=== PATIENT | male | born 1945 | race Caucasian/White ===

== ENCOUNTER 2017-05-05 14:26 | Observation (INO) | payer MEDICARE, OTHER ==
[2017-05-05] MEDS: NORMAL SALINE 1000 ML 1,000 ML IV PRN (15:36)
[2017-05-05 16:26] LABS: HEMATOCRIT 40.5 % (37.9-51.0); HEMOGLOBIN 13.5 g/dL (13.5-17.0); MEAN CORPUSCULAR HEMOGLOBIN 29.6 pg (27.0-33.4); MEAN CORPUSCULAR HGB CONC 33.4 g/dL (32.0-36.0); MEAN CORPUSCULAR VOLUME 89 fl (80-97); RED BLOOD COUNT 4.56 10^6/uL (4.35-5.55); RED CELL DISTRIBUTION WIDTH 14.5 % (11.5-14.0); WHITE BLOOD COUNT 7.7 10^3/uL (4.0-10.5)
[2017-05-05 16:41] LABS: ALANINE AMINOTRANSFERASE 37 U/L (21-72); ALBUMIN 4.1 g/dL (3.5-5.0); ALKALINE PHOSPHATASE 75 U/L (38-126); ANION GAP 11 (5-19); ASPARTATE AMINO TRANSFERASE 28 U/L (17-59); BILIRUBIN,DIRECT 0.4 mg/dL (0.0-0.4); BILIRUBIN,TOTAL 0.6 mg/dL (0.2-1.3); BLOOD UREA NITROGEN 39 mg/dL (7-20); CALCIUM 9.2 mg/dL (8.4-10.2); CARBON DIOXIDE 28 mmol/L (22-30); CHLORIDE 102 mmol/L (98-107); CREATINE KINASE 86 U/L (55-170); CREATININE RESULT 2.34 mg/dL (0.52-1.25); GLUCOSE 100 mg/dL (75-110); POTASSIUM 4.2 mmol/L (3.6-5.0); SODIUM 141.3 mmol/L (137-145); TOTAL PROTEIN 7.1 g/dL (6.3-8.2)
--- NOTE | 2017-05-05 16:46 | EKG REPORT ---
SEVERITY:- BORDERLINE ECG - INCOMPLETE ANALYSIS DUE TO MISSING DATA IN PRECORDIAL LEAD(S) SINUS TACHYCARDIA BORDERLINE INFERIOR Q WAVES : Confirmed by: Ariella Mcconnell MD 05-May-2017 16:45:06
[2017-05-05 16:50] LABS: CREATINE KINASE MB 1.07 ng/mL (<4.55)
[2017-05-05 16:54] LABS: TROPONIN I < 0.012 ng/mL
[2017-05-05 17:10] LABS: THYROID STIMULATING HORMONE 14.6 uIU/mL (0.47-4.68)
[2017-05-05] MEDS ORDERED: DEXTROSE 50%-WATER 25 GM/50 ML DISP.SYRIN IV PRN ×2 (17:54)
[2017-05-05] MEDS ORDERED: DEXTROSE 40% GEL 15 GM TUBE PO PRN ×2 (17:54)
[2017-05-05] MEDS ORDERED: INSULIN LISPRO 100 UNIT/ML 3 ML VIAL SUBCUT PRN (17:54)
[2017-05-05] MEDS ORDERED: GLUCAGON,HUMAN RECOMB 1 MG INJ IM PRN (17:54)
[2017-05-05] MEDS ORDERED: (PENDING PHARMACY ID) (Rizatriptan Benzoate [Maxalt] 10 MG) PO PRN (18:05)
[2017-05-05] MEDS ORDERED: ALPRAZOLAM 0.5 MG TABLET PO PRN (18:15)
[2017-05-05] MEDS ORDERED: ALBUTEROL SULFATE HFA (90 MCG/PUFF) 200 PUFF/8.5 GM MDI IH PRN (18:45)
--- NOTE | 2017-05-05 20:23 | RADIOLOGY REPORT (SQ) ---
EXAM DESCRIPTION: CHEST SINGLE VIEW COMPLETED DATE/TIME: 05/05/2017 6:55 pm REASON FOR STUDY: hypotension, shortness of breath COMPARISON: May 2016 EXAM PARAMETERS: NUMBER OF VIEWS: One view. TECHNIQUE: Single frontal radiographic view of the chest acquired. RADIATION DOSE: NA LIMITATIONS: None. FINDINGS: LUNGS AND PLEURA: No opacities, masses or pneumothorax. No pleural effusion. MEDIASTINUM AND HILAR STRUCTURES: No masses. Contour normal. HEART AND VASCULAR STRUCTURES: Cardiac silhouette remains enlarged and is unchanged in configuration. BONES: No acute findings. HARDWARE: None in the chest. OTHER: No other significant finding. IMPRESSION: No significant interval change. No acute changes. Cardiomegaly. Other findings as not ed above TECHNICAL DOCUMENTATION: JOB ID: [id number]
--- NOTE | 2017-05-05 21:22 | PDOC H&P ---
History of Present Illness Admission Date/PCP: 05/05/17 14:26 SILVANO JORDAN MD History of Present Illness: YA PETTIT is a 71 year old male,He came to the office today because of severe low blood pressure, patient recorded blood pressure of 65 systolic. In the office he was evaluated the blood pressure recorded was 90 systolic. He was admitted directly from the office into the hospital patient denies taking mistakenly to my medication for the control of the blood pressure, the blood work that was done showed serum creatinine of 2.34, the serum creatinine from about 10 days ago was 1.7, clearly patient sustained acute kidney injury probably ATN due to low blood pressure. Patient spouse indicated to me that yesterday he took Viagra before his blood pressure dropped to 60 systolic but she did not want me to tell the patient that she told me that he took Viagra.. Past Medical History Cardiac Medical History: Reports: Hyperlipidema, Hypertension Pulmonary Medical History: Reports: Asthma, Sleep Apnea Endocrine Medical History: Reports: Diabetes Mellitus Type 2, Hypothyroidism, Obesity GI Medical History: Reports: Gastroesophageal Reflux Disease Musculoskeltal Medical History: Reports: Arthritis Psychiatric Medical History: Reports: Depression Past Surgical History Past Surgical History: Reports: Appendectomy, Cardiac Catheterization, Orthopedic Surgery - bilat arm fx, bilat rotator cuff, Tonsillectomy Social History Smoking Status: Former Smoker Number of Years Smokin Last Time Smoked: 1979 Frequency of Alcohol Use: None Hx Recreational Drug Use: No Hx Prescription Drug Abuse: No Family History Family History: Reviewed & Not Pertinent Parental Family History Reviewed: Yes Children Family History Reviewed: Yes Sibling(s) Family History Reviewed.: Yes Medication/Allergy Home Medications: Albuterol Sulfate [Ventolin Hfa] 2 puff IH Q4HP PRN 05/05/17 Alprazolam [Xanax] 2 mg PO HSP PRN 05/05/17 Aspirin [Aspirin EC] 81 mg PO DAILY 05/05/17 Atorvastatin Calcium [Lipitor 40 mg Tablet] 40 mg PO QHS 05/05/17 Duloxetine HCl [Cymbalta] 60 mg PO DAILY 05/05/17 Duloxetine HCl [Cymbalta] 60 mg PO QPM 05/05/17 Ergocalciferol (Vitamin D2) [Vitamin D2] 50,000 unit PO WALLIS@1000 05/05/17 Glipizide [Glucotrol 10 mg Tablet] 10 mg PO DAILY 05/05/17 Glipizide [Glucotrol 10 mg Tablet] 10 mg PO QPM 05/05/17 Levothyroxine Sodium [Synthroid] 150 mcg PO QAM 05/05/17 Lorazepam 2 mg PO QHS 05/05/17 Metformin HCl [Glucophage 500 mg Tablet] 1,000 mg PO QPM 05/05/17 Metformin HCl [Glucophage 500 mg Tablet] 500 mg PO DAILY 05/05/17 Olmesartan Medoxomil [Benicar] 20 mg PO DAILY 05/05/17 Omeprazole 40 mg PO WSUPPER 05/05/17 Pioglitazone HCl [Actos 15 mg Tablet] 15 mg PO DAILY 05/05/17 Pramipexole Di-HCl [Pramipexole Dihydrochloride] 1.5 mg PO DAILY 05/05/17 Pramipexole Di-HCl [Pramipexole Dihydrochloride] 1.5 mg PO WSUPPER 05/05/17 Rizatriptan Benzoate [Maxalt] 10 mg PO DAILYP PRN 05/05/17 Tiotropium [place] [Spiriva] 1 cap IH DAILY 05/05/17 Allergies/Adverse Reactions: No Known Allergies Allergy (Verified 11/08/14 19:58) Review of Systems Constitutional: ABSENT: chills, fever(s), headache(s), weight gain, weight loss Eyes: ABSENT: visual disturbances Ears: ABSENT: hearing changes Cardiovascular: ABSENT: chest pain, dyspnea on exertion, edema, orthropnea, palpitations Respiratory: ABSENT: cough, hemoptysis Gastrointestinal: ABSENT: abdominal pain, constipation, diarrhea, hematemesis, hematochezia, nausea, vomiting Genitourinary: ABSENT: dysuria, hematuria Musculoskeletal: ABSENT: joint swelling Integumentary: ABSENT: rash, wounds Neurological: ABSENT: abnormal gait, abnormal speech, confusion, dizziness, focal weakness, syncope Psychiatric: ABSENT: anxiety, depression, homidical ideation, suicidal ideation Endocrine: ABSENT: cold intolerance, heat intolerance, menstrual abnormalities, polydipsia, polyuria Hematologic/Lymphatic: ABSENT: easy bleeding, easy bruising, lymphadenopathy Physical Exam Vital Signs: Temp Pulse Resp BP Pulse Ox 97.9 F 100 20 98/64 L 97 05/05/17 19:59 05/05/17 19:59 05/05/17 19:59 05/05/17 19:59 05/05/17 19:59 Intake & Output 05/04/17 05/05/17 05/06/17 06:59 06:59 06:59 Intake Total 1089 Balance 1089 Weight 149.8 kg General appearance: PRESENT: no acute distress, obese, well-developed, well- nourished Head exam: PRESENT: atraumatic, normocephalic Eye exam: PRESENT: conjunctiva pink, EOMI, PERRLA Ear exam: PRESENT: normal external ear exam Mouth exam: PRESENT: moist, tongue midline Neck exam: PRESENT: full ROM Respiratory exam: PRESENT: clear to auscultation milena Cardiovascular exam: PRESENT: +S1, +S2 Vascular exam: PRESENT: normal capillary refill GI/Abdominal exam: PRESENT: normal bowel sounds, soft Rectal exam: PRESENT: deferred Neurological exam: PRESENT: alert, awake, oriented to person, oriented to place , oriented to time, oriented to situation, CN II-XII grossly intact Psychiatric exam: PRESENT: appropriate affect, normal mood Skin exam: PRESENT: dry, intact, warm Results Laboratory Results: 05/05/17 16:10 05/05/17 16:10 05/05/17 05/05/17 05/05/17 16:10 16:10 16:10 WBC 7.7 RBC 4.56 Hgb 13.5 Hct 40.5 MCV 89 MCH 29.6 MCHC 33.4 RDW 14.5 H Plt Count 195 Sodium 141.3 Potassium 4.2 Chloride 102 Carbon Dioxide 28 Anion Gap 11 BUN 39 H Creatinine 2.34 H Est GFR ( Amer) 33 L Est GFR (Non-Af Amer) 27 L Glucose 100 Calcium 9.2 Total Bilirubin 0.6 AST 28 ALT 37 Alkaline Phosphatase 75 Total Protein 7.1 Albumin 4.1 TSH 14.60 H Free T4 1.07 05/05/17 05/05/17 16:10 16:10 Creatine Kinase 86 CK-MB (CK-2) 1.07 Troponin I < 0.012 NT-Pro-B Natriuret Pep 35 Impressions: Chest X-Ray 05/05/17 00:00 IMPRESSION: No significant interval change. No acute changes. Cardiomegaly. Other findings as noted above Assessment & Plan - Diagnosis (1) Hypotension Qualifiers: Hypotension type: hypotension due to drug Qualified Code(s): I95.2 - Hypotension due to drugs Is this a current diagnosis for this admission?: Yes Plan: The low blood pressure is most likely related to the medication, Viagra (2) Acute kidney injury Is this a current diagnosis for this admission?: Yes Plan: He sustained acute kidney injury due to ATN from low blood pressure (3) Acute tubular necrosis Is this a current diagnosis for this admission?: Yes (4) Morbid obesity due to excess calories Is this a current diagnosis for this admission?: Yes
[2017-05-05] MEDS ORDERED: LORAZEPAM 1 MG TABLET PO SCH (22:00)
[2017-05-05] MEDS ORDERED: ATORVASTATIN CALCIUM 40 MG TABLET PO SCH (22:00)
[2017-05-05] MEDS ORDERED: (PENDING PHARMACY ID) (Lorazepam [Lorazepam] 2 MG) PO SCH (22:00)
[2017-05-05 22:26] LABS: APPEARANCE,URINE SLIGHTLY-CLOUDY; BILIRUBIN,URINE NEGATIVE (NEGATIVE); GLUCOSE, URINE NEGATIVE (NEGATIVE); KETONES,URINE NEGATIVE (NEGATIVE); LEUKOCYTE ESTERASE,URINE NEGATIVE (NEGATIVE); NITRITE,URINE NEGATIVE (NEGATIVE); PROTEIN,URINE 30 mg/dL (NEGATIVE); URINE SPECIFIC GRAVITY 1.016
[2017-05-05 23:43] LABS: TROPONIN I < 0.012 ng/mL
[2017-05-06] MEDS: NORMAL SALINE 1000 ML 1,000 ML IV PRN ×2 (00:56→11:52)
--- NOTE | 2017-05-06 07:18 | RADIOLOGY REPORT (SQ) ---
EXAM DESCRIPTION: U/S RETROPERITON (RENAL/AORTA) COMPLETED DATE/TIME: 05/06/2017 7:05 am REASON FOR STUDY: acute kidney injury E66.09 OTHER OBESITY DUE TO EXCESS CALORIES I95.9 HYPOTENSI ON, UNSPECIFIED E03.9 HYPOTHYROIDISM, UNSPECIFIED COMPARISON: 12.27.15 TECHNIQUE: Dynamic and static grayscale images acquired of the kidneys and bladder and recorded on P ACS. Additional selected color Doppler and spectral images recorded. LIMITATIONS: As below. FINDINGS: RIGHT KIDNEY: Not visualized likely due to body habitus. LEFT KIDNEY: Normal size, 11.5 cm. Normal echogenicity. No solid or suspicious masses. No hydronephr osis. No calcifications. BLADDER: No masses. Patient voided prior to exam. Urinary jet flow not demonstrated. Urinary bladd er appears unremarkable. OTHER FINDINGS: No other significant finding. IMPRESSION: Right kidney is not visualized probably due to body habitus. Else, unremarkable renal s onogram. TECHNICAL DOCUMENTATION: JOB ID: [id number] [employer]- All Rights Reserved
[2017-05-06] MEDS ORDERED: LEVOTHYROXINE SODIUM 0.15 MG TABLET PO SCH (08:00)
[2017-05-06 08:17] LABS: CREATINE KINASE MB 1.28 ng/mL (<4.55)
[2017-05-06 08:24] LABS: TROPONIN I < 0.012 ng/mL
[2017-05-06 08:35] LABS: ALANINE AMINOTRANSFERASE 30 U/L (21-72); ALBUMIN 3.8 g/dL (3.5-5.0); ALKALINE PHOSPHATASE 76 U/L (38-126); ANION GAP 11 (5-19); ASPARTATE AMINO TRANSFERASE 26 U/L (17-59); BILIRUBIN,DIRECT 0.5 mg/dL (0.0-0.4); BILIRUBIN,TOTAL 0.6 mg/dL (0.2-1.3); BLOOD UREA NITROGEN 39 mg/dL (7-20); CALCIUM 8.6 mg/dL (8.4-10.2); CARBON DIOXIDE 28 mmol/L (22-30); CHLORIDE 103 mmol/L (98-107); CREATININE RESULT 2.03 mg/dL (0.52-1.25); GLUCOSE 94 mg/dL (75-110); SODIUM 141.8 mmol/L (137-145); TOTAL PROTEIN 6.4 g/dL (6.3-8.2)
[2017-05-06] MEDS ORDERED: METFORMIN HCL 500 MG TABLET PO SCH ×2 (10:00→18:00)
[2017-05-06] MEDS ORDERED: GLIPIZIDE 10 MG TABLET PO SCH ×2 (10:00→18:00)
[2017-05-06] MEDS ORDERED: PRAMIPEXOLE DI-HCL 0.5 MG TABLET PO SCH (10:00)
[2017-05-06] MEDS ORDERED: (PENDING PHARMACY ID) (Olmesartan Medoxomil [Benicar] 20 MG) PO SCH (10:00)
[2017-05-06] MEDS ORDERED: ASPIRIN 81 MG TABLET, ENT COATED PO SCH (10:00)
[2017-05-06] MEDS ORDERED: PIOGLITAZONE HCL 15 MG TABLET PO SCH (10:00)
[2017-05-06] MEDS ORDERED: TIOTROPIUM BROMIDE DPI 5 CAP/KIT (18 MCG/CAP) IH SCH (10:00)
[2017-05-06] MEDS ORDERED: LOSARTAN POTASSIUM 50 MG TABLET PO SCH (10:00)
[2017-05-06] MEDS ORDERED: (PENDING PHARMACY ID) (Pramipexole Di-Hcl [Pramipexole Dihydrochloride] 1.5 MG) PO SCH ×2 (10:00→17:00)
[2017-05-06] MEDS ORDERED: DULOXETINE HCL 30 MG CAPSULE.DR PO SCH ×2 (10:00→18:00)
[2017-05-06 16:06] LABS: ALANINE AMINOTRANSFERASE 33 U/L (21-72); ALKALINE PHOSPHATASE 77 U/L (38-126); ANION GAP 9 (5-19); ASPARTATE AMINO TRANSFERASE 28 U/L (17-59); BILIRUBIN,DIRECT 0.4 mg/dL (0.0-0.4); BILIRUBIN,TOTAL 0.7 mg/dL (0.2-1.3); BLOOD UREA NITROGEN 37 mg/dL (7-20); CALCIUM 8.8 mg/dL (8.4-10.2); CARBON DIOXIDE 31 mmol/L (22-30); CHLORIDE 102 mmol/L (98-107); CREATININE RESULT 1.78 mg/dL (0.52-1.25); GLUCOSE 91 mg/dL (75-110); POTASSIUM 4.7 mmol/L (3.6-5.0); SODIUM 142.3 mmol/L (137-145); TOTAL PROTEIN 6.7 g/dL (6.3-8.2)
--- NOTE | 2017-05-06 16:20 | PDOC DISCHARGE SUMMARY ---
General - Admit/Disc Date/PCP Admission Date/Primary Care Provider: 05/05/17 14:26 SILVANO JORDAN MD Discharge Date: 05/06/17 - Discharge Diagnosis (1) Hypotension Is this a current diagnosis for this admission?: Yes (2) Acute kidney injury Is this a current diagnosis for this admission?: Yes (3) Acute tubular necrosis Is this a current diagnosis for this admission?: Yes (4) Morbid obesity due to excess calories Is this a current diagnosis for this admission?: Yes - Additional Information Discharge Activity: Activity As Tolerated Home Medications: RX: Albuterol Sulfate [Ventolin Hfa] 2 puff IH Q4HP PRN 05/05/17 RX: Alprazolam [Xanax] 2 mg PO HSP PRN 05/05/17 RX: Aspirin [Aspirin EC] 81 mg PO DAILY 05/05/17 RX: Atorvastatin Calcium [Lipitor 40 mg Tablet] 40 mg PO QHS 05/05/17 RX: Duloxetine HCl [Cymbalta] 60 mg PO DAILY 05/05/17 RX: Duloxetine HCl [Cymbalta] 60 mg PO QPM 05/05/17 RX: Ergocalciferol (Vitamin D2) [Vitamin D2] 50,000 unit PO WALLIS@1000 05/05/17 RX: Glipizide [Glucotrol 10 mg Tablet] 10 mg PO DAILY 05/05/17 RX: Glipizide [Glucotrol 10 mg Tablet] 10 mg PO QPM 05/05/17 RX: Levothyroxine Sodium [Synthroid] 150 mcg PO QAM 05/05/17 RX: Lorazepam 2 mg PO QHS 05/05/17 RX: Metformin HCl [Glucophage 500 mg Tablet] 1,000 mg PO QPM 05/05/17 RX: Metformin HCl [Glucophage 500 mg Tablet] 500 mg PO DAILY 05/05/17 RX: Olmesartan Medoxomil [Benicar] 20 mg PO DAILY 05/05/17 RX: Omeprazole 40 mg PO WSUPPER 05/05/17 RX: Pioglitazone HCl [Actos 15 mg Tablet] 15 mg PO DAILY 05/05/17 RX: Pramipexole Di-HCl [Pramipexole Dihydrochloride] 1.5 mg PO DAILY 05/05/17 RX: Pramipexole Di-HCl [Pramipexole Dihydrochloride] 1.5 mg PO WSUPPER 05/05/17 RX: Rizatriptan Benzoate [Maxalt] 10 mg PO DAILYP PRN 05/05/17 RX: Tiotropium [place] [Spiriva] 1 cap IH DAILY 05/05/17 History of Present Illness History of Present Illness: YA PETTIT is a 71 year old male,He came to the office today because of severe low blood pressure, patient recorded blood pressure of 65 systolic. In the office he was evaluated the blood pressure recorded was 90 systolic. He was admitted directly from the office into the hospital patient denies taking mistakenly to my medication for the control of the blood pressure, the blood work that was done showed serum creatinine of 2.34, the serum creatinine from about 10 days ago was 1.7, clearly patient sustained acute kidney injury probably ATN due to low blood pressure. Patient spouse indicated to me that yesterday he took Viagra before his blood pressure dropped to 60 systolic but she did not want me to tell the patient that she told me that he took Viagra.. Hospital Course Hospital Course: Patient was admitted for the management of hypotension associated with acute kidney injury due to acute tubular necrosis. He was treated with IV fluid normal saline, the kidney function improve, it was nonoliguric, the last serum creatinine was 1.78 Physical Exam Vital Signs: Temp Pulse Resp BP Pulse Ox 98.2 F 89 22 H 108/66 97 05/06/17 11:47 05/06/17 11:47 05/06/17 11:47 05/06/17 11:47 05/06/17 11:47 Intake & Output 05/05/17 05/06/17 05/07/17 06:59 06:59 06:59 Intake Total 3299 Balance 3299 Weight 149.8 kg 149.8 kg General appearance: PRESENT: no acute distress, obese, well-developed, well- nourished Head exam: PRESENT: atraumatic, normocephalic Eye exam: PRESENT: conjunctiva pink, EOMI, PERRLA. ABSENT: scleral icterus Ear exam: PRESENT: normal external ear exam Mouth exam: PRESENT: moist, tongue midline Neck exam: PRESENT: full ROM Respiratory exam: PRESENT: clear to auscultation milena Cardiovascular exam: PRESENT: RRR, +S1, +S2 Pulses: PRESENT: normal dorsalis pedis pul, +2 pedal pulses bilateral Vascular exam: PRESENT: normal capillary refill GI/Abdominal exam: PRESENT: normal bowel sounds, soft Rectal exam: PRESENT: deferred Neurological exam: PRESENT: alert, awake, oriented to person, oriented to place , oriented to time, oriented to situation, CN II-XII grossly intact Psychiatric exam: PRESENT: appropriate affect, normal mood Skin exam: PRESENT: dry, intact, warm. ABSENT: cyanosis, rash Results Laboratory Results: 05/05/17 16:10 05/06/17 15:30 05/05/17 05/05/17 05/05/17 16:10 16:10 16:10 WBC 7.7 RBC 4.56 Hgb 13.5 Hct 40.5 MCV 89 MCH 29.6 MCHC 33.4 RDW 14.5 H Plt Count 195 Sodium 141.3 Potassium 4.2 Chloride 102 Carbon Dioxide 28 Anion Gap 11 BUN 39 H Creatinine 2.34 H Est GFR ( Amer) 33 L Est GFR (Non-Af Amer) 27 L Glucose 100 Calcium 9.2 Total Bilirubin 0.6 AST 28 ALT 37 Alkaline Phosphatase 75 Total Protein 7.1 Albumin 4.1 TSH 14.60 H Free T4 1.07 Urine Color Urine Appearance Urine pH Ur Specific [place] Urine Protein Urine Glucose (UA) Urine Ketones Urine Blood Urine Nitrite Ur Leukocyte Esterase Urine WBC (Auto) Urine RBC (Auto) 05/05/17 05/06/17 05/06/17 22:00 07:20 15:30 WBC RBC Hgb Hct MCV MCH MCHC RDW Plt Count Sodium 141.8 142.3 Potassium 4.0 4.7 Chloride 103 102 Carbon Dioxide 28 31 H Anion Gap 11 9 BUN 39 H 37 H Creatinine 2.03 H 1.78 H Est GFR ( Amer) 39 L 46 L Est GFR (Non-Af Amer) 32 L 38 L Glucose 94 91 Calcium 8.6 8.8 Total Bilirubin 0.6 0.7 AST 26 28 ALT 30 33 Alkaline Phosphatase 76 77 Total Protein 6.4 6.7 Albumin 3.8 4.0 TSH Free T4 Urine Color YELLOW Urine Appearance SLIGHTLY-CLOUDY Urine pH 5.0 Ur Specific [place] 1.016 Urine Protein 30 H Urine Glucose (UA) NEGATIVE Urine Ketones NEGATIVE Urine Blood NEGATIVE Urine Nitrite NEGATIVE Ur Leukocyte Esterase NEGATIVE Urine WBC (Auto) 2 Urine RBC (Auto) 1 05/05/17 05/05/17 05/05/17 16:10 16:10 23:00 Creatine Kinase 86 107 CK-MB (CK-2) 1.07 Troponin I < 0.012 NT-Pro-B Natriuret Pep 35 05/05/17 05/06/17 05/06/17 23:00 07:20 07:20 Creatine Kinase 119 CK-MB (CK-2) 1.20 1.28 Troponin I < 0.012 < 0.012 NT-Pro-B Natriuret Pep Impressions: Chest X-Ray 05/05/17 00:00 IMPRESSION: No significant interval change. No acute changes. Cardiomegaly. Other findings as noted above Renal Ultrasound 05/06/17 00:00 IMPRESSION: Right kidney is not visualized probably due to body habitus. Else , unremarkable renal sonogram.
[2017-05-06 16:54] VITALS: BP 119/91
[2017-05-06] MEDS ORDERED: LANSOPRAZOLE 30 MG TAB.RAP.DR PO SCH (17:00)
--- NOTE | 2017-05-06 19:24 | XCELERA REPORT ---
[address] [address] Transthoracic Echocardiogram Report Name: YA PETTIT Age: 71 yrs Gender: Male : 1945 Patient Status: Inpatient Patient Location: [address] [place] [address] Study Date: 05/06/2017 09:24 AM Height: 71 in Weight: 330 lb BSA: 2.6 m2 Procedure: A complete two-dimensional transthoracic echocardiogram was performed (2D, M-mode, spectral and color flow Doppler). The study was technically difficult with many images being suboptimal in quality. Reason For Study: UNEXPLAINED HYPOTENSION Ordering Physician: SILVANO JORDAN Performed By: Teagan Gomez Interpretation Summary The study was technically difficult with many images being suboptimal in quality. The left ventricular ejection fraction is preserved. Consider additional methods to assess LVEF such as MUGA scan, CTA heart, cardiac MRI, CACHORRO, etc. if clinically indicated. There is mild concentric left ventricular hypertrophy. The left ventricle is grossly normal size. Doppler measurements suggest pseudonormalized left ventricular relaxation, which is associated with grade II/IV or mild to moderate diastolic dysfunction Regional wall motion abnormalities cannot be excluded due to limited visualization. The right ventricle is moderately dilated. Right ventricular function cannot be assessed due to poor image quality. The left atrium is mildly dilated. The right atrium is mild to moderately dilated. There is a trace amount of mitral regurgitation There is no mitral valve stenosis. No aortic regurgitation is present. There is no aortic valve stenosis There is a trace or physiologic amount of tricuspid regurgitation Tricuspid regurgitation jet envelope not well defined to measure RV systolic pressure accurately. The aortic root is not well visualized. The inferior vena cava was not well visualized Small pericardial effusion. There are no echocardiographic or Doppler indications for cardiac tamponade MMode/2D Measurements & Calculations RVDd: 4.3 cm LVIDd: 4.5 cm FS: 28.3 % Ao root diam: 3.7 cm IVSd: 1.1 cm LVIDs: 3.2 cm EDV(Teich): 93.6 ml LVPWd: 1.2 cm ESV(Teich): 42.3 ml Ao root area: 10.7 cm2 EF(Teich): 54.9 % Doppler Measurements & Calculations MV E max eunice: MV dec slope: Ao V2 max: LV V1 max P.4 cm/sec 160.2 cm/sec 5.5 mmHg MV A max eunice: 376.3 cm/sec2 Ao max PG: LV V1 max: 98.4 cm/sec MV dec time: 10.3 mmHg 116.9 cm/sec MV E/A: 0.59 0.16 sec PA V2 max: TR max eunice: 100.0 cm/sec 237.0 cm/sec PA max PG: TR max P.5 mmHg 4.0 mmHg Left Ventricle The left ventricle is grossly normal size. There is mild concentric left ventricular hypertrophy. The left ventricular ejection fraction is preserved. Consider additional methods to assess LVEF such as MUGA scan, CTA heart, cardiac MRI, CACHORRO, etc. if clinically indicated. Doppler measurements suggest pseudonormalized left ventricular relaxation, which is associated with grade II/IV or mild to moderate diastolic dysfunction. Regional wall motion abnormalities cannot be excluded due to limited visualization. Right Ventricle The right ventricle is moderately dilated. Right ventricular function cannot be assessed due to poor image quality. Atria The right atrium is mild to moderately dilated. The left atrium is mildly dilated. Interarterial septum not well visualized and not well dopplered. Cannot comment on ASD/PFO presence. Mitral Valve The mitral valve is grossly normal. There is no mitral valve stenosis. There is a trace amount of mitral regurgitation. Aortic Valve The aortic valve is not well visualized secondary to technical limitations. There is no aortic valve stenosis. No aortic regurgitation is present. Tricuspid Valve The tricuspid valve is not well visualized secondary to technical limitations. There is no tricuspid stenosis. There is a trace or physiologic amount of tricuspid regurgitation. Tricuspid regurgitation jet envelope not well defined to measure RV systolic pressure accurately. Pulmonic Valve The pulmonic valve is not well visualized. Great Vessels The aortic root is not well visualized. The inferior vena cava was not well visualized. Effusions Small pericardial effusion. There are no echocardiographic or Doppler indications for cardiac tamponade. : SILVANO JORDAN > [place]
[2017-05-10] MEDS ORDERED: ERGOCALCIFEROL (VITAMIN D2) 50000 UNIT (1.25 MG) CAPSULE PO SCH (10:00)
== END 2017-05-06 17:36 | disposition home or self-care (01) ==
LOC: 3N 14:26
PROVIDERS: ADMIT Internal Medicine; ATTEND Internal Medicine
DX: I95.9 Hypotension, unspecified (principal); N17.0 Acute kidney failure with tubular necrosis; E66.01 Morbid (severe) obesity due to excess calories; Z68.42 Body mass index [BMI] 45.0-49.9, adult; E03.9 Hypothyroidism, unspecified; E11.9 Type 2 diabetes mellitus without complications; K21.9 Gastro-esophageal reflux disease without esophagitis; J45.909 Unspecified asthma, uncomplicated; E78.5 Hyperlipidemia, unspecified; I10 Essential (primary) hypertension; Z79.82 Long term (current) use of aspirin; Z79.899 Other long term (current) drug therapy; Z79.84 Long term (current) use of oral hypoglycemic drugs; Z90.49 Acquired absence of other specified parts of digestive tract; Z87.891 Personal history of nicotine dependence
CPT/HCPCS: 36415 ×2; 84439; 82553 ×2; 82962 ×2; 82550 ×2; 84443; 85027; 80076; 80048; 80053; 81001; 84484 ×2; 85379; 83880; 93306; 71010; 76770; 93005; 93010; G0378 ×2; G0379; A9270 ×8; J3490; J7030 ×2

== ENCOUNTER 2017-09-21 08:54 | Emergency (ER) | payer MEDICARE, OTHER ==
[2017-09-21 09:05] VITALS: BP 117/69
[2017-09-21] MEDS ORDERED: ONDANSETRON 4 MG TAB.RAPDIS PO ONE (09:43)
[2017-09-21] MEDS ORDERED: HYDROCODONE/ACETAMINOPHEN 5-325 MG TABLET PO ONE (09:43)
--- NOTE | 2017-09-21 10:00 | RADIOLOGY REPORT (SQ) ---
EXAM DESCRIPTION: CT FACIAL AREA WITHOUT COMPLETED DATE/TIME: 09/21/2017 9:38 am REASON FOR STUDY: fall COMPARISON: None. TECHNIQUE: Noncontrasted images through the facial bones and orbits windowed for bone and soft tissu e. Additional coronal and sagittal reconstructed images reviewed. All images stored on PACS. All CT scanners at this facility use dose modulation, iterative reconstruction, and/or weight based d osing when appropriate to reduce radiation dose to as low as reasonably achievable (ALARA). [facility]: Dose Right [facility]: CareDose [facility]: Dose Right [facility]: Teradose 4D [facility]: [employer] RADIATION DOSE: CT Rad equipment meets quality standard of care and radiation dose reduction techniq ues were employed. CTDIvol: 30.4 mGy. DLP: 644 mGy-cm. mGy. LIMITATIONS: None. FINDINGS: FACIAL BONES: Nondisplaced fractures of the nasal bone and nasal spine. ORBITS: Intact. No fracture. Symmetric intact globes and retroorbital soft tissues. PARANASAL SINUSES: Clear. No significant mucosal thickening, mass or fluid. No nasal polyps. Maxill breanna sinus outlets are patent. SOFT TISSUES: No mass or edema. INFERIOR BRAIN: Limited view. No acute findings. OTHER: No other significant finding. IMPRESSION: Nondisplaced fractures of the nasal bone and nasal spine. TECHNICAL DOCUMENTATION: JOB ID: [id number] Quality ID # [id number]: Final reports with documentation of one or more dose reduction techniques (e.g., Au tomated exposure control, adjustment of the mA and/or kV according to patient size, use of iterative reconstruction technique) 2010 [employer]- All Rights Reserved
--- NOTE | 2017-09-21 10:01 | RADIOLOGY REPORT (SQ) ---
EXAM DESCRIPTION: CT HEAD WITHOUT COMPLETED DATE/TIME: 09/21/2017 9:38 am REASON FOR STUDY: fall COMPARISON: None. TECHNIQUE: Axial images acquired through the brain without intravenous contrast. Images reviewed wi th bone, brain and subdural windows. Images stored on PACS. All CT scanners at this facility use dose modulation, iterative reconstruction, and/or weight based d osing when appropriate to reduce radiation dose to as low as reasonably achievable (ALARA). [facility]: Dose Right [facility]: CareDose [facility]: Dose Right [facility]: Teradose 4D [facility]: [employer] RADIATION DOSE: CT Rad equipment meets quality standard of care and radiation dose reduction techniq ues were employed. CTDIvol: 64.6 mGy. DLP: 1163 mGy-cm. mGy. LIMITATIONS: None. FINDINGS: VENTRICLES: Normal size and contour. CEREBRUM: No masses. No hemorrhage. No midline shift. No evidence for acute infarction. Normal gra y/white matter differentiation. No areas of low density in the white matter. CEREBELLUM: No masses. No hemorrhage. No alteration of density. No evidence for acute infarction. EXTRAAXIAL SPACES: No fluid collections. No masses. ORBITS AND GLOBE: No intra- or extraconal masses. Normal contour of globe without masses. CALVARIUM: No fracture. PARANASAL SINUSES: No fluid or mucosal thickening. SOFT TISSUES: No mass or hematoma. OTHER: No other significant finding. IMPRESSION: NORMAL BRAIN CT WITHOUT CONTRAST. EVIDENCE OF ACUTE STROKE: NO. COMMENT: Quality ID # [id number]: Final reports with documentation of one or more dose reduction techniques (e.g., Automated exposure control, adjustment of the mA and/or kV according to patient size, use of iterative reconstruction technique) TECHNICAL DOCUMENTATION: JOB ID: [id number] [employer]- All Rights Reserved
--- NOTE | 2017-09-21 10:02 | RADIOLOGY REPORT (SQ) ---
EXAM DESCRIPTION: CT CERVICAL SPINE WITHOUT COMPLETED DATE/TIME: 09/21/2017 9:38 am REASON FOR STUDY: fall COMPARISON: None. TECHNIQUE: Axial images acquired through the cervical spine without intravenous contrast. Images re viewed with lung, soft tissue and bone windows. Reconstructed coronal and sagittal MPR images review ed. Images stored on PACS. All CT scanners at this facility use dose modulation, iterative reconstruction, and/or weight based d osing when appropriate to reduce radiation dose to as low as reasonably achievable (ALARA). [facility]: Dose Right [facility]: CareDose [facility]: Dose Right [facility]: Teradose 4D [facility]: Smart [employer] RADIATION DOSE: CT Rad equipment meets quality standard of care and radiation dose reduction techniq ues were employed. CTDIvol: 28.1 mGy. DLP: 500 mGy-cm. mGy. LIMITATIONS: None. FINDINGS: ALIGNMENT: Anatomic. MINERALIZATION: Normal. VERTEBRAL BODIES: No fractures or dislocation. DISCS: Multilevel disc space narrowing with osteophytes. FACETS, LATERAL MASSES, POSTERIOR ELEMENTS: Facet arthropathy. No fractures. No dislocation. No ac robert findings. HARDWARE: None in the spine. VISUALIZED RIBS: No fractures. LUNG APICES AND SOFT TISSUES: No significant or acute findings. OTHER: No other significant finding. IMPRESSION: CHRONIC DEGENERATIVE CHANGES. NO ACUTE FINDINGS. TECHNICAL DOCUMENTATION: JOB ID: [id number] Quality ID # [id number]: Final reports with documentation of one or more dose reduction techniques (e.g., Au tomated exposure control, adjustment of the mA and/or kV according to patient size, use of iterative reconstruction technique) 2010 [employer]- All Rights Reserved
--- NOTE | 2017-09-21 10:04 | RADIOLOGY REPORT (SQ) ---
EXAM DESCRIPTION: WRIST RIGHT 3 VIEWS COMPLETED DATE/TIME: 09/21/2017 9:49 am REASON FOR STUDY: fall COMPARISON: None. NUMBER OF VIEWS: Three views. TECHNIQUE: AP, lateral, and oblique radiographic images acquired of the right wrist. LIMITATIONS: None. FINDINGS: MINERALIZATION: Normal. BONES: No acute fracture dislocation. Radial carpal degenerative changes. SOFT TISSUES: No soft tissue swelling. No foreign body. OTHER: No other significant finding. IMPRESSION: No acute fracture. TECHNICAL DOCUMENTATION: JOB ID: [id number] [employer]- All Rights Reserved
--- NOTE | 2017-09-21 10:12 | ER Document Report ---
ED General - General Chief Complaint: Fall Stated Complaint: FALL FACIAL INJURIES Time Seen by Provider: 09/21/17 08:59 Mode of Arrival: Medic Information source: Patient Notes: 71-year-old male presents after mechanical fall landing on his face and right wrist. Patient notes that he was stepping on a curb and missed and fell forward landing on his face. He is unsure of any LOC denies any neck pain back pain or chest pain. Patient initially refuses any pain medication TRAVEL OUTSIDE OF THE [place] IN LAST 30 DAYS: No - HPI Onset: Just prior to arrival Onset/Duration: Sudden Quality of pain: Achy Severity: Mild Pain Level: Denies Associated symptoms: Other Exacerbated by: Denies Relieved by: Denies Similar symptoms previously: No Recently seen / treated by doctor: No - Related Data Allergies/Adverse Reactions: No Known Allergies Allergy (Verified 09/21/17 09:08) Past Medical History - Social History Smoking Status: Unknown if Ever Smoked Cigarette use (# per day): No Chew tobacco use (# tins/day): No Smoking Education Provided: No Frequency of alcohol use: None Drug Abuse: None Family History: Reviewed & Not Pertinent Patient has suicidal ideation: No Patient has homicidal ideation: No - Past Medical History Cardiac Medical History: Reports: Hx Hypercholesterolemia, Hx Hypertension Denies: Hx Atrial Fibrillation, Hx Congestive Heart Failure, Hx Coronary Artery Disease, Hx Heart Attack, Hx Peripheral Vascular Disease, Hx Pulmonary Embolism, Hx Heart Murmur Pulmonary Medical History: Reports: Hx Asthma, Hx Sleep Apnea Denies: Hx Bronchitis, Hx COPD, Hx Pneumonia, Hx Respiratory Failure, Hx Tuberculosis Neurological Medical History: Denies: Hx Cerebrovascular Accident, Hx Seizures Endocrine Medical History: Reports: Hx Diabetes Mellitus Type 2, Hx Hypothyroidism Renal/ Medical History: Reports: Hx Benign Prostatic Hyperplasia. Denies: Hx End Stage Renal Disease, Hx Kidney Stones, Hx Peritoneal Dialysis Malignancy Medical History: Denies Hx Lung Cancer GI Medical History: Reports: Hx Gastroesophageal Reflux Disease. Denies: Hx Hepatitis, Hx Hiatal Hernia, Hx Ulcer Musculoskeltal Medical History: Reports Hx Arthritis, Denies Hx Fibromyalgia, Denies Hx Muscular Dystrophy Psychiatric Medical History: Reports: Hx Anxiety, Hx Depression Traumatic Medical History: Denies: Hx Fractures Infectious Medical History: Denies: Hx Hepatitis Past Surgical History: Reports: Hx Abdominal Surgery - exploratory stomach surgery, Hx Appendectomy, Hx Cardiac Catheterization, Hx Orthopedic Surgery - bilat arm fx, bilat rotator cuff, Hx Tonsillectomy. Denies: Hx Bowel Surgery, Hx Cholecystectomy, Hx Coronary Artery Bypass Graft, Hx Gastric Bypass Surgery, Hx Herniorrhaphy, Hx Open Heart Surgery - CHF,NO BLOCKAGE, Hx Pacemaker - Immunizations Immunizations up to date: Yes Hx Diphtheria, Pertussis, Tetanus Vaccination: No Hx Pneumococcal Vaccination: 08/06/12 Review of Systems - Review of Systems Notes: REVIEW OF SYSTEMS: CONSTITUTIONAL : Denies fever, chills, or sweats. Denies recent illness. EENT: admits to facial injury CARDIOVASCULAR: Denies chest pain. Denies palpitations or racing or irregular heart beat. Denies ankle edema. RESPIRATORY: Denies cough, cold, or chest congestion. Denies shortness of breath, difficulty breathing, or wheezing. GASTROINTESTINAL: Denies abdominal pain or distention. Denies nausea, vomiting , or diarrhea. Denies blood in vomitus, stools, or per rectum. Denies black, tarry stools. Denies constipation. GENITOURINARY: Denies difficulty urinating, painful urination, burning, frequency, blood in urine, or discharge. MUSCULOSKELETAL: admits to right wrist pain SKIN: Denies rash, lesions or sores. HEMATOLOGIC : Denies easy bruising or bleeding. LYMPHATIC: Denies swollen, enlarged glands. NEUROLOGICAL: Denies confusion or altered mental status. Denies passing out or loss of consciousness. Denies dizziness or lightheadedness. Denies headache. Denies weakness or paralysis or loss of use of either side. Denies problems with gait or speech. Denies sensory loss, numbness, or tingling. Denies seizures. PSYCHIATRIC: Denies anxiety or stress. Denies depression, suicidal ideation, or homicidal ideation. ALL OTHER SYSTEMS REVIEWED AND NEGATIVE. Dictation was performed using [employer] voice recognition software PHYSICAL EXAMINATION: GENERAL: Obese male well-nourished and in no acute distress. HEAD: facial trauma left eye orbital hematoma EYES: Pupils equal round and reactive to light, extraocular movements intact, sclera anicteric, conjunctiva are normal. ENT: nasal trauma noted NECK: Normal range of motion, supple without lymphadenopathy LUNGS: Breath sounds clear to auscultation bilaterally and equal. No wheezes rales or rhonchi. Patient on nasal cannula HEART: Regular rate and rhythm without murmurs ABDOMEN: Soft, nontender, nondistended abdomen. No guarding, no rebound. No masses appreciated. Musculoskeletal: mild wrist pain on the right NEUROLOGICAL: Cranial nerves grossly intact. Normal speech, normal gait. Normal sensory, motor exams PSYCH: Normal mood, normal affect. SKIN: Mild swelling of the right wrist superficial laceration measuring 6 mm of the thenar eminence on the right Physical Exam - Vital signs Vitals: Temp Pulse Resp BP Pulse Ox 98.5 F 110 H 17 117/69 96 09/21/17 09:03 09/21/17 09:03 09/21/17 09:03 09/21/17 09:03 09/21/17 09:03 Course - Re-evaluation Re-evalutation: 09/21/17 15:58 Patient swelling of the right wrist is consistent with his fall and attempting to grab himself, x-ray was negative patient was put in a cock-up splint nonetheless for comfort. Patient has no snuffbox tenderness, CT head face and neck was performed on the nasal fractures were noted, patient will be given ENT follow-up. Otherwise patient looks well is in no distress and will be given very strict return precautions After performing a Medical Screening Examination, I estimate there is LOW risk for INTRACRANIAL HEMORRHAGE, UNSTABLE SPINE FRACTURE, CENTRAL CORD SYNDROME, CAUDA EQUINA, THORACIC AORTIC DISSECTION, PNEUMOTHORAX, PERFORATED BOWEL, RUPTURED ABDOMINAL AORTIC ANEURYSM, ACUTE TENDON RUPTURE, COMPARTMENT SYNDROME, or OPEN FRACTURE, thus I consider the discharge disposition reasonable. Also, there is no evidence or peritonitis, sepsis, or toxicity. I have reevaluated this patient multiple times and no significant life threatening changes are noted. The patient and I have discussed the diagnosis and risks, and we agree with discharging home to follow-up with their primary doctor with the understanding that symptoms and presentations can change. We also discussed returning to the Emergency Department immediately if new or worsening symptoms occur. We have discussed the symptoms which are most concerning (e.g., bloody stool, fever, changing or worsening pain, vomiting) that necessitate immediate return. - Vital Signs Vital signs: Temp Pulse Resp BP Pulse Ox 98.5 F 110 H 17 117/69 96 09/21/17 09:03 09/21/17 09:03 09/21/17 09:03 09/21/17 09:03 09/21/17 09:03 - Diagnostic Test Radiology reviewed: Image reviewed, Reports reviewed Discharge - Discharge Clinical Impression: Facial injury Qualifiers: Encounter type: initial encounter Qualified Code(s): S09.93XA - Unspecified injury of face, initial encounter Nasal fracture Qualifiers: Encounter type: initial encounter Fracture type: closed Qualified Code(s): S02.2XXA - Fracture of nasal bones, initial encounter for closed fracture Wrist injury Qualifiers: Encounter type: initial encounter Laterality: right Qualified Code(s): S69.91XA - Unspecified injury of right wrist, hand and finger(s), initial encounter Condition: Stable Disposition: HOME, SELF-CARE Instructions: Fracture of the Nose ([facility]) Additional Instructions: Please contact the following office for an appointment tomorrow or returm immediately if there are any other concerns Replaced by [facility] Address: [address] [place] [id number] Prescriptions: Oxycodone HCl/Acetaminophen [Percocet 5-325 mg Tablet] 1 - 2 tab PO Q4H PRN #25 tablet PRN Reason: Referrals: SILVANO JORDAN MD [Primary Care Provider] - Follow up as needed
== END 2017-09-21 11:17 | disposition home or self-care (01) ==
LOC: ER 08:54
DX: S02.2XXA Fracture of nasal bones, initial encounter for closed fracture (principal); S69.91XA Unspecified injury of right wrist, hand and finger(s), initial encounter; S09.93XA Unspecified injury of face, initial encounter; W10.1XXA Fall (on)(from) sidewalk curb, initial encounter
CPT/HCPCS: 99284; 73110; 70450; 70486; 72125; A9270 ×2; S0119

== ENCOUNTER → 2017-10-01 | Outpatient (CLI) | payer MEDICARE, OTHER ==
--- NOTE | 2017-10-01 14:47 | RADIOLOGY REPORT (SQ) ---
EXAM DESCRIPTION: RIBS LEFT W/PA CHEST COMPLETED DATE/TIME: 10/01/2017 1:29 pm REASON FOR STUDY: CHEST PAIN, UNSPECIFIED R07.9 CHEST PAIN, UNSPECIFIED COMPARISON: Chest films 05/21/2016, 05/05/2017 TECHNIQUE: Frontal view of the chest and additional views of the left ribs acquired. NUMBER OF VIEWS: PA chest, left rib detail four views LIMITATIONS: Large patient FINDINGS: FRONTAL CXR: No acute infiltrates. No pleural effusion or pneumothorax. Stable mild card iomegaly. RIBS: Question acute fracture, nondisplaced nonangulated along the anterior left 7th rib. There are old healed anterior left 3rd 4th and 5th rib fractures. OTHER: No other significant finding. IMPRESSION: Question acute fracture, nonangulated nondisplaced anterior left 7th rib COMMENT: SITE OF TRAUMA/COMPLAINT MARKED/STAMP COMPLETED: YES. TECHNICAL DOCUMENTATION: JOB ID: [id number] 2011 [employer]- All Rights Reserved
== END ==
LOC: OD 12:36
PROVIDERS: ATTEND Internal Medicine
DX: R07.9 Chest pain, unspecified (principal)

== ENCOUNTER → 2017-12-16 | Outpatient (CLI) | payer MEDICARE, OTHER ==
--- NOTE | 2017-12-16 16:25 | RADIOLOGY REPORT (SQ) ---
EXAM DESCRIPTION: U/S RETROPERITON (RENAL/AORTA) COMPLETED DATE/TIME: 12/16/2017 4:14 pm REASON FOR STUDY: ACUTE KIDNEY FAILURE, CHRONIC KIDNEY DISEASE N17.9 ACUTE KIDNEY FAILURE, UNSPECIF IED COMPARISON: 05/06/2017 TECHNIQUE: Dynamic and static grayscale images acquired of the kidneys and bladder and recorded on P ACS. Additional selected color Doppler and spectral images recorded. LIMITATIONS: Body habitus. FINDINGS: RIGHT KIDNEY: Not visualized. LEFT KIDNEY: 11.5 cm. Poor visualization of the corticomedullary junction. No obvious hydronephros is. BLADDER: No masses. OTHER FINDINGS: No other significant finding. IMPRESSION: Technically limited study. No obvious hydronephrosis. TECHNICAL DOCUMENTATION: JOB ID: [id number] [employer]- All Rights Reserved Reading location - IP/workstation name: [email or web address]
== END ==
LOC: RAD 15:23
PROVIDERS: ATTEND Internal Medicine Nephrology
DX: N17.9 Acute kidney failure, unspecified (principal); N18.3 Chronic kidney disease, stage 3 (moderate)
CPT/HCPCS: 76770

== ENCOUNTER → 2017-12-22 | Outpatient (CLI) | payer MEDICARE, OTHER ==
[2017-12-22 10:51] LABS: ABSOLUTE EOSINOPHILS # (AUTO) 0.1 10^3/uL (0.0-0.6); ABSOLUTE LYMPHOCYTES (AUTO) 1.6 10^3/uL (0.5-4.7); ABSOLUTE MONOCYTES (AUTO) 0.6 10^3/uL (0.1-1.4); ABSOLUTE NEUT (AUTO) 3.3 10^3/uL (1.7-8.2); BASOPHILS % (AUTO) 0.6 % (0-2); EOSINOPHILS % (AUTO) 1.2 % (0-6); HEMATOCRIT 39.2 % (37.9-51.0); HEMOGLOBIN 12.8 g/dL (13.5-17.0); LYMPHOCYTES % (AUTO) 28.7 % (13-45); MEAN CORPUSCULAR HEMOGLOBIN 29.1 pg (27.0-33.4); MEAN CORPUSCULAR HGB CONC 32.6 g/dL (32.0-36.0); MEAN CORPUSCULAR VOLUME 89 fl (80-97); MONOCYTES % (AUTO) 11.3 % (3-13); PLATELET COUNT 193 10^3/uL (150-450); RED BLOOD COUNT 4.39 10^6/uL (4.35-5.55); SEGMENTED NEUTROPHILS % (AUTO) 58.2 % (42-78); TOTAL CELLS COUNTED % (AUTO) 100 %; WHITE BLOOD COUNT 5.6 10^3/uL (4.0-10.5)
[2017-12-22 11:00] LABS: APPEARANCE,URINE CLEAR; BILIRUBIN,URINE NEGATIVE (NEGATIVE); COLOR,URINE YELLOW; GLUCOSE, URINE NEGATIVE (NEGATIVE); KETONES,URINE NEGATIVE (NEGATIVE); LEUKOCYTE ESTERASE,URINE NEGATIVE (NEGATIVE); NITRITE,URINE NEGATIVE (NEGATIVE); PROTEIN,URINE NEGATIVE (NEGATIVE); URINE SPECIFIC GRAVITY 1.017; UROBILINOGEN,URINE NEGATIVE mg/dL (<2.0)
[2017-12-22 11:15] LABS: ALBUMIN 4.1 g/dL (3.5-5.0); ANION GAP 14 (5-19); BLOOD UREA NITROGEN 20 mg/dL (7-20); CALCIUM 9.8 mg/dL (8.4-10.2); CARBON DIOXIDE 32 mmol/L (22-30); CHLORIDE 105 mmol/L (98-107); GLUCOSE 91 mg/dL (75-110); PHOSPHORUS 3.6 mg/dL (2.5-4.5); POTASSIUM 4.8 mmol/L (3.6-5.0); SODIUM 151.4 mmol/L (137-145); URIC ACID 7.8 mg/dL (3.5-8.5)
[2017-12-23 12:38] LABS: CREATININE URINE 119.4 mg/dL (Not Estab.); MICROALBUMIN URINE 24.9 ug/mL (Not Estab.)
== END ==
LOC: OD 10:06
PROVIDERS: ATTEND Internal Medicine Nephrology
DX: E11.22 Type 2 diabetes mellitus with diabetic chronic kidney disease (principal); N18.3 Chronic kidney disease, stage 3 (moderate); D64.9 Anemia, unspecified; N17.9 Acute kidney failure, unspecified
CPT/HCPCS: 36415; 80048; 81001; 82040; 82043; 82306; 82570; 83970; 84100; 84550; 85025

== ENCOUNTER → 2018-04-06 | Outpatient (CLI) | payer MEDICARE, OTHER ==
[2018-04-06 12:22] LABS: ABSOLUTE LYMPHOCYTES (AUTO) 1.7 10^3/uL (0.5-4.7); ABSOLUTE MONOCYTES (AUTO) 0.6 10^3/uL (0.1-1.4); ABSOLUTE NEUT (AUTO) 3.7 10^3/uL (1.7-8.2); BASOPHILS % (AUTO) 0.4 % (0-2); EOSINOPHILS % (AUTO) 0.6 % (0-6); HEMATOCRIT 38.1 % (37.9-51.0); HEMOGLOBIN 12.6 g/dL (13.5-17.0); LYMPHOCYTES % (AUTO) 27.7 % (13-45); MEAN CORPUSCULAR HEMOGLOBIN 29.4 pg (27.0-33.4); MEAN CORPUSCULAR HGB CONC 33.1 g/dL (32.0-36.0); MEAN CORPUSCULAR VOLUME 89 fl (80-97); MONOCYTES % (AUTO) 9.4 % (3-13); PLATELET COUNT 188 10^3/uL (150-450); RED BLOOD COUNT 4.28 10^6/uL (4.35-5.55); RED CELL DISTRIBUTION WIDTH 14.6 % (11.5-14.0); SEGMENTED NEUTROPHILS % (AUTO) 61.9 % (42-78); TOTAL CELLS COUNTED % (AUTO) 100 %
[2018-04-06 12:48] LABS: ANION GAP 13 (5-19); BLOOD UREA NITROGEN 24 mg/dL (7-20); CALCIUM 9.5 mg/dL (8.4-10.2); CARBON DIOXIDE 29 mmol/L (22-30); CHLORIDE 102 mmol/L (98-107); GLUCOSE 97 mg/dL (75-110); IRON(TIBC) 77.9 ug/dL (49-181); POTASSIUM 4.4 mmol/L (3.6-5.0); SODIUM 144.3 mmol/L (137-145)
== END ==
LOC: OD 11:56
PROVIDERS: ATTEND Internal Medicine Nephrology
DX: N18.3 Chronic kidney disease, stage 3 (moderate) (principal); D63.1 Anemia in chronic kidney disease; N25.81 Secondary hyperparathyroidism of renal origin
CPT/HCPCS: 36415; 80048; 82728; 83540; 83550; 83970; 85025

== ENCOUNTER → 2018-07-05 | Outpatient (CLI) | payer MEDICARE, OTHER ==
[2018-07-05 17:42] LABS: ABSOLUTE LYMPHOCYTES (AUTO) 1.7 10^3/uL (0.5-4.7); ABSOLUTE MONOCYTES (AUTO) 0.6 10^3/uL (0.1-1.4); ABSOLUTE NEUT (AUTO) 3.9 10^3/uL (1.7-8.2); BASOPHILS % (AUTO) 0.6 % (0-2); EOSINOPHILS % (AUTO) 0.7 % (0-6); HEMATOCRIT 39.8 % (37.9-51.0); HEMOGLOBIN 13.2 g/dL (13.5-17.0); LYMPHOCYTES % (AUTO) 27.7 % (13-45); MEAN CORPUSCULAR HEMOGLOBIN 29.8 pg (27.0-33.4); MEAN CORPUSCULAR HGB CONC 33.3 g/dL (32.0-36.0); MEAN CORPUSCULAR VOLUME 90 fl (80-97); MONOCYTES % (AUTO) 9.7 % (3-13); PLATELET COUNT 200 10^3/uL (150-450); RED BLOOD COUNT 4.43 10^6/uL (4.35-5.55); RED CELL DISTRIBUTION WIDTH 14.3 % (11.5-14.0); SEGMENTED NEUTROPHILS % (AUTO) 61.3 % (42-78); TOTAL CELLS COUNTED % (AUTO) 100 %; WHITE BLOOD COUNT 6.3 10^3/uL (4.0-10.5)
[2018-07-05 18:09] LABS: ANION GAP 13 (5-19); BLOOD UREA NITROGEN 28 mg/dL (7-20); CALCIUM 9.6 mg/dL (8.4-10.2); CARBON DIOXIDE 32 mmol/L (22-30); CHLORIDE 100 mmol/L (98-107); GLUCOSE 118 mg/dL (75-110); POTASSIUM 4.5 mmol/L (3.6-5.0); SODIUM 145.4 mmol/L (137-145)
[2018-07-07 13:38] LABS: CREATININE URINE 156.8 mg/dL (Not Estab.)
== END ==
LOC: OD 15:51
PROVIDERS: ATTEND Internal Medicine Nephrology
DX: N18.3 Chronic kidney disease, stage 3 (moderate) (principal); N18.9 Chronic kidney disease, unspecified
CPT/HCPCS: 36415; 80048; 82043; 82570; 85025

== ENCOUNTER 2018-08-06 22:12 | Inpatient (IN) | payer MEDICARE, OTHER ==
[2018-08-06] MEDS ORDERED: DIAZEPAM INJ 10 MG/2 ML DISP.SYRIN IV ONE (23:09)
[2018-08-06] MEDS ORDERED: LIDOCAINE 2% INJ-PF (20 MG/ML) 10 ML AMPUL NEB ONE (23:09)
--- NOTE | 2018-08-06 23:12 | ER Document Report ---
ED General - General Chief Complaint: Breathing Difficulty Stated Complaint: SHORTNESS OF BREATH Time Seen by Provider: 08/06/18 22:40 Notes: Patient is a 72-year old male with a past medical history of asthma, pulmonary hypertension, morbid obesity, diabetes, presents with complaints of feeling of throat tightness and shortness of breath that started earlier today and has been progressively worsening since that time. Patient states that he believes he has acquired an upper respiratory infection that his has. States he went down for a nap and then woke up he felt like he was choking with a tickling or scratching sensation in his throat worsened by the obesity around his neck pressing on his throat. He states that he feels better now that he has come here to the emergency department. His does report that he had a panic attack at home and does have a history of severe anxiety. Patient has not seen his primary care physician regarding today's concerns. He denies fever, cough, orthopnea, unilateral leg swelling. No history of DVT or pulmonary embolus. No chest pain. Nothing seems to improve or worsen his symptoms. TRAVEL OUTSIDE OF THE [place] IN LAST 30 DAYS: No - Related Data Allergies/Adverse Reactions: No Known Allergies Allergy (Verified 09/21/17 09:08) Past Medical History - General Information source: Patient, Relative - Social History Smoking Status: Never Smoker Frequency of alcohol use: None Drug Abuse: None Lives with: Spouse/Significant other Family History: Reviewed & Not Pertinent - Past Medical History Cardiac Medical History: Reports: Hx Hypercholesterolemia, Hx Hypertension Denies: Hx Atrial Fibrillation, Hx Congestive Heart Failure, Hx Coronary Artery Disease, Hx Heart Attack, Hx Peripheral Vascular Disease, Hx Pulmonary Embolism, Hx Heart Murmur Pulmonary Medical History: Reports: Hx Asthma, Hx Sleep Apnea Denies: Hx Bronchitis, Hx COPD, Hx Pneumonia, Hx Respiratory Failure, Hx Tuberculosis Neurological Medical History: Denies: Hx Cerebrovascular Accident, Hx Seizures Endocrine Medical History: Reports: Hx Diabetes Mellitus Type 2, Hx Hypothyroidism Renal/ Medical History: Reports: Hx Benign Prostatic Hyperplasia. Denies: Hx End Stage Renal Disease, Hx Kidney Stones, Hx Peritoneal Dialysis Malignancy Medical History: Denies Hx Lung Cancer GI Medical History: Reports: Hx Gastroesophageal Reflux Disease. Denies: Hx Hepatitis, Hx Hiatal Hernia, Hx Ulcer Musculoskeletal Medical History: Reports Hx Arthritis, Denies Hx Fibromyalgia, Denies Hx Muscular Dystrophy Psychiatric Medical History: Reports: Hx Anxiety, Hx Depression Traumatic Medical History: Denies: Hx Fractures Infectious Medical History: Denies: Hx Hepatitis Past Surgical History: Reports: Hx Abdominal Surgery - exploratory stomach surgery, Hx Appendectomy, Hx Cardiac Catheterization, Hx Orthopedic Surgery - b ilat arm fx, bilat rotator cuff, Hx Tonsillectomy. Denies: Hx Bowel Surgery, Hx Cholecystectomy, Hx Coronary Artery Bypass Graft, Hx Gastric Bypass Surgery, Hx Herniorrhaphy, Hx Open Heart Surgery - CHF,NO BLOCKAGE, Hx Pacemaker - Immunizations Immunizations up to date: Yes Hx Diphtheria, Pertussis, Tetanus Vaccination: No Hx Pneumococcal Vaccination: 08/06/12 Review of Systems - Review of Systems Notes: Constitutional: Negative for fever. HENT: Positive for sore throat. Eyes: Negative for visual changes. Cardiovascular: Negative for chest pain. Respiratory: Positive for shortness of breath. Gastrointestinal: Negative for abdominal pain, vomiting or diarrhea. Genitourinary: Negative for dysuria. Musculoskeletal: Negative for back pain. Skin: Negative for rash. Neurological: Negative for headaches, weakness or numbness. 10 point ROS negative except as marked above and in HPI. Physical Exam - Vital signs Vitals: Temp Pulse Resp BP Pulse Ox 99.1 F 128 H 28 H 152/98 H 94 08/06/18 22:15 08/06/18 22:15 08/06/18 22:15 08/06/18 22:15 08/06/18 22:15 Interpretation: Hypertensive, Tachycardic, Tachypneic Notes: PHYSICAL EXAMINATION: GENERAL: Well-appearing, well-nourished and in no acute distress. HEAD: Atraumatic, normocephalic. EYES: Pupils equal round and reactive to light, extraocular movements intact, sclera anicteric, conjunctiva are normal. ENT: nares patent, oropharynx clear without exudates. Moderately dry mucous membranes. NECK: Normal range of motion, supple without lymphadenopathy, no cervical lymphadenopathy, no stridor. LUNGS: Breath sounds clear to auscultation bilaterally and equal. No wheezes rales or rhonchi. HEART: Regular tachycardia without murmurs ABDOMEN: Soft, nontender, normoactive bowel sounds. No guarding, no rebound. No masses appreciated. EXTREMITIES: Normal range of motion, no pitting or edema. No cyanosis. NEUROLOGICAL: No focal neurological deficits. Moves all extremities spontaneously and on command. PSYCH: Normal mood, normal affect. SKIN: Warm, Dry, normal turgor, no rashes or lesions noted. Course - Re-evaluation Re-evalutation: 08/06/18 23:10 Patient presents with a sensation of choking or a scratching in his throat that has been ongoing since mid day. The patient does present as being extremely anxious, uncontrolled with moving his bilateral lower extremities in a shaking fashion which does terminate upon request. The patient does not have any stridor, wheezing, or diminished air movement in a lung field or the upper airway on examination. He is talking at a brisk pace without any apparent difficulty phonating. Handling oral secretions without any difficulty. Initial vitals do show tachycardia but patient's oxygen saturation is within the acceptable limits on his home level of nasal cannula supplementation. The patient does admit to feeling more relaxed now that he is here at the emergency department although states that he does continue to feel like he might have some difficulty breathing. He does have symptoms suggestive of a viral upper respiratory infection which he states that he believes he is acquired from his within the past 24 hours and was apparently placed on azithromycin by his primary care physician today. Very low clinical suspicion for an obstructive upper airway process such as epiglottitis, bacterial tracheitis, posterior pharyngeal exam without any evidence of a peritonsillar abscess or Terrance angina on anterior examination. Will obtain soft tissue neck x-ray, chest x-ray, basic labs, provide a nebulized lidocaine inhaler, low-dose of diazepam and reassess. 08/07/18 02:13 Patient's heart rate has remained elevated into the 120s. Because of this I have proceeded with a CT of the neck as well as a CTA of the chest to exclude pulmonary embolus or any evidence of a soft tissue space infection. Will also give the patient a small amount of IV fluids, 500 cc. Labs otherwise broadly unremarkable. Patient overall states he feels much improved after receiving diazepam and nebulized lidocaine would like to go home. I have advised him that I would like to ensure that his heart rate normalizes prior to discharge and explained my concern for more concerning pathology given his ongoing t achycardia. Patient states understanding is in agreement with proceeding with CTs. 08/07/18 03:02 CT of the neck does show some nonspecific narrowing of the subglottic airway from a nonspecific etiology. There is no evidence of mass or abscess fluid collection. Given the patient's ongoing tachycardia, I have started him on dexamethasone, Unasyn and have discussed with Dr. Huggins who is covering for Dr. Jordan as I believe the patient to be monitored in the hospital. I do not believe he requires transfer for ENT evaluation at this point as he remains otherwise well in appearance without stridor, distress and remains saturations of 95% or greater on his normal 3 L of oxygen supplementation. - Vital Signs Vital signs: Temp Pulse Resp BP Pulse Ox 99.1 F 128 H 21 H 127/82 H 93 08/06/18 22:15 08/06/18 22:15 08/07/18 01:00 08/06/18 23:01 08/07/18 02:02 - Laboratory Result Diagrams: 08/07/18 00:25 08/07/18 01:04 Laboratory results interpreted by me: 08/07/18 08/07/18 00:25 01:04 Hgb 13.3 L RDW 14.7 H Lymphocytes % 9.4 L Sodium 145.6 H Chloride 108 H Carbon Dioxide 31 H BUN 22 H Creatinine 1.40 H Est GFR (Non-Af Amer) 50 L - Diagnostic Test Radiology reviewed: Reports reviewed Discharge - Discharge Clinical Impression: Tachycardia, Throat pain in adult, Inflammation of subglottic region Condition: Fair Disposition: ADMITTED OBSERVATION Admitting Provider: Joseluis Unit Admitted: IMCU Referrals: SILVANO JORDAN MD [Primary Care Provider] - Follow up as needed
--- NOTE | 2018-08-06 23:41 | RADIOLOGY REPORT (SQ) ---
EXAM DESCRIPTION: XR NECK SOFT TISSUE COMPLETED DATE/TME: 08/06/2018 23:08 CLINICAL HISTORY: 72 years, Male, neck pain, choking sensation COMPARISON: None. NUMBER OF VIEWS: 2 TECHNIQUE: 2 view neck using soft tissue technique LIMITATIONS: None. FINDINGS: The epiglottis and aryepiglottic folds are normal. The airway is widely patent. Cartilaginous calcifications are noted. Prevertebral soft tissues are normal. Negative for radiopaque foreign body. Osteopenia. IMPRESSION: The airway is widely patent. Negative for radiopaque foreign body copyright 2010 [employer]- All Rights Reserved
--- NOTE | 2018-08-06 23:42 | RADIOLOGY REPORT (SQ) ---
EXAM DESCRIPTION: XR CHEST 1 VIEW COMPLETED DATE/TME: 08/06/2018 22:41 CLINICAL HISTORY: 72 years, Male, sob COMPARISON: 10/01/2017 chest NUMBER OF VIEWS: 1 TECHNIQUE: Frontal view chest LIMITATIONS: None. FINDINGS: Stable cardiomegaly. Mild elevation right hemidiaphragm. Osteopenia. Lungs are clear. No pneumothorax IMPRESSION: Stable cardiomegaly. Lungs are clear copyright 2011 [employer]- All Rights Reserved
[2018-08-07] MEDS ORDERED: DIAZEPAM INJ 10 MG/2 ML DISP.SYRIN IV ONE (00:23)
[2018-08-07 00:48] LABS: ABSOLUTE BASOPHILS # (AUTO) 0.1 10^3/uL (0.0-0.2); ABSOLUTE LYMPHOCYTES (AUTO) 0.8 10^3/uL (0.5-4.7); ABSOLUTE NEUT (AUTO) 6.5 10^3/uL (1.7-8.2); BASOPHILS % (AUTO) 0.8 % (0-2); EOSINOPHILS % (AUTO) 0.3 % (0-6); HEMATOCRIT 40.1 % (37.9-51.0); HEMOGLOBIN 13.3 g/dL (13.5-17.0); LYMPHOCYTES % (AUTO) 9.4 % (13-45); MEAN CORPUSCULAR HEMOGLOBIN 29.9 pg (27.0-33.4); MEAN CORPUSCULAR HGB CONC 33.1 g/dL (32.0-36.0); MEAN CORPUSCULAR VOLUME 90 fl (80-97); MONOCYTES % (AUTO) 11.9 % (3-13); PLATELET COUNT 189 10^3/uL (150-450); RED BLOOD COUNT 4.44 10^6/uL (4.35-5.55); RED CELL DISTRIBUTION WIDTH 14.7 % (11.5-14.0); SEGMENTED NEUTROPHILS % (AUTO) 77.6 % (42-78); TOTAL CELLS COUNTED % (AUTO) 100 %; WHITE BLOOD COUNT 8.4 10^3/uL (4.0-10.5)
[2018-08-07 01:03] LABS: NT PRO BNP 224 pg/mL (5-900)
[2018-08-07 01:04] LABS: TROPONIN I < 0.012 ng/mL
[2018-08-07 01:32] LABS: ALANINE AMINOTRANSFERASE 37 U/L (21-72); ALBUMIN 4.2 g/dL (3.5-5.0); ALKALINE PHOSPHATASE 70 U/L (38-126); ANION GAP 7 (5-19); ASPARTATE AMINO TRANSFERASE 42 U/L (17-59); BILIRUBIN,DIRECT 0.4 mg/dL (0.0-0.4); BILIRUBIN,TOTAL 0.7 mg/dL (0.2-1.3); BLOOD UREA NITROGEN 22 mg/dL (7-20); CALCIUM 9.7 mg/dL (8.4-10.2); CARBON DIOXIDE 31 mmol/L (22-30); CHLORIDE 108 mmol/L (98-107); GLUCOSE 100 mg/dL (75-110); SODIUM 145.6 mmol/L (137-145)
[2018-08-07] MEDS ORDERED: RINGERS SOLUTION,LACTATED 500 ML IV ONE (02:12)
--- NOTE | 2018-08-07 02:32 | RADIOLOGY REPORT (SQ) ---
EXAM DESCRIPTION: CT CHEST ANGIOGRAPHY WITHOUT THEN WITH IV CONTRAST COMPLETED DATE/TME: 08/07/2018 00:53 CLINICAL HISTORY: 72 years, Male, sob, choking, tachycardia COMPARISON: None. TECHNIQUE: 711 Images stored on PACS. All CT scanners at this facility use dose modulation, iterative reconstruction, and/or weight based dosing when appropriate to reduce radiation dose to as low as reasonably achievable (ALARA). Axial CTA images of the chest with coronal and sagittal MIPS. Reconstructed images were also obtained on a dedicated workstation [facility]: Dose Right [facility]: CareDose [facility]: Dose Right [facility]: Teradose 4D [facility]: Smart [employer] LIMITATIONS: None. FINDINGS: The mediastinal vasculature enhances normally. No intraluminal filling defect to suggest pulmonary embolus. Negative for thoracic aortic aneurysm or dissection. Mediastinal lipomatosis. No mediastinal or hilar adenopathy. Evaluation of the upper abdomen is limited due to patient body habitus. Osseous structures are grossly intact. No pneumothorax. The visualized airways are patent. Lungs are clear. IMPRESSION: Negative for acute intrathoracic process TECHNICAL DOCUMENTATION: Quality ID # [id number]: Final reports with documentation of one or more dose reduction techniques (e.g., Automated exposure control, adjustment of the mA and/or kV according to patient size, use of iterative reconstruction technique) copyright 2010 [employer]- All Rights Reserved
--- NOTE | 2018-08-07 02:40 | RADIOLOGY REPORT (SQ) ---
EXAM DESCRIPTION: CT NECK CHEST WITH IV CONTRAST COMPLETED DATE/TME: 08/07/2018 00:53 CLINICAL HISTORY: 72 years, Male, sob, choking, tachycardia COMPARISON: None. TECHNIQUE: 289 Images stored on PACS. All CT scanners at this facility use dose modulation, iterative reconstruction, and/or weight based dosing when appropriate to reduce radiation dose to as low as reasonably achievable (ALARA). [facility]: Dose Right [facility]: CareDose [facility]: Dose Right [facility]: Teradose 4D [facility]: Prolify LIMITATIONS: None. FINDINGS: Limited evaluation of brain parenchyma is unremarkable. The globes are intact. The visualized parotid and centrilobular glands are unremarkable. No cervical chain adenopathy. The epiglottis and aryepiglottic folds are normal. However, there is a somewhat prominent appearance to the uvula. Increased secretions in the posterior oropharynx and nasopharynx, with a somewhat prominent appearance to the lateral pharyngeal space bilaterally causing mild narrowing of the supraglottic airway. Correlation with physical exam is recommended. There is also circumferential narrowing of the subglottic airway, to the level of the thyroid cartilage. Correlation with direct visualization may be of benefit. No discrete or defined fluid collection, however a small amount of gas is identified anterior to the airway, image numbers 65 through 67 series #5. This could reflect trapped secretions.. IMPRESSION: Nonspecific circumferential narrowing of the subglottic airway, possibly due to an inflammatory or infectious process. Neoplastic entity cannot be excluded entirely and direct visualization is recommended. No discrete or defined abscess. TECHNICAL DOCUMENTATION: Quality ID # 436: Final reports with documentation of one or more dose reduction techniques (e.g., Automated exposure control, adjustment of the mA and/or kV according to patient size, use of iterative reconstruction technique) copyright 2011 [employer]- All Rights Reserved
[2018-08-07] MEDS ORDERED: DEXAMETHASONE SOD PHOS INJ 10 MG/1 ML VIAL IV ONE (02:47)
[2018-08-07] MEDS ORDERED: AMPICILLIN SOD/SULBACTAM 3 GM VIAL IV ONE (03:00)
[2018-08-07] MEDS ORDERED: ACETAMINOPHEN 325 MG TABLET PO PRN (03:11)
[2018-08-07] MEDS ORDERED: NORMAL SALINE 1000 ML 1,000 ML IV PRN (03:11)
[2018-08-07] MEDS ORDERED: DEXTROSE 40% GEL 15 GM TUBE PO PRN ×2 (03:32)
[2018-08-07] MEDS ORDERED: GLUCAGON,HUMAN RECOMB 1 MG INJ IM PRN (03:32)
[2018-08-07] MEDS ORDERED: DEXTROSE 50%-WATER 25 GM/50 ML DISP.SYRIN IV PRN ×2 (03:32)
[2018-08-07] MEDS: DILTIAZEM HCL 30 MG TABLET PO SCH ×4 (05:47→17:03)
[2018-08-07] MEDS ORDERED: DEXAMETHASONE SOD PHOS INJ 10 MG/1 ML VIAL IV SCH ×2 (06:00)
[2018-08-07] MEDS: INSULIN LISPRO 100 UNIT/ML 3 ML VIAL SUBCUT PRN ×4 (08:24→22:09)
[2018-08-07] MEDS ORDERED: AMPICILLIN SODIUM/SULBACTAM NA 3 GM in NORMAL SALINE 100 ML IV SCH (09:00)
[2018-08-07] MEDS ORDERED: FAMOTIDINE INJ/PF 20 MG/2 ML SDV IV SCH (10:00)
[2018-08-07] MEDS ORDERED: CEFTRIAXONE 1 GM/D5W RTU 1 GM/50 ML RTUPB IV SCH (10:00)
[2018-08-07] MEDS: ENOXAPARIN SODIUM INJ 40 MG/0.4 ML DISP.SYRIN SUBCUT SCH (10:09)
[2018-08-07] MEDS: DULOXETINE HCL 30 MG CAPSULE.DR PO SCH ×2 (11:56→22:07)
[2018-08-07] MEDS: CEFTRIAXONE SODIUM 1,000 MG in DEXTROSE 5%-WATER 50 ML IV SCH (11:57)
--- NOTE | 2018-08-07 12:39 | PDOC H&P ---
History of Present Illness Admission Date/PCP: 08/07/18 03:07 SILVANO JORDAN MD Patient complains of: Difficulty in breathing History of Present Illness: YA PETTIT is a 72 year old male This is a 72-year-old patient of Dr. Jordan with a history of the asthma history of the COPD on chronic oxygen currently seeing Dr. Baez history of pulmonary hypertension's history of sleep apnea history of the congestive heart failure morbid obesity and multiple other complications came to the emergency department with a complaint of a throat tightness and shortness of the breath that started earlier today and have progressively worsening since the patient's came to the ER Patient stated that he acquired upper respiratory tract infections from his and patient was sick by himself with a cough and congestion since last several days and patient went down for a nap and then patients feel like he was talking with a trickling or scratching sensation in his throat and patient is unable to breathe In the emergency departments patient had extensive workup done including a CT angiogram was negative for any pulmonary embolisms the order because of the pat ient was tachycardia To have a CT of the soft tissue neck was done so the nonspecific narrowing of t he sub-glottic airways probably nonspecific etiology but no sign of any mass or abscess ER physicians call me and suggest the patient's does not need a ENT evaluation at this point patient's was stable and decided to admit in the hospital for further evaluations Patient was giving the IV dexamethasone and IV antibiotic When I saw the patient on the floor patient is doing better patients denied any chest pain denied any shortness of the breath patient's throat sensation is much better As per discussed with the ENT he will see the patient and suggest to continue to 3 dose of the dexamethasone and IV antibiotic and he will do the laryngoscope Discussed with the patient's pulmonary and he will see the patient Heart rate is currently all stable Past Medical History Cardiac Medical History: Reports: Congestive Heart Failure, Coronary Artery Disease, Hyperlipidema, Hypertension Denies: Atrial Fibrillation, Myocardial Infarction, Peripheral Vascular Dis ease, Pulmonary Embolism, Heart Murmur Pulmonary Medical History: Reports: Asthma, Chronic Obstructive Pulmonary Disease (COPD), Sleep Apnea Denies: Bronchitis, Pneumonia, Respiratory Failure, Tuberculosis Neurological Medical History: Denies: Seizures Endocrine Medical History: Reports: Diabetes Mellitus Type 2, Hypothyroidism Renal/ Medical History: Reports: Chronic Kidney Disease Denies: End Stage Renal Disease Malignancy Medical History: Denies: Lung Cancer GI Medical History: Reports: Gastroesophageal Reflux Disease Denies: Hepatitis, Hiatal Hernia Musculoskeltal Medical History: Reports: Arthritis Denies: Fibromyalgia Psychiatric Medical History: Reports: Depression Hematology: Denies: Anemia, Sickle Cell Disease Past Surgical History Past Surgical History: Reports: Appendectomy, Cardiac Catheterization, O rthopedic Surgery - bilat arm fx, bilat rotator cuff, Tonsillectomy Denies: Cholecystectomy, Coronary Artery Bypass Graft, Gastric Bypass Surgery, Herniorrhaphy, Pacemaker Social History Lives with: Spouse/Significant other Smoking Status: Former Smoker Last Time Smoked: 1979 Frequency of Alcohol Use: Occasional Hx Recreational Drug Use: No Hx Prescription Drug Abuse: No - Advance Directive Resuscitation Status: Full Code Family History Family History: Reviewed & Not Pertinent Parental Family History Reviewed: Yes Children Family History Reviewed: Yes Sibling(s) Family History Reviewed.: Yes Medication/Allergy Home Medications: Duloxetine HCl [Cymbalta] 60 mg PO Q12 08/07/18 Ergocalciferol (Vitamin D2) [Drisdol 50,000 unit (1.25MG) Capsule] 50,000 unit PO MO@1000 08/07/18 Glipizide [Glucotrol 10 mg Tablet] 10 mg PO BID 08/07/18 Levothyroxine Sodium [Synthroid 0.15 mg Tablet] 0.15 mg PO Q6AM 08/07/18 Metformin HCl [Glucophage 500 mg Tablet] 1,000 mg PO BID 08/07/18 Olmesartan/Hydrochlorothiazide [Benicar Hct 40-25 mg Tablet] 1 tab PO DAILY 08/07/18 Pantoprazole Sodium [Protonix] 40 mg PO DAILY 08/07/18 Pioglitazone HCl [Actos 15 mg Tablet] 15 mg PO QAM 08/07/18 Pramipexole Di-HCl [Pramipexole Dihydrochloride] 1.5 mg PO BID 08/07/18 Allergies/Adverse Reactions: No Known Allergies Allergy (Verified 09/21/17 09:08) Review of Systems Constitutional: ABSENT: chills, fever(s), headache(s), weight gain, weight loss Eyes: ABSENT: visual disturbances Ears: ABSENT: hearing changes Cardiovascular: ABSENT: chest pain, dyspnea on exertion, edema, orthropnea, palpitations Respiratory: PRESENT: cough. ABSENT: hemoptysis Gastrointestinal: ABSENT: abdominal pain, constipation, diarrhea, hematemesis, hematochezia, nausea, vomiting Genitourinary: ABSENT: dysuria, hematuria Musculoskeletal: ABSENT: joint swelling Integumentary: ABSENT: rash, wounds Neurological: ABSENT: abnormal gait, abnormal speech, confusion, dizziness, focal weakness, syncope Psychiatric: ABSENT: anxiety, depression, homidical ideation, suicidal ideation Endocrine: ABSENT: cold intolerance, heat intolerance, menstrual abnormalities, polydipsia, polyuria Hematologic/Lymphatic: ABSENT: easy bleeding, easy bruising, lymphadenopathy Physical Exam Vital Signs: Temp Pulse Resp BP Pulse Ox 98.4 F 97 20 139/75 H 97 08/07/18 12:00 08/07/18 12:00 08/07/18 12:00 08/07/18 12:00 08/07/18 12:00 Intake & Output 08/06/18 08/07/18 08/08/18 06:59 06:59 06:59 Intake Total 150 1600 Output Total 125 Balance 25 1600 Weight 162 kg General appearance: PRESENT: no acute distress, morbidly obese, well-developed, well-nourished Head exam: PRESENT: atraumatic, normocephalic Eye exam: PRESENT: conjunctiva pink, EOMI, PERRLA. ABSENT: scleral icterus Ear exam: PRESENT: normal external ear exam Mouth exam: PRESENT: moist, tongue midline Additional comments: No redness Neck exam: PRESENT: full ROM. ABSENT: carotid bruit, JVD, lymphadenopathy, thyromegaly Respiratory exam: PRESENT: clear to auscultation milena Cardiovascular exam: PRESENT: RRR. ABSENT: diastolic murmur, rubs, systolic murmur Pulses: PRESENT: normal dorsalis pedis pul, +2 pedal pulses bilateral Vascular exam: PRESENT: normal capillary refill GI/Abdominal exam: PRESENT: normal bowel sounds, soft. ABSENT: distended, guarding, mass, organolmegaly, rebound, tenderness Rectal exam: PRESENT: deferred Extremities exam: ABSENT: pedal edema Musculoskeletal exam: PRESENT: ambulatory Neurological exam: PRESENT: alert, awake, oriented to person, oriented to place, oriented to time, oriented to situation, CN II-XII grossly intact. ABSENT: motor sensory deficit Psychiatric exam: PRESENT: appropriate affect, normal mood. ABSENT: homicidal ideation, suicidal ideation Skin exam: PRESENT: dry, intact, warm. ABSENT: cyanosis, rash Results Laboratory Results: 08/07/18 00:25 08/07/18 01:04 08/07/18 08/07/18 08/07/18 00:25 00:25 01:04 WBC 8.4 RBC 4.44 Hgb 13.3 L Hct 40.1 MCV 90 MCH 29.9 MCHC 33.1 RDW 14.7 H Plt Count 189 Seg Neutrophils % 77.6 Lymphocytes % 9.4 L Monocytes % 11.9 Eosinophils % 0.3 Basophils % 0.8 Absolute Neutrophils 6.5 Absolute Lymphocytes 0.8 Absolute Monocytes 1.0 Absolute Eosinophils 0.0 Absolute Basophils 0.1 Sodium Cancelled 145.6 H Potassium Cancelled 5.0 Chloride Cancelled 108 H Carbon Dioxide Cancelled 31 H Anion Gap Cancelled 7 BUN Cancelled 22 H Creatinine Cancelled 1.40 H Est GFR ( Amer) Cancelled > 60 Est GFR (Non-Af Amer) Cancelled 50 L Glucose Cancelled 100 Calcium Cancelled 9.7 Total Bilirubin Cancelled 0.7 AST Cancelled 42 ALT Cancelled 37 Alkaline Phosphatase Cancelled 70 Total Protein Cancelled 7.0 Albumin Cancelled 4.2 TSH 08/07/18 01:04 WBC RBC Hgb Hct MCV MCH MCHC RDW Plt Count Seg Neutrophils % Lymphocytes % Monocytes % Eosinophils % Basophils % Absolute Neutrophils Absolute Lymphocytes Absolute Monocytes Absolute Eosinophils Absolute Basophils Sodium Potassium Chloride Carbon Dioxide Anion Gap BUN Creatinine Est GFR ( Amer) Est GFR (Non-Af Amer) Glucose Calcium Total Bilirubin AST ALT Alkaline Phosphatase Total Protein Albumin TSH 7.00 H 08/07/18 00:25 Troponin I < 0.012 NT-Pro-B Natriuret Pep 224 Impressions: Chest X-Ray 08/06/18 22:41 IMPRESSION: Stable cardiomegaly. Lungs are clear copyright 2010 [employer]- All Rights Reserved Soft Tissue Neck X-Ray 08/06/18 23:08 IMPRESSION: The airway is widely patent. Negative for radiopaque foreign body copyright 2010 [employer]- All Rights Reserved Chest/Abdomen CTA 08/07/18 00:53 IMPRESSION: Negative for acute intrathoracic process TECHNICAL DOCUMENTATION: Quality ID # 436: Final reports with documentation of one or more dose reduction techniques (e.g., Automated exposure control, adjustment of the mA and/or kV according to patient size, use of iterative reconstruction technique) copyright 2010 [employer]- All Rights Reserved Soft Tissue Neck CT 08/07/18 00:53 IMPRESSION: Nonspecific circumferential narrowing of the subglottic airway, possibly due to an inflammatory or infectious process. Neoplastic entity cannot be excluded entirely and direct visualization is recommended. No discrete or defined abscess. TECHNICAL DOCUMENTATION: Quality ID # 436: Final reports with documentation of one or more dose reduction techniques (e.g., Automated exposure control, adjustment of the mA and/or kV according to patient size, use of iterative reconstruction technique) copyright 2010 [employer]- All Rights Reserved Assessment & Plan - Diagnosis (1) Inflammation of subglottic region Is this a current diagnosis for this admission?: Yes Plan: As per discussed with the ENT continues on IV dexamethasone and IV antibiotic currently all stable (2) Tachycardia Is this a current diagnosis for this admission?: Yes Plan: Most likely related to the inflammation and infection and anxiety we will continue to monitor we will consult the cardiology (3) Chronic obstructive pulmonary disease Qualifiers: Emphysema type: unspecified Is this a current diagnosis for this admission?: Yes Plan: This nebulizer treatments currently patient stable will consult the pulmonary (4) Asthma Qualifiers: Asthma complication type: unspecified Is this a current diagnosis for this admission?: Yes (5) Congestive heart failure Qualifiers: Heart failure type: unspecified Heart failure chronicity: chronic Qualified Code(s): I50.9 - Heart failure, unspecified Is this a current diagnosis for this admission?: Yes Plan: Get the medical record from the cardiology office (6) Sleep apnea Qualifiers: Sleep apnea type: unspecified type Qualified Code(s): G47.30 - Sleep apnea, unspecified Is this a current diagnosis for this admission?: Yes Plan: Continues to use a CPAP (7) Pulmonary hypertension Is this a current diagnosis for this admission?: Yes (8) Type 2 diabetes mellitus Qualifiers: Diabetes mellitus complication status: with unspecified complications Is this a current diagnosis for this admission?: Yes Plan: Currently hold the metformin due to the CT scan contrast continues a sliding scale - Time Time Spent: 50 to 70 Minutes Medications reviewed and adjusted accordingly: Yes Anticipated discharge: Home Within: Other - Inpatient Certification Based on my medical assessment, after consideration of the patient's comorbidities, presenting symptoms, or acuity I expect that the services needed warrant INPATIENT care.: Yes I certify that my determination is in accordance with my understanding of Medicare's requirements for reasonable and necessary INPATIENT services [42 CFR 412.3e].: Yes Medical Necessity: Significant Comorbidiites Make Outpatient Treatment Too Risky, Need for IV Antibiotics Post Hospital Care: D/C Home Appraiser Documentation - Plan Summary Plan Summary: Very extensive discussed with the patient regarding the all the test reports discussed with the coordinate financial consultant see other MD orders
--- NOTE | 2018-08-07 12:57 | EKG REPORT ---
SEVERITY:- ABNORMAL ECG - SINUS TACHYCARDIA PROBABLE INFERIOR INFARCT, AGE INDETERMINATE : Confirmed by: Venice Calvin 07-Aug-2018 12:56:12
[2018-08-07] MEDS: DEXAMETHASONE SOD PHOS INJ 10 MG/1 ML VIAL IV SCH ×2 (13:28→22:09)
[2018-08-07] MEDS: AMPICILLIN SODIUM/SULBACTAM NA 1.5 GM in NORMAL SALINE 50 ML IV SCH ×2 (16:08→21:00)
[2018-08-07] MEDS ORDERED: (PENDING PHARMACY ID) (Pramipexole Di-Hcl [Pramipexole Dihydrochloride] 1.5 MG) PO SCH (18:00)
[2018-08-07] MEDS: PRAMIPEXOLE DI-HCL 0.5 MG TABLET PO SCH (22:08)
[2018-08-08] MEDS ORDERED: DIAZEPAM 5 MG TABLET ONE (01:52)
[2018-08-08] MEDS ORDERED: DIAZEPAM 5 MG TABLET PO PRN (02:27)
[2018-08-08] MEDS: AMPICILLIN SODIUM/SULBACTAM NA 1.5 GM in NORMAL SALINE 50 ML IV SCH ×4 (03:10→21:58)
[2018-08-08] MEDS: DILTIAZEM HCL 30 MG TABLET PO SCH ×3 (05:33→21:59)
[2018-08-08] MEDS: LEVOTHYROXINE SODIUM 0.15 MG TABLET PO SCH (05:33)
[2018-08-08] MEDS: LANSOPRAZOLE 30 MG TAB.RAP.DR PO SCH (05:33)
[2018-08-08] MEDS: DEXAMETHASONE SOD PHOS INJ 10 MG/1 ML VIAL IV SCH ×3 (05:34→21:59)
[2018-08-08 06:17] LABS: ABSOLUTE LYMPHOCYTES (AUTO) 0.9 10^3/uL (0.5-4.7); ABSOLUTE MONOCYTES (AUTO) 0.4 10^3/uL (0.1-1.4); ABSOLUTE NEUT (AUTO) 9.3 10^3/uL (1.7-8.2); BASOPHILS % (AUTO) 0.3 % (0-2); HEMATOCRIT 40.7 % (37.9-51.0); HEMOGLOBIN 13.5 g/dL (13.5-17.0); LYMPHOCYTES % (AUTO) 8.4 % (13-45); MEAN CORPUSCULAR HEMOGLOBIN 29.9 pg (27.0-33.4); MEAN CORPUSCULAR HGB CONC 33.2 g/dL (32.0-36.0); MEAN CORPUSCULAR VOLUME 90 fl (80-97); MONOCYTES % (AUTO) 3.7 % (3-13); PLATELET COUNT 183 10^3/uL (150-450); RED BLOOD COUNT 4.52 10^6/uL (4.35-5.55); RED CELL DISTRIBUTION WIDTH 14.5 % (11.5-14.0); SEGMENTED NEUTROPHILS % (AUTO) 87.6 % (42-78); TOTAL CELLS COUNTED % (AUTO) 100 %; WHITE BLOOD COUNT 10.6 10^3/uL (4.0-10.5)
[2018-08-08 06:38] LABS: ALANINE AMINOTRANSFERASE 37 U/L (21-72); ALBUMIN 4.3 g/dL (3.5-5.0); ALKALINE PHOSPHATASE 86 U/L (38-126); ANION GAP 13 (5-19); ASPARTATE AMINO TRANSFERASE 36 U/L (17-59); BILIRUBIN,DIRECT 0.3 mg/dL (0.0-0.4); BILIRUBIN,TOTAL 0.5 mg/dL (0.2-1.3); BLOOD UREA NITROGEN 25 mg/dL (7-20); CALCIUM 9.2 mg/dL (8.4-10.2); CARBON DIOXIDE 26 mmol/L (22-30); CHLORIDE 103 mmol/L (98-107); GLUCOSE 237 mg/dL (75-110); POTASSIUM 4.8 mmol/L (3.6-5.0); SODIUM 141.9 mmol/L (137-145)
[2018-08-08] MEDS: INSULIN LISPRO 100 UNIT/ML 3 ML VIAL SUBCUT PRN ×4 (07:39→22:14)
[2018-08-08] MEDS: CEFTRIAXONE SODIUM 1,000 MG in DEXTROSE 5%-WATER 50 ML IV SCH (07:39)
[2018-08-08] MEDS: DULOXETINE HCL 30 MG CAPSULE.DR PO SCH ×2 (09:22→21:59)
[2018-08-08] MEDS: ENOXAPARIN SODIUM INJ 40 MG/0.4 ML DISP.SYRIN SUBCUT SCH (09:22)
[2018-08-08] MEDS: PRAMIPEXOLE DI-HCL 0.5 MG TABLET PO SCH ×2 (09:22→22:01)
--- NOTE | 2018-08-08 11:18 | PDOC PROGRESS REPORT ---
Subjective Progress Note for:: 08/08/18 Subjective:: Patient is feeling better feeling small episode this morning with throat is still sore and patient also complaining some runny nose and sneezing Patient is denied any chest pain denied any shortness of the breath No fever no chills Reason For Visit: SOB SUBGLOTTIC INFLAMMATION Physical Exam Vital Signs: Temp Pulse Resp BP Pulse Ox 97.3 F 94 20 147/92 H 99 08/08/18 08:24 08/08/18 08:24 08/08/18 08:24 08/08/18 08:24 08/08/18 08:24 Intake & Output 08/07/18 08/08/18 08/09/18 06:59 06:59 06:59 Intake Total 150 3297 50 Output Total 125 1500 Balance 25 1797 50 Weight 162 kg 164 kg General appearance: PRESENT: no acute distress, well-developed, well-nourished Head exam: PRESENT: atraumatic, normocephalic Eye exam: PRESENT: conjunctiva pink, EOMI, PERRLA. ABSENT: scleral icterus Ear exam: PRESENT: normal external ear exam Mouth exam: PRESENT: moist, tongue midline Additional comments: Throat looks normal under direct exam Neck exam: PRESENT: full ROM. ABSENT: carotid bruit, JVD, lymphadenopathy, thyromegaly Respiratory exam: PRESENT: clear to auscultation milena Cardiovascular exam: PRESENT: RRR. ABSENT: diastolic murmur, rubs, systolic murmur Pulses: PRESENT: normal dorsalis pedis pul, +2 pedal pulses bilateral Vascular exam: PRESENT: normal capillary refill GI/Abdominal exam: PRESENT: normal bowel sounds, soft. ABSENT: distended, guarding, mass, organolmegaly, rebound, tenderness Rectal exam: PRESENT: deferred Musculoskeletal exam: PRESENT: ambulatory Neurological exam: PRESENT: alert, awake, oriented to person, oriented to place, oriented to time, oriented to situation, CN II-XII grossly intact. ABSENT: motor sensory deficit Psychiatric exam: PRESENT: appropriate affect, normal mood. ABSENT: homicidal ideation, suicidal ideation Skin exam: PRESENT: dry, intact, warm. ABSENT: cyanosis, rash Results Laboratory Results: 08/08/18 05:26 08/08/18 05:26 08/08/18 08/08/18 05:26 05:26 WBC 10.6 H RBC 4.52 Hgb 13.5 Hct 40.7 MCV 90 MCH 29.9 MCHC 33.2 RDW 14.5 H Plt Count 183 Seg Neutrophils % 87.6 H Lymphocytes % 8.4 L Monocytes % 3.7 Eosinophils % 0.0 Basophils % 0.3 Absolute Neutrophils 9.3 H Absolute Lymphocytes 0.9 Absolute Monocytes 0.4 Absolute Eosinophils 0.0 Absolute Basophils 0.0 Sodium 141.9 Potassium 4.8 Chloride 103 Carbon Dioxide 26 Anion Gap 13 BUN 25 H Creatinine 1.45 H Est GFR ( Amer) 58 L Est GFR (Non-Af Amer) 48 L Glucose 237 H Calcium 9.2 Total Bilirubin 0.5 AST 36 ALT 37 Alkaline Phosphatase 86 Total Protein 7.0 Albumin 4.3 08/07/18 00:25 Troponin I < 0.012 NT-Pro-B Natriuret Pep 224 Impressions: Chest X-Ray 08/06/18 22:41 IMPRESSION: Stable cardiomegaly. Lungs are clear copyright 2010 [employer] All Rights Reserved Soft Tissue Neck X-Ray 08/06/18 23:08 IMPRESSION: The airway is widely patent. Negative for radiopaque foreign body copyright 2010 [employer] All Rights Reserved Chest/Abdomen CTA 08/07/18 00:53 IMPRESSION: Negative for acute intrathoracic process TECHNICAL DOCUMENTATION: Quality ID # 436: Final reports with documentation of one or more dose reduction techniques (e.g., Automated exposure control, adjustment of the mA and/or kV according to patient size, use of iterative reconstruction technique) copyright 2010 [employer] All Rights Reserved Soft Tissue Neck CT 08/07/18 00:53 IMPRESSION: Nonspecific circumferential narrowing of the subglottic airway, possibly due to an inflammatory or infectious process. Neoplastic entity cannot be excluded entirely and direct visualization is recommended. No discrete or defined abscess. TECHNICAL DOCUMENTATION: Quality ID # 436: Final reports with documentation of one or more dose reduction techniques (e.g., Automated exposure control, adjustment of the mA and/or kV according to patient size, use of iterative reconstruction technique) copyright 2011 [employer]- All Rights Reserved Assessment & Plan - Diagnosis (1) Inflammation of subglottic region Is this a current diagnosis for this admission?: Yes Plan: Continues to IV dexamethasone and continues to IV antibiotic will wait for ENT evaluations (2) Tachycardia Is this a current diagnosis for this admission?: Yes Plan: all stable discuss with the local product marketing manager Dr. Mcconnell and suggest most likely noncardiac no need to further evaluations from cardiac standpoint (3) Chronic obstructive pulmonary disease Qualifiers: Emphysema type: unspecified Is this a current diagnosis for this admission?: Yes Plan: This nebulizer treatments currently patient stable will consult the pulmonary (4) Asthma Qualifiers: Asthma complication type: unspecified Is this a current diagnosis for this admission?: Yes (5) Congestive heart failure Qualifiers: Heart failure type: unspecified Heart failure chronicity: chronic Qualified Code(s): I50.9 - Heart failure, unspecified Is this a current diagnosis for this admission?: Yes Plan: Get the medical record from the cardiology office (6) Sleep apnea Qualifiers: Sleep apnea type: unspecified type Qualified Code(s): G47.30 - Sleep apnea, unspecified Is this a current diagnosis for this admission?: Yes Plan: Continues to use a CPAP (7) Pulmonary hypertension Is this a current diagnosis for this admission?: Yes (8) Type 2 diabetes mellitus Qualifiers: Diabetes mellitus complication status: with unspecified complications Is this a current diagnosis for this admission?: Yes Plan: Currently hold the metformin due to the CT scan contrast continues a sliding scale - Time Time Spent with patient: 15-24 minutes Medications reviewed and adjusted accordingly: Yes Anticipated discharge: Home Within: Other - Plan Summary Plan Summary: Reduce her dexamethasone 6 mg IV q. 8 helps with the patient's blood sugar and continues to IV antibiotic
[2018-08-08] MEDS: FLUTICASONE NASAL SPRAY 50 MCG/SPRY 120 SPRAY/16 GM NASL SCH ×2 (12:13→22:00)
[2018-08-09] MEDS: AMPICILLIN SODIUM/SULBACTAM NA 1.5 GM in NORMAL SALINE 50 ML IV SCH ×4 (02:31→21:13)
[2018-08-09] MEDS: DILTIAZEM HCL 30 MG TABLET PO SCH ×3 (05:37→21:13)
[2018-08-09] MEDS: DEXAMETHASONE SOD PHOS INJ 10 MG/1 ML VIAL IV SCH (05:37)
[2018-08-09] MEDS: LANSOPRAZOLE 30 MG TAB.RAP.DR PO SCH (05:38)
[2018-08-09] MEDS: LEVOTHYROXINE SODIUM 0.15 MG TABLET PO SCH (05:39)
[2018-08-09 06:43] LABS: ANION GAP 10 (5-19); BLOOD UREA NITROGEN 29 mg/dL (7-20); CALCIUM 8.6 mg/dL (8.4-10.2); CARBON DIOXIDE 26 mmol/L (22-30); CHLORIDE 106 mmol/L (98-107); GLUCOSE 254 mg/dL (75-110); POTASSIUM 4.7 mmol/L (3.6-5.0)
[2018-08-09 07:45] LABS: ABSOLUTE LYMPHOCYTES (AUTO) 0.6 10^3/uL (0.5-4.7); ABSOLUTE MONOCYTES (AUTO) 0.5 10^3/uL (0.1-1.4); ABSOLUTE NEUT (AUTO) 9.8 10^3/uL (1.7-8.2); BASOPHILS % (AUTO) 0.1 % (0-2); HEMATOCRIT 37.3 % (37.9-51.0); HEMOGLOBIN 12.5 g/dL (13.5-17.0); LYMPHOCYTES % (AUTO) 5.1 % (13-45); MEAN CORPUSCULAR HEMOGLOBIN 29.9 pg (27.0-33.4); MEAN CORPUSCULAR HGB CONC 33.5 g/dL (32.0-36.0); MEAN CORPUSCULAR VOLUME 89 fl (80-97); PLATELET COUNT 187 10^3/uL (150-450); RED BLOOD COUNT 4.18 10^6/uL (4.35-5.55); RED CELL DISTRIBUTION WIDTH 14.4 % (11.5-14.0); SEGMENTED NEUTROPHILS % (AUTO) 89.8 % (42-78); TOTAL CELLS COUNTED % (AUTO) 100 %; WHITE BLOOD COUNT 10.9 10^3/uL (4.0-10.5)
[2018-08-09] MEDS: CEFTRIAXONE SODIUM 1,000 MG in DEXTROSE 5%-WATER 50 ML IV SCH (08:18)
[2018-08-09] MEDS: INSULIN LISPRO 100 UNIT/ML 3 ML VIAL SUBCUT PRN ×4 (08:18→22:20)
[2018-08-09] MEDS: PRAMIPEXOLE DI-HCL 0.5 MG TABLET PO SCH ×2 (10:21→21:14)
[2018-08-09] MEDS: DULOXETINE HCL 30 MG CAPSULE.DR PO SCH ×2 (10:21→21:12)
[2018-08-09] MEDS: FLUTICASONE NASAL SPRAY 50 MCG/SPRY 120 SPRAY/16 GM NASL SCH ×2 (10:22→21:12)
[2018-08-09] MEDS: ENOXAPARIN SODIUM INJ 40 MG/0.4 ML DISP.SYRIN SUBCUT SCH (10:22)
--- NOTE | 2018-08-09 11:30 | PDOC PROGRESS REPORT ---
Subjective Progress Note for:: 08/09/18 Subjective:: pt is currently doing well Patient seen by Dr. Rios Patient's denied any chest pain denied any shortness of the breath Reason For Visit: SUB SUBGLOTTIC INFLAMMATION Physical Exam Vital Signs: Temp Pulse Resp BP Pulse Ox 97.4 F 90 21 H 131/93 H 96 08/09/18 07:22 08/09/18 07:22 08/09/18 07:22 08/09/18 07:22 08/09/18 07:22 Intake & Output 08/08/18 08/09/18 08/10/18 06:59 06:59 06:59 Intake Total 3297 1450 50 Output Total 1500 1175 Balance 1797 275 50 Weight 164 kg 164.8 kg 164.8 kg General appearance: PRESENT: no acute distress, well-developed, well-nourished Head exam: PRESENT: atraumatic, normocephalic Eye exam: PRESENT: conjunctiva pink, EOMI, PERRLA. ABSENT: scleral icterus Ear exam: PRESENT: normal external ear exam Mouth exam: PRESENT: moist, tongue midline Neck exam: PRESENT: full ROM. ABSENT: carotid bruit, JVD, lymphadenopathy, thyromegaly Respiratory exam: PRESENT: clear to auscultation milena Cardiovascular exam: PRESENT: RRR. ABSENT: diastolic murmur, rubs, systolic murmur Pulses: PRESENT: normal dorsalis pedis pul, +2 pedal pulses bilateral Vascular exam: PRESENT: normal capillary refill GI/Abdominal exam: PRESENT: normal bowel sounds, soft. ABSENT: distended, guarding, mass, organolmegaly, rebound, tenderness Rectal exam: PRESENT: deferred Neurological exam: PRESENT: alert, awake, oriented to person, oriented to place, oriented to time, oriented to situation, CN II-XII grossly intact. ABSENT: motor sensory deficit Psychiatric exam: PRESENT: appropriate affect, normal mood. ABSENT: homicidal ideation, suicidal ideation Skin exam: PRESENT: dry, intact, warm. ABSENT: cyanosis, rash Results Laboratory Results: 08/09/18 07:09 08/09/18 05:53 08/09/18 08/09/18 08/09/18 05:53 05:53 07:09 WBC Cancelled 10.9 H RBC Cancelled 4.18 L Hgb Cancelled 12.5 L Hct Cancelled 37.3 L MCV Cancelled 89 MCH Cancelled 29.9 MCHC Cancelled 33.5 RDW Cancelled 14.4 H Plt Count Cancelled 187 Seg Neutrophils % Cancelled 89.8 H Lymphocytes % Cancelled 5.1 L Monocytes % Cancelled 5.0 Eosinophils % Cancelled 0.0 Basophils % Cancelled 0.1 Absolute Neutrophils Cancelled 9.8 H Absolute Lymphocytes Cancelled 0.6 Absolute Monocytes Cancelled 0.5 Absolute Eosinophils Cancelled 0.0 Absolute Basophils Cancelled 0.0 Sodium 142.0 Potassium 4.7 Chloride 106 Carbon Dioxide 26 Anion Gap 10 BUN 29 H Creatinine 1.40 H Est GFR ( Amer) > 60 Est GFR (Non-Af Amer) 50 L Glucose 254 H Calcium 8.6 08/07/18 00:25 Troponin I < 0.012 NT-Pro-B Natriuret Pep 224 Impressions: Chest X-Ray 08/06/18 22:41 IMPRESSION: Stable cardiomegaly. Lungs are clear copyright 2010 [employer] All Rights Reserved Soft Tissue Neck X-Ray 08/06/18 23:08 IMPRESSION: The airway is widely patent. Negative for radiopaque foreign body copyright 2010 [employer] All Rights Reserved Chest/Abdomen CTA 08/07/18 00:53 IMPRESSION: Negative for acute intrathoracic process TECHNICAL DOCUMENTATION: Quality ID # 436: Final reports with documentation of one or more dose reduction techniques (e.g., Automated exposure control, adjustment of the mA and/or kV according to patient size, use of iterative reconstruction technique) copyright 2010 [employer] All Rights Reserved Soft Tissue Neck CT 08/07/18 00:53 IMPRESSION: Nonspecific circumferential narrowing of the subglottic airway, possibly due to an inflammatory or infectious process. Neoplastic entity cannot be excluded entirely and direct visualization is recommended. No discrete or defined abscess. TECHNICAL DOCUMENTATION: Quality ID # 436: Final reports with documentation of one or more dose reduction techniques (e.g., Automated exposure control, adjustment of the mA and/or kV according to patient size, use of iterative reconstruction technique) copyright 2011 [employer]- All Rights Reserved Assessment & Plan - Diagnosis (1) Inflammation of subglottic region Is this a current diagnosis for this admission?: Yes Plan: As per discussed with the ENT suggest that continues a tapering dose of the steroid and continues antibiotic (2) Tachycardia Is this a current diagnosis for this admission?: Yes Plan: all stable discuss with the local authorization manager Dr. Mcconnell and suggest most likely noncardiac no need to further evaluations from cardiac standpoint (3) Chronic obstructive pulmonary disease Qualifiers: Emphysema type: unspecified Is this a current diagnosis for this admission?: Yes Plan: This nebulizer treatments currently patient stable will consult the pulmonary (4) Asthma Qualifiers: Asthma complication type: unspecified Is this a current diagnosis for this admission?: Yes (5) Congestive heart failure Qualifiers: Heart failure type: unspecified Heart failure chronicity: chronic Qualified Code(s): I50.9 - Heart failure, unspecified Is this a current diagnosis for this admission?: Yes Plan: Get the medical record from the cardiology office (6) Sleep apnea Qualifiers: Sleep apnea type: unspecified type Qualified Code(s): G47.30 - Sleep apnea, unspecified Is this a current diagnosis for this admission?: Yes Plan: Continues to use a CPAP (7) Pulmonary hypertension Is this a current diagnosis for this admission?: Yes (8) Type 2 diabetes mellitus Qualifiers: Diabetes mellitus complication status: with unspecified complications Is this a current diagnosis for this admission?: Yes - Time Time Spent with patient: 15-24 minutes Medications reviewed and adjusted accordingly: Yes Anticipated discharge: Home Within: Other - Plan Summary Plan Summary: Continues current medication As per discussed with the ENT the flexible endoscopy is all stable
[2018-08-09] MEDS ORDERED: DEXAMETHASONE SOD PHOS INJ 10 MG/1 ML VIAL IV SCH (14:00)
[2018-08-09] MEDS: DEXAMETHASONE SOD PHOSPHATE INJ 4 MG/1 ML VIAL IV SCH ×2 (14:15→21:13)
[2018-08-10 05:04] LABS: ABSOLUTE LYMPHOCYTES (AUTO) 0.5 10^3/uL (0.5-4.7); ABSOLUTE MONOCYTES (AUTO) 0.5 10^3/uL (0.1-1.4); ABSOLUTE NEUT (AUTO) 8.2 10^3/uL (1.7-8.2); BASOPHILS % (AUTO) 0.1 % (0-2); HEMATOCRIT 37.1 % (37.9-51.0); HEMOGLOBIN 12.3 g/dL (13.5-17.0); LYMPHOCYTES % (AUTO) 5.4 % (13-45); MEAN CORPUSCULAR HEMOGLOBIN 29.7 pg (27.0-33.4); MEAN CORPUSCULAR HGB CONC 33.1 g/dL (32.0-36.0); MEAN CORPUSCULAR VOLUME 90 fl (80-97); MONOCYTES % (AUTO) 5.8 % (3-13); PLATELET COUNT 161 10^3/uL (150-450); RED BLOOD COUNT 4.14 10^6/uL (4.35-5.55); RED CELL DISTRIBUTION WIDTH 14.8 % (11.5-14.0); SEGMENTED NEUTROPHILS % (AUTO) 88.7 % (42-78); TOTAL CELLS COUNTED % (AUTO) 100 %; WHITE BLOOD COUNT 9.2 10^3/uL (4.0-10.5)
[2018-08-10] MEDS: DEXAMETHASONE SOD PHOSPHATE INJ 4 MG/1 ML VIAL IV SCH ×3 (05:11→21:04)
[2018-08-10] MEDS: LEVOTHYROXINE SODIUM 0.15 MG TABLET PO SCH (05:11)
[2018-08-10] MEDS: DILTIAZEM HCL 30 MG TABLET PO SCH ×3 (05:11→21:04)
[2018-08-10] MEDS: LANSOPRAZOLE 30 MG TAB.RAP.DR PO SCH (05:11)
[2018-08-10] MEDS: AMPICILLIN SODIUM/SULBACTAM NA 1.5 GM in NORMAL SALINE 50 ML IV SCH ×4 (05:12→21:03)
[2018-08-10 05:27] LABS: ANION GAP 9 (5-19); BLOOD UREA NITROGEN 29 mg/dL (7-20); CALCIUM 8.6 mg/dL (8.4-10.2); CARBON DIOXIDE 30 mmol/L (22-30); CHLORIDE 104 mmol/L (98-107); GLUCOSE 252 mg/dL (75-110); POTASSIUM 4.5 mmol/L (3.6-5.0); SODIUM 142.5 mmol/L (137-145)
[2018-08-10] MEDS: CEFTRIAXONE SODIUM 1,000 MG in DEXTROSE 5%-WATER 50 ML IV SCH (08:03)
[2018-08-10] MEDS: INSULIN LISPRO 100 UNIT/ML 3 ML VIAL SUBCUT PRN ×4 (08:03→21:07)
[2018-08-10] MEDS: FLUTICASONE NASAL SPRAY 50 MCG/SPRY 120 SPRAY/16 GM NASL SCH ×2 (10:04→21:04)
[2018-08-10] MEDS: PRAMIPEXOLE DI-HCL 0.5 MG TABLET PO SCH ×2 (10:05→21:04)
[2018-08-10] MEDS: ENOXAPARIN SODIUM INJ 40 MG/0.4 ML DISP.SYRIN SUBCUT SCH (10:05)
[2018-08-10] MEDS: DULOXETINE HCL 30 MG CAPSULE.DR PO SCH ×2 (10:05→21:04)
--- NOTE | 2018-08-10 11:44 | PDOC PROGRESS REPORT ---
Subjective Progress Note for:: 08/10/18 Subjective:: pt is currently doing well Patient seen by Dr. Rios Patient's denied any chest pain denied any shortness of the breath Reason For Visit: SUB SUBGLOTTIC INFLAMMATION Physical Exam Vital Signs: Temp Pulse Resp BP Pulse Ox 98.6 F 96 19 159/96 H 92 08/10/18 07:57 08/10/18 07:57 08/10/18 07:57 08/10/18 07:57 08/10/18 07:57 Intake & Output 08/09/18 08/10/18 08/11/18 06:59 06:59 06:59 Intake Total 1450 1601 100 Output Total 1175 1000 Balance 275 601 100 Weight 164.8 kg 164.8 kg General appearance: PRESENT: no acute distress, well-developed, well-nourished Head exam: PRESENT: atraumatic, normocephalic Eye exam: PRESENT: conjunctiva pink, EOMI, PERRLA. ABSENT: scleral icterus Ear exam: PRESENT: normal external ear exam Mouth exam: PRESENT: moist, tongue midline Neck exam: PRESENT: full ROM. ABSENT: carotid bruit, JVD, lymphadenopathy, thyromegaly Respiratory exam: PRESENT: clear to auscultation milena Cardiovascular exam: PRESENT: RRR. ABSENT: diastolic murmur, rubs, systolic murmur Pulses: PRESENT: normal dorsalis pedis pul, +2 pedal pulses bilateral Vascular exam: PRESENT: normal capillary refill GI/Abdominal exam: PRESENT: normal bowel sounds, soft. ABSENT: distended, guarding, mass, organolmegaly, rebound, tenderness Rectal exam: PRESENT: deferred Extremities exam: ABSENT: pedal edema Musculoskeletal exam: PRESENT: ambulatory Neurological exam: PRESENT: alert, awake, oriented to person, oriented to place, oriented to time, oriented to situation, CN II-XII grossly intact. ABSENT: motor sensory deficit Psychiatric exam: PRESENT: appropriate affect, normal mood. ABSENT: homicidal ideation, suicidal ideation Skin exam: PRESENT: dry, intact, warm. ABSENT: cyanosis, rash Results Laboratory Results: 08/10/18 04:43 08/10/18 04:43 08/10/18 08/10/18 04:43 04:43 WBC 9.2 RBC 4.14 L Hgb 12.3 L Hct 37.1 L MCV 90 MCH 29.7 MCHC 33.1 RDW 14.8 H Plt Count 161 Seg Neutrophils % 88.7 H Lymphocytes % 5.4 L Monocytes % 5.8 Eosinophils % 0.0 Basophils % 0.1 Absolute Neutrophils 8.2 Absolute Lymphocytes 0.5 Absolute Monocytes 0.5 Absolute Eosinophils 0.0 Absolute Basophils 0.0 Sodium 142.5 Potassium 4.5 Chloride 104 Carbon Dioxide 30 Anion Gap 9 BUN 29 H Creatinine 1.35 H Est GFR ( Amer) > 60 Est GFR (Non-Af Amer) 52 L Glucose 252 H Calcium 8.6 08/07/18 03:44 Throat Throat Culture - Final NORMAL [place] 08/07/18 00:25 Troponin I < 0.012 NT-Pro-B Natriuret Pep 224 Impressions: Chest X-Ray 08/06/18 22:41 IMPRESSION: Stable cardiomegaly. Lungs are clear copyright 2010 [employer] All Rights Reserved Soft Tissue Neck X-Ray 08/06/18 23:08 IMPRESSION: The airway is widely patent. Negative for radiopaque foreign body copyright 2010 [employer]- All Rights Reserved Chest/Abdomen CTA 08/07/18 00:53 IMPRESSION: Negative for acute intrathoracic process TECHNICAL DOCUMENTATION: Quality ID # 436: Final reports with documentation of one or more dose reduction techniques (e.g., Automated exposure control, adjustment of the mA and/or kV according to patient size, use of iterative reconstruction technique) copyright 2010 [employer] All Rights Reserved Soft Tissue Neck CT 08/07/18 00:53 IMPRESSION: Nonspecific circumferential narrowing of the subglottic airway, possibly due to an inflammatory or infectious process. Neoplastic entity cannot be excluded entirely and direct visualization is recommended. No discrete or defined abscess. TECHNICAL DOCUMENTATION: Quality ID # 436: Final reports with documentation of one or more dose reduction techniques (e.g., Automated exposure control, adjustment of the mA and/or kV according to patient size, use of iterative reconstruction technique) copyright 2011 [employer]- All Rights Reserved Assessment & Plan - Diagnosis (1) Inflammation of subglottic region Is this a current diagnosis for this admission?: Yes Plan: As per discussed with the ENT suggest that continues a tapering dose of the steroid and continues antibiotic (2) Tachycardia Is this a current diagnosis for this admission?: Yes Plan: all stable discuss with the local adjunct instructor in economics Dr. Mcconnell and suggest most likely n oncardiac no need to further evaluations from cardiac standpoint (3) Chronic obstructive pulmonary disease Qualifiers: Emphysema type: unspecified Is this a current diagnosis for this admission?: Yes Plan: This nebulizer treatments currently patient stable will consult the pulmonary (4) Asthma Qualifiers: Asthma complication type: unspecified Is this a current diagnosis for this admission?: Yes (5) Congestive heart failure Qualifiers: Heart failure type: unspecified Heart failure chronicity: chronic Qualified Code(s): I50.9 - Heart failure, unspecified Is this a current diagnosis for this admission?: Yes Plan: Get the medical record from the cardiology office (6) Sleep apnea Qualifiers: Sleep apnea type: unspecified type Qualified Code(s): G47.30 - Sleep apnea, unspecified Is this a current diagnosis for this admission?: Yes Plan: Continues to use a CPAP (7) Pulmonary hypertension Is this a current diagnosis for this admission?: Yes (8) Type 2 diabetes mellitus Qualifiers: Diabetes mellitus complication status: with unspecified complications Is this a current diagnosis for this admission?: Yes Plan: Currently hold the metformin due to the CT scan contrast continues a sliding scale - Time Time Spent with patient: 15-24 minutes Medications reviewed and adjusted accordingly: Yes Within: Other - Plan Summary Plan Summary: Continues to current medication
[2018-08-11] MEDS: AMPICILLIN SODIUM/SULBACTAM NA 1.5 GM in NORMAL SALINE 50 ML IV SCH ×4 (03:09→20:41)
[2018-08-11] MEDS: LEVOTHYROXINE SODIUM 0.15 MG TABLET PO SCH (05:22)
[2018-08-11] MEDS: DILTIAZEM HCL 30 MG TABLET PO SCH ×3 (05:22→22:20)
[2018-08-11] MEDS: LANSOPRAZOLE 30 MG TAB.RAP.DR PO SCH (05:22)
[2018-08-11] MEDS: DEXAMETHASONE SOD PHOSPHATE INJ 4 MG/1 ML VIAL IV SCH ×3 (05:30→22:19)
[2018-08-11 06:49] LABS: ABSOLUTE LYMPHOCYTES (AUTO) 0.6 10^3/uL (0.5-4.7); ABSOLUTE MONOCYTES (AUTO) 0.9 10^3/uL (0.1-1.4); ABSOLUTE NEUT (AUTO) 5.3 10^3/uL (1.7-8.2); BASOPHILS % (AUTO) 0.1 % (0-2); HEMATOCRIT 37.4 % (37.9-51.0); HEMOGLOBIN 12.4 g/dL (13.5-17.0); LYMPHOCYTES % (AUTO) 9.1 % (13-45); MEAN CORPUSCULAR HEMOGLOBIN 29.4 pg (27.0-33.4); MEAN CORPUSCULAR HGB CONC 33.1 g/dL (32.0-36.0); MEAN CORPUSCULAR VOLUME 89 fl (80-97); MONOCYTES % (AUTO) 12.7 % (3-13); PLATELET COUNT 151 10^3/uL (150-450); RED BLOOD COUNT 4.21 10^6/uL (4.35-5.55); RED CELL DISTRIBUTION WIDTH 14.6 % (11.5-14.0); SEGMENTED NEUTROPHILS % (AUTO) 78.1 % (42-78); TOTAL CELLS COUNTED % (AUTO) 100 %; WHITE BLOOD COUNT 6.8 10^3/uL (4.0-10.5)
[2018-08-11 07:09] LABS: ANION GAP 8 (5-19); BLOOD UREA NITROGEN 25 mg/dL (7-20); CALCIUM 8.5 mg/dL (8.4-10.2); CARBON DIOXIDE 29 mmol/L (22-30); CHLORIDE 102 mmol/L (98-107); GLUCOSE 313 mg/dL (75-110); POTASSIUM 4.6 mmol/L (3.6-5.0); SODIUM 139.4 mmol/L (137-145)
[2018-08-11] MEDS: INSULIN LISPRO 100 UNIT/ML 3 ML VIAL SUBCUT PRN ×4 (07:53→23:38)
[2018-08-11] MEDS: CEFTRIAXONE SODIUM 1,000 MG in DEXTROSE 5%-WATER 50 ML IV SCH (07:53)
[2018-08-11] MEDS: ENOXAPARIN SODIUM INJ 40 MG/0.4 ML DISP.SYRIN SUBCUT SCH (09:41)
[2018-08-11] MEDS: FLUTICASONE NASAL SPRAY 50 MCG/SPRY 120 SPRAY/16 GM NASL SCH ×2 (09:41→22:18)
[2018-08-11] MEDS: DULOXETINE HCL 30 MG CAPSULE.DR PO SCH ×2 (09:41→22:20)
[2018-08-11] MEDS: PRAMIPEXOLE DI-HCL 0.5 MG TABLET PO SCH ×2 (09:41→22:20)
--- NOTE | 2018-08-11 22:25 | PDOC PROGRESS REPORT ---
Subjective Progress Note for:: 08/11/18 Subjective:: Patient was seen by the bedside, was admitted over the weekend for management of subglottic inflammation and swelling.Patient presently on IV Decadron and IV antibiotic Reason For Visit: SUB SUBGLOTTIC INFLAMMATION Physical Exam Vital Signs: Temp Pulse Resp BP Pulse Ox 98.1 F 73 18 158/92 H 97 08/11/18 15:37 08/11/18 15:37 08/11/18 15:37 08/11/18 15:37 08/11/18 15:37 Intake & Output 08/10/18 08/11/18 08/12/18 06:59 06:59 06:59 Intake Total 1601 1215 1013 Output Total 1000 650 525 Balance 601 565 488 Weight 164.8 kg 164.4 kg General appearance: PRESENT: no acute distress Eye exam: PRESENT: PERRLA Respiratory exam: PRESENT: clear to auscultation milena Cardiovascular exam: PRESENT: +S1, +S2 GI/Abdominal exam: PRESENT: soft Neurological exam: PRESENT: alert Results Laboratory Results: 08/11/18 06:06 08/11/18 06:06 08/11/18 08/11/18 06:06 06:06 WBC 6.8 RBC 4.21 L Hgb 12.4 L Hct 37.4 L MCV 89 MCH 29.4 MCHC 33.1 RDW 14.6 H Plt Count 151 Seg Neutrophils % 78.1 H Lymphocytes % 9.1 L Monocytes % 12.7 Eosinophils % 0.0 Basophils % 0.1 Absolute Neutrophils 5.3 Absolute Lymphocytes 0.6 Absolute Monocytes 0.9 Absolute Eosinophils 0.0 Absolute Basophils 0.0 Sodium 139.4 Potassium 4.6 Chloride 102 Carbon Dioxide 29 Anion Gap 8 BUN 25 H Creatinine 1.34 H Est GFR ( Amer) > 60 Est GFR (Non-Af Amer) 52 L Glucose 313 H Calcium 8.5 08/07/18 00:25 Troponin I < 0.012 NT-Pro-B Natriuret Pep 224 Impressions: Chest X-Ray 08/06/18 22:41 IMPRESSION: Stable cardiomegaly. Lungs are clear copyright 2010 [employer]- All Rights Reserved Soft Tissue Neck X-Ray 08/06/18 23:08 IMPRESSION: The airway is widely patent. Negative for radiopaque foreign body copyright 2010 [employer]- All Rights Reserved Chest/Abdomen CTA 08/07/18 00:53 IMPRESSION: Negative for acute intrathoracic process TECHNICAL DOCUMENTATION: Quality ID # 436: Final reports with documentation of one or more dose reduction techniques (e.g., Automated exposure control, adjustment of the mA and/or kV according to patient size, use of iterative reconstruction technique) copyright 2010 [employer]- All Rights Reserved Soft Tissue Neck CT 08/07/18 00:53 IMPRESSION: Nonspecific circumferential narrowing of the subglottic airway, possibly due to an inflammatory or infectious process. Neoplastic entity cannot be excluded entirely and direct visualization is recommended. No discrete or defined abscess. TECHNICAL DOCUMENTATION: Quality ID # 436: Final reports with documentation of one or more dose reduction techniques (e.g., Automated exposure control, adjustment of the mA and/or kV according to patient size, use of iterative reconstruction technique) copyright 2010 [employer]- All Rights Reserved Assessment & Plan - Diagnosis (1) Subglottic inflammation Is this a current diagnosis for this admission?: Yes Plan: Continue tapering dose of steroid
--- NOTE | 2018-08-11 23:37 | CONSULTATION REPORT E ---
[facility] Otolaryngology Inpatient Consultation Report NAME: YA PETTIT : 1945 AGE: 72Y DATE: 08/08/2018 ROOM: 327 A TO: BRENDAN ROJAS D.O. FROM: SILVANO JORDAN M.D. Requesting Physician CHIEF COMPLAINT: Breathing difficulty. HISTORY OF PRESENT ILLNESS: This is a 72-year-old white male with past medical history of asthma, pulmonary hypertension, morbid obesity, diabetes, and he presented to the [facility] ER with a feeling of throat tightness and shortness of breath that started during the past week and has progressively become worse over time. The patient reports that his has been currently ill with viral URI type symptoms as well. The patient, otherwise denied fever, nausea, or vomiting. He denies chest pain. The patient was noted on CT neck imaging to have nonspecific circumferential narrowing of the subglottic airway, possibly due to inflammatory or infectious etiology. There was no discrete or defined abscess noted. MEDICATIONS: Please see the hospital medication list. ALLERGIES: No known drug allergies. PAST MEDICAL HISTORY: Same as above. SOCIAL HISTORY: No history of smoking. REVIEW OF SYSTEMS: CARDIAC: History of hypertension. PULMONARY: History of pulmonary hypertension. NEUROLOGICAL: Obstructive sleep apnea. ENDOCRINE: History of diabetes type 2. RENAL/GENITOURINARY: Benign prostatic hyperplasia. Malignant history GASTROINTESTINAL: History of gastroesophageal reflux disease. MUSCULOSKELETAL: History of arthritis. INFECTIOUS: Unremarkable. SKIN: Unremarkable. ENT: Same as above. PAST SURGICAL HISTORY: 1. Appendectomy. 2. Cardiac catheterization. 3. Bilateral arm fractures and bilateral rotator cuff surgery. 4. History of tonsillectomy. PHYSICAL EXAMINATION: VITAL SIGNS: Stable, the patient was afebrile, and the patient was saturating in the high 90s on nasal cannula at 2%. GENERAL: The patient is alert and oriented and in no apparent distress. He was sitting comfortably in his bed breathing supplemental oxygen at 2 liters through his nasal cannula. He was conversing with ease. HEAD: Normocephalic, atraumatic. EYES: Extraocular muscles were intact. EARS: External auditory canals were unremarkable and the tympanic membranes appeared intact. NOSE: Nasal septal deviation and turbinate hypertrophy. ORAL CAVITY/OROPHARYNX: Moist mucous membranes, macroglossia, and the soft palatal tissues were redundant in nature and the overall oropharynx exam was difficult due to the patient's macroglossia. NECK: The patient's evaluation was difficult due to the gross obesity and there was no grossly obvious lymphadenopathy and the neck exam was nontender to palpation. The patient was also with full range of motion without discomfort. LUNGS: Clear to auscultation bilateral. HEART: Regular rate and rhythm without murmurs. NEUROLOGICAL: Cranial nerves II-XII are grossly intact. SKIN: Unremarkable in appearance. PROCEDURE: The role of flexible nasopharyngolaryngoscopy was discussed with the patient, which he voiced an understanding of and desired to proceed with. Verbal consent was obtained from the patient. The patient was topicalized with Afrin and lidocaine, which he tolerated well. At this point the patient underwent a flexible fiberoptic endoscopic evaluation with no sinonasal polyps or discharge noted, the [employer]/davin were clear, the OP/HP was notable for diffuse tissue fullness/redundant floppy tissue with increased saliva/secretions noted. There were no masses or lesions or purulent/exudate noted. There was moderate base of the tongue fullness. The TVC were symmetric and mobile and there was no obvious subglottic fullness or erythema or exudate noted. There were reflux changes noted with edema. RADIOLOGY/IMAGING: CT neck with contrast performed on 08/07/2018, the findings: Nonspecific circumferential narrowing of the subglottic airway, possibly due to an inflammatory or infectious process. Neoplastic entity cannot be excluded entirely and direct visualization is recommended. No discrete or defined abscess is identified. ASSESSMENT: This is a 72-year-old white male with history of pulmonary hypertension and obstructive sleep apnea and gross obesity with report of breathing difficulty during the past week, and was exposed to his who is currently with viral URI type symptoms. The patient underwent ER evaluation and CT neck imaging evaluation with no abscess or phlegmon noted, except for nonspecific findings of the subglottic airway. Endoscopic evaluation was without grossly obvious concerns for supraglottic or subglottic airway compromise. The patient was otherwise alert and oriented, in no apparent distress, and was conversing without difficulty. PLAN: The case was discussed in detaile with the patient's attending physician with recommendation and plan to continue with IV antibiotics and steroids, which the attending physician was in agreement with. ENT is available as needed and the patient can also follow up with ENT after discharge as needed, which he and his attending physician were aware of. Inpatient ENT consult time to include NPL endoscopy was 40 minutes. DICTATING PHYSICIAN: BRENDAN ROJAS D.O. [id number] PHY#: [id number] ID: [id number] JOB#: [id number] ACCT: [id number] cc:BRENDAN ROJAS D.O. > MTDD
[2018-08-12] MEDS: AMPICILLIN SODIUM/SULBACTAM NA 1.5 GM in NORMAL SALINE 50 ML IV SCH ×4 (04:52→21:37)
[2018-08-12] MEDS: DEXAMETHASONE SOD PHOSPHATE INJ 4 MG/1 ML VIAL IV SCH ×3 (05:54→21:37)
[2018-08-12] MEDS: LEVOTHYROXINE SODIUM 0.15 MG TABLET PO SCH (05:54)
[2018-08-12] MEDS: DILTIAZEM HCL 30 MG TABLET PO SCH ×3 (05:54→21:48)
[2018-08-12] MEDS: LANSOPRAZOLE 30 MG TAB.RAP.DR PO SCH (05:55)
[2018-08-12] MEDS: INSULIN LISPRO 100 UNIT/ML 3 ML VIAL SUBCUT PRN ×4 (07:30→21:59)
[2018-08-12] MEDS ORDERED: CEFTRIAXONE 1 GM/D5W RTU 1 GM/50 ML RTUPB IV SCH (08:00)
[2018-08-12] MEDS: DULOXETINE HCL 30 MG CAPSULE.DR PO SCH ×2 (09:24→21:48)
[2018-08-12] MEDS: PRAMIPEXOLE DI-HCL 0.5 MG TABLET PO SCH ×2 (09:24→21:48)
[2018-08-12] MEDS: ENOXAPARIN SODIUM INJ 40 MG/0.4 ML DISP.SYRIN SUBCUT SCH (09:25)
[2018-08-12] MEDS: FLUTICASONE NASAL SPRAY 50 MCG/SPRY 120 SPRAY/16 GM NASL SCH ×2 (09:25→21:48)
--- NOTE | 2018-08-12 21:51 | PDOC TRANSFER SUMMARY ---
General - Admit/Disc Date/PCP Admission Date/Primary Care Provider: 08/07/18 03:07 SILVANO JORDAN MD Discharge Date: 08/13/18 - Discharge Diagnosis (1) Subglottic inflammation Is this a current diagnosis for this admission?: Yes (2) Asthma Is this a current diagnosis for this admission?: Yes (3) Chronic obstructive pulmonary disease Is this a current diagnosis for this admission?: Yes (4) Sleep apnea Is this a current diagnosis for this admission?: Yes (5) Type 2 diabetes mellitus Is this a current diagnosis for this admission?: Yes (6) Hypothyroid Is this a current diagnosis for this admission?: Yes (8) Pulmonary hypertension Is this a current diagnosis for this admission?: Yes - Additional Information Resuscitation Status: Full Code Discharge Diet: Diabetic Home Medications: Duloxetine HCl [Cymbalta] 60 mg PO Q12 08/07/18 Ergocalciferol (Vitamin D2) [Drisdol 50,000 unit (1.25MG) Capsule] 50,000 unit PO MO@1000 08/07/18 Glipizide [Glucotrol 10 mg Tablet] 10 mg PO BID 08/07/18 Levothyroxine Sodium [Synthroid 0.15 mg Tablet] 0.15 mg PO Q6AM 08/07/18 Metformin HCl [Glucophage 500 mg Tablet] 1,000 mg PO BID 08/07/18 Olmesartan/Hydrochlorothiazide [Benicar Hct 40-25 mg Tablet] 1 tab PO DAILY 08/07/18 Pantoprazole Sodium [Protonix] 40 mg PO DAILY 08/07/18 Pioglitazone HCl [Actos 15 mg Tablet] 15 mg PO QAM 08/07/18 Pramipexole Di-HCl [Pramipexole Dihydrochloride] 1.5 mg PO BID 08/07/18 Fluticasone Propionate [Flonase Nasal [place]any 50 Mcg/Mehoopany 16 gm] 1 spray NASL Q12 spray.pump 08/12/18 Insulin Lispro [Humalog Insulin (Lispro) 100 unit/mL] 0 - 12 unit SUBCUT ACHSP PRN unit 08/12/18 History of Present Illness Admission Date/PCP: 08/07/18 03:07 SILVANO JORDAN MD History of Present Illness: YA PETTIT is a 72 year old male,He presented to the emergency room on August 07, 2018 for evaluation of shortness of breath neck swelling in the emergency room he underwent CTA of the chest and also CT scan of the neck region no pulmonary embolus was found but on the CT of the neck there was a nonspecific circumferential narrowing of the subglottic airway region. Patient was treated with IV Decadron and also IV antibiotic he was seen by ENT he underwent flexible nasopharygolaryngoscopy which was essentially negative. Patient is very obese very deconditioned shortness of breath is probably due to his obesity it was fe lt that patient needed physical therapy for muscle strengthening.Patient is agreeable to short-term rehabilitation Physical Exam Vital Signs: Temp Pulse Resp BP Pulse Ox 97.7 F 69 18 153/97 H 98 08/12/18 15:55 08/12/18 15:55 08/12/18 15:55 08/12/18 15:55 08/12/18 15:55 Intake & Output 08/11/18 08/12/18 08/13/18 06:59 06:59 06:59 Intake Total 1215 1063 1081 Output Total 650 950 100 Balance 565 113 981 Weight 164.4 kg 163.9 kg General appearance: PRESENT: no acute distress, well-developed, well-nourished Head exam: PRESENT: atraumatic Eye exam: PRESENT: PERRLA Ear exam: PRESENT: normal external ear exam Mouth exam: PRESENT: moist, tongue midline Respiratory exam: PRESENT: clear to auscultation milena Cardiovascular exam: PRESENT: RRR Vascular exam: PRESENT: normal capillary refill GI/Abdominal exam: PRESENT: normal bowel sounds, soft Rectal exam: PRESENT: deferred Extremities exam: PRESENT: full ROM Neurological exam: PRESENT: alert, awake, oriented to person, oriented to place, oriented to time, oriented to situation, CN II-XII grossly intact Psychiatric exam: PRESENT: appropriate affect, normal mood Skin exam: PRESENT: dry, intact, warm Results Laboratory Results: 08/11/18 06:06 08/11/18 06:06 08/07/18 12:44 Blood Blood Culture - Final NO GROWTH IN 5 DAYS 08/07/18 13:08 Blood Blood Culture - Final NO GROWTH IN 5 DAYS 08/07/18 00:25 Troponin I < 0.012 NT-Pro-B Natriuret Pep 224 Impressions: Chest X-Ray 08/06/18 22:41 IMPRESSION: Stable cardiomegaly. Lungs are clear copyright 2010 [employer]- All Rights Reserved Soft Tissue Neck X-Ray 08/06/18 23:08 IMPRESSION: The airway is widely patent. Negative for radiopaque foreign body copyright 2010 [employer]- All Rights Reserved Chest/Abdomen CTA 08/07/18 00:53 IMPRESSION: Negative for acute intrathoracic process TECHNICAL DOCUMENTATION: Quality ID # 436: Final reports with documentation of one or more dose reduction techniques (e.g., Automated exposure control, adjustment of the mA and/or kV according to patient size, use of iterative reconstruction technique) copyright 2010 [employer]- All Rights Reserved Soft Tissue Neck CT 08/07/18 00:53 IMPRESSION: Nonspecific circumferential narrowing of the subglottic airway, possibly due to an inflammatory or infectious process. Neoplastic entity cannot be excluded entirely and direct visualization is recommended. No discrete or defined abscess. TECHNICAL DOCUMENTATION: Quality ID # 436: Final reports with documentation of one or more dose reduction techniques (e.g., Automated exposure control, adjustment of the mA and/or kV according to patient size, use of iterative reconstruction technique) copyright 2010 [employer]- All Rights Reserved Qualifiers - * PATIENT BEING DISCHARGED WITH ANY OF THE FOLLOWING DIAGNOSIS: No
[2018-08-13] MEDS: LANSOPRAZOLE 30 MG TAB.RAP.DR PO SCH (05:46)
[2018-08-13] MEDS: DILTIAZEM HCL 30 MG TABLET PO SCH ×2 (05:46→13:09)
[2018-08-13] MEDS: LEVOTHYROXINE SODIUM 0.15 MG TABLET PO SCH (05:46)
[2018-08-13] MEDS: INSULIN LISPRO 100 UNIT/ML 3 ML VIAL SUBCUT PRN ×2 (08:11→12:52)
[2018-08-13] MEDS: DULOXETINE HCL 30 MG CAPSULE.DR PO SCH (09:31)
[2018-08-13] MEDS: FLUTICASONE NASAL SPRAY 50 MCG/SPRY 120 SPRAY/16 GM NASL SCH (09:31)
[2018-08-13] MEDS: ENOXAPARIN SODIUM INJ 40 MG/0.4 ML DISP.SYRIN SUBCUT SCH (09:31)
[2018-08-13] MEDS: PRAMIPEXOLE DI-HCL 0.5 MG TABLET PO SCH (09:31)
[2018-08-13 12:35] VITALS: BP 111/90
== END 2018-08-13 16:00 | DRG 202 ==
LOC: ER 22:12 → OBSVTOIN 08-07 03:07 → EH 08-07 03:07 → 3S 08-07 05:05
PROVIDERS: ADMIT Internal Medicine; ATTEND Internal Medicine
PROC: 0CJY8ZZ Inspection of Mouth and Throat, Via Natural or Artificial Opening Endoscopic (ICD-10-PCS; principal; 2018-08-08)
DX: J39.8 Other specified diseases of upper respiratory tract (principal); Z68.43 Body mass index [BMI] 50.0-59.9, adult; J44.9 Chronic obstructive pulmonary disease, unspecified; E03.9 Hypothyroidism, unspecified; E11.9 Type 2 diabetes mellitus without complications; E66.01 Morbid (severe) obesity due to excess calories; I27.20 Pulmonary hypertension, unspecified; Z79.4 Long term (current) use of insulin; G47.33 Obstructive sleep apnea (adult) (pediatric); Z90.49 Acquired absence of other specified parts of digestive tract; Z99.81 Dependence on supplemental oxygen; I11.0 Hypertensive heart disease with heart failure; I50.9 Heart failure, unspecified; I25.10 Atherosclerotic heart disease of native coronary artery without angina pectoris; E78.5 Hyperlipidemia, unspecified; K21.9 Gastro-esophageal reflux disease without esophagitis; M19.90 Unspecified osteoarthritis, unspecified site; F32.9 Major depressive disorder, single episode, unspecified; F41.9 Anxiety disorder, unspecified; Z87.891 Personal history of nicotine dependence; R00.0 Tachycardia, unspecified
CPT/HCPCS: 36415; 70360; 70491; 71045; 71275; 80048; 80053; 82962; 83880; 84443; 84484; 85025; 87040; 87070; 87880; 90686; 93005; 93010; 94640; 94799; 96361; 96374; 96375; 99285; G8978-GP; G8979-GP; G8980-GP; J0295; J0696; J1100; J1650; J1815; J3360; J3490; J7030; J7120; S0028

== ENCOUNTER 2018-08-20 14:31 | Inpatient (IN) | payer MEDICARE, OTHER ==
[2018-08-20 16:46] LABS: ABSOLUTE LYMPHOCYTES (AUTO) 1.7 10^3/uL (0.5-4.7); ABSOLUTE MONOCYTES (AUTO) 0.7 10^3/uL (0.1-1.4); ABSOLUTE NEUT (AUTO) 3.3 10^3/uL (1.7-8.2); BASOPHILS % (AUTO) 0.6 % (0-2); EOSINOPHILS % (AUTO) 0.2 % (0-6); HEMATOCRIT 37.9 % (37.9-51.0); HEMOGLOBIN 12.5 g/dL (13.5-17.0); LYMPHOCYTES % (AUTO) 29.8 % (13-45); MEAN CORPUSCULAR HEMOGLOBIN 29.3 pg (27.0-33.4); MEAN CORPUSCULAR HGB CONC 32.8 g/dL (32.0-36.0); MEAN CORPUSCULAR VOLUME 89 fl (80-97); MONOCYTES % (AUTO) 12.7 % (3-13); PLATELET COUNT 125 10^3/uL (150-450); RED BLOOD COUNT 4.25 10^6/uL (4.35-5.55); RED CELL DISTRIBUTION WIDTH 14.7 % (11.5-14.0); SEGMENTED NEUTROPHILS % (AUTO) 56.7 % (42-78); TOTAL CELLS COUNTED % (AUTO) 100 %; WHITE BLOOD COUNT 5.9 10^3/uL (4.0-10.5)
[2018-08-20 17:02] LABS: ALANINE AMINOTRANSFERASE 49 U/L (21-72); ALBUMIN 3.9 g/dL (3.5-5.0); ALKALINE PHOSPHATASE 88 U/L (38-126); ANION GAP 8 (5-19); ASPARTATE AMINO TRANSFERASE 24 U/L (17-59); BILIRUBIN,DIRECT 0.3 mg/dL (0.0-0.4); BILIRUBIN,TOTAL 0.6 mg/dL (0.2-1.3); BLOOD UREA NITROGEN 24 mg/dL (7-20); CALCIUM 9.6 mg/dL (8.4-10.2); CARBON DIOXIDE 33 mmol/L (22-30); CHLORIDE 100 mmol/L (98-107); GLUCOSE 109 mg/dL (75-110); POTASSIUM 4.3 mmol/L (3.6-5.0); SODIUM 141.2 mmol/L (137-145); TOTAL PROTEIN 6.5 g/dL (6.3-8.2)
--- NOTE | 2018-08-20 17:24 | RADIOLOGY REPORT (SQ) ---
EXAM DESCRIPTION: CHEST 2 VIEWS COMPLETED DATE/TIME: 08/20/2018 5:09 pm REASON FOR STUDY: worsening acute respiratory failure, acute COPD COMPARISON: 08/06/2018 EXAM PARAMETERS: NUMBER OF VIEWS: two views TECHNIQUE: Digital Frontal and Lateral radiographic views of the chest acquired. RADIATION DOSE: NA LIMITATIONS: none FINDINGS: LUNGS AND PLEURA: No opacities, masses or pneumothorax. No pleural effusion. MEDIASTINUM AND HILAR STRUCTURES: No masses or contour abnormalities. HEART AND VASCULAR STRUCTURES: Heart normal size. No evidence for failure. BONES: No acute findings. HARDWARE: None in the chest. OTHER: No other significant finding. IMPRESSION: NO ACUTE RADIOGRAPHIC FINDING IN THE CHEST. TECHNICAL DOCUMENTATION: JOB ID: [id number] [employer]- All Rights Reserved Reading location - IP/workstation name: [email or web address]
--- NOTE | 2018-08-20 17:42 | EKG REPORT ---
SEVERITY:- ABNORMAL ECG - SINUS RHYTHM NONSPECIFIC INTRAVENTRICULAR CONDUCTION DELAY : Confirmed by: Nguyễn Gorman MD 20-Aug-2018 17:41:11
[2018-08-20 18:29] LABS: ARTERIAL BLOOD BASE EXCESS 6.4 mmol/L; ARTERIAL BLOOD FIO2 3LNC; ARTERIAL BLOOD H2CO3 1.64 mmol/L (1.05-1.35); ARTERIAL BLOOD HCO3 32.8 mmol/L (20-24); ARTERIAL BLOOD O2 SATURATION 96.5 % (94-98); ARTERIAL BLOOD PCO2 54.6 mmHg (35-45); ARTERIAL BLOOD PO2 88.2 mmHg (80-100); ARTERIAL BLOOD TOTAL CO2 34.5 mmol/L (23-27)
[2018-08-20] MEDS: IPRATROPIUM/ALBUTEROL 0.5-2.5 MG/3 ML AMPUL NEB SCH (20:54)
--- NOTE | 2018-08-20 21:21 | PDOC H&P ---
History of Present Illness Admission Date/PCP: 08/20/18 14:31 SILVANO JORDAN MD History of Present Illness: YA PETTIT is a 72 year old male, he was just discharged from this hospital on August 13, 2018 when he had subglottic inflammation associated with stridor, I saw him in the office yesterday when he came for follow-up evaluation, he was wheezing, he was prescribed dexamethasone, this was not approved by the insurance, he continues to have increased work of breathing with shortness of breath and wheezing with impending respiratory failure he was admitted directly from outpatient to the hospital for management. He has multiple comorbid conditions including obstructive sleep apnea, morbid obesity, pulmonary hypertension, sedentary lifestyle, type 2 diabetes mellitus. The ABG that was done suggest mixed acid-base disorder Past Medical History Cardiac Medical History: Reports: Hyperlipidema, Hypertension Pulmonary Medical History: Reports: Asthma, Chronic Obstructive Pulmonary Disease (COPD), Respiratory Failure, Sleep Apnea, Other - Pulmonary hypertension Endocrine Medical History: Reports: Diabetes Mellitus Type 2, Hypothyroidism, Obesity GI Medical History: Reports: Gastroesophageal Reflux Disease Musculoskeltal Medical History: Reports: Arthritis Psychiatric Medical History: Reports: Depression Past Surgical History Past Surgical History: Reports: Appendectomy, Cardiac Catheterization, Orthopedic Surgery - bilat arm fx, bilat rotator cuff, Tonsillectomy Denies: Cholecystectomy, Coronary Artery Bypass Graft, Gastric Bypass Surgery, Herniorrhaphy, Pacemaker Social History Smoking Status: Former Smoker Frequency of Alcohol Use: Occasional Hx Recreational Drug Use: No Hx Prescription Drug Abuse: No Family History Family History: Reviewed & Not Pertinent Parental Family History Reviewed: Yes Children Family History Reviewed: Yes Sibling(s) Family History Reviewed.: Yes Medication/Allergy Home Medications: RX: Duloxetine HCl [Cymbalta] 60 mg PO Q12 08/07/18 RX: Ergocalciferol (Vitamin D2) [Drisdol 50,000 unit (1.25MG) Capsule] 50,000 unit PO MO@1000 08/07/18 RX: Glipizide [Glucotrol 10 mg Tablet] 10 mg PO BID 08/07/18 RX: Levothyroxine Sodium [Synthroid 0.15 mg Tablet] 0.15 mg PO Q6AM 08/07/18 RX: Pantoprazole Sodium [Protonix] 40 mg PO DAILY 12/29/18 RX: Pioglitazone HCl [Actos 15 mg Tablet] 15 mg PO QAM 08/07/18 RX: Pramipexole Di-HCl [Pramipexole Dihydrochloride] 1.5 mg PO BID 08/07/18 Alprazolam [Xanax] 2 mg PO QHS 08/21/18 Aspirin [Ecotrin] 81 mg PO DAILY 08/21/18 Lorazepam [Ativan] 2 mg PO QHS 08/21/18 Metformin HCl [Metformin ER Osmotic] 500 mg PO DAILY 08/21/18 Olmesartan Medoxomil [Benicar] 40 mg PO DAILY 08/21/18 RX: Atorvastatin Calcium [Lipitor 40 mg Tablet] 40 mg PO QHS 08/21/18 RX: Metformin HCl 1,000 mg PO QPM 08/21/18 Rizatriptan Benzoate [Maxalt] 10 mg PO DAILYP PRN 08/21/18 Allergies/Adverse Reactions: No Known Allergies Allergy (Verified 09/21/17 09:08) Review of Systems Constitutional: PRESENT: fatigue Eyes: ABSENT: visual disturbances Ears: ABSENT: hearing changes Cardiovascular: PRESENT: dyspnea on exertion, orthropnea Respiratory: PRESENT: cough, dyspnea Gastrointestinal: ABSENT: abdominal pain, constipation, diarrhea, hematemesis, hematochezia, nausea, vomiting Genitourinary: ABSENT: dysuria, hematuria Musculoskeletal: ABSENT: joint swelling Integumentary: ABSENT: rash, wounds Neurological: ABSENT: abnormal gait, abnormal speech, confusion, dizziness, focal weakness, syncope Psychiatric: ABSENT: anxiety, depression, homidical ideation, suicidal ideation Endocrine: ABSENT: cold intolerance, heat intolerance, menstrual abnormalities, polydipsia, polyuria Hematologic/Lymphatic: ABSENT: easy bleeding, easy bruising, lymphadenopathy Physical Exam Vital Signs: Temp Pulse Resp BP Pulse Ox 98.0 F 88 20 118/71 96 08/20/18 19:35 08/20/18 20:55 08/20/18 20:55 08/20/18 19:35 08/20/18 20:55 Intake & Output 08/19/18 08/20/18 08/21/18 06:59 06:59 06:59 Output Total 200 Balance -200 Weight 160.9 kg General appearance: PRESENT: no acute distress, well-developed, well-nourished Head exam: PRESENT: atraumatic, normocephalic Eye exam: PRESENT: conjunctiva pink, EOMI, PERRLA Ear exam: PRESENT: normal external ear exam Mouth exam: PRESENT: moist, tongue midline Neck exam: PRESENT: full ROM Respiratory exam: PRESENT: wheezes Cardiovascular exam: PRESENT: RRR, +S1, +S2 Vascular exam: PRESENT: normal capillary refill GI/Abdominal exam: PRESENT: normal bowel sounds, soft Rectal exam: PRESENT: deferred Neurological exam: PRESENT: alert, awake, oriented to person, oriented to place, oriented to time, oriented to situation, CN II-XII grossly intact Psychiatric exam: PRESENT: appropriate affect, normal mood Skin exam: PRESENT: dry, intact, warm Results Laboratory Results: 08/20/18 16:33 08/20/18 16:20 08/20/18 08/20/18 08/20/18 15:55 16:20 16:33 WBC 5.9 RBC 4.25 L Hgb 12.5 L Hct 37.9 MCV 89 MCH 29.3 MCHC 32.8 RDW 14.7 H Plt Count 125 L Seg Neutrophils % 56.7 Lymphocytes % 29.8 Monocytes % 12.7 Eosinophils % 0.2 Basophils % 0.6 Absolute Neutrophils 3.3 Absolute Lymphocytes 1.7 Absolute Monocytes 0.7 Absolute Eosinophils 0.0 Absolute Basophils 0.0 Carbonic Acid 1.64 H HCO3/H2CO3 Ratio 20:1 ABG pH 7.40 ABG pCO2 54.6 H ABG pO2 88.2 ABG HCO3 32.8 H ABG O2 Saturation 96.5 ABG Base Excess 6.4 FiO2 3LNC Sodium 141.2 Potassium 4.3 Chloride 100 Carbon Dioxide 33 H Anion Gap 8 BUN 24 H Creatinine 1.57 H Est GFR ( Amer) 53 L Est GFR (Non-Af Amer) 43 L Glucose 109 Calcium 9.6 Total Bilirubin 0.6 AST 24 ALT 49 Alkaline Phosphatase 88 Total Protein 6.5 Albumin 3.9 Impressions: Chest X-Ray 08/20/18 00:00 IMPRESSION: NO ACUTE RADIOGRAPHIC FINDING IN THE CHEST. Assessment & Plan - Diagnosis (1) Acute exacerbation of chronic obstructive pulmonary disease (COPD) Is this a current diagnosis for this admission?: Yes Plan: Patient will require IV Solu-Medrol, this will exacerbate the serum glucose, he has a history of diabetes mellitus he will need close monitoring (2) Mixed acid base balance disorder Is this a current diagnosis for this admission?: Yes (3) Morbid obesity due to excess calories Is this a current diagnosis for this admission?: Yes (4) Pulmonary hypertension Is this a current diagnosis for this admission?: Yes (5) Sleep apnea Qualifiers: Sleep apnea type: unspecified type Qualified Code(s): G47.30 - Sleep apnea, unspecified Is this a current diagnosis for this admission?: Yes
[2018-08-20] MEDS: METHYLPREDNISOLONE INJ 125 MG/2 ML SDV IV SCH (21:43)
[2018-08-21] MEDS: IPRATROPIUM/ALBUTEROL 0.5-2.5 MG/3 ML AMPUL NEB SCH ×4 (02:35→20:52)
[2018-08-21] MEDS: METHYLPREDNISOLONE INJ 125 MG/2 ML SDV IV SCH ×3 (05:23→22:20)
[2018-08-21 08:02] LABS: APPEARANCE,URINE CLEAR; BILIRUBIN,URINE NEGATIVE (NEGATIVE); COLOR,URINE YELLOW; GLUCOSE, URINE >=500 mg/dL (NEGATIVE); KETONES,URINE NEGATIVE (NEGATIVE); LEUKOCYTE ESTERASE,URINE NEGATIVE (NEGATIVE); NITRITE,URINE NEGATIVE (NEGATIVE); PROTEIN,URINE NEGATIVE (NEGATIVE); URINE SPECIFIC GRAVITY 1.022; UROBILINOGEN,URINE NEGATIVE mg/dL (<2.0)
[2018-08-21] MEDS ORDERED: DEXTROSE 40% GEL 15 GM TUBE PO PRN (08:30)
[2018-08-21] MEDS ORDERED: DEXTROSE 40% GEL 15 GM TUBE X 2 PO PRN (08:30)
[2018-08-21] MEDS ORDERED: DEXTROSE 50%-WATER SYRINGE 12.5 GM/25 ML DOSE IV PRN (08:30)
[2018-08-21] MEDS ORDERED: DEXTROSE 50%-WATER SYRINGE 25 GM/50 ML DOSE IV PRN (08:30)
[2018-08-21] MEDS ORDERED: GLUCAGON,HUMAN RECOMB 1 MG INJ IM PRN (08:30)
[2018-08-21] MEDS: INSULIN LISPRO 100 UNIT/ML 3 ML VIAL SUBCUT PRN ×4 (09:30→22:20)
[2018-08-21] MEDS ORDERED: (PENDING PHARMACY ID) (Rizatriptan Benzoate [Maxalt] 10 MG) PO PRN (13:29)
[2018-08-21] MEDS: METFORMIN HCL 500 MG TABLET PO SCH (16:43)
[2018-08-21] MEDS: GLIPIZIDE 10 MG TABLET PO SCH (17:29)
[2018-08-21] MEDS ORDERED: (PENDING PHARMACY ID) (Metformin Hcl [Metformin Hcl] 1,000 MG) PO SCH (18:00)
--- NOTE | 2018-08-21 18:24 | PDOC PROGRESS REPORT ---
Subjective Progress Note for:: 08/21/18 Subjective:: Patient seen by the bedside, still requiring IV Solu-Medrol Reason For Visit: ACUTE COPD EXACERBATION Physical Exam Vital Signs: Temp Pulse Resp BP Pulse Ox 98.4 F 106 H 20 120/71 94 08/21/18 15:33 08/21/18 15:33 08/21/18 15:33 08/21/18 15:33 08/21/18 15:33 Intake & Output 08/20/18 08/21/18 08/22/18 06:59 06:59 06:59 Intake Total 814 Output Total 550 Balance -550 814 Weight 158.3 kg General appearance: PRESENT: no acute distress Eye exam: PRESENT: PERRLA Respiratory exam: PRESENT: wheezes Cardiovascular exam: PRESENT: +S1, +S2 GI/Abdominal exam: PRESENT: soft Neurological exam: PRESENT: alert Results Laboratory Results: 08/20/18 16:33 08/20/18 16:20 08/20/18 08/21/18 15:55 07:30 Carbonic Acid 1.64 H HCO3/H2CO3 Ratio 20:1 ABG pH 7.40 ABG pCO2 54.6 H ABG pO2 88.2 ABG HCO3 32.8 H ABG O2 Saturation 96.5 ABG Base Excess 6.4 FiO2 3LNC Urine Color YELLOW Urine Appearance CLEAR Urine pH 5.0 Ur Specific Kulm 1.022 Urine Protein NEGATIVE Urine Glucose (UA) >=500 H Urine Ketones NEGATIVE Urine Blood NEGATIVE Urine Nitrite NEGATIVE Ur Leukocyte Esterase NEGATIVE Urine WBC (Auto) 0 Urine RBC (Auto) 1 Impressions: Chest X-Ray 08/20/18 00:00 IMPRESSION: NO ACUTE RADIOGRAPHIC FINDING IN THE CHEST. Assessment & Plan - Diagnosis (1) Acute exacerbation of chronic obstructive pulmonary disease (COPD) Is this a current diagnosis for this admission?: Yes Plan: Continue treatment (2) Mixed acid base balance disorder Is this a current diagnosis for this admission?: Yes (3) Morbid obesity due to excess calories Is this a current diagnosis for this admission?: Yes (4) Pulmonary hypertension Is this a current diagnosis for this admission?: Yes (5) Sleep apnea Qualifiers: Sleep apnea type: unspecified type Qualified Code(s): G47.30 - Sleep apnea, unspecified Is this a current diagnosis for this admission?: Yes
[2018-08-21] MEDS ORDERED: PRAMIPEXOLE DI-HCL 0.5 MG TABLET ONE (19:07)
[2018-08-21] MEDS: PRAMIPEXOLE DI-HCL 0.5 MG TABLET PO SCH (19:20)
[2018-08-21] MEDS: ATORVASTATIN CALCIUM 40 MG TABLET PO SCH (22:18)
[2018-08-21] MEDS: LORAZEPAM 1 MG TABLET PO SCH (22:18)
[2018-08-21] MEDS: DULOXETINE HCL 30 MG CAPSULE.DR PO SCH (22:18)
[2018-08-21] MEDS: ALPRAZOLAM 0.5 MG TABLET PO SCH (22:20)
[2018-08-22] MEDS: IPRATROPIUM/ALBUTEROL 0.5-2.5 MG/3 ML AMPUL NEB SCH ×4 (02:16→19:58)
[2018-08-22] MEDS: METHYLPREDNISOLONE INJ 125 MG/2 ML SDV IV SCH ×2 (05:53→22:10)
[2018-08-22] MEDS: LEVOTHYROXINE SODIUM 0.15 MG TABLET PO SCH (05:54)
[2018-08-22] MEDS: LANSOPRAZOLE 30 MG TAB.RAP.DR PO SCH (05:54)
[2018-08-22] MEDS: METFORMIN HCL 500 MG TABLET PO SCH ×2 (08:12→17:01)
[2018-08-22] MEDS: INSULIN LISPRO 100 UNIT/ML 3 ML VIAL SUBCUT PRN ×4 (08:12→22:11)
[2018-08-22] MEDS: PIOGLITAZONE HCL 15 MG TABLET PO SCH (08:12)
[2018-08-22] MEDS ORDERED: (PENDING PHARMACY ID) (Olmesartan Medoxomil [Benicar] 40 MG) PO SCH (10:00)
[2018-08-22] MEDS ORDERED: METFORMIN HCL 500 MG PO SCH (10:00)
[2018-08-22] MEDS: DULOXETINE HCL 30 MG CAPSULE.DR PO SCH ×2 (10:30→22:10)
[2018-08-22] MEDS: GLIPIZIDE 10 MG TABLET PO SCH ×2 (10:34→17:01)
[2018-08-22] MEDS: ASPIRIN 81 MG TABLET, ENT COATED PO SCH (10:34)
[2018-08-22] MEDS: LOSARTAN POTASSIUM 50 MG TABLET PO SCH (10:35)
[2018-08-22] MEDS: PRAMIPEXOLE DI-HCL 0.5 MG TABLET PO SCH ×2 (10:35→17:01)
[2018-08-22] MEDS ORDERED: HYDROCHLOROTHIAZIDE 25 MG TABLET PO ONE (13:30)
[2018-08-22] MEDS ORDERED: METHYLPREDNISOLONE INJ 125 MG/2 ML SDV IV SCH (14:00)
--- NOTE | 2018-08-22 14:49 | PDOC PROGRESS REPORT ---
Subjective Progress Note for:: 08/22/18 Subjective:: Patient seen by the bedside still wheezing Reason For Visit: ACUTE COPD EXACERBATION Physical Exam Vital Signs: Temp Pulse Resp BP Pulse Ox 99.0 F 84 18 147/95 H 96 08/22/18 11:20 08/22/18 14:00 08/22/18 14:00 08/22/18 11:20 08/22/18 14:00 Intake & Output 08/21/18 08/22/18 08/23/18 06:59 06:59 06:59 Intake Total 1764 895 Output Total 550 550 Balance -550 1214 895 Weight 158.3 kg 154.9 kg General appearance: PRESENT: no acute distress Eye exam: PRESENT: PERRLA Respiratory exam: PRESENT: wheezes Cardiovascular exam: PRESENT: +S1, +S2 GI/Abdominal exam: PRESENT: soft Neurological exam: PRESENT: alert Results Laboratory Results: 08/20/18 16:33 08/20/18 16:20 Impressions: Chest X-Ray 08/20/18 00:00 IMPRESSION: NO ACUTE RADIOGRAPHIC FINDING IN THE CHEST. Assessment & Plan - Diagnosis (1) Acute exacerbation of chronic obstructive pulmonary disease (COPD) Is this a current diagnosis for this admission?: Yes Plan: reduce Solu-Medrol to 60 mg IV every 8 (2) Mixed acid base balance disorder Is this a current diagnosis for this admission?: Yes (3) Morbid obesity due to excess calories Is this a current diagnosis for this admission?: Yes (4) Pulmonary hypertension Is this a current diagnosis for this admission?: Yes (5) Sleep apnea Qualifiers: Sleep apnea type: unspecified type Qualified Code(s): G47.30 - Sleep apnea, unspecified Is this a current diagnosis for this admission?: Yes
[2018-08-22] MEDS ORDERED: ALBUTEROL SULFATE 0.083% NEB 2.5 MG/3 ML AMPUL NEB PRN (15:25)
[2018-08-22] MEDS ORDERED: METHYLPREDNISOLONE INJ 125 MG/2 ML SDV IV ONE (16:00)
[2018-08-22] MEDS: ATORVASTATIN CALCIUM 40 MG TABLET PO SCH (22:10)
[2018-08-22] MEDS: ALPRAZOLAM 0.5 MG TABLET PO SCH (22:10)
[2018-08-22] MEDS: LORAZEPAM 1 MG TABLET PO SCH (22:10)
[2018-08-23] MEDS: IPRATROPIUM/ALBUTEROL 0.5-2.5 MG/3 ML AMPUL NEB SCH ×4 (02:14→20:48)
[2018-08-23] MEDS: METHYLPREDNISOLONE INJ 125 MG/2 ML SDV IV SCH (06:33)
[2018-08-23] MEDS: LANSOPRAZOLE 30 MG TAB.RAP.DR PO SCH (06:33)
[2018-08-23] MEDS: LEVOTHYROXINE SODIUM 0.15 MG TABLET PO SCH (06:33)
[2018-08-23] MEDS: PIOGLITAZONE HCL 15 MG TABLET PO SCH (07:57)
[2018-08-23] MEDS: METFORMIN HCL 500 MG TABLET PO SCH ×2 (07:57→17:55)
[2018-08-23] MEDS: INSULIN LISPRO 100 UNIT/ML 3 ML VIAL SUBCUT PRN ×4 (07:57→21:21)
[2018-08-23] MEDS: GLIPIZIDE 10 MG TABLET PO SCH ×2 (09:58→17:55)
[2018-08-23] MEDS: LOSARTAN POTASSIUM 50 MG TABLET PO SCH (09:58)
[2018-08-23] MEDS: DULOXETINE HCL 30 MG CAPSULE.DR PO SCH ×2 (09:58→21:22)
[2018-08-23] MEDS: ERGOCALCIFEROL (VITAMIN D2) 50000 UNIT (1.25 MG) CAPSULE PO SCH (09:58)
[2018-08-23] MEDS: HYDROCHLOROTHIAZIDE 25 MG TABLET PO SCH (09:59)
[2018-08-23] MEDS: PRAMIPEXOLE DI-HCL 0.5 MG TABLET PO SCH ×2 (09:59→17:55)
[2018-08-23] MEDS: ASPIRIN 81 MG TABLET, ENT COATED PO SCH (10:00)
[2018-08-23] MEDS ORDERED: METHYLPREDNISOLONE INJ 125 MG/2 ML SDV IV SCH (14:00)
[2018-08-23] MEDS: METHYLPREDNISOLONE INJ 40 MG/1 ML SDV IV SCH ×2 (14:41→21:21)
[2018-08-23 17:25] LABS: ABSOLUTE LYMPHOCYTES (AUTO) 0.8 10^3/uL (0.5-4.7); ABSOLUTE MONOCYTES (AUTO) 0.7 10^3/uL (0.1-1.4); ABSOLUTE NEUT (AUTO) 8.8 10^3/uL (1.7-8.2); BASOPHILS % (AUTO) 0.1 % (0-2); HEMATOCRIT 39.8 % (37.9-51.0); HEMOGLOBIN 13.1 g/dL (13.5-17.0); LYMPHOCYTES % (AUTO) 7.7 % (13-45); MEAN CORPUSCULAR HEMOGLOBIN 29.6 pg (27.0-33.4); MEAN CORPUSCULAR VOLUME 90 fl (80-97); MONOCYTES % (AUTO) 6.5 % (3-13); PLATELET COUNT 178 10^3/uL (150-450); RED BLOOD COUNT 4.43 10^6/uL (4.35-5.55); RED CELL DISTRIBUTION WIDTH 14.6 % (11.5-14.0); SEGMENTED NEUTROPHILS % (AUTO) 85.7 % (42-78); TOTAL CELLS COUNTED % (AUTO) 100 %; WHITE BLOOD COUNT 10.2 10^3/uL (4.0-10.5)
[2018-08-23 17:40] LABS: ANION GAP 9 (5-19); BLOOD UREA NITROGEN 34 mg/dL (7-20); CALCIUM 10.2 mg/dL (8.4-10.2); CARBON DIOXIDE 33 mmol/L (22-30); CHLORIDE 98 mmol/L (98-107); GLUCOSE 342 mg/dL (75-110); SODIUM 140.3 mmol/L (137-145)
--- NOTE | 2018-08-23 18:54 | RADIOLOGY REPORT (SQ) ---
EXAM DESCRIPTION: CT HEAD WITHOUT COMPLETED DATE/TIME: 08/23/2018 6:44 pm REASON FOR STUDY: confusion COMPARISON: None. TECHNIQUE: Axial images acquired through the brain without intravenous contrast. Images reviewed wi th bone, brain and subdural windows. Additional sagittal and coronal reconstructions were generated. Images stored on PACS. All CT scanners at this facility use dose modulation, iterative reconstruction, and/or weight based d osing when appropriate to reduce radiation dose to as low as reasonably achievable (ALARA). [facility]: Dose Right [facility]: CareDose [facility]: Dose Right [facility]: Teradose 4D [facility]: Crittercism RADIATION DOSE: CT Rad equipment meets quality standard of care and radiation dose reduction techniq ues were employed. CTDIvol: 48.6 mGy. DLP: 974 mGy-cm.mGy. LIMITATIONS: None. FINDINGS: VENTRICLES: Prominent. CEREBRUM: No masses. No hemorrhage. No midline shift. Areas of low density in the white matter mos t likely due to chronic micro-vascular ischemic change. No evidence for acute infarction. CEREBELLUM: No masses. No hemorrhage. No alteration of density. No evidence for acute infarction. EXTRAAXIAL SPACES: Age-related involutional change. No fluid collections. No masses. ORBITS AND GLOBE: No intra- or extraconal masses. Normal contour of globe without masses. CALVARIUM: No fracture. PARANASAL SINUSES: No fluid or mucosal thickening. SOFT TISSUES: No mass or hematoma. OTHER: No other significant finding. IMPRESSION: CHRONIC CHANGES OF ATROPHY AND MICROVASCULAR ISCHEMIA. NO ACUTE PROCESS. EVIDENCE OF ACUTE STROKE: NO. TECHNICAL DOCUMENTATION: JOB ID: [id number] Quality ID # [id number]: Final reports with documentation of one or more dose reduction techniques (e.g., Au tomated exposure control, adjustment of the mA and/or kV according to patient size, use of iterative reconstruction technique) 2010 [employer]- All Rights Reserved Reading location - IP/workstation name: [email or web address]
--- NOTE | 2018-08-23 19:06 | RADIOLOGY REPORT (SQ) ---
EXAM DESCRIPTION: CHEST SINGLE VIEW COMPLETED DATE/TIME: 08/23/2018 6:53 pm REASON FOR STUDY: wheezing COMPARISON: 06/19/2019 EXAM PARAMETERS: NUMBER OF VIEWS: One view. TECHNIQUE: Single frontal radiographic view of the chest acquired. RADIATION DOSE: NA LIMITATIONS: None. FINDINGS: LUNGS AND PLEURA: No opacities, masses or pneumothorax. No pleural effusion. MEDIASTINUM AND HILAR STRUCTURES: No masses. Contour normal. HEART AND VASCULAR STRUCTURES: Cardiomegaly. No pulmonary edema. BONES: No acute findings. HARDWARE: None in the chest. OTHER: No other significant finding. IMPRESSION: Cardiomegaly without pulmonary edema. TECHNICAL DOCUMENTATION: JOB ID: [id number] [email or web address]- All Rights Reserved Reading location - IP/workstation name: [email or web address]
--- NOTE | 2018-08-23 20:31 | PDOC PROGRESS REPORT ---
Subjective Progress Note for:: 08/23/18 Subjective:: Patient was seen by the bedside,, was confused earlier today, this is not a new symptom for this patient he had the same symptom outpatient at home sometime he has visual hallucinations, spoke to spouse about this problem, this could be early dementia, CT head was obtained, CT head demonstrated atrophy of the brain but no acute change was found. He was admitted because of acute COPD exacerbation, there is expiratory wheeze on chest auscultation. Reason For Visit: ACUTE COPD EXACERBATION Physical Exam Vital Signs: Temp Pulse Resp BP Pulse Ox 98.4 F 91 20 129/75 H 97 08/23/18 19:24 08/23/18 19:24 08/23/18 19:24 08/23/18 19:24 08/23/18 19:24 Intake & Output 08/22/18 08/23/18 08/24/18 06:59 06:59 06:59 Intake Total 1764 2520 1618 Output Total 550 200 Balance 1214 2320 1618 Weight 154.9 kg Eye exam: PRESENT: PERRLA Respiratory exam: PRESENT: wheezes Cardiovascular exam: PRESENT: +S1, +S2 GI/Abdominal exam: PRESENT: soft Neurological exam: PRESENT: alert Results Laboratory Results: 08/23/18 17:15 08/23/18 17:15 08/23/18 08/23/18 17:15 17:15 WBC 10.2 RBC 4.43 Hgb 13.1 L Hct 39.8 MCV 90 MCH 29.6 MCHC 33.0 RDW 14.6 H Plt Count 178 Seg Neutrophils % 85.7 H Lymphocytes % 7.7 L Monocytes % 6.5 Eosinophils % 0.0 Basophils % 0.1 Absolute Neutrophils 8.8 H Absolute Lymphocytes 0.8 Absolute Monocytes 0.7 Absolute Eosinophils 0.0 Absolute Basophils 0.0 Sodium 140.3 Potassium 5.0 Chloride 98 Carbon Dioxide 33 H Anion Gap 9 BUN 34 H Creatinine 1.69 H Est GFR ( Amer) 48 L Est GFR (Non-Af Amer) 40 L Glucose 342 H Calcium 10.2 08/21/18 07:30 Clean Catch Midstream Urine Culture - Final Mixed Urogenital Kailee Impressions: Chest X-Ray 08/23/18 00:00 IMPRESSION: Cardiomegaly without pulmonary edema. Head CT 08/23/18 00:00 IMPRESSION: CHRONIC CHANGES OF ATROPHY AND MICROVASCULAR ISCHEMIA. NO ACUTE PROCESS. EVIDENCE OF ACUTE STROKE: NO. Assessment & Plan - Diagnosis (1) Acute exacerbation of chronic obstructive pulmonary disease (COPD) Is this a current diagnosis for this admission?: Yes Plan: , Patient still have diffuse wheeze, lower Solu-Medrol dose (2) Mixed acid base balance disorder Is this a current diagnosis for this admission?: Yes (3) Morbid obesity due to excess calories Is this a current diagnosis for this admission?: Yes (4) Pulmonary hypertension Is this a current diagnosis for this admission?: Yes (5) Sleep apnea Qualifiers: Sleep apnea type: unspecified type Qualified Code(s): G47.30 - Sleep apnea, unspecified Is this a current diagnosis for this admission?: Yes (6) Confusion Is this a current diagnosis for this admission?: Yes Plan: This is chronic, start Aricept, CT scan of the head, demonstrated atrophy of the brain
[2018-08-23] MEDS: ALPRAZOLAM 0.5 MG TABLET PO SCH (21:22)
[2018-08-23] MEDS: LORAZEPAM 1 MG TABLET PO SCH (21:22)
[2018-08-23] MEDS: DONEPEZIL HCL 5 MG TABLET PO SCH (21:22)
[2018-08-23] MEDS: ATORVASTATIN CALCIUM 40 MG TABLET PO SCH (21:22)
[2018-08-24] MEDS: IPRATROPIUM/ALBUTEROL 0.5-2.5 MG/3 ML AMPUL NEB SCH ×4 (02:32→20:54)
[2018-08-24] MEDS: LEVOTHYROXINE SODIUM 0.15 MG TABLET PO SCH (05:31)
[2018-08-24] MEDS: LANSOPRAZOLE 30 MG TAB.RAP.DR PO SCH (05:31)
[2018-08-24] MEDS: METHYLPREDNISOLONE INJ 40 MG/1 ML SDV IV SCH ×3 (05:31→21:21)
[2018-08-24] MEDS: METFORMIN HCL 500 MG TABLET PO SCH ×2 (08:56→17:17)
[2018-08-24] MEDS: PIOGLITAZONE HCL 15 MG TABLET PO SCH (08:56)
[2018-08-24] MEDS: INSULIN LISPRO 100 UNIT/ML 3 ML VIAL SUBCUT PRN ×4 (08:56→23:55)
[2018-08-24] MEDS: ASPIRIN 81 MG TABLET, ENT COATED PO SCH (11:02)
[2018-08-24] MEDS: LOSARTAN POTASSIUM 50 MG TABLET PO SCH (11:02)
[2018-08-24] MEDS: DULOXETINE HCL 30 MG CAPSULE.DR PO SCH ×2 (11:02→21:05)
[2018-08-24] MEDS: GLIPIZIDE 10 MG TABLET PO SCH ×2 (11:02→17:17)
[2018-08-24] MEDS: HYDROCHLOROTHIAZIDE 25 MG TABLET PO SCH (11:03)
[2018-08-24] MEDS: PRAMIPEXOLE DI-HCL 0.5 MG TABLET PO SCH ×2 (11:04→17:16)
[2018-08-24 18:16] LABS: ABSOLUTE LYMPHOCYTES (AUTO) 0.7 10^3/uL (0.5-4.7); ABSOLUTE MONOCYTES (AUTO) 0.4 10^3/uL (0.1-1.4); ABSOLUTE NEUT (AUTO) 7.1 10^3/uL (1.7-8.2); BASOPHILS % (AUTO) 0.3 % (0-2); HEMATOCRIT 39.7 % (37.9-51.0); HEMOGLOBIN 13.2 g/dL (13.5-17.0); MEAN CORPUSCULAR HEMOGLOBIN 29.7 pg (27.0-33.4); MEAN CORPUSCULAR HGB CONC 33.2 g/dL (32.0-36.0); MEAN CORPUSCULAR VOLUME 90 fl (80-97); PLATELET COUNT 158 10^3/uL (150-450); RED BLOOD COUNT 4.43 10^6/uL (4.35-5.55); RED CELL DISTRIBUTION WIDTH 14.9 % (11.5-14.0); SEGMENTED NEUTROPHILS % (AUTO) 86.7 % (42-78); TOTAL CELLS COUNTED % (AUTO) 100 %; WHITE BLOOD COUNT 8.2 10^3/uL (4.0-10.5)
[2018-08-24 18:36] LABS: ALANINE AMINOTRANSFERASE 79 U/L (21-72); ALBUMIN 4.2 g/dL (3.5-5.0); ALKALINE PHOSPHATASE 107 U/L (38-126); ANION GAP 11 (5-19); ASPARTATE AMINO TRANSFERASE 35 U/L (17-59); BILIRUBIN,DIRECT 0.3 mg/dL (0.0-0.4); BILIRUBIN,TOTAL 0.5 mg/dL (0.2-1.3); BLOOD UREA NITROGEN 38 mg/dL (7-20); CALCIUM 9.8 mg/dL (8.4-10.2); CARBON DIOXIDE 29 mmol/L (22-30); CHLORIDE 96 mmol/L (98-107); POTASSIUM 4.8 mmol/L (3.6-5.0); SODIUM 136.1 mmol/L (137-145); TOTAL PROTEIN 6.6 g/dL (6.3-8.2)
[2018-08-24 18:52] LABS: GLUCOSE 409 mg/dL (75-110)
[2018-08-24] MEDS: ALPRAZOLAM 0.5 MG TABLET PO SCH (21:04)
[2018-08-24] MEDS: LORAZEPAM 1 MG TABLET PO SCH (21:04)
[2018-08-24] MEDS: ATORVASTATIN CALCIUM 40 MG TABLET PO SCH (21:05)
--- NOTE | 2018-08-24 21:14 | PDOC PROGRESS REPORT ---
Subjective Progress Note for:: 08/24/18 Subjective:: Patient was seen by the bedside, the CT scan of the head yesterday demonstrated atrophy I discussed the results of the CT scan with patient and spouse, yesterday he was started on Aricept for dementia. He also had episode of urinary incontinence today Reason For Visit: ACUTE COPD EXACERBATION Physical Exam Vital Signs: Temp Pulse Resp BP Pulse Ox 99.2 F 107 H 20 136/84 H 95 08/24/18 14:49 08/24/18 14:49 08/24/18 14:49 08/24/18 14:49 08/24/18 14:49 Intake & Output 08/23/18 08/24/18 08/25/18 06:59 06:59 06:59 Intake Total 2520 1618 1270 Output Total 200 Balance 2320 1618 1270 Weight 154.9 kg General appearance: PRESENT: no acute distress Eye exam: PRESENT: PERRLA Respiratory exam: PRESENT: wheezes Cardiovascular exam: PRESENT: +S1, +S2 GI/Abdominal exam: PRESENT: soft Neurological exam: PRESENT: alert, CN II-XII grossly intact Results Laboratory Results: 08/24/18 18:00 08/24/18 18:00 08/24/18 08/24/18 18:00 18:00 WBC 8.2 RBC 4.43 Hgb 13.2 L Hct 39.7 MCV 90 MCH 29.7 MCHC 33.2 RDW 14.9 H Plt Count 158 Seg Neutrophils % 86.7 H Lymphocytes % 8.0 L Monocytes % 5.0 Eosinophils % 0.0 Basophils % 0.3 Absolute Neutrophils 7.1 Absolute Lymphocytes 0.7 Absolute Monocytes 0.4 Absolute Eosinophils 0.0 Absolute Basophils 0.0 Sodium 136.1 L Potassium 4.8 Chloride 96 L Carbon Dioxide 29 Anion Gap 11 BUN 38 H Creatinine 1.55 H Est GFR ( Amer) 53 L Est GFR (Non-Af Amer) 44 L Glucose 409 H* Calcium 9.8 Total Bilirubin 0.5 AST 35 ALT 79 H Alkaline Phosphatase 107 Total Protein 6.6 Albumin 4.2 Impressions: Chest X-Ray 08/23/18 00:00 IMPRESSION: Cardiomegaly without pulmonary edema. Head CT 08/23/18 00:00 IMPRESSION: CHRONIC CHANGES OF ATROPHY AND MICROVASCULAR ISCHEMIA. NO ACUTE PROCESS. EVIDENCE OF ACUTE STROKE: NO. Assessment & Plan - Diagnosis (1) Acute exacerbation of chronic obstructive pulmonary disease (COPD) Is this a current diagnosis for this admission?: Yes Plan: Reduce Solu-Medrol to 15 mg IV Q8 (2) Mixed acid base balance disorder Is this a current diagnosis for this admission?: Yes (3) Morbid obesity due to excess calories Is this a current diagnosis for this admission?: Yes (4) Pulmonary hypertension Is this a current diagnosis for this admission?: Yes (5) Sleep apnea Qualifiers: Sleep apnea type: unspecified type Qualified Code(s): G47.30 - Sleep apnea, unspecified Is this a current diagnosis for this admission?: Yes (6) Confusion Is this a current diagnosis for this admission?: Yes
[2018-08-24] MEDS: DONEPEZIL HCL 5 MG TABLET PO SCH (21:21)
[2018-08-25] MEDS: IPRATROPIUM/ALBUTEROL 0.5-2.5 MG/3 ML AMPUL NEB SCH ×4 (01:26→19:49)
[2018-08-25] MEDS ORDERED: DILTIAZEM HCL/D5W 125 MG/125 ML RTUINJ IV ONE (03:31)
[2018-08-25] MEDS: DILTIAZEM HCL/D5W 125 MG/125 ML RTUINJ IV PRN ×3 (04:04→21:08)
[2018-08-25] MEDS: LEVOTHYROXINE SODIUM 0.15 MG TABLET PO SCH (05:05)
[2018-08-25] MEDS: METHYLPREDNISOLONE INJ 40 MG/1 ML SDV IV SCH ×2 (05:05→14:26)
[2018-08-25] MEDS: LANSOPRAZOLE 30 MG TAB.RAP.DR PO SCH (05:05)
[2018-08-25] MEDS: METFORMIN HCL 500 MG TABLET PO SCH ×2 (08:50→17:15)
[2018-08-25] MEDS: PIOGLITAZONE HCL 15 MG TABLET PO SCH (08:50)
[2018-08-25] MEDS: INSULIN LISPRO 100 UNIT/ML 3 ML VIAL SUBCUT PRN ×4 (08:51→23:36)
[2018-08-25] MEDS: GLIPIZIDE 10 MG TABLET PO SCH ×2 (11:07→17:15)
[2018-08-25] MEDS: HYDROCHLOROTHIAZIDE 25 MG TABLET PO SCH (11:08)
[2018-08-25] MEDS: LOSARTAN POTASSIUM 50 MG TABLET PO SCH (11:09)
[2018-08-25] MEDS: DULOXETINE HCL 30 MG CAPSULE.DR PO SCH ×2 (11:09→21:16)
[2018-08-25] MEDS: PRAMIPEXOLE DI-HCL 0.5 MG TABLET PO SCH ×2 (11:10→22:51)
[2018-08-25] MEDS: ASPIRIN 81 MG TABLET, ENT COATED PO SCH (11:10)
--- NOTE | 2018-08-25 17:58 | EKG REPORT ---
SEVERITY:- ABNORMAL ECG - ATRIAL FIBRILLATION BORDERLINE INFERIOR Q WAVES NONSPECIFIC T ABNORMALITIES, INFERIOR LEADS PROLONGED QT INTERVAL : Confirmed by: Venice Calvin 25-Aug-2018 17:57:47
--- NOTE | 2018-08-25 17:58 | EKG REPORT ---
SEVERITY:- BORDERLINE ECG - SINUS RHYTHM BORDERLINE INFERIOR Q WAVES : Confirmed by: Venice Calvin 25-Aug-2018 17:57:31
--- NOTE | 2018-08-25 19:42 | PDOC PROGRESS REPORT ---
Subjective Progress Note for:: 08/25/18 Subjective:: Patient seen by the bedside, he had episode of atrial fibrillation with RVR, still wheezing Reason For Visit: ACUTE COPD EXACERBATION Physical Exam Vital Signs: Temp Pulse Resp BP Pulse Ox 97.9 F 78 20 94/67 L 96 08/25/18 16:10 08/25/18 18:00 08/25/18 16:10 08/25/18 18:00 08/25/18 16:10 Intake & Output 08/24/18 08/25/18 08/26/18 06:59 06:59 06:59 Intake Total 1618 1280 982 Output Total 425 Balance 1618 1280 557 Weight 154.9 kg General appearance: PRESENT: no acute distress Eye exam: PRESENT: PERRLA Respiratory exam: PRESENT: wheezes Cardiovascular exam: PRESENT: irregular rhythm, +S1, +S2 GI/Abdominal exam: PRESENT: soft Neurological exam: PRESENT: alert Results Laboratory Results: 08/24/18 18:00 08/24/18 18:00 08/20/18 16:33 Blood Blood Culture - Final NO GROWTH IN 5 DAYS 08/20/18 16:20 Blood Blood Culture - Final NO GROWTH IN 5 DAYS Impressions: Chest X-Ray 08/23/18 00:00 IMPRESSION: Cardiomegaly without pulmonary edema. Head CT 08/23/18 00:00 IMPRESSION: CHRONIC CHANGES OF ATROPHY AND MICROVASCULAR ISCHEMIA. NO ACUTE PROCESS. EVIDENCE OF ACUTE STROKE: NO. Assessment & Plan - Diagnosis (1) Acute exacerbation of chronic obstructive pulmonary disease (COPD) Is this a current diagnosis for this admission?: Yes Plan: Discontinue Solu-Medrol start prednisone, consult pulmonary (2) Mixed acid base balance disorder Is this a current diagnosis for this admission?: Yes (3) Morbid obesity due to excess calories Is this a current diagnosis for this admission?: Yes (4) Pulmonary hypertension Is this a current diagnosis for this admission?: Yes (5) Sleep apnea Qualifiers: Sleep apnea type: unspecified type Qualified Code(s): G47.30 - Sleep apnea, unspecified Is this a current diagnosis for this admission?: Yes (6) Confusion Is this a current diagnosis for this admission?: Yes Plan: This is probably from dementia, discussed this with patient spouse, did not the patient himself because he has been funding with dying, if he knows he has dementia he may commit suicide so myself and the spouse agreed not to tell him that diagnosis (7) Atrial fibrillation with RVR Is this a current diagnosis for this admission?: Yes Plan: Start Cardizem infusion, consult cardiology
[2018-08-25] MEDS: DONEPEZIL HCL 5 MG TABLET PO SCH (21:12)
[2018-08-25] MEDS: ATORVASTATIN CALCIUM 40 MG TABLET PO SCH (21:12)
[2018-08-25] MEDS: ALPRAZOLAM 0.5 MG TABLET PO SCH (21:15)
[2018-08-25] MEDS: LORAZEPAM 1 MG TABLET PO SCH (21:16)
[2018-08-25] MEDS: PREDNISONE 10 MG TABLET PO SCH (22:51)
[2018-08-26] MEDS: IPRATROPIUM/ALBUTEROL 0.5-2.5 MG/3 ML AMPUL NEB SCH ×4 (02:39→20:53)
[2018-08-26] MEDS: LANSOPRAZOLE 30 MG TAB.RAP.DR PO SCH (05:08)
[2018-08-26] MEDS: LEVOTHYROXINE SODIUM 0.15 MG TABLET PO SCH (05:08)
[2018-08-26] MEDS: PIOGLITAZONE HCL 15 MG TABLET PO SCH (08:14)
[2018-08-26] MEDS: METFORMIN HCL 500 MG TABLET PO SCH ×2 (08:14→17:15)
[2018-08-26] MEDS: INSULIN LISPRO 100 UNIT/ML 3 ML VIAL SUBCUT PRN ×4 (08:14→21:09)
[2018-08-26] MEDS: DULOXETINE HCL 30 MG CAPSULE.DR PO SCH ×2 (10:21→21:09)
[2018-08-26] MEDS: LOSARTAN POTASSIUM 50 MG TABLET PO SCH (10:21)
[2018-08-26] MEDS: HYDROCHLOROTHIAZIDE 25 MG TABLET PO SCH (10:21)
[2018-08-26] MEDS: GLIPIZIDE 10 MG TABLET PO SCH ×2 (10:21→17:15)
[2018-08-26] MEDS: PRAMIPEXOLE DI-HCL 0.5 MG TABLET PO SCH ×2 (10:21→17:16)
[2018-08-26] MEDS: PREDNISONE 10 MG TABLET PO SCH (10:21)
[2018-08-26] MEDS: ASPIRIN 81 MG TABLET, ENT COATED PO SCH (10:22)
[2018-08-26] MEDS: DILTIAZEM HCL/D5W 125 MG/125 ML RTUINJ IV PRN (13:16)
--- NOTE | 2018-08-26 19:39 | PDOC PROGRESS REPORT ---
Subjective Progress Note for:: 08/26/18 Subjective:: Patient seen by the bedside, still wheezing, he has paroxysmal atrial fibrillation on Cardizem drip presently sinus he will need oral anticoagulation he has multiple comorbid conditions including COPD, pulmonary hypertension, diabetes mellitus, chronic kidney disease stage III, dementia Reason For Visit: ACUTE COPD EXACERBATION Physical Exam Vital Signs: Temp Pulse Resp BP Pulse Ox 97.4 F 82 18 117/69 98 08/26/18 15:40 08/26/18 19:00 08/26/18 15:40 08/26/18 19:00 08/26/18 15:40 Intake & Output 08/25/18 08/26/18 08/27/18 06:59 06:59 06:59 Intake Total 1280 1384 1171 Output Total 1200 200 Balance 1280 184 971 Weight 153.8 kg General appearance: PRESENT: no acute distress Eye exam: PRESENT: PERRLA Respiratory exam: PRESENT: wheezes Cardiovascular exam: PRESENT: +S1, +S2 GI/Abdominal exam: PRESENT: soft Neurological exam: PRESENT: alert Results Laboratory Results: 08/24/18 18:00 08/24/18 18:00 08/20/18 16:33 Blood Blood Culture - Final NO GROWTH IN 5 DAYS 08/20/18 16:20 Blood Blood Culture - Final NO GROWTH IN 5 DAYS Impressions: Chest X-Ray 08/23/18 00:00 IMPRESSION: Cardiomegaly without pulmonary edema. Head CT 08/23/18 00:00 IMPRESSION: CHRONIC CHANGES OF ATROPHY AND MICROVASCULAR ISCHEMIA. NO ACUTE PROCESS. EVIDENCE OF ACUTE STROKE: NO. Assessment & Plan - Diagnosis (1) Acute exacerbation of chronic obstructive pulmonary disease (COPD) Is this a current diagnosis for this admission?: Yes Plan: Continue treatment (2) Mixed acid base balance disorder Is this a current diagnosis for this admission?: Yes (3) Morbid obesity due to excess calories Is this a current diagnosis for this admission?: Yes (4) Pulmonary hypertension Is this a current diagnosis for this admission?: Yes (5) Sleep apnea Qualifiers: Sleep apnea type: unspecified type Qualified Code(s): G47.30 - Sleep apnea, unspecified Is this a current diagnosis for this admission?: Yes (6) Confusion Is this a current diagnosis for this admission?: Yes (7) Atrial fibrillation with RVR Is this a current diagnosis for this admission?: Yes
--- NOTE | 2018-08-26 20:34 | PDOC CONSULTATION ---
Consultation-Blank Consultation: CARDIOLOGY consultation by Dr. Ariella Mcconnell on 08/26/2018. Patient seen at 10 AM on 08/26/2018. REASONS FOR CONSULTATION: Paroxysmal atrial fibrillation. HISTORY OF PRESENT ILLNESS: Patient is 72-year-old male who was admitted on August, for acute exacerbation of COPD. The patient yesterday went into atrial fibrillation with rapid ventricular response and was placed on a Cardizem drip. The patient is converted to sinus rhythm and is remains in sinus rhythm on Cardizem drip. At present the patient states that he has mild respiratory difficulty. He has cough which is productive of some scanty yellow colored sputum. There is some wheezing. There is orthopnea present. The patient denies any chest pain or discomfort. There is no prior history of atrial fibrillation. The patient denies any prior history of palpitations. He has a remote history of congestive heart failure, not none recently. The patient is not aware of any palpitations when his heart rate was fast when he was in atrial fibrillation with rapid ventricular response. Hence it is not clear whether the patient has had prior paroxysms of atrial fibrillation., Of which the patient has been asymptomatic from. PAST MEDICAL HISTORY is positive for hyperlipidemia, hypertension. He also has a history of asthma and COPD. He also has a history of diabetes mellitus type 2, hypothyroidism, he is morbidly obese, and he has a history of obstructive sleep apnea and uses CPAP. He also has a history of arthritis and depression. There is no history of coronary artery disease or [place]. There is a remote history of congestive heart failure. The patient recently was admitted with subglottic inflammation. This is improved and the patient has no stridor. PAST SURGICAL HISTORY: He has had appendectomy, cardiac catheterization, he has had surgery for bilateral fracture of his arms. He has bilateral rotator cuff surgery, and tonsillectomy. SOCIAL HISTORY: Patient is a smoker he quit smoking long time ago. There is no history of EtOH abuse. FAMILY HISTORY is positive for hypertension and diabetes mellitus. There is no history of coronary artery disease or sudden . DISPOSITION: The patient is a full code. His is a surrogate healthcare decision maker. REVIEW SYSTEMS:REVIEW OF SYSTEMS: CONSTITUTIONAL: There is no fever chills or rigors, except for the feeling of generalized fatigue and weakness he has normal he has no fatigue or weakness. He denies any fever chills or rigors. HEAD: No history of headaches or head injury. EYES: No history of amblyopia diplopia no history of amaurosis fugax. EARS: No history of tinnitus. This patient has mild hearing loss, no vertigo. NOSE: The patient is seasonal allergies, but no hayfever. There is no nosebleeds. MOUTH: No altered taste sensation no ulcers in the mouth THROAT: No history of odynophagia dysphagia no recurrent sore throats. He was recently admitted for his subglottic inflammation. SKIN: No history of pruritus no history of allergies discoloration of the skin. No history of skin cancer, no history of psoriasis. NECK: No neck pain. No lymphadenopathy. No goiter. LUNGS: He has a history of asthma, and also has a history of COPD. He has a history of smoking in the past. He is admitted with recent symptoms suggestive of acute exacerbation of COPD, with wheezing shortness of breath and cough productive of sputum. No history of pulmonary embolism. No history of pleuritic chest pain no hemoptysis. He every night, and when he sleeps, he uses CPAP for his history of sleep apnea. HEART: History of hypertension. There is a no history of atrial fibrillation. Recent episode of paroxysmal atrial fibrillation, now in sinus rhythm on Cardizem drip. He is not on anticoagulation. There is remote history of congestive heart failure. .There is no history of [place] anginal symptoms or coronary artery disease. No syncope. No history of leg edema. There is no history of PND, but has a history of chronic orthopnea. Denies any history of palpitations. ENDOCRINE:There is a history of diabetes. No history of heat or cold intolerance no history of polydipsia polyuria. The patient has no history of hypothyroidism, or hyper thyroidism. . RENAL: He has a history of chronic kidney disease, but the patient is not aware of this. No symptoms of hematuria pyuria or dysuria. No symptoms of UTI. GI: No history of GI bleed no history of GERD no history of peptic ulcer disease no history of fatty food intolerance. No history of hepatitis. No history of jaundice. No history of altered bowel movements. MUSCULOSKELETAL: Denies history of arthritis or collagen vascular disease. PLUG SHAPER HAND: No history of TIA or CVA. No history of headaches migraines or seizures. He has a history of sleep apnea. PSYCHIATRIC: There is no history of anxiety, but he has a history of depression. VASCULAR: The patient has no history of peripheral vascular disease. No DVT. No history of calf or buttock claudication. HEMATOLOGICAL: No history of bleeding diathesis no history of clotting disorders. PHYSICAL EXAMINATION: The patient is morbidly obese, in mild respiratory distress, and is wearing a BiPAP. He is well-groomed. 08/26/18 08/26/18 07:44 11:47 Temperature 97.8 F 97.3 F Temperature Oral Axillary Source Pulse Rate 79 84 Respiratory 17 24 H Rate Blood Pressure 108/64 118/75 Blood Pressure 78 89 Mean BP Location Left Arm Left Arm BP Position Sitting Sitting O2 Sat by Pulse 95 94 Oximetry Oxygen Flow 1.00 1.00 Rate Oxygen Delivery Nasal Cannula Nasal Cannula Method 08/20/18 08/24/18 08/24/18 15:55 18:00 18:00 WBC 8.2 RBC 4.43 Hgb 13.2 L Hct 39.7 MCV 90 MCH 29.7 MCHC 33.2 RDW 14.9 H Plt Count 158 Seg Neutrophils % 86.7 H Lymphocytes % 8.0 L Monocytes % 5.0 Eosinophils % 0.0 Basophils % 0.3 Absolute Neutrophils 7.1 Absolute Lymphocytes 0.7 Absolute Monocytes 0.4 Absolute Eosinophils 0.0 Absolute Basophils 0.0 Carbonic Acid 1.64 H HCO3/H2CO3 Ratio 20:1 ABG pH 7.40 ABG pCO2 54.6 H ABG pO2 88.2 ABG HCO3 32.8 H ABG Total CO2 34.5 H ABG O2 Saturation 96.5 ABG Base Excess 6.4 FiO2 3LNC Sodium 136.1 L Potassium 4.8 Chloride 96 L Carbon Dioxide 29 Anion Gap 11 BUN 38 H Creatinine 1.55 H Est GFR (Non-Af Amer) 44 L Glucose 409 H* POC Glucose Calcium 9.8 Total Bilirubin 0.5 Direct Bilirubin 0.3 Neonat Total Bilirubin Not Reportable Neonat Direct Bilirubin Not Reportable Neonat Indirect Bili Not Reportable AST 35 ALT 79 H Alkaline Phosphatase 107 Total Protein 6.6 Albumin 4.2 08/24/18 08/25/18 08/25/18 21:11 11:45 16:12 WBC RBC Hgb Hct MCV MCH MCHC RDW Plt Count Seg Neutrophils % Lymphocytes % Monocytes % Eosinophils % Basophils % Absolute Neutrophils Absolute Lymphocytes Absolute Monocytes Absolute Eosinophils Absolute Basophils Carbonic Acid HCO3/H2CO3 Ratio ABG pH ABG pCO2 ABG pO2 ABG HCO3 ABG Total CO2 ABG O2 Saturation ABG Base Excess FiO2 Sodium Potassium Chloride Carbon Dioxide Anion Gap BUN Creatinine Est GFR (Non-Af Amer) Glucose POC Glucose 398 H 434 H* 322 H Calcium Total Bilirubin Direct Bilirubin Neonat Total Bilirubin Neonat Direct Bilirubin Neonat Indirect Bili AST ALT Alkaline Phosphatase Total Protein Albumin 08/25/18 08/26/18 21:09 06:16 WBC RBC Hgb Hct MCV MCH MCHC RDW Plt Count Seg Neutrophils % Lymphocytes % Monocytes % Eosinophils % Basophils % Absolute Neutrophils Absolute Lymphocytes Absolute Monocytes Absolute Eosinophils Absolute Basophils Carbonic Acid HCO3/H2CO3 Ratio ABG pH ABG pCO2 ABG pO2 ABG HCO3 ABG Total CO2 ABG O2 Saturation ABG Base Excess FiO2 Sodium Potassium Chloride Carbon Dioxide Anion Gap BUN Creatinine Est GFR (Non-Af Amer) Glucose POC Glucose 375 H 360 H Calcium Total Bilirubin Direct Bilirubin Neonat Total Bilirubin Neonat Direct Bilirubin Neonat Indirect Bili AST ALT Alkaline Phosphatase Total Protein Albumin 08/20/18 18:45 Flu Vacc [id number](6Mos Up)/Pf [Fluarix Adlt Quad Vac 0.5 ml Syr] 0.5 ml IM .DISCHARGE PRN 08/20/18 20:00 Ipratropium/Albuterol Sulfate [Duoneb 3 ml Ampul] 3 ml NEB RTQ6 08/21/18 08:30 Dextrose 50%-Water [Dextrose Inj 50% Syringe (25 gm/50 ml)] 12.5 gm IV PRN PRN Dextrose 50%-Water [Dextrose Inj 50% Syringe (25 gm/50 ml)] 25 gm IV PRN PRN Dextrose [Glutose 40% Gel 15 gm Tube] 15 gm PO PRN PRN Dextrose [Glutose 40% Gel 15 gm Tube] 30 gm PO PRN PRN Glucagon,Human Recombinant [Glucagen Inj 1 mg Vial] 1 mg IM PRN PRN Insulin Lispro [Humalog Insulin 100 Unit/1 ml 3 ml Vial] 0 - 12 unit SUBCUT ACHSP PRN 08/21/18 13:29 Rizatriptan Benzoate [Maxalt] 10 mg PO .DAILYP PRN 08/21/18 17:00 Metformin HCl [Glucophage 500 mg Tablet] 500 mg PO BID@0800,1700 08/21/18 18:00 Glipizide [Glucotrol 10 mg Tablet] 10 mg PO BID Pramipexole Di-HCl [Mirapex 0.5 mg Tablet] 1.5 mg PO BID 08/21/18 22:00 Alprazolam [Xanax 0.5 mg Tablet] 2 mg PO QHS Atorvastatin Calcium [Lipitor 40 mg Tablet] 40 mg PO QHS Duloxetine HCl [Cymbalta 30 mg Capsule.dr] 60 mg PO Q12 Lorazepam [Ativan 1 mg Tablet] 2 mg PO QHS 08/22/18 06:00 Lansoprazole [Prevacid 30 mg Odt Tablet] 30 mg PO Q6AM Levothyroxine Sodium [Synthroid 0.15 mg Tablet] 0.15 mg PO Q6AM 08/22/18 08:00 Pioglitazone HCl [Actos 15 mg Tablet] 15 mg PO QAM 08/22/18 10:00 Aspirin [Ecotrin 81 mg EC Tablet] 81 mg PO DAILY Losartan Potassium [Cozaar 50 mg Tablet] 100 mg PO DAILY 08/22/18 15:25 Albuterol Sulfate [Ventolin 0.083% Neb 2.5 mg/3 ml Ampul] 2.5 mg NEB RTQ4HP PRN 08/23/18 10:00 Ergocalciferol (Vitamin D2) [Drisdol 50,000 Unit (1.25MG) Capsule] 50,000 unit PO MO@1000 Hydrochlorothiazide [Hydrodiuril 25 mg Tablet] 25 mg PO DAILY 08/23/18 22:00 Donepezil HCl [Aricept 5 mg Tablet] 5 mg PO QHS 08/25/18 19:45 Prednisone [Deltasone 10 mg Tablet] 10 mg PO DAILY 08/27/18 18:00 Apixaban [Eliquis 5 mg Tablet] 5 mg PO BID IMPRESSION/RECOMMENDATION: 1. Paroxysmal atrial fibrillation. At present the patient is sinus rhythm. He has a high Brandin vas 2 corrected score. Hence he would benefit from chronic anticoagulation. We will start the patient on Eliquis 5 mg p.o. twice daily. This has been discussed the patient patient's . They are aware of the b leeding complications. Later will stop the patient's Cardizem drip and start the patient on Cardizem CD 180 mg p.o. every 12 hours. 2. Acute exacerbation of COPD: Improved. Continue respiratory treatments and other anti-COPD treatment. 3. Hypertension: Blood pressure well controlled. Continue current medication. 4. Diabetes mellitus: Continue antidiabetic treatment. Note that the patient blood sugars are not very well controlled. Would recommend intensifying the patient's antidiabetic management regimen. 5. Obstructive sleep apnea: Continue CPAP. 6. Chronic kidney disease stage III: Avoid nephrotoxic drugs. 7. The patient's corrected CHADVASC 2 score is 3, and hence chronic anticoagulation therapy is indicated. Medications reviewed. Medications adjusted. Management plan discussed with attending physician. Medical decision making is of high complexity. The bleeding complications of Eliquis has been discussed with the patient and the patient's , and that there is no antidote for this if the bleeding should occur has also been discussed in detail. Also its benefit of stroke prophylaxis/decrease is a percentage of stroke recurrence has been discussed in detail. 60 minutes spent on this patient with more than 50% of time spent in direct patient care.
[2018-08-26] MEDS: ATORVASTATIN CALCIUM 40 MG TABLET PO SCH (21:09)
[2018-08-26] MEDS: DONEPEZIL HCL 5 MG TABLET PO SCH (21:09)
[2018-08-26] MEDS: ALPRAZOLAM 0.5 MG TABLET PO SCH (21:10)
[2018-08-26] MEDS: LORAZEPAM 1 MG TABLET PO SCH (21:10)
[2018-08-27] MEDS: IPRATROPIUM/ALBUTEROL 0.5-2.5 MG/3 ML AMPUL NEB SCH ×4 (01:49→19:52)
[2018-08-27] MEDS: DILTIAZEM HCL/D5W 125 MG/125 ML RTUINJ IV PRN (01:50)
[2018-08-27] MEDS ORDERED: DIGOXIN INJ 0.5 MG/2 ML AMPULE ONE (04:37)
[2018-08-27] MEDS ORDERED: DIGOXIN INJ 0.5 MG/2 ML AMPULE IV ONE (04:45)
[2018-08-27] MEDS: LANSOPRAZOLE 30 MG TAB.RAP.DR PO SCH (05:04)
[2018-08-27] MEDS: LEVOTHYROXINE SODIUM 0.15 MG TABLET PO SCH (05:04)
[2018-08-27] MEDS: PIOGLITAZONE HCL 15 MG TABLET PO SCH (08:37)
[2018-08-27] MEDS: METFORMIN HCL 500 MG TABLET PO SCH ×2 (08:37→17:19)
[2018-08-27] MEDS: INSULIN LISPRO 100 UNIT/ML 3 ML VIAL SUBCUT PRN ×4 (08:37→23:00)
[2018-08-27] MEDS: LOSARTAN POTASSIUM 50 MG TABLET PO SCH (10:03)
[2018-08-27] MEDS: HYDROCHLOROTHIAZIDE 25 MG TABLET PO SCH (10:03)
[2018-08-27] MEDS: ASPIRIN 81 MG TABLET, ENT COATED PO SCH (10:04)
[2018-08-27] MEDS: PREDNISONE 10 MG TABLET PO SCH (10:04)
[2018-08-27] MEDS: GLIPIZIDE 10 MG TABLET PO SCH ×2 (10:04→17:20)
[2018-08-27] MEDS: DULOXETINE HCL 30 MG CAPSULE.DR PO SCH ×2 (10:05→23:01)
[2018-08-27] MEDS: PRAMIPEXOLE DI-HCL 0.5 MG TABLET PO SCH ×2 (10:08→17:18)
[2018-08-27] MEDS: DILTIAZEM HCL 180 MG CAPSULE.CR PO SCH ×2 (12:50→23:01)
--- NOTE | 2018-08-27 16:12 | RADIOLOGY REPORT (SQ) ---
EXAM DESCRIPTION: BARIUM SWALLOW ESOPHAGUS COMPLETED DATE/TIME: 08/27/2018 3:50 pm REASON FOR STUDY: GERD COMPARISON: Upper GI 07/29/2016 CT chest 08/07/2018 CT soft tissue neck 08/07/2018 TECHNIQUE: Under fluoroscopic guidance, patient ingested effervescent granules followed by thick and thin barium. Fluoroscopic spot images and routine radiographic images acquired and stored on PACS. 12 MM BARIUM TABLET GIVEN: Yes No significant delay in passage. LIMITATIONS: None. FLUOROSCOPY TIME: FLUORO TIME: 3.3 minutes 8 series of digital fluoroscopic images saved to PACS. FINDINGS: NEUROMUSCULAR COORDINATION OF SWALLOW: Normal. No aspiration. ESOPHAGEAL MOTILITY: Normal peristalsis. No esophageal spasm. ESOPHAGEAL MUCOSA: Normal mucosa without masses or ulceration. GASTRO-ESOPHAGEAL JUNCTION: No hiatal hernia or reflux. NON-GI TRACT STRUCTURES: No significant finding. OTHER: No other significant finding. IMPRESSION: NORMAL DOUBLE CONTRAST BARIUM SWALLOW. COMMENT: Quality ID [id number]: Final reports for procedures using fluoroscopy that document radiation exp osure indices, or exposure time and number of fluorographic images (if radiation exposure indices are not available) TECHNICAL DOCUMENTATION: JOB ID: [id number] [employer]- All Rights Reserved Reading location - IP/workstation name: [facility]
[2018-08-27] MEDS: APIXABAN 5 MG TABLET PO SCH (17:20)
--- NOTE | 2018-08-27 20:26 | Progress Note ---
Provider Note Provider Note: CARDIOLOGY PROGRESS NOTE by Dr. Ariella Mcconnell on 08/27/2018. SUBJECTIVE: The patient early this morning went into atrial fibrillation with rapid ventricular response is Cardizem drip was increased to 15 mg/h. He is now at present in sinus rhythm. He also complains of acid reflux and had and is going to have a esophageal barium swallow. He denies any chest pain or discomfort. The patient has orthopnea. His leg edema is about the same. There is no ventricular arrhythmia seen on the monitor. The patient has no anginal symptoms. There is no PND. There is no TIA CVA symptoms. The patient has no contraindications for chronic anticoagulation. SUBJECTIVE: The patient is morbidly obese. At present no acute distress. He is well-groomed. Selected Entries 08/27/18 08/27/18 12:41 12:45 Temperature 97.5 F Temperature Oral Source Pulse Rate 86 Respiratory 16 Rate Blood Pressure 101/63 BP Location Left Arm BP Position Sitting O2 Sat by Pulse 96 Oximetry Oxygen Delivery Cpap Method HEAD: Head is atraumatic normocephalic. EYES: Pupils are equal round regular react to light accommodation. Extraocular movements are normal. There is no conjunctival pallor. There is no scleral icterus. EARS: Tympanic membranes are intact. External auditory canals are clear. NOSE: There is no inflammation of the nasal mucous membranes. There is no nasal polyps. There is no deviated nasal septum. MOUTH: Mucous membranes of mouth are moist tongue is moist. There is no ulcers in the mouth. There is no bleeding from the gums. THROAT: There is no redness of the oropharynx there is no exudates. SKIN: There is no petechia or ecchymosis. There is no skin rashes or skin lesions. NECK: Is supple. There is no JVD. Carotids are equal there is no bruit there is no lymphadenopathy. There is no goiter. There is no accessory muscles of respiration use. Trachea central. LUNGS: There is diminished air entry and prolonged expiration. There is a few scattered rhonchi. There is no wheezing or rales. There is no chest wall tenderness. On percussion there is hyperresonance. HEART: S1-S2 is heard S1 now is of normal intensity. There is no S3 gallop. There is no S4 gallop. There is systolic murmur left sternal border and the apex there is no rub. ABDOMEN: Is soft, and obese. There is no hepatosplenomegaly. Bowel sounds are well heard. There is no tender areas masses. EXTREMITIES: Femorals are deep femorals are diminished. Leg pulses are diminished. There is mild pedal edema bilaterally. There is no DVT or cellulitis. There is no calf tenderness. ADJUNCT TRAINER: The patient is conscious awake alert oriented x3 with no focal deficits. PSYCHIATRIC: The patient judgment and insight are intact his affect is normal. 08/24/18 08/24/18 08/25/18 18:00 18:00 11:45 WBC 8.2 RBC 4.43 Hgb 13.2 L Hct 39.7 MCV 90 MCH 29.7 MCHC 33.2 RDW 14.9 H Plt Count 158 Seg Neutrophils % 86.7 H Lymphocytes % 8.0 L Monocytes % 5.0 Eosinophils % 0.0 Basophils % 0.3 Absolute Neutrophils 7.1 Absolute Lymphocytes 0.7 Absolute Monocytes 0.4 Absolute Eosinophils 0.0 Absolute Basophils 0.0 Sodium 136.1 L Potassium 4.8 Chloride 96 L Carbon Dioxide 29 Anion Gap 11 BUN 38 H Creatinine 1.55 H Est GFR (Non-Af Amer) 44 L Glucose 409 H* POC Glucose 434 H* Calcium 9.8 Total Bilirubin 0.5 Direct Bilirubin 0.3 Neonat Total Bilirubin Not Reportable Neonat Direct Bilirubin Not Reportable Neonat Indirect Bili Not Reportable AST 35 ALT 79 H Alkaline Phosphatase 107 Total Protein 6.6 Albumin 4.2 08/27/18 08/27/18 08/27/18 06:14 12:42 15:58 WBC RBC Hgb Hct MCV MCH MCHC RDW Plt Count Seg Neutrophils % Lymphocytes % Monocytes % Eosinophils % Basophils % Absolute Neutrophils Absolute Lymphocytes Absolute Monocytes Absolute Eosinophils Absolute Basophils Sodium Potassium Chloride Carbon Dioxide Anion Gap BUN Creatinine Est GFR (Non-Af Amer) Glucose POC Glucose 228 H 337 H 238 H Calcium Total Bilirubin Direct Bilirubin Neonat Total Bilirubin Neonat Direct Bilirubin Neonat Indirect Bili AST ALT Alkaline Phosphatase Total Protein Albumin IMPRESSION/RECOMMENDATION: 1. Paroxysmal atrial fibrillation. At present the patient is sinus rhythm. He has a high Brandin vas 2 corrected score. Hence he would benefit from chronic anticoagulation. We will start the patient on Eliquis 5 mg p.o. twice daily. This has been discussed the patient patient's . They are aware of the bleeding complications. We will stop the patient's Cardizem drip and start the patient on Cardizem CD 180 mg p.o. every 12 hours. 2. Acute exacerbation of COPD: Improved. Continue respiratory treatments and other anti-COPD treatment. 3. Hypertension: Blood pressure well controlled. Continue current medication. 4. Diabetes mellitus: Continue antidiabetic treatment. Note that the patient blood sugars are not very well controlled. Would recommend intensifying the patient's antidiabetic management regimen. 5. Obstructive sleep apnea: Continue CPAP. 6. Chronic kidney disease stage III: Avoid nephrotoxic drugs. 7. The patient's corrected CHADVASC 2 score is 3, and hence chronic anticoagulation therapy is indicated. Medications reviewed medications adjusted discussed with attending physician the changes in medications and management plan. Medical decision making is of high complexity. Note that the patient is a full code. His is his surrogate healthcare decision maker. 40 minutes spent on this patient with more than 50% time spent in direct patient care.
--- NOTE | 2018-08-27 21:38 | PDOC PROGRESS REPORT ---
Subjective Progress Note for:: 08/27/18 Subjective:: Patient will have multiple comorbid condition, he was seen yesterday by cardiology Dr. Mcconnell, Dr. Baez pulmonary today, presently on Cardizem infusion Reason For Visit: ACUTE COPD EXACERBATION Physical Exam Vital Signs: Temp Pulse Resp BP Pulse Ox 97.5 F 77 20 93/60 L 100 08/27/18 12:41 08/27/18 19:52 08/27/18 19:52 08/27/18 13:00 08/27/18 19:52 Intake & Output 08/26/18 08/27/18 08/28/18 06:59 06:59 06:59 Intake Total 1384 2006 1091 Output Total 1200 800 350 Balance 184 1206 741 Weight 153.8 kg 153.4 kg General appearance: PRESENT: no acute distress Eye exam: PRESENT: PERRLA Respiratory exam: PRESENT: wheezes Cardiovascular exam: PRESENT: +S1, +S2 GI/Abdominal exam: PRESENT: soft Neurological exam: PRESENT: alert Results Laboratory Results: 08/24/18 18:00 08/24/18 18:00 Impressions: Chest X-Ray 08/23/18 00:00 IMPRESSION: Cardiomegaly without pulmonary edema. Head CT 08/23/18 00:00 IMPRESSION: CHRONIC CHANGES OF ATROPHY AND MICROVASCULAR ISCHEMIA. NO ACUTE PROCESS. EVIDENCE OF ACUTE STROKE: NO. Esophagus X-Ray 08/27/18 00:00 IMPRESSION: NORMAL DOUBLE CONTRAST BARIUM SWALLOW. Assessment & Plan - Diagnosis (1) Acute exacerbation of chronic obstructive pulmonary disease (COPD) Is this a current diagnosis for this admission?: Yes Plan: Continue current treatment (2) Mixed acid base balance disorder Is this a current diagnosis for this admission?: Yes (3) Morbid obesity due to excess calories Is this a current diagnosis for this admission?: Yes (4) Pulmonary hypertension Is this a current diagnosis for this admission?: Yes (5) Sleep apnea Qualifiers: Sleep apnea type: unspecified type Qualified Code(s): G47.30 - Sleep apnea, unspecified Is this a current diagnosis for this admission?: Yes (6) Confusion Is this a current diagnosis for this admission?: Yes (7) Paroxysmal atrial fibrillation with rapid ventricular response Is this a current diagnosis for this admission?: Yes Plan: Patient will require anticoagulation
[2018-08-27] MEDS: ATORVASTATIN CALCIUM 40 MG TABLET PO SCH (23:01)
[2018-08-27] MEDS: DONEPEZIL HCL 5 MG TABLET PO SCH (23:01)
[2018-08-27] MEDS: ALPRAZOLAM 0.5 MG TABLET PO SCH (23:01)
[2018-08-27] MEDS: LORAZEPAM 1 MG TABLET PO SCH (23:02)
[2018-08-28] MEDS: IPRATROPIUM/ALBUTEROL 0.5-2.5 MG/3 ML AMPUL NEB SCH ×4 (01:13→21:04)
[2018-08-28] MEDS: LANSOPRAZOLE 30 MG TAB.RAP.DR PO SCH (05:42)
[2018-08-28] MEDS: LEVOTHYROXINE SODIUM 0.15 MG TABLET PO SCH (05:42)
[2018-08-28] MEDS: PIOGLITAZONE HCL 15 MG TABLET PO SCH (08:25)
[2018-08-28] MEDS: METFORMIN HCL 500 MG TABLET PO SCH ×2 (08:25→18:06)
[2018-08-28] MEDS: INSULIN LISPRO 100 UNIT/ML 3 ML VIAL SUBCUT PRN ×3 (08:25→18:07)
[2018-08-28] MEDS: DILTIAZEM HCL 180 MG CAPSULE.CR PO SCH ×2 (09:46→23:16)
[2018-08-28] MEDS: DULOXETINE HCL 30 MG CAPSULE.DR PO SCH ×2 (09:46→23:16)
[2018-08-28] MEDS: APIXABAN 5 MG TABLET PO SCH ×2 (09:47→18:06)
[2018-08-28] MEDS: HYDROCHLOROTHIAZIDE 25 MG TABLET PO SCH (09:47)
[2018-08-28] MEDS: GLIPIZIDE 10 MG TABLET PO SCH ×2 (09:47→18:06)
[2018-08-28] MEDS: LOSARTAN POTASSIUM 50 MG TABLET PO SCH (09:47)
[2018-08-28] MEDS: PRAMIPEXOLE DI-HCL 0.5 MG TABLET PO SCH ×2 (09:47→18:06)
[2018-08-28] MEDS: PREDNISONE 10 MG TABLET PO SCH (09:47)
[2018-08-28] MEDS: ASPIRIN 81 MG TABLET, ENT COATED PO SCH (09:47)
--- NOTE | 2018-08-28 10:30 | PDOC PROGRESS REPORT ---
Subjective Progress Note for:: 08/28/18 Subjective:: Patient is currently doing fair Patient was admitted because of the COPD chronic breathing issues and the patient have a currently in A. fib Patient is currently seated in chair denied any chest pain denied any shortness of the breath Patient's currently off the Cardizem drip Patient is denied any difficulty in swallowing Patient is denied any choking episode Reason For Visit: ACUTE COPD EXACERBATION Physical Exam Vital Signs: Temp Pulse Resp BP Pulse Ox 97.4 F 94 18 118/71 97 08/28/18 03:08 08/28/18 08:19 08/28/18 08:19 08/28/18 03:08 08/28/18 08:19 Intake & Output 08/27/18 08/28/18 08/29/18 06:59 06:59 06:59 Intake Total 2005 1091 Output Total 800 350 Balance 1206 741 Weight 153.4 kg 154.2 kg General appearance: PRESENT: no acute distress, morbidly obese, well-developed, well-nourished Head exam: PRESENT: atraumatic, normocephalic Eye exam: PRESENT: conjunctiva pink, EOMI, PERRLA. ABSENT: scleral icterus Ear exam: PRESENT: normal external ear exam Mouth exam: PRESENT: moist, tongue midline Neck exam: PRESENT: full ROM. ABSENT: carotid bruit, JVD, lymphadenopathy, thyromegaly Respiratory exam: PRESENT: decreased breath sounds Cardiovascular exam: PRESENT: RRR. ABSENT: diastolic murmur, rubs, systolic mu rmur Pulses: PRESENT: normal dorsalis pedis pul, +2 pedal pulses bilateral Vascular exam: PRESENT: normal capillary refill GI/Abdominal exam: PRESENT: normal bowel sounds, soft. ABSENT: distended, guarding, mass, organolmegaly, rebound, tenderness Rectal exam: PRESENT: deferred Extremities exam: PRESENT: pedal edema Neurological exam: PRESENT: alert, awake, oriented to person, oriented to place, oriented to time, oriented to situation, CN II-XII grossly intact. ABSENT: motor sensory deficit Psychiatric exam: PRESENT: appropriate affect, normal mood. ABSENT: homicidal ideation, suicidal ideation Skin exam: PRESENT: dry, intact, warm. ABSENT: cyanosis, rash Results Laboratory Results: 08/24/18 18:00 08/24/18 18:00 Impressions: Chest X-Ray 08/23/18 00:00 IMPRESSION: Cardiomegaly without pulmonary edema. Head CT 08/23/18 00:00 IMPRESSION: CHRONIC CHANGES OF ATROPHY AND MICROVASCULAR ISCHEMIA. NO ACUTE PROCESS. EVIDENCE OF ACUTE STROKE: NO. Esophagus X-Ray 08/27/18 00:00 IMPRESSION: NORMAL DOUBLE CONTRAST BARIUM SWALLOW. Assessment & Plan - Diagnosis (1) Acute exacerbation of chronic obstructive pulmonary disease (COPD) Is this a current diagnosis for this admission?: Yes (2) Atrial fibrillation with RVR Is this a current diagnosis for this admission?: Yes (3) Mixed acid base balance disorder Is this a current diagnosis for this admission?: Yes (4) Congestive heart failure Qualifiers: Heart failure type: unspecified Heart failure chronicity: chronic Qualified Code(s): I50.9 - Heart failure, unspecified Is this a current diagnosis for this admission?: Yes (5) Pulmonary hypertension Is this a current diagnosis for this admission?: Yes (6) Sleep apnea Qualifiers: Sleep apnea type: unspecified type Qualified Code(s): G47.30 - Sleep apnea, unspecified Is this a current diagnosis for this admission?: Yes (7) Type 2 diabetes mellitus Qualifiers: Diabetes mellitus complication status: with unspecified complications Is this a current diagnosis for this admission?: Yes - Time Time Spent with patient: 25-34 minutes Medications reviewed and adjusted accordingly: Yes Anticipated discharge: Other Within: Other - Plan Summary Plan Summary: Continues to nebulizer treatments Continues follow with the pulmonary and cardiology
--- NOTE | 2018-08-28 17:10 | Progress Note ---
Provider Note Provider Note: CARDIOLOGY PROGRESS NOTE by Dr. Ariella Mcconnell on 08/28/2018. SUBJECTIVE: The patient complains of severe back pain. He also complains of acid regurgitation from his throat. He is esophageal x-ray yesterday was normal without any evidence of reflux. He wears CPAP all the time. He says his shortness of breath is much improved. He has chronic orthopnea. There is just mild leg edema. There is no PND. There is no chest pain or discomfort. The patient remains in sinus rhythm and there is no recurrence of atrial fibrillation there is no ventricular arrhythmias. Selected Entries 08/28/18 Afebrile 08:19 Pulse Rate 94 Respiratory 18 Rate Respiratory Normal Depth Respiratory Mechanically Effort Ventilated Respiratory Normal Pattern O2 Sat by Pulse 97 Oximetry Oxygen Delivery BiPAP-From Home Method ( includes room BP is 102/68 air) Oxygen Flow 2 Rate HEAD: Head is atraumatic normocephalic. EYES: Pupils are equal round regular react to light accommodation. Extraocular movements are normal. There is no conjunctival pallor. There is no scleral icterus. EARS: Tympanic membranes are intact. External auditory canals are clear. NOSE: There is no inflammation of the nasal mucous membranes. There is no nasal polyps. There is no deviated nasal septum. MOUTH: Mucous membranes of mouth are moist tongue is moist. There is no ulcers in the mouth. There is no bleeding from the gums. THROAT: There is no redness of the oropharynx there is no exudates. SKIN: There is no petechia or ecchymosis. There is no skin rashes or skin lesions. NECK: Is supple. There is no JVD. Carotids are equal there is no bruit there is no lymphadenopathy. There is no goiter. There is no accessory muscles of respiration use. Trachea central. LUNGS: There is diminished air entry and prolonged expiration. There is a few scattered rhonchi. There is no wheezing or rales. There is no chest wall tenderness. On percussion there is hyperresonance. HEART: S1-S2 is heard S1 now is of normal intensity. There is no S3 gallop. There is no S4 gallop. There is systolic murmur left sternal border and the apex there is no rub. ABDOMEN: Is soft, and obese. There is no hepatosplenomegaly. Bowel sounds are well heard. There is no tender areas masses. EXTREMITIES: Femorals are deep femorals are diminished. Leg pulses are diminished. There is mild pedal edema bilaterally. There is no DVT or cellulitis. There is no calf tenderness. 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 PSYCHIATRIC: The patient judgment and insight are intact his affect is normal. 08/28/18 08/28/18 06:05 11:50 POC Glucose 188 H 220 H IMPRESSION/RECOMMENDATION: 1. Paroxysmal atrial fibrillation. At present the patient is sinus rhythm. He has a high Brandin vas 2 corrected score. Hence he would benefit from chronic anticoagulation. We will start the patient on Eliquis 5 mg p.o. twice daily. This has been discussed the patient patient's . They are aware of the bleeding complications. The patient on Cardizem CD 180 mg p.o. every 12 hours. 2. Acute exacerbation of COPD: Improved. Continue respiratory treatments and other anti-COPD treatment. 3. Hypertension: Blood pressure well controlled. Continue current medication. 4. Diabetes mellitus: Continue antidiabetic treatment. Note that the patient blood sugars are not very well controlled. Would recommend intensifying the patient's antidiabetic management regimen. 5. Obstructive sleep apnea: Continue CPAP. 6. Chronic kidney disease stage III: Avoid nephrotoxic drugs. 7. The patient's corrected CHADVASC 2 score is 3, and hence chronic anticoagula tion therapy is indicated. Medications reviewed medications adjusted discussed with attending physician the changes in medications and management plan. Medical decision making is of high complexity. Note that the patient is a full code. His is his surrogate healthcare decision maker. 40 minutes spent on this patient with more than 50% time spent in direct patient care.
[2018-08-28] MEDS: DONEPEZIL HCL 5 MG TABLET PO SCH (23:16)
[2018-08-28] MEDS: ATORVASTATIN CALCIUM 40 MG TABLET PO SCH (23:17)
[2018-08-29] MEDS: IPRATROPIUM/ALBUTEROL 0.5-2.5 MG/3 ML AMPUL NEB SCH ×4 (02:28→21:01)
[2018-08-29] MEDS: LANSOPRAZOLE 30 MG TAB.RAP.DR PO SCH (05:40)
[2018-08-29] MEDS: LEVOTHYROXINE SODIUM 0.15 MG TABLET PO SCH (05:41)
[2018-08-29 06:11] LABS: ANION GAP 9 (5-19); BLOOD UREA NITROGEN 48 mg/dL (7-20); CALCIUM 9.7 mg/dL (8.4-10.2); CARBON DIOXIDE 32 mmol/L (22-30); CHLORIDE 96 mmol/L (98-107); GLUCOSE 145 mg/dL (75-110); POTASSIUM 3.5 mmol/L (3.6-5.0); SODIUM 137.4 mmol/L (137-145)
[2018-08-29 06:14] LABS: ABSOLUTE LYMPHOCYTES (AUTO) 2.3 10^3/uL (0.5-4.7); ABSOLUTE MONOCYTES (AUTO) 1.2 10^3/uL (0.1-1.4); ABSOLUTE NEUT (AUTO) 7.8 10^3/uL (1.7-8.2); BASOPHILS % (AUTO) 0.4 % (0-2); EOSINOPHILS % (AUTO) 0.3 % (0-6); HEMATOCRIT 44.5 % (37.9-51.0); HEMOGLOBIN 14.9 g/dL (13.5-17.0); LYMPHOCYTES % (AUTO) 20.6 % (13-45); MEAN CORPUSCULAR HEMOGLOBIN 29.3 pg (27.0-33.4); MEAN CORPUSCULAR HGB CONC 33.4 g/dL (32.0-36.0); MEAN CORPUSCULAR VOLUME 88 fl (80-97); MONOCYTES % (AUTO) 10.5 % (3-13); PLATELET COUNT 176 10^3/uL (150-450); RED BLOOD COUNT 5.09 10^6/uL (4.35-5.55); RED CELL DISTRIBUTION WIDTH 14.9 % (11.5-14.0); SEGMENTED NEUTROPHILS % (AUTO) 68.2 % (42-78); TOTAL CELLS COUNTED % (AUTO) 100 %; WHITE BLOOD COUNT 11.4 10^3/uL (4.0-10.5)
[2018-08-29] MEDS: INSULIN LISPRO 100 UNIT/ML 3 ML VIAL SUBCUT PRN ×3 (09:48→22:21)
[2018-08-29] MEDS: LOSARTAN POTASSIUM 50 MG TABLET PO SCH (09:49)
[2018-08-29] MEDS: PIOGLITAZONE HCL 15 MG TABLET PO SCH (09:49)
[2018-08-29] MEDS: HYDROCHLOROTHIAZIDE 25 MG TABLET PO SCH (09:49)
[2018-08-29] MEDS: ASPIRIN 81 MG TABLET, ENT COATED PO SCH (09:49)
[2018-08-29] MEDS: GLIPIZIDE 10 MG TABLET PO SCH ×2 (09:50→18:46)
[2018-08-29] MEDS: PREDNISONE 10 MG TABLET PO SCH (09:50)
[2018-08-29] MEDS: DULOXETINE HCL 30 MG CAPSULE.DR PO SCH ×2 (09:50→22:12)
[2018-08-29] MEDS: DILTIAZEM HCL 180 MG CAPSULE.CR PO SCH ×2 (09:50→22:12)
[2018-08-29] MEDS: APIXABAN 5 MG TABLET PO SCH ×2 (09:50→18:46)
[2018-08-29] MEDS: METFORMIN HCL 500 MG TABLET PO SCH ×2 (09:51→18:46)
[2018-08-29] MEDS: PRAMIPEXOLE DI-HCL 0.5 MG TABLET PO SCH ×2 (09:51→18:46)
--- NOTE | 2018-08-29 13:19 | PDOC PROGRESS REPORT ---
Subjective Progress Note for:: 08/29/18 Subjective:: Patient is feeling pretty much the same Denied any chest pain Denied any shortness of the breath Patient still feels very weak Patient's current heart rate is under control Reason For Visit: ACUTE COPD EXACERBATION Physical Exam Vital Signs: Temp Pulse Resp BP Pulse Ox 97.8 F 95 18 112/74 96 08/29/18 03:17 08/29/18 08:14 08/29/18 08:14 08/29/18 03:17 08/29/18 08:14 Intake & Output 08/28/18 08/29/18 08/30/18 06:59 06:59 06:59 Intake Total 1091 Output Total 350 Balance 741 Weight 154.2 kg General appearance: PRESENT: no acute distress, morbidly obese, well-developed, well-nourished Head exam: PRESENT: atraumatic, normocephalic Eye exam: PRESENT: conjunctiva pink, EOMI, PERRLA. ABSENT: scleral icterus Ear exam: PRESENT: normal external ear exam Mouth exam: PRESENT: moist, tongue midline Neck exam: PRESENT: full ROM. ABSENT: carotid bruit, JVD, lymphadenopathy, thyromegaly Respiratory exam: PRESENT: clear to auscultation milena Cardiovascular exam: PRESENT: RRR. ABSENT: diastolic murmur, rubs, systolic murmur Vascular exam: PRESENT: normal capillary refill GI/Abdominal exam: PRESENT: normal bowel sounds, soft. ABSENT: distended, guarding, mass, organolmegaly, rebound, tenderness Rectal exam: PRESENT: deferred Extremities exam: PRESENT: pedal edema Neurological exam: PRESENT: alert, awake, oriented to person, oriented to place, oriented to time, oriented to situation, CN II-XII grossly intact. ABSENT: motor sensory deficit Psychiatric exam: PRESENT: appropriate affect, normal mood. ABSENT: homicidal ideation, suicidal ideation Skin exam: PRESENT: dry, intact, warm. ABSENT: cyanosis, rash Results Laboratory Results: 08/29/18 05:32 08/29/18 05:32 08/29/18 08/29/18 05:32 05:32 WBC 11.4 H RBC 5.09 Hgb 14.9 Hct 44.5 MCV 88 MCH 29.3 MCHC 33.4 RDW 14.9 H Plt Count 176 Seg Neutrophils % 68.2 Lymphocytes % 20.6 Monocytes % 10.5 Eosinophils % 0.3 Basophils % 0.4 Absolute Neutrophils 7.8 Absolute Lymphocytes 2.3 Absolute Monocytes 1.2 Absolute Eosinophils 0.0 Absolute Basophils 0.0 Sodium 137.4 Potassium 3.5 L Chloride 96 L Carbon Dioxide 32 H Anion Gap 9 BUN 48 H Creatinine 1.78 H Est GFR ( Amer) 45 L Est GFR (Non-Af Amer) 38 L Glucose 145 H Calcium 9.7 Impressions: Chest X-Ray 08/23/18 00:00 IMPRESSION: Cardiomegaly without pulmonary edema. Head CT 08/23/18 00:00 IMPRESSION: CHRONIC CHANGES OF ATROPHY AND MICROVASCULAR ISCHEMIA. NO ACUTE PROCESS. EVIDENCE OF ACUTE STROKE: NO. Esophagus X-Ray 08/27/18 00:00 IMPRESSION: NORMAL DOUBLE CONTRAST BARIUM SWALLOW. Assessment & Plan - Diagnosis (1) Acute exacerbation of chronic obstructive pulmonary disease (COPD) Is this a current diagnosis for this admission?: Yes Plan: Continues to nebulizer treatment (2) Atrial fibrillation with RVR Is this a current diagnosis for this admission?: Yes Plan: Currently rate under well control (3) Mixed acid base balance disorder Is this a current diagnosis for this admission?: Yes (4) Congestive heart failure Qualifiers: Heart failure type: unspecified Heart failure chronicity: chronic Qualified Code(s): I50.9 - Heart failure, unspecified Is this a current diagnosis for this admission?: Yes (5) Pulmonary hypertension Is this a current diagnosis for this admission?: Yes (6) Sleep apnea Qualifiers: Sleep apnea type: unspecified type Qualified Code(s): G47.30 - Sleep apnea, unspecified Is this a current diagnosis for this admission?: Yes (7) Type 2 diabetes mellitus Qualifiers: Diabetes mellitus complication status: with unspecified complications Is this a current diagnosis for this admission?: Yes - Time Time Spent with patient: 15-24 minutes Medications reviewed and adjusted accordingly: Yes Anticipated discharge: Other Within: Other - Plan Summary Plan Summary: Discussed with the family and the bedside regarding the patient's current conditions We will put the physical therapy evaluations
[2018-08-29] MEDS: ATORVASTATIN CALCIUM 40 MG TABLET PO SCH (22:11)
[2018-08-29] MEDS: DONEPEZIL HCL 5 MG TABLET PO SCH (22:12)
--- NOTE | 2018-08-29 22:35 | Progress Note ---
Provider Note Provider Note: CARDIOLOGY PROGRESS NOTE by Dr. Ariella Mcconnell on 08/29/2018. SUBJECTIVE: The patient states that shortness of breath is much improved, but he still is wearing the CPAP. He does have chronic orthopnea. There is no PND. There is no leg edema. There is no chest pain or discomfort. The patient remains in sinus rhythm with no recurrence of atrial fibrillation. There is no ventricular arrhythmia seen on the monitor. There is no bleeding on Eliquis. There is no TIA CVA symptoms. PHYSICAL EXAMINATION: The patient is morbidly obese. At present in no acute distress. He is well-groomed. Selected Entries 08/29/18 11:43 Temperature 97.3 F Temperature Oral Source Pulse Rate 94 Respiratory 16 Rate Blood Pressure 102/55 L Blood Pressure 70 Mean BP Location Left Arm BP Position Sitting O2 Sat by Pulse 96 Oximetry Oxygen Flow 2.00 Rate Oxygen Delivery Cpap Method HEAD: Head is atraumatic normocephalic. EYES: Pupils are equal round regular react to light accommodation. Extraocular movements are normal. There is no conjunctival pallor. There is no scleral icterus. EARS: Tympanic membranes are intact. External auditory canals are clear. NOSE: There is no inflammation of the nasal mucous membranes. There is no nasal polyps. There is no deviated nasal septum. MOUTH: Mucous membranes of mouth are moist tongue is moist. There is no ulcers in the mouth. There is no bleeding from the gums. THROAT: There is no redness of the oropharynx there is no exudates. SKIN: There is no petechia or ecchymosis. There is no skin rashes or skin lesions. NECK: Is supple. There is no JVD. Carotids are equal there is no bruit there is no lymphadenopathy. There is no goiter. There is no accessory muscles of respiration use. Trachea central. LUNGS: There is diminished air entry and prolonged expiration. There is no rhonchi, wheezing, or rales. There is no chest wall tenderness. On percussion there is hyperresonance. HEART: S1-S2 is heard S1 now is of normal intensity. There is no S3 gallop. There is no S4 gallop. There is systolic murmur left sternal border and the apex there is no rub. ABDOMEN: Is soft, and obese. There is no hepatosplenomegaly. Bowel sounds are well heard. There is no tender areas masses. EXTREMITIES: Femorals are deep femorals are diminished. Leg pulses are diminished. There is mild pedal edema bilaterally. There is no DVT or cellulitis. There is no calf tenderness. 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 PSYCHIATRIC: The patient judgment and insight are intact his affect is normal. 08/29/18 08/29/18 05:32 05:32 WBC 11.4 H RBC 5.09 Hgb 14.9 Hct 44.5 MCV 88 MCH 29.3 MCHC 33.4 RDW 14.9 H Plt Count 176 Seg Neutrophils % 68.2 Lymphocytes % 20.6 Monocytes % 10.5 Eosinophils % 0.3 Basophils % 0.4 Absolute Neutrophils 7.8 Absolute Lymphocytes 2.3 Absolute Monocytes 1.2 Absolute Eosinophils 0.0 Absolute Basophils 0.0 Sodium 137.4 Potassium 3.5 L Chloride 96 L Carbon Dioxide 32 H Anion Gap 9 BUN 48 H Creatinine 1.78 H Est GFR (Non-Af Amer) 38 L Glucose 145 H Calcium 9.7 MPRESSION/RECOMMENDATION: 1. Paroxysmal atrial fibrillation. At present the patient is sinus rhythm. He has a high Brandin vas 2 corrected score. Hence he would benefit from chronic anticoagulation. Continue Eliquis 5 mg p.o. twice daily. This has been discussed the patient patient's . They are aware of the bleeding complications. The patient is on Cardizem CD 180 mg p.o. every 12 hours. Patient remains in sinus rhythm with this regimen. 2. Acute exacerbation of COPD: Improved. Continue respiratory treatments and other anti-COPD treatment. 3. Hypertension: Blood pressure well controlled. Continue current medication. 4. Diabetes mellitus: Continue antidiabetic treatment. Note that the patient blood sugars are not very well controlled. Would recommend intensifying the patient's antidiabetic management regimen. 5. Obstructive sleep apnea: Continue CPAP. 6. Chronic kidney disease stage III: Avoid nephrotoxic drugs. 7. The patient's corrected CHADVASC 2 score is 3, and hence chronic anticoagulation therapy is indicated. Medications reviewed medications adjusted discussed with attending physician the changes in medications and management plan. Medical decision making is of moderate complexity. Note that the patient is a full code. His is his surrogate healthcare decision maker. 40 minutes spent on this patient with more than 50% time spent in direct patient care. Cardiac status is stable, and hence will sign off. Discussed with attending physician covering Dr. Viera.
[2018-08-30] MEDS: IPRATROPIUM/ALBUTEROL 0.5-2.5 MG/3 ML AMPUL NEB SCH ×4 (02:49→20:05)
[2018-08-30] MEDS: LEVOTHYROXINE SODIUM 0.15 MG TABLET PO SCH (06:19)
[2018-08-30] MEDS: LANSOPRAZOLE 30 MG TAB.RAP.DR PO SCH (06:19)
[2018-08-30 06:56] LABS: ANION GAP 8 (5-19); BLOOD UREA NITROGEN 44 mg/dL (7-20); CALCIUM 9.5 mg/dL (8.4-10.2); CARBON DIOXIDE 33 mmol/L (22-30); CHLORIDE 96 mmol/L (98-107); GLUCOSE 141 mg/dL (75-110); POTASSIUM 3.5 mmol/L (3.6-5.0); SODIUM 137.3 mmol/L (137-145)
[2018-08-30] MEDS: DILTIAZEM HCL 180 MG CAPSULE.CR PO SCH ×2 (10:11→22:31)
[2018-08-30] MEDS: PIOGLITAZONE HCL 15 MG TABLET PO SCH (10:11)
[2018-08-30] MEDS: DULOXETINE HCL 30 MG CAPSULE.DR PO SCH ×2 (10:12→22:31)
[2018-08-30] MEDS: HYDROCHLOROTHIAZIDE 25 MG TABLET PO SCH (10:12)
[2018-08-30] MEDS: ERGOCALCIFEROL (VITAMIN D2) 50000 UNIT (1.25 MG) CAPSULE PO SCH (10:13)
[2018-08-30] MEDS: PRAMIPEXOLE DI-HCL 0.5 MG TABLET PO SCH ×2 (10:13→17:18)
[2018-08-30] MEDS: METFORMIN HCL 500 MG TABLET PO SCH ×2 (10:13→17:18)
[2018-08-30] MEDS: LOSARTAN POTASSIUM 50 MG TABLET PO SCH (10:14)
[2018-08-30] MEDS: APIXABAN 5 MG TABLET PO SCH ×2 (10:14→17:18)
[2018-08-30] MEDS: ASPIRIN 81 MG TABLET, ENT COATED PO SCH (10:15)
[2018-08-30] MEDS: GLIPIZIDE 10 MG TABLET PO SCH ×2 (10:15→17:18)
[2018-08-30] MEDS: PREDNISONE 10 MG TABLET PO SCH (10:15)
--- NOTE | 2018-08-30 20:22 | PDOC DISCHARGE SUMMARY ---
General - Admit/Disc Date/PCP Admission Date/Primary Care Provider: 08/20/18 14:31 SILVANO JORDAN MD Discharge Date: 08/31/18 - Discharge Diagnosis (1) Acute exacerbation of chronic obstructive pulmonary disease (COPD) Is this a current diagnosis for this admission?: Yes (2) Mixed acid base balance disorder Is this a current diagnosis for this admission?: Yes (3) Morbid obesity due to excess calories Is this a current diagnosis for this admission?: Yes (4) Pulmonary hypertension Is this a current diagnosis for this admission?: Yes (5) Sleep apnea Is this a current diagnosis for this admission?: Yes (6) Confusion Is this a current diagnosis for this admission?: Yes (7) Paroxysmal atrial fibrillation with rapid ventricular response Is this a current diagnosis for this admission?: Yes (8) Dementia Is this a current diagnosis for this admission?: Yes - Additional Information Prescriptions: Donepezil HCl [Aricept 5 mg Tablet] 5 mg PO QHS #90 tablet Albuterol Sulfate [Ventolin 0.083% Neb 2.5 mg/3 mL Ampul] 2.5 mg NEB RTQ4HP PRN #240 vial.neb PRN Reason: Albuterol Sulfate [Proair Hfa Inhalation Aerosol 8.5 gm Mdi] 1 puff IH Q4 PRN #1 mdi PRN Reason: Apixaban [Eliquis 5 mg Tablet] 2.5 mg PO BID #60 tablet Diltiazem HCl [Cardizem Cd 180 mg Capsule] 180 mg PO Q12 #180 capsule.cr Fluticasone/Umeclidin/Vilanter [Trelegy 100-62.5-25 Mcg Ellipta 14 Dose/Dpi] 1 each IH DAILY #2 inhaler Levothyroxine Sodium [Synthroid 0.15 mg Tablet] 0.15 mg PO Q6AM #90 tablet Metformin HCl 1,000 mg PO QPM #90 tablet Metformin HCl [Metformin ER Osmotic] 500 mg PO DAILY #90 tab.er.24 Olmesartan/Hydrochlorothiazide [Benicar Hct 40-25 mg Tablet] 1 tab PO DAILY #90 tablet Pioglitazone HCl [Actos 15 mg Tablet] 15 mg PO QAM #90 tablet Home Medications: Duloxetine HCl [Cymbalta] 60 mg PO Q12 08/07/18 Ergocalciferol (Vitamin D2) [Drisdol 50,000 unit (1.25MG) Capsule] 50,000 unit PO MO@1000 08/07/18 Glipizide [Glucotrol 10 mg Tablet] 10 mg PO BID 08/07/18 Pantoprazole Sodium [Protonix] 40 mg PO DAILY 08/07/18 Pramipexole Di-HCl [Pramipexole Dihydrochloride] 1.5 mg PO BID 08/07/18 Atorvastatin Calcium [Lipitor 40 mg Tablet] 40 mg PO QHS 08/21/18 Lorazepam [Ativan] 2 mg PO QHS 08/21/18 Rizatriptan Benzoate [Maxalt] 10 mg PO DAILYP PRN 08/21/18 Albuterol Sulfate [Proair Hfa Inhalation Aerosol 8.5 gm Mdi] 1 puff IH Q4 PRN #1 mdi 08/30/18 Albuterol Sulfate [Ventolin 0.083% Neb 2.5 mg/3 mL Ampul] 2.5 mg NEB RTQ4HP PRN #240 vial.neb 08/30/18 Apixaban [Eliquis 5 mg Tablet] 2.5 mg PO BID #60 tablet 08/30/18 Diltiazem HCl [Cardizem Cd 180 mg Capsule] 180 mg PO Q12 #180 capsule.cr 08/30/18 Donepezil HCl [Aricept 5 mg Tablet] 5 mg PO QHS #90 tablet 08/30/18 Fluticasone/Umeclidin/Vilanter [Trelegy 100-62.5-25 Mcg Ellipta 14 Dose/Dpi] 1 each IH DAILY #2 inhaler 08/30/18 Levothyroxine Sodium [Synthroid 0.15 mg Tablet] 0.15 mg PO Q6AM #90 tablet 08/30/18 Metformin HCl 1,000 mg PO QPM #90 tablet 08/30/18 Metformin HCl [Metformin ER Osmotic] 500 mg PO DAILY #90 tab.er.24 08/30/18 Olmesartan/Hydrochlorothiazide [Benicar Hct 40-25 mg Tablet] 1 tab PO DAILY #90 tablet 08/30/18 Pioglitazone HCl [Actos 15 mg Tablet] 15 mg PO QAM #90 tablet 08/30/18 History of Present Illness History of Present Illness: YA PETTIT is a 72 year old male, he was just discharged from this hospital on August 13, 2018 when he had subglottic inflammation associated with stridor, I saw him in the office yesterday when he came for follow-up evaluation, he was wheezing, he was prescribed dexamethasone, this was not approved by the insurance, he continues to have increased work of breathing with shortness of breath and wheezing with impending respiratory failure he was admitted directly from outpatient to the hospital for management. He has multiple comorbid conditions including obstructive sleep apnea, morbid obesity, pulmonary hypertension, sedentary lifestyle, type 2 diabetes mellitus. The ABG that was done suggest mixed acid-base disorder Hospital Course Hospital Course: Patient was admitted for the management of acute COPD exacerbation. He was treated with IV Solu-Medrol, bronchodilators with DuoNeb's, IV antibiotic, hospital course was complicated with paroxysmal atrial fibrillation requiring Cardizem infusion, he was also seen in consultation by Dr. Mcconnell, cardiology, because of the relatively high chads S2 score, he was started on anticoagulation with Eliquis for his A. fib. He had episode of confusion this was not particularly acute in onset is more insidious and intermittent in nature he has had this episode of confusion before this admission this was also noticed and confirmed by the spouse, CT head was done, it demonstrated cerebral atrophy does suggest patient may have dementia. He was started on Aricept on this admission, patient was not advised of the new diagnosis of dementia because patient spouse was concerned that patient may not take the diagnosis in an understanding way and that he may end up committing suicide if he was made aware of the diagnosis.He was seen by pulmonary Dr. Baez because of the prolonged persistent wheezing despite very prolonged IV Solu-Medrol, The retail reset merchandiser suspect that patient may be aspirating he requested for barium swallow which came back normal. I saw him today on the floor he has improved tremendously he has very minimal wheeze at the bases compared to admission when he has diffuse wheeze all over the chest wall Physical Exam Vital Signs: Temp Pulse Resp BP Pulse Ox 97.8 F 97 20 96/60 L 94 08/30/18 18:39 08/30/18 18:39 08/30/18 18:39 08/30/18 18:44 08/30/18 18:39 Intake & Output 01/20/19 01/21/19 01/22/19 06:59 06:59 06:59 Intake Total 890 337 Output Total 390 600 Balance 500 -263 Weight 154.4 kg General appearance: PRESENT: no acute distress, well-developed, well-nourished Head exam: PRESENT: atraumatic, normocephalic Eye exam: PRESENT: conjunctiva pink, EOMI, PERRLA Ear exam: PRESENT: normal external ear exam Mouth exam: PRESENT: moist, tongue midline Neck exam: PRESENT: full ROM Respiratory exam: PRESENT: clear to auscultation milena Cardiovascular exam: PRESENT: RRR, +S1, +S2 Pulses: PRESENT: normal dorsalis pedis pul, +2 pedal pulses bilateral Vascular exam: PRESENT: normal capillary refill GI/Abdominal exam: PRESENT: normal bowel sounds, soft Rectal exam: PRESENT: deferred Neurological exam: PRESENT: alert, awake, oriented to person, oriented to place, oriented to time, oriented to situation, CN II-XII grossly intact Psychiatric exam: PRESENT: appropriate affect, normal mood Skin exam: PRESENT: dry, intact, warm Results Laboratory Results: 08/29/18 05:32 08/30/18 06:06 08/30/18 06:06 Sodium 137.3 Potassium 3.5 L Chloride 96 L Carbon Dioxide 33 H Anion Gap 8 BUN 44 H Creatinine 1.74 H Est GFR ( Amer) 47 L Est GFR (Non-Af Amer) 39 L Glucose 141 H Calcium 9.5 Impressions: Chest X-Ray 08/23/18 00:00 IMPRESSION: Cardiomegaly without pulmonary edema. Head CT 08/23/18 00:00 IMPRESSION: CHRONIC CHANGES OF ATROPHY AND MICROVASCULAR ISCHEMIA. NO ACUTE PROCESS. EVIDENCE OF ACUTE STROKE: NO. Esophagus X-Ray 08/27/18 00:00 IMPRESSION: NORMAL DOUBLE CONTRAST BARIUM SWALLOW. Qualifiers - * PATIENT BEING DISCHARGED WITH ANY OF THE FOLLOWING DIAGNOSIS: No
[2018-08-30] MEDS: DONEPEZIL HCL 5 MG TABLET PO SCH (22:31)
[2018-08-30] MEDS: ATORVASTATIN CALCIUM 40 MG TABLET PO SCH (22:31)
[2018-08-31] MEDS: IPRATROPIUM/ALBUTEROL 0.5-2.5 MG/3 ML AMPUL NEB SCH ×2 (02:01→08:25)
[2018-08-31] MEDS: LANSOPRAZOLE 30 MG TAB.RAP.DR PO SCH (05:36)
[2018-08-31] MEDS: LEVOTHYROXINE SODIUM 0.15 MG TABLET PO SCH (05:37)
[2018-08-31 06:45] LABS: ANION GAP 11 (5-19); BLOOD UREA NITROGEN 44 mg/dL (7-20); CALCIUM 9.2 mg/dL (8.4-10.2); CARBON DIOXIDE 31 mmol/L (22-30); CHLORIDE 98 mmol/L (98-107); GLUCOSE 109 mg/dL (75-110); POTASSIUM 3.6 mmol/L (3.6-5.0); SODIUM 139.8 mmol/L (137-145)
[2018-08-31] MEDS: METFORMIN HCL 500 MG TABLET PO SCH (08:07)
[2018-08-31] MEDS: PIOGLITAZONE HCL 15 MG TABLET PO SCH (08:07)
[2018-08-31] MEDS: GLIPIZIDE 10 MG TABLET PO SCH (09:27)
[2018-08-31] MEDS: DULOXETINE HCL 30 MG CAPSULE.DR PO SCH (09:27)
[2018-08-31] MEDS: APIXABAN 5 MG TABLET PO SCH (09:27)
[2018-08-31] MEDS: ASPIRIN 81 MG TABLET, ENT COATED PO SCH (09:28)
[2018-08-31] MEDS: PREDNISONE 10 MG TABLET PO SCH (09:28)
[2018-08-31] MEDS: HYDROCHLOROTHIAZIDE 25 MG TABLET PO SCH (09:29)
[2018-08-31] MEDS: LOSARTAN POTASSIUM 50 MG TABLET PO SCH (09:29)
[2018-08-31] MEDS: DILTIAZEM HCL 180 MG CAPSULE.CR PO SCH (09:30)
[2018-08-31] MEDS: PRAMIPEXOLE DI-HCL 0.5 MG TABLET PO SCH (09:39)
[2018-08-31 11:50] VITALS: BP 90/50
== END 2018-08-31 12:36 | disposition home health service (06) | DRG 191 ==
LOC: 3S 14:31
PROVIDERS: ADMIT Internal Medicine; ATTEND Internal Medicine
PROC: 3E0F73Z Introduction of Anti-inflammatory into Respiratory Tract, Via Natural or Artificial Opening (ICD-10-PCS; principal; 2018-08-20)
DX: J44.1 Chronic obstructive pulmonary disease with (acute) exacerbation (principal); Z68.42 Body mass index [BMI] 45.0-49.9, adult; E87.4 Mixed disorder of acid-base balance; I50.9 Heart failure, unspecified; I13.10 Hypertensive heart and chronic kidney disease without heart failure, with stage 1 through stage 4 chronic kidney disease, or unspecified chronic kidney disease; E11.22 Type 2 diabetes mellitus with diabetic chronic kidney disease; N18.3 Chronic kidney disease, stage 3 (moderate); E03.9 Hypothyroidism, unspecified; E66.01 Morbid (severe) obesity due to excess calories; I48.0 Paroxysmal atrial fibrillation; I27.20 Pulmonary hypertension, unspecified; F03.90 Unspecified dementia, unspecified severity, without behavioral disturbance, psychotic disturbance, mood disturbance, and anxiety; G47.33 Obstructive sleep apnea (adult) (pediatric); E78.5 Hyperlipidemia, unspecified; K21.9 Gastro-esophageal reflux disease without esophagitis; R32 Unspecified urinary incontinence; M19.90 Unspecified osteoarthritis, unspecified site; F32.9 Major depressive disorder, single episode, unspecified; Z79.4 Long term (current) use of insulin; Z87.891 Personal history of nicotine dependence; Z99.81 Dependence on supplemental oxygen; Z79.82 Long term (current) use of aspirin; Z90.49 Acquired absence of other specified parts of digestive tract
CPT/HCPCS: 36415; 36600; 70450; 71045; 71046; 74220; 80048; 80053; 80076; 81001; 82803; 82962; 85025; 87040; 87086; 92511; 93005; 93010; 94640; J1160; J1815; J2920; J2930; J3490; J7512; J7620

== ENCOUNTER 2019-05-19 14:57 | Emergency (ER) | payer MEDICARE, OTHER ==
--- NOTE | 2019-05-19 15:23 | ER Document Report ---
ED Medical Screen (RME) - General Chief Complaint: Psych Problem Stated Complaint: HALLUCINATIONS Time Seen by Provider: 05/19/19 15:12 Primary Care Provider: SILVANO JORDAN MD [Primary Care Provider] - Follow up as needed Mode of Arrival: Wheelchair Information source: Patient Notes: This very pleasant 73-year-old male presents to the emergency department for reports of hallucinations. Reports he was sitting at the computer today when a person offered him a candy bar and he took it and then he noticed he was eating the remote. Patient reports he is had the symptoms for the past year. Dr. Baez sent him here today. Patient wears home oxygen for history of COPD. Denies EtOH or drugs. Denies trauma. I have greeted and performed a rapid initial assessment of this patient. A comprehensive ED assessment and evaluation of the patient, analysis of test results and completion of the medical decision making process will be conducted by additional ED providers. Dictation of this chart was performed using voice recognition software; therefore, there may be some unintended grammatical errors. TRAVEL OUTSIDE OF THE [place] IN LAST 30 DAYS: No - Related Data Allergies/Adverse Reactions: No Known Allergies Allergy (Verified 09/21/17 09:08) Past Medical History - Social History Chew tobacco use (# tins/day): No Frequency of alcohol use: None Drug Abuse: None Family history: Reviewed & Not Pertinent - Past Medical History Cardiac Medical History: Reports: Hx Congestive Heart Failure, Hx Coronary Artery Disease, Hx Hypercholesterolemia, Hx Hypertension Denies: Hx Atrial Fibrillation, Hx Heart Attack, Hx Peripheral Vascular Disease, Hx Pulmonary Embolism, Hx Heart Murmur Pulmonary Medical History: Reports: Hx Asthma, Hx COPD, Hx Respiratory Failure, Hx Sleep Apnea Denies: Hx Bronchitis, Hx Pneumonia, Hx Tuberculosis Neurological Medical History: Denies: Hx Cerebrovascular Accident, Hx Seizures Endocrine Medical History: Reports: Hx Diabetes Mellitus Type 2, Hx Hypothyroidism Renal/ Medical History: Reports: Hx Benign Prostatic Hyperplasia. Denies: Hx End Stage Renal Disease, Hx Kidney Stones, Hx Peritoneal Dialysis Malignancy Medical History: Denies Hx Lung Cancer GI Medical History: Reports: Hx Gastroesophageal Reflux Disease. Denies: Hx Hepatitis, Hx Hiatal Hernia, Hx Ulcer Musculoskeltal Medical History: Reports Hx Arthritis, Denies Hx Fibromyalgia, Denies Hx Muscular Dystrophy Psychiatric Medical History: Reports: Hx Anxiety, Hx Depression Traumatic Medical History: Denies: Hx Fractures Infectious Medical History: Denies: Hx Hepatitis Past Surgical History: Reports: Hx Abdominal Surgery - exploratory stomach surgery, Hx Appendectomy, Hx Cardiac Catheterization, Hx Orthopedic Surgery - bilat arm fx, bilat rotator cuff, Hx Tonsillectomy. Denies: Hx Bowel Surgery, Hx Cholecystectomy, Hx Coronary Artery Bypass Graft, Hx Gastric Bypass Surgery, Hx Herniorrhaphy, Hx Open Heart Surgery - CHF,NO BLOCKAGE, Hx Pacemaker - Immunizations Immunizations up to date: Yes Hx Diphtheria, Pertussis, Tetanus Vaccination: No Physical Exam - Vital signs Vitals: Pulse Resp BP Pulse Ox 103 H 20 167/90 H 95 05/19/19 15:04 05/19/19 15:04 05/19/19 15:04 05/19/19 15:04 Course - Vital Signs Vital signs: Temp Pulse Resp BP Pulse Ox 103 H 20 167/90 H 95 05/19/19 15:04 05/19/19 15:04 05/19/19 15:04 05/19/19 15:04 Doctor's Discharge - Discharge Referrals: SILVANO JORDAN MD [Primary Care Provider] - Follow up as needed
[2019-05-19 15:56] LABS: ABSOLUTE BASOPHILS # (AUTO) 0.1 10^3/uL (0.0-0.2); ABSOLUTE LYMPHOCYTES (AUTO) 1.6 10^3/uL (0.5-4.7); ABSOLUTE MONOCYTES (AUTO) 0.6 10^3/uL (0.1-1.4); ABSOLUTE NEUT (AUTO) 3.2 10^3/uL (1.7-8.2); BASOPHILS % (AUTO) 1.3 % (0-2); EOSINOPHILS % (AUTO) 0.7 % (0-6); HEMATOCRIT 38.1 % (37.9-51.0); HEMOGLOBIN 12.4 g/dL (13.5-17.0); LYMPHOCYTES % (AUTO) 28.9 % (13-45); MEAN CORPUSCULAR HEMOGLOBIN 28.6 pg (27.0-33.4); MEAN CORPUSCULAR HGB CONC 32.5 g/dL (32.0-36.0); MEAN CORPUSCULAR VOLUME 88 fl (80-97); MONOCYTES % (AUTO) 10.9 % (3-13); PLATELET COUNT 200 10^3/uL (150-450); RED BLOOD COUNT 4.33 10^6/uL (4.35-5.55); RED CELL DISTRIBUTION WIDTH 15.6 % (11.5-14.0); SEGMENTED NEUTROPHILS % (AUTO) 58.2 % (42-78); TOTAL CELLS COUNTED % (AUTO) 100 %; WHITE BLOOD COUNT 5.5 10^3/uL (4.0-10.5)
[2019-05-19 16:04] LABS: APPEARANCE,URINE CLEAR; BILIRUBIN,URINE NEGATIVE (NEGATIVE); COLOR,URINE YELLOW; GLUCOSE, URINE NEGATIVE (NEGATIVE); KETONES,URINE NEGATIVE (NEGATIVE); LEUKOCYTE ESTERASE,URINE NEGATIVE (NEGATIVE); NITRITE,URINE NEGATIVE (NEGATIVE); PROTEIN,URINE NEGATIVE (NEGATIVE); URINE SPECIFIC GRAVITY 1.016; UROBILINOGEN,URINE NEGATIVE mg/dL (<2.0)
[2019-05-19 16:14] LABS: ACETAMINOPHEN < 10 ug/mL (10-30); ALBUMIN 4.5 g/dL (3.5-5.0); ALCOHOL < 10 mg/dL (NONE DETECTED); ALKALINE PHOSPHATASE 77 U/L (38-126); ANION GAP 9 (5-19); ASPARTATE AMINO TRANSFERASE 36 U/L (17-59); BILIRUBIN,DIRECT 0.3 mg/dL (0.0-0.4); BILIRUBIN,TOTAL 0.5 mg/dL (0.2-1.3); BLOOD UREA NITROGEN 29 mg/dL (7-20); CALCIUM 9.5 mg/dL (8.4-10.2); CARBON DIOXIDE 35 mmol/L (22-30); CHLORIDE 98 mmol/L (98-107); GLUCOSE 107 mg/dL (75-110); POTASSIUM 4.5 mmol/L (3.6-5.0); SALICYLATE < 1.0 mg/dL (2.0-20.0); TOTAL PROTEIN 7.6 g/dL (6.3-8.2)
[2019-05-19 16:19] LABS: URINE AMPHETAMINES SCREEN NEGATIVE; URINE BARBITURATES SCREEN NEGATIVE; URINE BENZODIAZEPINES SCREEN NEGATIVE; URINE COCAINE SCREEN NEGATIVE; URINE MARIJUANA (THC) SCREEN NEGATIVE; URINE METHADONE SCREEN NEGATIVE; URINE PHENCYCLIDINE SCREEN NEGATIVE
--- NOTE | 2019-05-19 16:39 | RADIOLOGY REPORT (SQ) ---
EXAM DESCRIPTION: CHEST 2 VIEWS COMPLETED DATE/TIME: 05/19/2019 4:20 pm REASON FOR STUDY: dizziness COMPARISON: Chest films 08/23/2018, 08/20/2018 CT angio chest 08/07/2018 EXAM PARAMETERS: NUMBER OF VIEWS: two views TECHNIQUE: Digital Frontal and Lateral radiographic views of the chest acquired. RADIATION DOSE: NA LIMITATIONS: none FINDINGS: LUNGS AND PLEURA: No opacities, masses or pneumothorax. No pleural effusion. MEDIASTINUM AND HILAR STRUCTURES: No masses or contour abnormalities. HEART AND VASCULAR STRUCTURES: Stable moderate cardiomegaly BONES: No acute findings. HARDWARE: None in the chest. OTHER: No other significant finding. IMPRESSION: Stable cardiomegaly TECHNICAL DOCUMENTATION: JOB ID: [id number] [employer]- All Rights Reserved Reading location - IP/workstation name: [email or web address]
--- NOTE | 2019-05-19 18:25 | ER Document Report ---
ED General - General Chief Complaint: Psych Problem Stated Complaint: HALLUCINATIONS Time Seen by Provider: 05/19/19 15:12 Primary Care Provider: SILVANO JORDAN MD [Primary Care Provider] - Follow up as needed Mode of Arrival: Wheelchair Information source: Patient - Patient's relates that the patient is having more auditory and visual hallucinations and he alludes to during the interview. states that patient's PCP strongly advised that the patient have a psychiatric evaluation done here in the ED. TRAVEL OUTSIDE OF THE [place] IN LAST 30 DAYS: No - HPI Patient complains to provider of: Insomnia, visual and auditory hallucinations Onset: Other - Patient states he has been having symptoms for the past 6 to 9 months but the symptoms have gotten significantly worse over the past 3 days. Onset/Duration: Intermittent Quality of pain: No pain Severity: None Associated symptoms: None Exacerbated by: Denies Relieved by: Denies Similar symptoms previously: No Recently seen / treated by doctor: Yes - Patient directed to come to ED for evaluation by his PCP - Related Data Allergies/Adverse Reactions: No Known Allergies Allergy (Verified 09/21/17 09:08) Past Medical History - General Information source: Patient - Spouse - Social History Smoking Status: Never Smoker Chew tobacco use (# tins/day): No Frequency of alcohol use: None Drug Abuse: None Lives with: Spouse/Significant other Family History: COPD, DM, Hypertension Patient has suicidal ideation: No Patient has homicidal ideation: No - Past Medical History Cardiac Medical History: Reports: Hx Congestive Heart Failure, Hx Coronary Artery Disease, Hx Hypercholesterolemia, Hx Hypertension Denies: Hx Atrial Fibrillation, Hx Heart Attack, Hx Peripheral Vascular Disease, Hx Pulmonary Embolism, Hx Heart Murmur Pulmonary Medical History: Reports: Hx Asthma, Hx COPD, Hx Respiratory Failure, Hx Sleep Apnea Denies: Hx Bronchitis, Hx Pneumonia, Hx Tuberculosis Neurological Medical History: Denies: Hx Cerebrovascular Accident, Hx Seizures Endocrine Medical History: Reports: Hx Diabetes Mellitus Type 2, Hx Hypothyroidism Renal/ Medical History: Reports: Hx Benign Prostatic Hyperplasia. Denies: Hx End Stage Renal Disease, Hx Kidney Stones, Hx Peritoneal Dialysis Malignancy Medical History: Denies Hx Lung Cancer GI Medical History: Reports: Hx Gastroesophageal Reflux Disease. Denies: Hx Hepatitis, Hx Hiatal Hernia, Hx Ulcer Musculoskeletal Medical History: Reports Hx Arthritis, Denies Hx Fibromyalgia, Denies Hx Muscular Dystrophy Psychiatric Medical History: Reports: Hx Anxiety, Hx Depression Traumatic Medical History: Denies: Hx Fractures Infectious Medical History: Denies: Hx Hepatitis Past Surgical History: Reports: Hx Abdominal Surgery - exploratory stomach surgery, Hx Appendectomy, Hx Cardiac Catheterization, Hx Orthopedic Surgery - bilat arm fx, bilat rotator cuff, Hx Tonsillectomy. Denies: Hx Bowel Surgery, Hx Cholecystectomy, Hx Coronary Artery Bypass Graft, Hx Gastric Bypass Surgery, Hx Herniorrhaphy, Hx Open Heart Surgery - CHF,NO BLOCKAGE, Hx Pacemaker - Immunizations Immunizations up to date: Yes Hx Diphtheria, Pertussis, Tetanus Vaccination: No Hx Pneumococcal Vaccination: 08/06/12 Review of Systems - Review of Systems Constitutional: Other - Fatigue EENT: No symptoms reported Cardiovascular: No symptoms reported Respiratory: No symptoms reported - Today Gastrointestinal: No symptoms reported Genitourinary: No symptoms reported Musculoskeletal: No symptoms reported Skin: No symptoms reported Neurological/Psychological: Other - Insomnia, visual hallucinations, auditory hallucinations Physical Exam - Vital signs Vitals: Pulse Resp BP Pulse Ox 103 H 20 167/90 H 95 05/19/19 15:04 05/19/19 15:04 05/19/19 15:04 05/19/19 15:04 - General General appearance: Alert In distress: None - HEENT Head: Normocephalic, Atraumatic Eyes: Normal Conjunctiva: Normal Cornea: Normal Extraocular movements intact: Yes Pupils: PERRL Ears: Normal - Respiratory Respiratory status: No respiratory distress Chest status: Nontender Breath sounds: Normal Chest palpation: Normal - Cardiovascular Rhythm: Regular Heart sounds: Normal auscultation Murmur: No - Abdominal Inspection: Morbidly Obese Bowel sounds: Hypoactive Tenderness: Nontender Organomegaly: No organomegaly - Neurological Cognition: Normal Orientation: AAOx4 [place] Coma Scale Eye Opening: Spontaneous [place]iyana Coma Scale Verbal: Oriented Aiyana Coma Scale Motor: Obeys Commands Parshall Coma Scale Total: 15 Speech: Normal Cranial nerves: Normal - Psychological Associated symptoms: Irritable, Unable to sleep - Skin Skin Temperature: Warm Skin Moisture: Dry Skin Color: Normal Course - Re-evaluation Re-evalutation: 05/19/19 22:34 Patient is currently lying in bed in no acute distress. He has been IVCD and is waiting psychiatric consultation in the a.m. 05/20/19 02:[address] Wall - Vital Signs Vital signs: Temp Pulse Resp BP Pulse Ox 98.0 F 103 H 18 133/73 H 98 05/19/19 21:40 05/19/19 21:40 05/19/19 21:40 05/19/19 21:40 05/19/19 21:40 - Laboratory Result Diagrams: 05/19/19 15:30 05/19/19 15:30 Laboratory results interpreted by me: 05/19/19 05/19/19 05/19/19 15:30 15:30 15:30 RBC 4.33 L Hgb 12.4 L RDW 15.6 H Carbon Dioxide 35 H BUN 29 H Creatinine 1.65 H Est GFR ( Amer) 49 L Est GFR (MDRD) Non-Af 41 L TSH 7.11 H Urine Ascorbic Acid Salicylates < 1.0 L Acetaminophen < 10 L 05/19/19 15:48 RBC Hgb RDW Carbon Dioxide BUN Creatinine Est GFR ( Amer) Est GFR (MDRD) Non-Af TSH Urine Ascorbic Acid 40 H Salicylates Acetaminophen - EKG Interpretation by Me Rate: Tachycardia Rhythm: Other - Sinus tach [place]/QRS: No: Right axis deviation, Left axis deviation, RBBB, LBBB, IVCD, LAHB/LAFB, LPHB/LPFB, Bifasicular block Voltage: No: Increased voltage, Consistant with LVH, Decreased voltage, Throughout, Limb leads When compared to previous EKG there are: No significant change Discharge - Discharge Clinical Impression: Auditory hallucinations, Visual hallucinations, Insomnia, Elevated TSH Condition: Good Disposition: OTHER Referrals: SILVANO JORDAN MD [Primary Care Provider] - Follow up as needed
--- NOTE | 2019-05-19 19:10 | EKG REPORT ---
SEVERITY:- ABNORMAL ECG - SINUS RHYTHM NONSPECIFIC INTRAVENTRICULAR CONDUCTION DELAY : Confirmed by: Nguyễn Gorman MD 19-May-2019 19:09:19
--- NOTE | 2019-05-19 22:09 | EKG REPORT ---
SEVERITY:- ABNORMAL ECG - SINUS TACHYCARDIA NONSPECIFIC INTRAVENTRICULAR CONDUCTION DELAY PROBABLE INFERIOR INFARCT, AGE INDETERMINATE : Confirmed by: Nguyễn Gorman MD 19-May-2019 22:09:03
--- NOTE | 2019-05-20 07:35 | RADIOLOGY REPORT (SQ) ---
EXAM DESCRIPTION: CT HEAD WITHOUT IV CONTRAST COMPLETED DATE/TME: 05/20/2019 04:33 CLINICAL HISTORY: 73 years Male, AMS, psychosis COMPARISON: None. TECHNIQUE: No contrast. Coronal and sagittal reformat. This exam was performed according to our departmental dose-optimization program, which includes automated exposure control, adjustment of the mA and/or kV according to patient size and/or use of iterative reconstruction technique. FINDINGS: No hemorrhage or infarct. No mass, mass effect, or midline shift. Atherosclerosis. Parenchymal volume loss. 2.1 cm right maxillary retention cyst-mucocele. Brain and extra-axial structures appear otherwise intact. IMPRESSION: No acute findings.
--- NOTE | 2019-05-20 09:02 | PSYCHOLOGICAL NOTE ---
Psych Note - Psych Note Date seen by psych provider: 05/19/19 Time seen by psych provider: 08:00 Psych Note: Reason for Consult: requested by PCM Patient was evaluated yesterday; however, the attending physician stated he felt it was medical in nature and requested to cancel evaluation. After the Behavioral Health team left for the day, the attending physician re-consulted for the evaluation because the patient's stated that the patient's PCP strongly advised that the patient have a psychiatric evaluation done here in the ED. This very pleasant 73-year-old male presents to the emergency department for reports of hallucinations. Reports he was sitting at the computer today when a person offered him a candy bar and he took it and then he noticed he was eating the remote. Patient is a 73 year old male with no documented mental health history. Patient reports he has been experiencing hallucinations and not sleeping well for "a couple months. " He disclosed that he has been experiencing a significant increase in these tiypes of events over the last 3 weeks; "they normally are people handing my samples." He identifies having nightmares and troubling dreams that make him think he is in the dream. He continued to disclose today he was sitting at his computer and a man was standing on the other side and offered him a chocolate bar. He reports he accepted the candy but when it touched his lips he realized it was the TV remote control because of the feel. He disclosed seeing "imprints" of shapes on the li and at night seeing the heads of people "shadows of people's heads" walk in the kitchen in the dark. He reports he has 9 terminal diseases but was completely healthy until about 10 years ago. He states the most bothersome and effects him the most is having urinary incontinences. He reports the only other symptoms he has been noticing that is new is being " more short tempered lately." He reports he has had a "great life." He is unable to remember if he has recently had changes in medications. Patient is alert and orientated to person, place, time and circumstance. Mood is euthymic with congruent affect as evidenced by smiling, laughing and engaging with clinician. Patient denies suicidal and homicidal ideation. Delusions are absent and behaviour is congruent with an intact reality based presentation ie organized and linear thought processes. Patient reports experiencing both auditory and visually hallucinations; reports are congruent with known magnifications however he currently is not demonstrating that he is responding to internal stimuli and he denies current hallucinations. Eye contact is fair to poor; this may be due to the patient restricted mobility (weight and being on oxygen). Conversational speech is within normal rate tone and prosody. Intellectually ability appears to be within average range. Attention and concentration are good. Insight, judgment and impulse control are currently good. Head CT 0433 Findings: Atherosdclerosis and parenchrmal volume loss Patient's home medications are as follows Benicar 40mg every morning Levotthryoxine 0.15mg every morning pantoprazole sod 40mg every evening ativan 2mg at bedtime Cymbalta 60mg twice daily trelegy ellipta 100-62.5-25 Pro Air 8.5mg eliquis 2.5mg twice daily diltiazem 24hr er 180mg twice daily Albuterol sulfate every 4 hours metformin hcl 500mg every morning and 1000mg every evening Glipizide 10mg twice daily pioglitazone HCL 15mg every morning atorvastatin 40mg at bedtime Vit D 125mg (50,000units) every Thursday evening Ventolin HFA 2 PUFFS as needed Maxalt 10mg as needed Medication recommendations per [facility]'s contracted psychiatrist Dr Manolo JERRY are as follows please discontinue taking home medications pramipexole- there is concern for this medication as side effects are indicated: hallucinations, sleep disturbances, and confusion ativan donepezil please reduce Cymbalta to 60mg daily please start Depakote 250mg twice daily Please start Buspar 5mg every morning and 10mg every evening Attending physicians are asked to consider to avoid prescribing benzodiazepines (e.g. Ativan, Xanax, Valium, Klonopin), antipsychotics (e.g. Haldol, Geodon, Zyprexa, Seroquel), some sleep aids (e.g. Ambien, Lunesta, Sonata), narcotic pain medications, and high-dose steroids (prednisone) these have been known to cause and/or increased symptoms of aggression, psychosis and/or paranoia in patients with neurodegenerative processes such as dementia, Alzheimer's disease, traumatic brain injury, etc. Impression/Plan: Patient is cleared from acute psychiatric services. Patient does not meet IVC criteria per [place] GS 122C. At this time patient is demonstrating strong insight and judgment into his current situation. While he is experiencing hallucinations, he is able to identify a reality versus hallucination at this time. Patient is very focused on medical diagnosis and on his own mortality. It is recommended that the patient obtain therapeutic services to discuss his thoughts and emotions surrounding his medical diagnosis. Patient demonstrates strong insight and judgment in his own plan of care development. Patient is requesting a full psychological evaluation; however, this is an acute setting and not appropriate to provide this service in the emergency department. Patient is recommended to follow-up with an outpatient mental health provider for a neuropsychological testing. The patient may find it beneficial to follow-up with a neurologist in addition to obtaining the neuropsychological testing. Medication recommendations have been provided. Dr. Renee was consulted on the care and management of this patient; attending physician is in agreement with recommendations and disposition.
[2019-05-20 11:06] LABS: ABSOLUTE LYMPHOCYTES (AUTO) 1.5 10^3/uL (0.5-4.7); ABSOLUTE MONOCYTES (AUTO) 0.6 10^3/uL (0.1-1.4); BASOPHILS % (AUTO) 0.7 % (0-2); EOSINOPHILS % (AUTO) 0.8 % (0-6); HEMATOCRIT 38.4 % (37.9-51.0); HEMOGLOBIN 12.4 g/dL (13.5-17.0); LYMPHOCYTES % (AUTO) 27.8 % (13-45); MEAN CORPUSCULAR HEMOGLOBIN 28.6 pg (27.0-33.4); MEAN CORPUSCULAR HGB CONC 32.2 g/dL (32.0-36.0); MEAN CORPUSCULAR VOLUME 89 fl (80-97); MONOCYTES % (AUTO) 12.3 % (3-13); PLATELET COUNT 196 10^3/uL (150-450); RED BLOOD COUNT 4.33 10^6/uL (4.35-5.55); RED CELL DISTRIBUTION WIDTH 15.6 % (11.5-14.0); SEGMENTED NEUTROPHILS % (AUTO) 58.4 % (42-78); TOTAL CELLS COUNTED % (AUTO) 100 %; WHITE BLOOD COUNT 5.2 10^3/uL (4.0-10.5)
[2019-05-20 11:30] LABS: ALBUMIN 4.3 g/dL (3.5-5.0); ALKALINE PHOSPHATASE 84 U/L (38-126); ANION GAP 9 (5-19); ASPARTATE AMINO TRANSFERASE 37 U/L (17-59); BILIRUBIN,DIRECT 0.3 mg/dL (0.0-0.4); BILIRUBIN,TOTAL 0.4 mg/dL (0.2-1.3); BLOOD UREA NITROGEN 25 mg/dL (7-20); CALCIUM 9.4 mg/dL (8.4-10.2); CARBON DIOXIDE 33 mmol/L (22-30); CHLORIDE 100 mmol/L (98-107); GLUCOSE 139 mg/dL (75-110); POTASSIUM 4.5 mmol/L (3.6-5.0); TOTAL PROTEIN 7.3 g/dL (6.3-8.2)
[2019-05-20 11:47] LABS: FREE T3 3.39 pg/mL (2.77-5.27); FREE T4 (FREE THYROXINE) 0.82 ng/dL (0.78-2.19)
[2019-05-20 12:38] LABS: THYROID STIMULATING HORMONE 8.64 uIU/mL (0.47-4.68)
[2019-05-20] MEDS ORDERED: LOSARTAN POTASSIUM 50 MG TABLET PO ONE (14:04)
[2019-05-20] MEDS ORDERED: METFORMIN HCL 500 MG TABLET PO ONE (14:07)
[2019-05-20] MEDS ORDERED: LEVOTHYROXINE SODIUM 0.15 MG TABLET PO ONE (14:07)
[2019-05-20] MEDS ORDERED: GLIPIZIDE 10 MG TABLET PO ONE (14:07)
[2019-05-20] MEDS ORDERED: PIOGLITAZONE HCL 15 MG TABLET PO ONE (14:08)
--- NOTE | 2019-05-20 14:17 | ER Document Report ---
Doctor's Note Notes: 05/20/19 14:00 PHYSICAL EXAMINATION: GENERAL: Well-appearing and in no acute distress. HEAD: Atraumatic, normocephalic. EYES: sclera anicteric, conjunctiva are normal. ENT: nares patent Moist mucous membranes. NECK: Normal range of motion, supple without lymphadenopathy LUNGS: CTAB and equal. No wheezes rales or rhonchi. HEART: Regular rate and rhythm without murmurs EXTREMITIES: Normal range of motion, 3+ pitting edema. BACK: No midline tenderness, no CVA tenderness NEUROLOGICAL: Cranial nerves grossly intact. Normal speech. PSYCH: Normal mood, normal affect. SKIN: Warm, Dry, normal turgor Reviewed patient's diagnostic test results as well as vital signs and nursing notes. Patient cleared from a medical standpoint for discharge or transfer pending mental health evaluation. 05/20/19 14:[address] Aguila regarding patient's elevated TSH. Patient's T3 and T4 normal, recommends follow-up with primary doctor for any additional adjustments at this time. 05/20/19 15:44 Patient cleared for discharge per the mental health team. Recommendations were made and patient encouraged to follow-up on outpatient basis.
[2019-05-20 16:04] VITALS: BP 129/77
== END 2019-05-20 16:05 | disposition home or self-care (01) ==
LOC: ER 14:57
DX: R44.0 Auditory hallucinations (principal); R44.1 Visual hallucinations; G47.00 Insomnia, unspecified; R53.83 Other fatigue; R00.0 Tachycardia, unspecified; I10 Essential (primary) hypertension; I25.10 Atherosclerotic heart disease of native coronary artery without angina pectoris; E03.9 Hypothyroidism, unspecified; J44.9 Chronic obstructive pulmonary disease, unspecified; E11.9 Type 2 diabetes mellitus without complications; K21.9 Gastro-esophageal reflux disease without esophagitis; F32.9 Major depressive disorder, single episode, unspecified; F41.9 Anxiety disorder, unspecified; Z79.899 Other long term (current) drug therapy; Z79.84 Long term (current) use of oral hypoglycemic drugs; E78.00 Pure hypercholesterolemia, unspecified; Z79.02 Long term (current) use of antithrombotics/antiplatelets
CPT/HCPCS: 93005; 99285; 36415; 84439; 82962; 80307 ×4; 84443; 85025; 80053; 81001; 84481; 71046; 70450; 93010; A9270 ×5; J3490

== ENCOUNTER → 2019-08-29 | Outpatient (CLI) | payer MEDICARE, OTHER | LOC: OD 15:02 | PROVIDERS: ATTEND Otolaryngology | DX: D23.21 Other benign neoplasm of skin of right ear and external auricular canal (principal); L85.9 Epidermal thickening, unspecified | CPT/HCPCS: 88305 ==

== ENCOUNTER 2019-09-15 14:28 | Observation (INO) | payer MEDICARE, OTHER ==
--- NOTE | 2019-09-15 15:30 | ER Document Report ---
ED Medical Screen (RME) - General Chief Complaint: Urinary Retention Stated Complaint: URINARY RETENTION/DIRECT ADMIT Time Seen by Provider: 09/15/19 15:28 Primary Care Provider: BRENDAN ROJAS DO [Primary Care Provider] - Follow up as needed Mode of Arrival: Wheelchair Information source: Patient Notes: 73-year-old male presented to ED for direct admission by Dr. Viera. He is diagnosis is acute urinary retention with multiple comorbidities. He is ordered a CAT scan of the abdomen and pelvis Cerna catheter CBC chemistry LFTs urinalysis iron studies and hemoglobin A1c. Patient is alert oriented Dr. Viera stated he would like him admitted to telemetry. I have greeted and performed a rapid initial assessment of this patient. A comprehensive ED assessment and evaluation of the patient, analysis of test results and completion of medical decision making process will be conducted by an additional ED providers. TRAVEL OUTSIDE OF THE [place] IN LAST 30 DAYS: No - Related Data Allergies/Adverse Reactions: No Known Allergies Allergy (Verified 09/21/17 09:08) Past Medical History - Social History Family history: Reviewed & Not Pertinent - Past Medical History Cardiac Medical History: Reports: Hx Congestive Heart Failure, Hx Coronary Artery Disease, Hx Hypercholesterolemia, Hx Hypertension Denies: Hx Atrial Fibrillation, Hx Heart Attack, Hx Peripheral Vascular Disease, Hx Pulmonary Embolism, Hx Heart Murmur Pulmonary Medical History: Reports: Hx Asthma, Hx COPD, Hx Respiratory Failure, Hx Sleep Apnea Denies: Hx Bronchitis, Hx Pneumonia, Hx Tuberculosis Neurological Medical History: Denies: Hx Cerebrovascular Accident, Hx Seizures Endocrine Medical History: Reports: Hx Diabetes Mellitus Type 2, Hx Hypothyroidism Renal/ Medical History: Reports: Hx Benign Prostatic Hyperplasia. Denies: Hx End Stage Renal Disease, Hx Kidney Stones, Hx Peritoneal Dialysis Malignancy Medical History: Denies Hx Lung Cancer GI Medical History: Reports: Hx Gastroesophageal Reflux Disease. Denies: Hx Hepatitis, Hx Hiatal Hernia, Hx Ulcer Musculoskeltal Medical History: Reports Hx Arthritis, Denies Hx Fibromyalgia, Denies Hx Muscular Dystrophy Psychiatric Medical History: Reports: Hx Anxiety, Hx Depression Traumatic Medical History: Denies: Hx Fractures Infectious Medical History: Denies: Hx Hepatitis Past Surgical History: Reports: Hx Abdominal Surgery - exploratory stomach surgery, Hx Appendectomy, Hx Cardiac Catheterization, Hx Orthopedic Surgery - bilat arm fx, bilat rotator cuff, Hx Tonsillectomy. Denies: Hx Bowel Surgery, Hx Cholecystectomy, Hx Coronary Artery Bypass Graft, Hx Gastric Bypass Surgery, Hx Herniorrhaphy, Hx Open Heart Surgery - CHF,NO BLOCKAGE, Hx Pacemaker - Immunizations Immunizations up to date: Yes Hx Diphtheria, Pertussis, Tetanus Vaccination: No Physical Exam - Vital signs Vitals: Temp Pulse Resp BP Pulse Ox 97.9 F 93 18 124/65 94 09/15/19 14:41 09/15/19 14:41 09/15/19 14:41 09/15/19 14:41 09/15/19 14:41 Course - Vital Signs Vital signs: Temp Pulse Resp BP Pulse Ox 97.9 F 93 18 124/65 94 09/15/19 14:41 09/15/19 14:41 09/15/19 14:41 09/15/19 14:41 09/15/19 14:41 Doctor's Discharge - Discharge Referrals: BRENDAN ROJAS DO [Primary Care Provider] - Follow up as needed
--- NOTE | 2019-09-15 16:54 | RADIOLOGY REPORT (SQ) ---
EXAM DESCRIPTION: CT ABD/PELVIS NO ORAL OR IV COMPLETED DATE/TIME: 09/15/2019 4:05 pm REASON FOR STUDY: ua retension COMPARISON: None. TECHNIQUE: CT scan of the abdomen and pelvis performed without intravenous or oral contrast. Images reviewed with lung, soft tissue, and bone windows. Reconstructed coronal and sagittal MPR images revi ewed. All images stored on PACS. All CT scanners at this facility use dose modulation, iterative reconstruction, and/or weight based d osing when appropriate to reduce radiation dose to as low as reasonably achievable (ALARA). [facility]: Dose Right [facility]: CareDose [facility]: Dose Right [facility]: Teradose 4D [facility]: Smart Visual IQ RADIATION DOSE: CT Rad equipment meets quality standard of care and radiation dose reduction techniq ues were employed. CTDIvol: 38.0 mGy. DLP: 2198 mGy-cm.mGy. LIMITATIONS: None. FINDINGS: LOWER CHEST: Scarring in the lung bases. No nodules or infiltrates. NON-CONTRASTED LIVER, SPLEEN, ADRENALS: Evaluation limited by lack of IV contrast. Fatty infiltratio n of the liver. No identified significant masses. PANCREAS: No masses. No peripancreatic inflammatory changes. GALLBLADDER: No identified stones by CT criteria. No inflammatory changes to suggest cholecystitis. RIGHT KIDNEY AND URETER: Cortical scarring. No suspicious masses. Assessment limited by lack of IV c ontrast. No significant calcifications. No hydronephrosis or hydroureter. LEFT KIDNEY AND URETER: Low-attenuation cortical lesion, presumably a cortical cyst. Assessment limit ed by lack of IV contrast. 8 mm calyceal calculus. No hydronephrosis or hydroureter. AORTA AND RETROPERITONEUM: No aneurysm. No retroperitoneal masses or adenopathy. BOWEL AND PERITONEAL CAVITY: Diverticuli throughout the colon. No obvious masses or inflammatory miranda nges. No free fluid. APPENDIX: Surgically absent. PELVIS, BLADDER, AND ABDOMINAL WALL:Umbilical hernia containing fat. Post prostatectomy with surgica l clips. No abnormal masses. No free fluid. Bladder normal. BONES: No significant findings. OTHER: No other significant finding. IMPRESSION: 1. NONOBSTRUCTING CALYCEAL CALCULUS IN THE LEFT KIDNEY. 2. CORTICAL LESION IN THE LEFT KIDNEY, PRESUMABLY A CORTICAL CYST. LIMITED EVALUATION ON NONCONTRAST IMAGING. 3. COLONIC DIVERTICULOSIS. NO CT FINDINGS OF ACUTE DIVERTICULITIS. 4. UMBILICAL HERNIA CONTAINING FAT. NO INVOLVEMENT OF BOWEL. 5. FATTY INFILTRATION OF THE LIVER. 6. NO OTHER SIGNIFICANT OR ACUTE PROCESS IN THE ABDOMEN OR PELVIS. COMMENT: Quality ID # [id number]: Final reports with documentation of one or more dose reduction techniques (e.g., Automated exposure control, adjustment of the mA and/or kV according to patient size, use of iterative reconstruction technique) TECHNICAL DOCUMENTATION: JOB ID: [id number] [employer]- All Rights Reserved Reading location - IP/workstation name: [email or web address]
[2019-09-15 17:13] LABS: ABSOLUTE RETICS # 0.076 10^6/uL (0.028-0.122)
[2019-09-15 17:16] LABS: ABSOLUTE LYMPHOCYTES (AUTO) 1.5 10^3/uL (0.5-4.7); ABSOLUTE MONOCYTES (AUTO) 0.6 10^3/uL (0.1-1.4); ABSOLUTE NEUT (AUTO) 4.8 10^3/uL (1.7-8.2); BASOPHILS % (AUTO) 0.6 % (0-2); EOSINOPHILS % (AUTO) 0.3 % (0-6); HEMATOCRIT 37.7 % (37.9-51.0); HEMOGLOBIN 12.4 g/dL (13.5-17.0); MEAN CORPUSCULAR HEMOGLOBIN 29.5 pg (27.0-33.4); MEAN CORPUSCULAR HGB CONC 32.9 g/dL (32.0-36.0); MEAN CORPUSCULAR VOLUME 90 fl (80-97); MONOCYTES % (AUTO) 8.9 % (3-13); PLATELET COUNT 213 10^3/uL (150-450); RED BLOOD COUNT 4.21 10^6/uL (4.35-5.55); RED CELL DISTRIBUTION WIDTH 15.2 % (11.5-14.0); SEGMENTED NEUTROPHILS % (AUTO) 69.2 % (42-78); TOTAL CELLS COUNTED % (AUTO) 100 %; WHITE BLOOD COUNT 6.9 10^3/uL (4.0-10.5)
[2019-09-15 17:31] LABS: ALBUMIN 4.2 g/dL (3.5-5.0); ALKALINE PHOSPHATASE 81 U/L (38-126); ANION GAP 8 (5-19); ASPARTATE AMINO TRANSFERASE 29 U/L (17-59); BILIRUBIN,DIRECT 0.1 mg/dL (0.0-0.4); BILIRUBIN,TOTAL 0.5 mg/dL (0.2-1.3); BLOOD UREA NITROGEN 36 mg/dL (7-20); CALCIUM 9.5 mg/dL (8.4-10.2); CARBON DIOXIDE 34 mmol/L (22-30); CHLORIDE 100 mmol/L (98-107); GLUCOSE 99 mg/dL (75-110); IRON(TIBC) 58.5 ug/dL (49-181); POTASSIUM 4.6 mmol/L (3.6-5.0); TOTAL PROTEIN 7.1 g/dL (6.3-8.2)
[2019-09-15 18:46] LABS: FOLATE > 20.00 ng/mL (>2.76)
[2019-09-15] MEDS ORDERED: (PENDING PHARMACY ID) (Rizatriptan Benzoate [Rizatriptan] 10 MG) PO PRN (20:37)
[2019-09-15] MEDS ORDERED: TRAMADOL HCL 50 MG TABLET PO PRN (20:37)
[2019-09-15] MEDS ORDERED: OLMESARTAN PO SCH (20:45)
[2019-09-15] MEDS ORDERED: (PENDING PHARMACY ID) (Mirabegron [Myrbetriq] 25 MG) PO SCH (20:45)
[2019-09-15] MEDS ORDERED: [UNRECOGNIZED DRUG - OTHER] PO SCH (20:45)
[2019-09-15] MEDS ORDERED: HYDROCHLOROTHIAZIDE PO SCH (20:45)
[2019-09-15] MEDS ORDERED: (PENDING PHARMACY ID) (Metformin Hcl [Metformin Hcl Er] 500 MG) PO SCH (20:45)
[2019-09-15] MEDS ORDERED: (PENDING PHARMACY ID) (Buspirone Hcl [Buspirone Hcl] 15 MG) PO SCH (20:45)
--- NOTE | 2019-09-15 20:59 | PDOC H&P ---
History of Present Illness Admission Date/PCP: 09/15/19 18:57 SILVANO JORDAN MD History of Present Illness: YA PETTIT is a 73 year old male,He came to the office for evaluation of acute urinary retention,He has a history of malignant neoplasm of the prostate gland, status post prostatectomy.He was admitted directly from the office into the hospital for further evaluation and management the apparent etiology of the inability to urinate was not clear in the office, a CAT scan of the abdomen and pelvis without contrast was obtained, it was negative for acute pathology.A Cerna catheter was inserted, copious amount of urine was returned from the bladder. The serum creatinine was 2.3 on admission, his baseline creatinine is about 1.6, this suggests acute on chronic kidney disease. Past Medical History Cardiac Medical History: Reports: Hyperlipidema, Hypertension Pulmonary Medical History: Reports: Asthma, Chronic Obstructive Pulmonary Disease (COPD), Respiratory Failure, Sleep Apnea Endocrine Medical History: Reports: Diabetes Mellitus Type 2, Hypothyroidism Renal/ Medical History: Reports: Chronic Kidney Disease GI Medical History: Reports: Gastroesophageal Reflux Disease Musculoskeltal Medical History: Reports: Arthritis Psychiatric Medical History: Reports: Depression Past Surgical History Past Surgical History: Reports: Appendectomy, Cardiac Catheterization, Orthopedic Surgery - bilat arm fx, bilat rotator cuff, Tonsillectomy Denies: Cholecystectomy, Coronary Artery Bypass Graft, Gastric Bypass Surgery, Herniorrhaphy, Pacemaker Social History Smoking Status: Never Smoker Frequency of Alcohol Use: Occasional Hx Recreational Drug Use: No Hx Prescription Drug Abuse: No Family History Family History: COPD, DM, Hypertension Parental Family History Reviewed: Yes Children Family History Reviewed: Yes Sibling(s) Family History Reviewed.: Yes Medication/Allergy Home Medications: Allopurinol [Zyloprim 100 mg Tablet] 100 mg PO BID 09/15/19 Apixaban [Eliquis 2.5 mg Tablet] 2.5 mg PO BID 09/15/19 Buspirone HCl 15 mg PO BID 09/15/19 Diltiazem HCl [Diltiazem 24Hr ER] 180 mg PO Q12 09/15/19 Donepezil HCl [Aricept 5 mg Tablet] 5 mg PO QHS 09/15/19 Ergocalciferol (Vitamin D2) [Vitamin D2] 50 mcg PO MO@1000 09/15/19 Metformin HCl [Metformin HCl ER] 500 mg PO BIDACBS 09/15/19 Mirabegron [Myrbetriq] 25 mg PO DAILY 09/15/19 Olmesartan/Hydrochlorothiazide [Olmesartan-Hctz 40-25 mg Tab] 1 tab PO DAILY 09/15/19 Pantoprazole Sodium [Protonix [address] Tablet] 40 mg PO QAM 09/15/19 Rizatriptan Benzoate [Rizatriptan] 10 mg PO DAILYP PRN 09/15/19 Tramadol HCl [Ultram 50 mg Tablet] 50 mg PO TIDP PRN 09/15/19 Ciprofloxacin HCl [Cipro 500 mg Tablet] 500 mg PO BID #10 tablet 09/16/19 Allergies/Adverse Reactions: No Known Allergies Allergy (Verified 09/21/17 09:08) Review of Systems Constitutional: ABSENT: chills, fever(s), headache(s), weight gain, weight loss Eyes: ABSENT: visual disturbances Ears: ABSENT: hearing changes Cardiovascular: ABSENT: chest pain, dyspnea on exertion, edema, orthropnea, palpitations Respiratory: ABSENT: cough, hemoptysis Gastrointestinal: PRESENT: abdominal pain. ABSENT: constipation, diarrhea, hematemesis, hematochezia, nausea, vomiting Genitourinary: PRESENT: difficulty urinating Musculoskeletal: ABSENT: joint swelling Integumentary: ABSENT: rash, wounds Neurological: ABSENT: abnormal gait, abnormal speech, confusion, dizziness, focal weakness, syncope Psychiatric: ABSENT: anxiety, depression, homidical ideation, suicidal ideation Endocrine: ABSENT: cold intolerance, heat intolerance, menstrual abnormalities, polydipsia, polyuria Hematologic/Lymphatic: ABSENT: easy bleeding, easy bruising, lymphadenopathy Physical Exam Vital Signs: Temp Pulse Resp BP Pulse Ox 97.9 F 93 18 124/65 94 09/15/19 14:41 09/15/19 14:41 09/15/19 14:41 09/15/19 14:41 09/15/19 14:41 Intake & Output 09/14/19 09/15/19 09/16/19 06:59 06:59 06:59 Weight 164.5 kg General appearance: PRESENT: no acute distress, morbidly obese Head exam: PRESENT: atraumatic, normocephalic Eye exam: PRESENT: conjunctiva pink, EOMI, PERRLA Ear exam: PRESENT: normal external ear exam Mouth exam: PRESENT: moist, tongue midline Neck exam: PRESENT: full ROM Respiratory exam: PRESENT: clear to auscultation milena Cardiovascular exam: PRESENT: RRR, +S1, +S2 Pulses: PRESENT: normal dorsalis pedis pul, +2 pedal pulses bilateral Vascular exam: PRESENT: normal capillary refill GI/Abdominal exam: PRESENT: distended, normal bowel sounds, soft Rectal exam: PRESENT: deferred Neurological exam: PRESENT: alert, CN II-XII grossly intact. ABSENT: motor sensory deficit Psychiatric exam: PRESENT: appropriate affect, normal mood Skin exam: PRESENT: dry, intact, warm Results Laboratory Results: 09/15/19 16:50 09/15/19 16:50 09/15/19 09/15/19 09/15/19 16:50 16:50 16:50 WBC 6.9 RBC 4.21 L Hgb 12.4 L Hct 37.7 L MCV 90 MCH 29.5 MCHC 32.9 RDW 15.2 H Plt Count 213 Seg Neutrophils % 69.2 Retic Count (auto) 1.80 Sodium Potassium Chloride Carbon Dioxide Anion Gap BUN Creatinine Est GFR ( Amer) Glucose Calcium Iron 58.5 TIBC 353 % Saturation 17 Ferritin 74.80 Total Bilirubin AST Alkaline Phosphatase Total Protein Albumin Vitamin B12 665.0 Folate > 20.00 09/15/19 16:50 WBC RBC Hgb Hct MCV MCH MCHC RDW Plt Count Seg Neutrophils % Retic Count (auto) Sodium 142.0 Potassium 4.6 Chloride 100 Carbon Dioxide 34 H Anion Gap 8 BUN 36 H Creatinine 2.33 H Est GFR ( Amer) 33 L Glucose 99 Calcium 9.5 Iron TIBC % Saturation Ferritin Total Bilirubin 0.5 AST 29 Alkaline Phosphatase 81 Total Protein 7.1 Albumin 4.2 Vitamin B12 Folate Impressions: Abdomen/Pelvis CT 09/15/19 15:39 IMPRESSION: 1. NONOBSTRUCTING CALYCEAL CALCULUS IN THE LEFT KIDNEY. 2. CORTICAL LESION IN THE LEFT KIDNEY, PRESUMABLY A CORTICAL CYST. LIMITED EVALUATION ON NONCONTRAST IMAGING. 3. COLONIC DIVERTICULOSIS. NO CT FINDINGS OF ACUTE DIVERTICULITIS. 4. UMBILICAL HERNIA CONTAINING FAT. NO INVOLVEMENT OF BOWEL. 5. FATTY INFILTRATION OF THE LIVER. 6. NO OTHER SIGNIFICANT OR ACUTE PROCESS IN THE ABDOMEN OR PELVIS. Assessment & Plan - Diagnosis (1) Acute kidney injury Is this a current diagnosis for this admission?: Yes Plan: He has acute kidney injury secondary to obstructive uropathy with a background of acute urinary retention, the etiology of the acute urine retention is not clear, patient's baseline creatinine is 1.5-1.7, the creatinine today is 2.3 suggesting acute kidney injury, a Cerna catheter was inserted with improvement i n serum creatinine (2) Acute urinary retention Is this a current diagnosis for this admission?: Yes (3) Type 2 diabetes mellitus Qualifiers: Diabetes mellitus residential insulin use: without 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
[2019-09-15] MEDS ORDERED: DONEPEZIL HCL 5 MG TABLET PO SCH (22:00)
[2019-09-15] MEDS ORDERED: (PENDING PHARMACY ID) (Diltiazem Hcl [Diltiazem 24hr Er] 180 MG) PO SCH (22:00)
[2019-09-15 22:23] LABS: INTERNATIONAL RATION (INR) 0.99; PROTHROMBIN TIME 13.1 SEC (11.4-15.4)
[2019-09-15 22:24] LABS: PARTIAL THROMBOPLASTIN TIME 25.9 SEC (23.5-35.8)
[2019-09-15 22:29] LABS: PHOSPHORUS 4.2 mg/dL (2.5-4.5)
[2019-09-15 22:44] LABS: TROPONIN I < 0.012 ng/mL
[2019-09-15 22:45] LABS: FREE T4 (FREE THYROXINE) 0.68 ng/dL (0.78-2.19)
[2019-09-15 22:59] LABS: THYROID STIMULATING HORMONE 8.63 uIU/mL (0.47-4.68)
[2019-09-15] MEDS: BUSPIRONE HCL 10 MG TABLET PO SCH (23:14)
[2019-09-15] MEDS: DILTIAZEM HCL 180 MG CAPSULE.CR PO SCH (23:15)
[2019-09-15] MEDS: ALLOPURINOL 100 MG TABLET PO SCH (23:16)
[2019-09-15] MEDS: LOSARTAN POTASSIUM 50 MG TABLET PO SCH (23:19)
[2019-09-15] MEDS: APIXABAN 2.5 MG TABLET PO SCH (23:20)
[2019-09-15] MEDS: HYDROCHLOROTHIAZIDE 25 MG TABLET PO SCH (23:20)
[2019-09-16 05:54] LABS: APPEARANCE,URINE CLEAR; BILIRUBIN,URINE NEGATIVE (NEGATIVE); COLOR,URINE YELLOW; GLUCOSE, URINE NEGATIVE (NEGATIVE); KETONES,URINE NEGATIVE (NEGATIVE); PROTEIN,URINE NEGATIVE (NEGATIVE); URINE SPECIFIC GRAVITY 1.018; UROBILINOGEN,URINE NEGATIVE mg/dL (<2.0)
[2019-09-16 06:04] LABS: URINE AMPHETAMINES SCREEN NEGATIVE; URINE BARBITURATES SCREEN NEGATIVE; URINE BENZODIAZEPINES SCREEN NEGATIVE; URINE COCAINE SCREEN NEGATIVE; URINE MARIJUANA (THC) SCREEN NEGATIVE; URINE METHADONE SCREEN NEGATIVE; URINE PHENCYCLIDINE SCREEN NEGATIVE
[2019-09-16 06:11] LABS: ABSOLUTE LYMPHOCYTES (AUTO) 1.4 10^3/uL (0.5-4.7); ABSOLUTE MONOCYTES (AUTO) 0.7 10^3/uL (0.1-1.4); ABSOLUTE NEUT (AUTO) 3.8 10^3/uL (1.7-8.2); BASOPHILS % (AUTO) 0.6 % (0-2); EOSINOPHILS % (AUTO) 0.6 % (0-6); HEMATOCRIT 36.5 % (37.9-51.0); LYMPHOCYTES % (AUTO) 23.1 % (13-45); MEAN CORPUSCULAR HEMOGLOBIN 29.2 pg (27.0-33.4); MEAN CORPUSCULAR VOLUME 89 fl (80-97); MONOCYTES % (AUTO) 11.1 % (3-13); PLATELET COUNT 208 10^3/uL (150-450); RED BLOOD COUNT 4.12 10^6/uL (4.35-5.55); RED CELL DISTRIBUTION WIDTH 15.8 % (11.5-14.0); SEGMENTED NEUTROPHILS % (AUTO) 64.6 % (42-78); TOTAL CELLS COUNTED % (AUTO) 100 %; WHITE BLOOD COUNT 5.9 10^3/uL (4.0-10.5)
[2019-09-16 06:26] LABS: ALKALINE PHOSPHATASE 78 U/L (38-126); ANION GAP 10 (5-19); ASPARTATE AMINO TRANSFERASE 31 U/L (17-59); BILIRUBIN,DIRECT 0.4 mg/dL (0.0-0.4); BILIRUBIN,TOTAL 0.6 mg/dL (0.2-1.3); BLOOD UREA NITROGEN 32 mg/dL (7-20); CALCIUM 9.1 mg/dL (8.4-10.2); CARBON DIOXIDE 34 mmol/L (22-30); CHLORIDE 99 mmol/L (98-107); CHOLESTEROL 181.36 mg/dL (0-200); GLUCOSE 150 mg/dL (75-110); POTASSIUM 4.1 mmol/L (3.6-5.0); TOTAL PROTEIN 7.1 g/dL (6.3-8.2); TRIGLYCERIDES 450 mg/dL (<150)
[2019-09-16 06:37] LABS: CREATINE KINASE MB 1.08 ng/mL (<4.55); DIRECT LDL 95 mg/dL (<100)
[2019-09-16 06:39] LABS: TROPONIN I < 0.012 ng/mL
[2019-09-16] MEDS ORDERED: PANTOPRAZOLE SODIUM 40 MG TABLET.DR PO SCH (08:00)
[2019-09-16] MEDS: ALLOPURINOL 100 MG TABLET PO SCH (09:06)
[2019-09-16] MEDS: LOSARTAN POTASSIUM 50 MG TABLET PO SCH (09:08)
[2019-09-16] MEDS: DILTIAZEM HCL 180 MG CAPSULE.CR PO SCH (09:11)
[2019-09-16] MEDS: HYDROCHLOROTHIAZIDE 25 MG TABLET PO SCH (09:12)
[2019-09-16] MEDS: APIXABAN 2.5 MG TABLET PO SCH ×2 (09:12→18:48)
[2019-09-16] MEDS: BUSPIRONE HCL 10 MG TABLET PO SCH (09:13)
[2019-09-16 11:29] LABS: CREATINE KINASE MB 0.99 ng/mL (<4.55)
[2019-09-16 11:32] LABS: TROPONIN I < 0.012 ng/mL
[2019-09-16 18:29] VITALS: BP 112/61
--- NOTE | 2019-09-16 20:01 | PDOC DISCHARGE SUMMARY ---
Impression - Admit/DC Date/PCP Admission Date/Primary Care Provider: 09/15/19 18:57 SILVANO JORDAN MD Discharge Date: 09/16/19 - Discharge Diagnosis (1) Acute kidney injury Is this a current diagnosis for this admission?: Yes (2) Acute urinary retention Is this a current diagnosis for this admission?: Yes - Additional Information Resuscitation Status: Full Code Discharge Diet: Diabetic Discharge Activity: Activity As Tolerated Referrals: SILVANO JORDAN MD [Primary Care Provider] - 09/22/19 2:00 pm Prescriptions: Ciprofloxacin HCl [Cipro 500 mg Tablet] 500 mg PO BID #10 tablet Home Medications: Allopurinol [Zyloprim 100 mg Tablet] 100 mg PO BID 09/15/19 Apixaban [Eliquis 2.5 mg Tablet] 2.5 mg PO BID 09/15/19 Buspirone HCl 15 mg PO BID 09/15/19 Diltiazem HCl [Diltiazem 24Hr ER] 180 mg PO Q12 09/15/19 Donepezil HCl [Aricept 5 mg Tablet] 5 mg PO QHS 09/15/19 Ergocalciferol (Vitamin D2) [Vitamin D2] 50 mcg PO MO@1000 09/15/19 Metformin HCl [Metformin HCl ER] 500 mg PO BIDACBS 09/15/19 Mirabegron [Myrbetriq] 25 mg PO DAILY 09/15/19 Olmesartan/Hydrochlorothiazide [Olmesartan-Hctz 40-25 mg Tab] 1 tab PO DAILY 09/15/19 Pantoprazole Sodium [Protonix [address] Tablet] 40 mg PO QAM 09/15/19 Rizatriptan Benzoate [Rizatriptan] 10 mg PO DAILYP PRN 09/15/19 Tramadol HCl [Ultram 50 mg Tablet] 50 mg PO TIDP PRN 09/15/19 Ciprofloxacin HCl [Cipro 500 mg Tablet] 500 mg PO BID #10 tablet 09/16/19 History of Present Illiness History of Present Illness: YA PETTIT is a 73 year old male,He came to the office for evaluation of acute urinary retention,He has a history of malignant neoplasm of the prostate gland, status post prostatectomy.He was admitted directly from the office into the hospital for further evaluation and management the apparent etiology of the inability to urinate was not clear in the office, a CAT scan of the abdomen and pelvis without contrast was obtained, it was negative for acute pathology.A Cerna catheter was inserted, copious amount of urine was returned from the bladder. The serum creatinine was 2.3 on admission, his baseline creatinine is about 1.6, this suggests acute on chronic kidney disease. Hospital Course Hospital Course: Patient was admitted for the management of acute retention of urine, associated with acute kidney injury, he has history of chronic kidney disease stage III. A Cerna catheter was inserted copious amount of urine was removed from the bladder, there was improvement in the serum creatinine. Patient will retain the Cerna catheter until follow-up outpatient for further evaluation. He was given prescription for p.o. antibiotic Physical Exam Vital Signs: Temp Pulse Resp BP Pulse Ox 97.3 F 90 20 112/61 98 09/16/19 18:11 09/16/19 18:11 09/16/19 18:11 09/16/19 18:11 09/16/19 18:11 Intake & Output 09/15/19 09/16/19 09/17/19 06:59 06:59 06:59 Intake Total 700 221 Output Total 1250 600 Balance -550 -379 Weight 165 kg General appearance: PRESENT: no acute distress Eye exam: PRESENT: PERRLA Respiratory exam: PRESENT: clear to auscultation milena GI/Abdominal exam: PRESENT: soft Neurological exam: PRESENT: alert, CN II-XII grossly intact Results Laboratory Results: WBC 5.9 10^3/uL (4.0-10.5) 09/16/19 05:03 RBC 4.12 10^6/uL (4.35-5.55) L 09/16/19 05:03 Hgb 12.0 g/dL (13.5-17.0) L 09/16/19 05:03 Hct 36.5 % (37.9-51.0) L 09/16/19 05:03 MCV 89 fl (80-97) 09/16/19 05:03 MCH 29.2 pg (27.0-33.4) 09/16/19 05:03 MCHC 33.0 g/dL (32.0-36.0) 09/16/19 05:03 RDW 15.8 % (11.5-14.0) H 09/16/19 05:03 Plt Count 208 10^3/uL (150-450) 09/16/19 05:03 Lymph % (Auto) 23.1 % (13-45) 09/16/19 05:03 [place] % (Auto) 11.1 % (3-13) 09/16/19 05:03 Eos % (Auto) 0.6 % (0-6) 09/16/19 05:03 Baso % (Auto) 0.6 % (0-2) 09/16/19 05:03 Reticulocyte # 0.076 10^6/uL (0.028-0.122) 09/15/19 16:50 Absolute Neuts (auto) 3.8 10^3/uL (1.7-8.2) 09/16/19 05:03 Absolute Lymphs (auto) 1.4 10^3/uL (0.5-4.7) 09/16/19 05:03 Absolute Monos (auto) 0.7 10^3/uL (0.1-1.4) 09/16/19 05:03 Absolute Eos (auto) 0.0 10^3/uL (0.0-0.6) 09/16/19 05:03 Absolute Basos (auto) 0.0 10^3/uL (0.0-0.2) 09/16/19 05:03 Seg Neutrophils % 64.6 % (42-78) 09/16/19 05:03 Retic Count (auto) 1.80 % (0.66-2.85) 09/15/19 16:50 PT 13.1 SEC (11.4-15.4) 09/15/19 21:51 INR 0.99 09/15/19 21:51 APTT 25.9 SEC (23.5-35.8) 09/15/19 21:51 Sodium 143.2 mmol/L (137-145) 09/16/19 05:03 Potassium 4.1 mmol/L (3.6-5.0) 09/16/19 05:03 Chloride 99 mmol/L (98-107) 09/16/19 05:03 Carbon Dioxide 34 mmol/L (22-30) H 09/16/19 05:03 Anion Gap 10 (5-19) 09/16/19 05:03 BUN 32 mg/dL (7-20) H 09/16/19 05:03 Creatinine 1.91 mg/dL (0.52-1.25) H 09/16/19 05:03 Est GFR ( Amer) 42 (>60) L 09/16/19 05:03 Est GFR (MDRD) Non-Af 35 (>60) L 09/16/19 05:03 Glucose 150 mg/dL (75-110) H 09/16/19 05:03 Hemoglobin A1c % 7.1 % (4.7-6.0) H 09/16/19 05:03 Calcium 9.1 mg/dL (8.4-10.2) 09/16/19 05:03 Phosphorus 4.2 mg/dL (2.5-4.5) 09/15/19 21:51 Magnesium 1.7 mg/dL (1.6-2.3) 09/15/19 21:51 Iron 58.5 ug/dL (49-181) 09/15/19 16:50 TIBC 353 ug/dL (250-450) 09/15/19 16:50 % Saturation 17 % 09/15/19 16:50 Ferritin 74.80 ng/mL (17.9-464.0) 09/15/19 16:50 Total Bilirubin 0.6 mg/dL (0.2-1.3) 09/16/19 05:03 Direct Bilirubin 0.4 mg/dL (0.0-0.4) 09/16/19 05:03 Neonat Total Bilirubin Not Reportable 09/16/19 05:03 Neonat Direct Bilirubin Not Reportable 09/16/19 05:03 Neonat Indirect Bili Not Reportable 09/16/19 05:03 AST 31 U/L (17-59) 09/16/19 05:03 ALT 25 U/L (<50) 09/16/19 05:03 Alkaline Phosphatase 78 U/L (38-126) 09/16/19 05:03 Ammonia < 8.7 umol/L (9-33) L 09/15/19 21:51 Creatine Kinase 99 U/L (55-170) 09/16/19 10:35 CK-MB (CK-2) 0.99 ng/mL (<4.55) 09/16/19 10:35 Troponin I < 0.012 ng/mL 09/16/19 10:35 NT-Pro-B Natriuret Pep 35 pg/mL (<450) 09/15/19 21:51 Total Protein 7.1 g/dL (6.3-8.2) 09/16/19 05:03 Albumin 4.0 g/dL (3.5-5.0) 09/16/19 05:03 Triglycerides 450 mg/dL (<150) H 09/16/19 05:03 Cholesterol 181.36 mg/dL (0-200) 09/16/19 05:03 LDL Cholesterol Direct 95 mg/dL (<100) 09/16/19 05:03 VLDL Cholesterol, Calc UNABLE TO CALCULATE 09/16/19 05:03 HDL Cholesterol 32 mg/dL (>40) L 09/16/19 05:03 Amylase 63 U/L (30-110) 09/15/19 21:51 Lipase 122.2 U/L (23-300) 09/15/19 21:51 Vitamin B12 665.0 pg/mL (239-931) 09/15/19 16:50 Folate > 20.00 ng/mL (>2.76) 09/15/19 16:50 TSH 8.63 uIU/mL (0.47-4.68) H 09/15/19 21:51 Free T4 0.68 ng/dL (0.78-2.19) L 09/15/19 21:51 Urine Color YELLOW 09/15/19 18:57 Urine Appearance CLEAR 09/15/19 18:57 Urine pH 5.0 (5.0-9.0) 09/15/19 18:57 Ur Specific [place] 1.018 09/15/19 18:57 Urine Protein NEGATIVE mg/dL (NEGATIVE) 09/15/19 18:57 Urine Glucose (UA) NEGATIVE mg/dL (NEGATIVE) 09/15/19 18:57 Urine Ketones NEGATIVE mg/dL (NEGATIVE) 09/15/19 18:57 Urine Blood NEGATIVE (NEGATIVE) 09/15/19 18:57 Urine Nitrite (Reflex) NEGATIVE (NEGATIVE) 09/15/19 18:57 Urine Bilirubin NEGATIVE (NEGATIVE) 09/15/19 18:57 Urine Urobilinogen NEGATIVE mg/dL (<2.0) 09/15/19 18:57 Leukocyte Esterase Rfl NEGATIVE (NEGATIVE) 09/15/19 18:57 Urine RBC (Auto) 2 /HPF 09/15/19 18:57 Urine Bacteria (Auto) TRACE /HPF 09/15/19 18:57 Urine WBC (Reflex) 1 /HPF 09/15/19 18:57 Urine Mucus (Auto) RARE /LPF 09/15/19 18:57 Urine Ascorbic Acid NEGATIVE (NEGATIVE) 09/15/19 18:57 Urine Opiates Screen UNCONFIRMED POSITIVE 09/15/19 18:57 Urine Methadone Screen NEGATIVE 09/15/19 18:57 Ur Barbiturates Screen NEGATIVE 09/15/19 18:57 Ur Phencyclidine Scrn NEGATIVE 09/15/19 18:57 Ur Amphetamines Screen NEGATIVE 09/15/19 18:57 U Benzodiazepines Scrn NEGATIVE 09/15/19 18:57 Urine Cocaine Screen NEGATIVE 09/15/19 18:57 U Marijuana (THC) Screen NEGATIVE 09/15/19 18:57 09/15/19 09/15/19 09/16/19 21:51 21:51 05:03 CK-MB (CK-2) 1.00 1.08 Troponin I < 0.012 < 0.012 NT-Pro-B Natriuret Pep 35 09/16/19 10:35 CK-MB (CK-2) 0.99 Troponin I < 0.012 NT-Pro-B Natriuret Pep Impressions: Abdomen/Pelvis CT 09/15/19 15:39 IMPRESSION: 1. NONOBSTRUCTING CALYCEAL CALCULUS IN THE LEFT KIDNEY. 2. CORTICAL LESION IN THE LEFT KIDNEY, PRESUMABLY A CORTICAL CYST. LIMITED EVALUATION ON NONCONTRAST IMAGING. 3. COLONIC DIVERTICULOSIS. NO CT FINDINGS OF ACUTE DIVERTICULITIS. 4. UMBILICAL HERNIA CONTAINING FAT. NO INVOLVEMENT OF BOWEL. 5. FATTY INFILTRATION OF THE LIVER. 6. NO OTHER SIGNIFICANT OR ACUTE PROCESS IN THE ABDOMEN OR PELVIS. Stroke Is this a Stroke Patient?: No Acute Heart Failure - Is this a Heart Failure Patient?: No
[2019-09-19] MEDS ORDERED: ERGOCALCIFEROL (VITAMIN D2) 50000 UNIT (1.25 MG) CAPSULE PO SCH (10:00)
[2019-09-19] MEDS ORDERED: (PENDING PHARMACY ID) (Ergocalciferol (Vitamin D2) [Vitamin D2] 50 MCG) PO SCH (10:00)
== END 2019-09-16 19:20 | disposition home or self-care (01) ==
LOC: ER 14:28 → INTOOBSV 18:57 → EH 18:57 → 4N 22:45
PROVIDERS: ADMIT Internal Medicine; ATTEND Internal Medicine
DX: N17.9 Acute kidney failure, unspecified (principal); N13.9 Obstructive and reflux uropathy, unspecified; R33.8 Other retention of urine; E11.22 Type 2 diabetes mellitus with diabetic chronic kidney disease; I12.9 Hypertensive chronic kidney disease with stage 1 through stage 4 chronic kidney disease, or unspecified chronic kidney disease; N18.3 Chronic kidney disease, stage 3 (moderate); E78.5 Hyperlipidemia, unspecified; J44.9 Chronic obstructive pulmonary disease, unspecified; E03.9 Hypothyroidism, unspecified; K21.9 Gastro-esophageal reflux disease without esophagitis; E66.01 Morbid (severe) obesity due to excess calories; N20.0 Calculus of kidney; K57.30 Diverticulosis of large intestine without perforation or abscess without bleeding; K42.9 Umbilical hernia without obstruction or gangrene; K76.0 Fatty (change of) liver, not elsewhere classified; N28.9 Disorder of kidney and ureter, unspecified; F32.9 Major depressive disorder, single episode, unspecified; I25.10 Atherosclerotic heart disease of native coronary artery without angina pectoris; Z79.84 Long term (current) use of oral hypoglycemic drugs; Z90.49 Acquired absence of other specified parts of digestive tract; Z79.01 Long term (current) use of anticoagulants; Z85.46 Personal history of malignant neoplasm of prostate; Z82.49 Family history of ischemic heart disease and other diseases of the circulatory system; Z90.79 Acquired absence of other genital organ(s); Z83.3 Family history of diabetes mellitus; Z79.899 Other long term (current) drug therapy; Z79.02 Long term (current) use of antithrombotics/antiplatelets
CPT/HCPCS: 36415; 74176; 80053; 80061; 80307; 81001; 82140; 82150; 82550; 82553; 82607; 82728; 82746; 83036; 83540; 83550; 83690; 83735; 83880; 84100; 84439; 84443; 84484; 85025; 85045; 85610; 85730; 87040; 87070; 87205; C1758; G0378; J3490

== ENCOUNTER 2020-01-04 11:26 | Inpatient (IN) | payer MEDICARE, OTHER ==
[2020-01-04 12:33] LABS: ABSOLUTE BASOPHILS # (AUTO) 0.1 10^3/uL (0.0-0.2); ABSOLUTE EOSINOPHILS # (AUTO) 0.1 10^3/uL (0.0-0.6); ABSOLUTE LYMPHOCYTES (AUTO) 1.1 10^3/uL (0.5-4.7); ABSOLUTE MONOCYTES (AUTO) 0.6 10^3/uL (0.1-1.4); BASOPHILS % (AUTO) 1.1 % (0-2); HEMATOCRIT 34.1 % (37.9-51.0); HEMOGLOBIN 11.4 g/dL (13.5-17.0); LYMPHOCYTES % (AUTO) 18.3 % (13-45); MEAN CORPUSCULAR HGB CONC 33.4 g/dL (32.0-36.0); MEAN CORPUSCULAR VOLUME 90 fl (80-97); MONOCYTES % (AUTO) 10.9 % (3-13); PLATELET COUNT 239 10^3/uL (150-450); RED CELL DISTRIBUTION WIDTH 14.7 % (11.5-14.0); SEGMENTED NEUTROPHILS % (AUTO) 68.7 % (42-78); TOTAL CELLS COUNTED % (AUTO) 100 %; WHITE BLOOD COUNT 5.8 10^3/uL (4.0-10.5)
[2020-01-04] MEDS: NORMAL SALINE 1000 ML 1,000 ML IV PRN ×2 (12:36→22:15)
[2020-01-04 12:47] LABS: ALBUMIN 3.7 g/dL (3.5-5.0); ALKALINE PHOSPHATASE 82 U/L (38-126); ANION GAP 7 (5-19); ASPARTATE AMINO TRANSFERASE 29 U/L (17-59); BILIRUBIN,DIRECT 0.1 mg/dL (0.0-0.4); BILIRUBIN,TOTAL 0.7 mg/dL (0.2-1.3); BLOOD UREA NITROGEN 21 mg/dL (7-20); CALCIUM 8.7 mg/dL (8.4-10.2); CARBON DIOXIDE 29 mmol/L (22-30); CHLORIDE 100 mmol/L (98-107); GLUCOSE 393 mg/dL (75-110); POTASSIUM 3.9 mmol/L (3.6-5.0); TOTAL PROTEIN 6.6 g/dL (6.3-8.2)
[2020-01-04] MEDS ORDERED: INSULIN LISPRO 100 UNIT/ML 3 ML VIAL ONE (12:57)
[2020-01-04] MEDS ORDERED: DEXTROSE 40% GEL 15 GM TUBE PO PRN (13:00)
[2020-01-04] MEDS ORDERED: GLUCAGON,HUMAN RECOMB 1 MG INJ IM PRN (13:00)
[2020-01-04] MEDS ORDERED: DEXTROSE 50%-WATER SYRINGE 25 GM/50 ML DOSE IV PRN (13:00)
[2020-01-04] MEDS ORDERED: DEXTROSE 50%-WATER SYRINGE 12.5 GM/25 ML DOSE IV PRN (13:00)
[2020-01-04] MEDS ORDERED: DEXTROSE 40% GEL 15 GM TUBE X 2 PO PRN (13:00)
[2020-01-04 13:01] LABS: FREE T4 (FREE THYROXINE) 1.06 ng/dL (0.78-2.19)
[2020-01-04 13:15] LABS: THYROID STIMULATING HORMONE 8.86 uIU/mL (0.47-4.68)
[2020-01-04] MEDS ORDERED: ALBUTEROL SULFATE HFA (90 MCG/PUFF) 8 GM MDI IH PRN (15:12)
[2020-01-04] MEDS ORDERED: FLUTICASONE/UMECLIDIN/VILANTER 100-62.5-25 MCG/DOSE IH PRN ×2 (15:12→15:26)
[2020-01-04] MEDS ORDERED: (PENDING PHARMACY ID) (Albuterol Sulfate 1 PUFF) IH PRN (15:12)
[2020-01-04] MEDS ORDERED: (PENDING PHARMACY ID) (Diltiazem Hcl [Diltiazem 24hr Er] 180 MG) PO SCH (15:15)
[2020-01-04] MEDS ORDERED: HYDROCHLOROTHIAZIDE PO SCH (15:15)
[2020-01-04] MEDS ORDERED: (PENDING PHARMACY ID) (Mirabegron [Myrbetriq] 25 MG) PO SCH (15:15)
[2020-01-04] MEDS ORDERED: [UNRECOGNIZED DRUG - OTHER] PO SCH (15:15)
[2020-01-04] MEDS ORDERED: (PENDING PHARMACY ID) (Metformin Hcl [Metformin Hcl Er] 500 MG) PO SCH (15:15)
[2020-01-04] MEDS ORDERED: (PENDING PHARMACY ID) (Pramipexole Di-Hcl [Mirapex] 1.5 MG) PO SCH (15:15)
[2020-01-04] MEDS ORDERED: OLMESARTAN PO SCH (15:15)
[2020-01-04] MEDS ORDERED: ALBUTEROL SULFATE HFA (90 MCG/PUFF) 200 PUFF/8.5 GM MDI IH PRN (15:36)
[2020-01-04] MEDS ORDERED: LOSARTAN POTASSIUM 50 MG TABLET PO SCH (16:00)
[2020-01-04] MEDS ORDERED: PIOGLITAZONE HCL 15 MG TABLET PO SCH (16:00)
[2020-01-04] MEDS ORDERED: HYDROCHLOROTHIAZIDE 25 MG TABLET PO SCH (16:00)
[2020-01-04] MEDS: METFORMIN HCL 500 MG TABLET PO SCH (17:27)
[2020-01-04] MEDS: ALLOPURINOL 100 MG TABLET PO SCH (17:27)
[2020-01-04] MEDS: PANTOPRAZOLE SODIUM 40 MG TABLET.DR PO SCH (17:27)
[2020-01-04] MEDS: APIXABAN 2.5 MG TABLET PO SCH (17:27)
[2020-01-04] MEDS: DULOXETINE HCL 30 MG CAPSULE.DR PO SCH (17:27)
[2020-01-04] MEDS: GLIPIZIDE 10 MG TABLET PO SCH (17:27)
[2020-01-04] MEDS: BUSPIRONE HCL 10 MG TABLET PO SCH (17:27)
[2020-01-04] MEDS: LEVOTHYROXINE SODIUM 0.15 MG TABLET PO SCH (17:28)
[2020-01-04] MEDS: DILTIAZEM HCL 180 MG CAPSULE.CR PO SCH (17:29)
[2020-01-04] MEDS: INSULIN LISPRO 100 UNIT/ML 3 ML VIAL SUBCUT SCH ×2 (17:29→22:10)
--- NOTE | 2020-01-04 17:40 | RADIOLOGY REPORT (SQ) ---
EXAM DESCRIPTION: CHEST SINGLE VIEW IMAGES COMPLETED DATE/TIME: 01/04/2020 5:30 pm REASON FOR STUDY: uncontrolled T2DM COMPARISON: 05/19/2019 EXAM PARAMETERS: NUMBER OF VIEWS: One view. TECHNIQUE: Single frontal radiographic view of the chest acquired. RADIATION DOSE: NA LIMITATIONS: None. FINDINGS: LUNGS AND PLEURA: No opacities, masses or pneumothorax. No pleural effusion. MEDIASTINUM AND HILAR STRUCTURES: No masses. Contour normal. HEART AND VASCULAR STRUCTURES: Cardiomegaly. No pulmonary edema. BONES: No acute findings. HARDWARE: None in the chest. OTHER: No other significant finding. IMPRESSION: Cardiomegaly without pulmonary edema. TECHNICAL DOCUMENTATION: JOB ID: [id number] 2010 [employer]- All Rights Reserved Reading location - IP/workstation name: [email or web address]
[2020-01-04] MEDS ORDERED: (PENDING PHARMACY ID) (Buspirone Hcl [Buspirone Hcl] 15 MG) PO SCH (18:00)
--- NOTE | 2020-01-04 20:05 | PDOC H&P ---
History of Present Illness Admission Date/PCP: 01/04/20 11:26 SILVANO JORDAN MD History of Present Illness: YA PETTIT is a 74 year old male,He has poorly controlled diabetes, very s ymptomatic with polyuria polydipsia weight loss, he is admitted for management of poorly controlled diabetes mellitus. He also complained of diarrhea recurrent and profuse he has no fever or chills. He has underlining comorbid conditions including morbid obesity, chronic kidney disease stage III, pulmonary hypertension. Past Medical History Cardiac Medical History: Reports: Coronary Artery Disease, Hyperlipidema, Hypertension, Other - Pulmonary hypertension,diastolic dysf Pulmonary Medical History: Reports: Asthma, Chronic Obstructive Pulmonary Disease (COPD), Respiratory Failure, Sleep Apnea Neurological Medical History: Denies: Seizures Endocrine Medical History: Reports: Diabetes Mellitus Type 2, Hypothyroidism Renal/ Medical History: Denies: End Stage Renal Disease GI Medical History: Reports: Gastroesophageal Reflux Disease Musculoskeltal Medical History: Reports: Arthritis Psychiatric Medical History: Reports: Depression Past Surgical History Past Surgical History: Reports: Appendectomy, Cardiac Catheterization, Or thopedic Surgery - bilat arm fx, bilat rotator cuff, Tonsillectomy Social History Smoking Status: Never Smoker Frequency of Alcohol Use: Occasional Hx Recreational Drug Use: No Hx Prescription Drug Abuse: No Family History Family History: COPD, DM, Hypertension Parental Family History Reviewed: Yes Children Family History Reviewed: Yes Sibling(s) Family History Reviewed.: Yes Medication/Allergy Home Medications: Allopurinol [Zyloprim 100 mg Tablet] 100 mg PO BID 09/15/19 Apixaban [Eliquis 2.5 mg Tablet] 2.5 mg PO QPM 09/15/19 Buspirone HCl 15 mg PO BID 09/15/19 Diltiazem HCl [Diltiazem 24Hr ER] 180 mg PO Q12 09/15/19 Donepezil HCl [Aricept 5 mg Tablet] 5 mg PO QHS 09/15/19 Ergocalciferol (Vitamin D2) [Vitamin D2] 50 mcg PO WALLIS@[id number]/15/19 Metformin HCl [Metformin HCl ER] 500 mg PO QAM 09/15/19 Olmesartan/Hydrochlorothiazide [Olmesartan-Hctz 40-25 mg Tab] 1 tab PO QAM 09/15/19 Pantoprazole Sodium [Protonix [address] Tablet] 40 mg PO QPM 09/15/19 Albuterol Sulfate [Proair HFA Inhalation Aerosol 8.5 gm MDI] 1 puff IH Q4HP PRN 01/04/20 Albuterol Sulfate [Ventolin 0.083% Neb 2.5 mg/3 mL Ampul] 1 vial IH RTQ4HP PRN 01/04/20 Albuterol Sulfate [Ventolin Hfa 8 gm Mdi] 2 puff IH ASDIR PRN 01/04/20 Atorvastatin Calcium [Lipitor 40 mg Tablet] 40 mg PO QHS 01/04/20 Diphenhydramine HCl [Benadryl] 50 mg PO QHS 01/04/20 Duloxetine HCl [Cymbalta] 60 mg PO Q12 01/04/20 Fluticasone/Umeclidin/Vilanter [Trelegy 100-62.5-25 Mcg Ellipta 14 Dose/Dpi] 1 puff IH ASDIR PRN 01/04/20 Glipizide [Glucotrol 10 mg Tablet] 10 mg PO Q12 01/04/20 Levothyroxine Sodium 150 mcg PO Q6AM 01/04/20 Maxalt 10 mg PO ASDIR PRN 01/04/20 Melatonin 10 mg PO QHS 01/04/20 Metformin HCl [Glucophage 500 mg Tablet] 1,000 mg PO QPM 01/04/20 Mirabegron [Myrbetriq] 25 mg PO QAM 01/04/20 Pioglitazone HCl [Actos 15 mg Tablet] 15 mg PO QAM 01/04/20 Pramipexole Di-HCl [Mirapex] 1.5 mg PO Q8 01/04/20 Allergies/Adverse Reactions: No Known Allergies Allergy (Verified 09/21/17 09:08) Review of Systems Constitutional: ABSENT: chills, fever(s), headache(s), weight gain, weight loss Eyes: ABSENT: visual disturbances Ears: ABSENT: hearing changes Cardiovascular: ABSENT: chest pain, dyspnea on exertion, edema, orthropnea, palpitations Respiratory: ABSENT: cough, hemoptysis Gastrointestinal: PRESENT: abdominal pain, diarrhea Genitourinary: ABSENT: dysuria, hematuria Musculoskeletal: ABSENT: joint swelling Integumentary: ABSENT: rash, wounds Neurological: ABSENT: abnormal gait, abnormal speech, confusion, dizziness, focal weakness, syncope Psychiatric: ABSENT: anxiety, depression, homidical ideation, suicidal ideation Endocrine: ABSENT: cold intolerance, heat intolerance, menstrual abnormalities, polydipsia, polyuria Hematologic/Lymphatic: ABSENT: easy bleeding, easy bruising, lymphadenopathy Physical Exam Vital Signs: Temp Pulse Resp BP Pulse Ox 98.2 F 113 H 18 142/86 H 98 01/04/20 16:36 01/04/20 19:00 01/04/20 16:36 01/04/20 16:36 01/04/20 16:36 Intake & Output 01/03/20 01/04/20 01/05/20 06:59 06:59 06:59 Intake Total 1052 Output Total 280 Balance 772 Weight 152.9 kg General appearance: PRESENT: morbidly obese Head exam: PRESENT: atraumatic, normocephalic Eye exam: PRESENT: conjunctiva pink, EOMI, PERRLA. ABSENT: scleral icterus Ear exam: PRESENT: normal external ear exam Mouth exam: PRESENT: moist, tongue midline Neck exam: PRESENT: full ROM Respiratory exam: PRESENT: clear to auscultation milena Cardiovascular exam: PRESENT: RRR, +S1, +S2 Pulses: PRESENT: normal dorsalis pedis pul, +2 pedal pulses bilateral Vascular exam: PRESENT: normal capillary refill GI/Abdominal exam: PRESENT: distended, normal bowel sounds, soft Rectal exam: PRESENT: deferred Neurological exam: PRESENT: alert, CN II-XII grossly intact Psychiatric exam: PRESENT: appropriate affect, normal mood Skin exam: PRESENT: dry, intact, warm Results Laboratory Results: 01/04/20 12:05 01/04/20 12:05 01/04/20 01/04/20 01/04/20 12:05 12:05 12:05 WBC 5.8 RBC 3.80 L Hgb 11.4 L Hct 34.1 L MCV 90 MCH 30.0 MCHC 33.4 RDW 14.7 H Plt Count 239 Seg Neutrophils % 68.7 Sodium 135.9 L Potassium 3.9 Chloride 100 Carbon Dioxide 29 Anion Gap 7 BUN 21 H Creatinine 1.49 H Est GFR ( Amer) 55 L Glucose 393 H Calcium 8.7 Total Bilirubin 0.7 AST 29 Alkaline Phosphatase 82 Total Protein 6.6 Albumin 3.7 TSH 8.86 H Free T4 1.06 Impressions: Chest X-Ray 01/04/20 00:00 IMPRESSION: Cardiomegaly without pulmonary edema. Assessment & Plan - Diagnosis (1) Diabetic hyperosmolar non-ketotic state Is this a current diagnosis for this admission?: Yes Plan: Start IV fluid therapy (2) Morbid obesity Is this a current diagnosis for this admission?: Yes (3) Chronic obstructive pulmonary disease Qualifiers: COPD type: unspecified COPD Qualified Code(s): J44.9 - Chronic obstructive pulmonary disease, unspecified Is this a current diagnosis for this admission?: Yes (4) Diarrhea Qualifiers: Diarrhea type: unspecified type Qualified Code(s): R19.7 - Diarrhea, unspecified Is this a current diagnosis for this admission?: Yes Plan: Send stool for studies (5) Acute kidney injury Is this a current diagnosis for this admission?: Yes Plan: This is probably due to prerenal azotemia
[2020-01-04] MEDS ORDERED: (PENDING PHARMACY ID) (Melatonin [Melatonin] 10 MG) PO SCH (22:00)
[2020-01-04] MEDS: ATORVASTATIN CALCIUM 40 MG TABLET PO SCH (22:08)
[2020-01-04] MEDS: PRAMIPEXOLE DI-HCL 0.5 MG TABLET PO SCH (22:09)
[2020-01-04] MEDS: MELATONIN 5 MG TABLET PO SCH (22:09)
[2020-01-04] MEDS: DONEPEZIL HCL 5 MG TABLET PO SCH (22:09)
[2020-01-04 22:49] LABS: APPEARANCE,URINE CLOUDY; BILIRUBIN,URINE NEGATIVE (NEGATIVE); COLOR,URINE YELLOW; GLUCOSE, URINE >=500 mg/dL (NEGATIVE); KETONES,URINE NEGATIVE (NEGATIVE); LEUKOCYTE ESTERASE,URINE LARGE (NEGATIVE); NITRITE,URINE POSITIVE (NEGATIVE); PROTEIN,URINE 30 mg/dL (NEGATIVE); URINE SPECIFIC GRAVITY 1.022; UROBILINOGEN,URINE NEGATIVE mg/dL (<2.0)
[2020-01-05] MEDS: PRAMIPEXOLE DI-HCL 0.5 MG TABLET PO SCH ×3 (05:54→21:19)
[2020-01-05] MEDS: DULOXETINE HCL 30 MG CAPSULE.DR PO SCH ×2 (05:55→17:25)
[2020-01-05] MEDS: DILTIAZEM HCL 180 MG CAPSULE.CR PO SCH ×2 (05:55→17:27)
[2020-01-05] MEDS: LEVOTHYROXINE SODIUM 0.15 MG TABLET PO SCH (05:55)
[2020-01-05] MEDS: NORMAL SALINE 1000 ML 1,000 ML IV PRN ×2 (06:53→18:11)
[2020-01-05] MEDS: INSULIN LISPRO 100 UNIT/ML 3 ML VIAL SUBCUT SCH ×4 (08:01→21:20)
[2020-01-05] MEDS: BUSPIRONE HCL 10 MG TABLET PO SCH ×2 (10:36→17:26)
[2020-01-05] MEDS: GLIPIZIDE 10 MG TABLET PO SCH ×2 (10:36→17:25)
[2020-01-05] MEDS: LOSARTAN POTASSIUM 50 MG TABLET PO SCH (10:36)
[2020-01-05] MEDS: HYDROCHLOROTHIAZIDE 25 MG TABLET PO SCH (10:36)
[2020-01-05] MEDS: ALLOPURINOL 100 MG TABLET PO SCH ×2 (10:36→17:26)
[2020-01-05] MEDS: PIOGLITAZONE HCL 15 MG TABLET PO SCH (10:36)
[2020-01-05 14:20] LABS: ALBUMIN 3.9 g/dL (3.5-5.0); ALKALINE PHOSPHATASE 85 U/L (38-126); ANION GAP 8 (5-19); ASPARTATE AMINO TRANSFERASE 28 U/L (17-59); BILIRUBIN,TOTAL 0.6 mg/dL (0.2-1.3); BLOOD UREA NITROGEN 25 mg/dL (7-20); CALCIUM 9.4 mg/dL (8.4-10.2); CARBON DIOXIDE 29 mmol/L (22-30); CHLORIDE 98 mmol/L (98-107); GLUCOSE 387 mg/dL (75-110); POTASSIUM 4.4 mmol/L (3.6-5.0); TOTAL PROTEIN 6.9 g/dL (6.3-8.2)
[2020-01-05] MEDS: PANTOPRAZOLE SODIUM 40 MG TABLET.DR PO SCH (17:25)
[2020-01-05] MEDS: APIXABAN 2.5 MG TABLET PO SCH (17:25)
[2020-01-05] MEDS: METFORMIN HCL 500 MG TABLET PO SCH (17:26)
[2020-01-05] MEDS: MELATONIN 5 MG TABLET PO SCH (21:19)
[2020-01-05] MEDS: DONEPEZIL HCL 5 MG TABLET PO SCH (21:19)
[2020-01-05] MEDS: ATORVASTATIN CALCIUM 40 MG TABLET PO SCH (21:19)
--- NOTE | 2020-01-05 21:33 | PDOC PROGRESS REPORT ---
Subjective Progress Note for:: 01/05/20 Subjective:: Patient seen by the bedside, he has worsening azotemia, abdominal pain Reason For Visit: ACUTE KIDNEY INJURY, POORLY CONTROL T2DM Physical Exam Vital Signs: Temp Pulse Resp BP Pulse Ox 97.7 F 99 18 112/73 96 01/05/20 15:58 01/05/20 15:58 01/05/20 15:58 01/05/20 15:58 01/05/20 15:58 Intake & Output 01/04/20 01/05/20 01/06/20 06:59 06:59 06:59 Intake Total 3752 1680 Output Total 1060 800 Balance 2692 880 Weight 150.4 kg General appearance: PRESENT: no acute distress Eye exam: PRESENT: PERRLA Respiratory exam: PRESENT: clear to auscultation milena Cardiovascular exam: PRESENT: +S1, +S2 GI/Abdominal exam: PRESENT: distended, soft Neurological exam: PRESENT: alert, CN II-XII grossly intact Results Laboratory Results: 01/04/20 12:05 01/05/20 12:57 01/04/20 01/05/20 20:30 12:57 Sodium 135.4 L Potassium 4.4 Chloride 98 Carbon Dioxide 29 Anion Gap 8 BUN 25 H Creatinine 1.75 H Est GFR ( Amer) 46 L Glucose 387 H Calcium 9.4 Total Bilirubin 0.6 AST 28 Alkaline Phosphatase 85 Total Protein 6.9 Albumin 3.9 Urine Color YELLOW Urine Appearance CLOUDY Urine pH 5.0 Ur Specific [place] 1.022 Urine Protein 30 H Urine Glucose (UA) >=500 H Urine Ketones NEGATIVE Urine Blood MODERATE H Urine Nitrite POSITIVE H Ur Leukocyte Esterase LARGE H Urine WBC (Auto) >182 Urine RBC (Auto) 33 Impressions: Chest X-Ray 01/04/20 00:00 IMPRESSION: Cardiomegaly without pulmonary edema. Assessment & Plan - Diagnosis (1) Diabetic hyperosmolar non-ketotic state Is this a current diagnosis for this admission?: Yes (2) Morbid obesity Is this a current diagnosis for this admission?: Yes (3) Chronic obstructive pulmonary disease Qualifiers: COPD type: unspecified COPD Qualified Code(s): J44.9 - Chronic obstructive pulmonary disease, unspecified Is this a current diagnosis for this admission?: Yes (4) Diarrhea Qualifiers: Diarrhea type: unspecified type Qualified Code(s): R19.7 - Diarrhea, unspecified Is this a current diagnosis for this admission?: Yes (5) Acute kidney injury Is this a current diagnosis for this admission?: Yes Plan: Continue IV fluid therapy , There is worsening azotemia due to continued diarrhea (6) Abdominal pain Qualifiers: Abdominal location: unspecified location Qualified Code(s): R10.9 - Unspecified abdominal pain Is this a current diagnosis for this admission?: Yes Plan: Order CT scan - Time Time Spent with patient: 25-34 minutes Level of Care: IMCU
[2020-01-06] MEDS: NORMAL SALINE 1000 ML 1,000 ML IV PRN ×2 (02:23→12:10)
[2020-01-06] MEDS: LEVOTHYROXINE SODIUM 0.15 MG TABLET PO SCH (05:46)
[2020-01-06] MEDS: PRAMIPEXOLE DI-HCL 0.5 MG TABLET PO SCH ×3 (05:46→22:09)
[2020-01-06] MEDS: DILTIAZEM HCL 180 MG CAPSULE.CR PO SCH ×2 (05:46→18:21)
[2020-01-06] MEDS: DULOXETINE HCL 30 MG CAPSULE.DR PO SCH ×2 (05:46→18:21)
[2020-01-06] MEDS: INSULIN LISPRO 100 UNIT/ML 3 ML VIAL SUBCUT SCH ×4 (08:17→22:10)
[2020-01-06] MEDS: LOSARTAN POTASSIUM 50 MG TABLET PO SCH (09:45)
[2020-01-06] MEDS: BUSPIRONE HCL 10 MG TABLET PO SCH ×2 (09:45→18:21)
[2020-01-06] MEDS: GLIPIZIDE 10 MG TABLET PO SCH ×2 (09:46→18:21)
[2020-01-06] MEDS: ALLOPURINOL 100 MG TABLET PO SCH ×2 (09:46→18:21)
[2020-01-06] MEDS: HYDROCHLOROTHIAZIDE 25 MG TABLET PO SCH (09:46)
[2020-01-06] MEDS: PIOGLITAZONE HCL 15 MG TABLET PO SCH (09:46)
--- NOTE | 2020-01-06 10:01 | RADIOLOGY REPORT (SQ) ---
EXAM DESCRIPTION: CT ABD/PELVIS NO ORAL OR IV IMAGES COMPLETED DATE/TIME: 01/06/2020 9:10 am REASON FOR STUDY: abdominal pain COMPARISON: CT of the abdomen and pelvis without contrast from 09/15/2019. TECHNIQUE: CT scan of the abdomen and pelvis performed without intravenous or oral contrast. Images reviewed with lung, soft tissue, and bone windows. Reconstructed coronal and sagittal MPR images revi ewed. All images stored on PACS. All CT scanners at this facility use dose modulation, iterative reconstruction, and/or weight based d osing when appropriate to reduce radiation dose to as low as reasonably achievable (ALARA). [facility]: Dose Right [facility]: CareDose [facility]: Dose Right [facility]: Teradose 4D [facility]: Smart [employer] RADIATION DOSE: CT Rad equipment meets quality standard of care and radiation dose reduction techniq ues were employed. CTDIvol: 30.6 mGy. DLP: 1739 mGy-cm. LIMITATIONS: None. FINDINGS: LOWER CHEST: No acute findings. NON-CONTRASTED LIVER, SPLEEN, ADRENALS: Evaluation is limited due to the absence of intravenous contr ast. The diffuse low attenuation hepatic parenchyma is consistent with underlying hepatic steatosis. The spleen is normal in size. There is no adrenal mass. PANCREAS: No acute gross abnormality of the pancreas. GALLBLADDER: The gallbladder is contracted. RIGHT KIDNEY AND URETER: Evaluation is limited due to the absence of intravenous contrast. There is no hydronephrosis, nephrolithiasis, hydroureter or ureterolithiasis. LEFT KIDNEY AND URETER: Evaluation is limited due to the absence of intravenous contrast. There is a 10 x 9 mm calculus within an upper pole calyx. There is no associated hydronephrosis, hydroureter o r ureterolithiasis. AORTA AND RETROPERITONEUM: No aneurysm of the abdominal aorta. No retroperitoneal adenopathy, hemorr susan or mass. BOWEL AND PERITONEAL CAVITY: Mild pericolonic inflammatory fat stranding surrounding a cluster of div erticula in the mid sigmoid colon (image 68 of series 2). There is no associated obstruction, extral uminal intra-abdominal abscess, mesenteric adenopathy, free intraperitoneal fluid, pneumatosis or por rochelle venous gas. APPENDIX: Unable to identify the appendix. There is no pericecal inflammation. PELVIS, BLADDER, AND ABDOMINAL WALL:Status post prostatectomy and pelvic lymph node dissection. Ther e is mild diastasis recti and a fat containing ventral hernia. The urinary bladder is contracted and there is a Cerna catheter in place. BONES: No acute fracture. OTHER: No other finding. IMPRESSION: 1. Findings as described above are concerning for a mild acute diverticulitis (image 68 of series 2) involving the mid sigmoid colon. 2. Hepatic steatosis. 3. Status post prostatectomy and pelvic lymph node dissection. 4. 10 x 9 mm left upper pole caliceal calculus. There is no associated hydronephrosis. COMMENT: Quality ID # [id number]: Final reports with documentation of one or more dose reduction techniques (e.g., Automated exposure control, adjustment of the mA and/or kV according to patient size, use of iterative reconstruction technique) TECHNICAL DOCUMENTATION: JOB ID: [id number] 2010 [employer]- All Rights Reserved Reading location - IP/workstation name: [email or web address]
[2020-01-06] MEDS ORDERED: METRONIDAZOLE 500 MG/NS RTU 500 MG/100 ML RTUPB IV SCH (13:00)
[2020-01-06 14:05] LABS: ABSOLUTE EOSINOPHILS # (AUTO) 0.1 10^3/uL (0.0-0.6); ABSOLUTE MONOCYTES (AUTO) 0.6 10^3/uL (0.1-1.4); ABSOLUTE NEUT (AUTO) 5.2 10^3/uL (1.7-8.2); BASOPHILS % (AUTO) 0.4 % (0-2); EOSINOPHILS % (AUTO) 1.2 % (0-6); HEMATOCRIT 36.3 % (37.9-51.0); HEMOGLOBIN 12.1 g/dL (13.5-17.0); LYMPHOCYTES % (AUTO) 14.8 % (13-45); MEAN CORPUSCULAR HEMOGLOBIN 29.7 pg (27.0-33.4); MEAN CORPUSCULAR HGB CONC 33.3 g/dL (32.0-36.0); MEAN CORPUSCULAR VOLUME 89 fl (80-97); PLATELET COUNT 258 10^3/uL (150-450); RED BLOOD COUNT 4.07 10^6/uL (4.35-5.55); RED CELL DISTRIBUTION WIDTH 15.1 % (11.5-14.0); SEGMENTED NEUTROPHILS % (AUTO) 74.6 % (42-78); TOTAL CELLS COUNTED % (AUTO) 100 %
[2020-01-06] MEDS: CEFTRIAXONE 1 GM/D5W RTU 1 GM/50 ML RTUPB IV SCH (14:15)
[2020-01-06 14:23] LABS: ALBUMIN 3.9 g/dL (3.5-5.0); ALKALINE PHOSPHATASE 87 U/L (38-126); ANION GAP 10 (5-19); ASPARTATE AMINO TRANSFERASE 28 U/L (17-59); BILIRUBIN,TOTAL 0.6 mg/dL (0.2-1.3); BLOOD UREA NITROGEN 21 mg/dL (7-20); CARBON DIOXIDE 28 mmol/L (22-30); CHLORIDE 99 mmol/L (98-107); GLUCOSE 317 mg/dL (75-110)
[2020-01-06] MEDS: METFORMIN HCL 500 MG TABLET PO SCH (18:21)
[2020-01-06] MEDS: APIXABAN 2.5 MG TABLET PO SCH (18:21)
[2020-01-06] MEDS: PANTOPRAZOLE SODIUM 40 MG TABLET.DR PO SCH (18:21)
--- NOTE | 2020-01-06 18:42 | PDOC PROGRESS REPORT ---
Subjective Progress Note for:: 01/06/20 Subjective:: Patient seen by the bedside, he had a CAT scan of the abdomen and pelvis without contrast it demonstrated acute diverticulitis. Result was discussed with patient of these new findings on CAT scan. He is particularly upset because of the diabetes diet, this is a patient who eats anything at home Reason For Visit: ACUTE KIDNEY INJURY, POORLY CONTROL T2DM Physical Exam Vital Signs: Temp Pulse Resp BP Pulse Ox 97.9 F 101 H 20 147/101 H 98 01/06/20 15:56 01/06/20 15:56 01/06/20 15:56 01/06/20 15:56 01/06/20 15:56 Intake & Output 01/05/20 01/06/20 01/07/20 06:59 06:59 06:59 Intake Total 3752 2664 1390 Output Total 1060 1625 650 Balance 2692 1039 740 Weight 150.4 kg General appearance: PRESENT: no acute distress Eye exam: PRESENT: PERRLA Respiratory exam: PRESENT: clear to auscultation milena Cardiovascular exam: PRESENT: +S1, +S2 GI/Abdominal exam: PRESENT: soft Neurological exam: PRESENT: alert Results Laboratory Results: 01/06/20 13:20 01/06/20 13:20 01/06/20 01/06/20 13:20 13:20 WBC 7.0 RBC 4.07 L Hgb 12.1 L Hct 36.3 L MCV 89 MCH 29.7 MCHC 33.3 RDW 15.1 H Plt Count 258 Seg Neutrophils % 74.6 Sodium 137.3 Potassium 4.0 Chloride 99 Carbon Dioxide 28 Anion Gap 10 BUN 21 H Creatinine 1.65 H Est GFR ( Amer) 49 L Glucose 317 H Calcium 9.0 Total Bilirubin 0.6 AST 28 Alkaline Phosphatase 87 Total Protein 7.0 Albumin 3.9 Impressions: Chest X-Ray 01/04/20 00:00 IMPRESSION: Cardiomegaly without pulmonary edema. Abdomen/Pelvis CT 01/06/20 08:00 IMPRESSION: 1. Findings as described above are concerning for a mild acute diverticulitis (image 68 of series 2) involving the mid sigmoid colon. 2. Hepatic steatosis. 3. Status post prostatectomy and pelvic lymph node dissection. 4. 10 x 9 mm left upper pole caliceal calculus. There is no associated hydronephrosis. Assessment & Plan - Diagnosis (1) Diabetic hyperosmolar non-ketotic state Is this a current diagnosis for this admission?: Yes Plan: Continue IV fluid, start Januvia, patient may benefit from SGLT1 inhibitors, nonformulary in this hospital. Accu-Cheks are running high (2) Morbid obesity Is this a current diagnosis for this admission?: Yes (3) Chronic obstructive pulmonary disease Qualifiers: COPD type: unspecified COPD Qualified Code(s): J44.9 - Chronic obstructive pulmonary disease, unspecified Is this a current diagnosis for this admission?: Yes (4) Diarrhea Qualifiers: Diarrhea type: unspecified type Qualified Code(s): R19.7 - Diarrhea, unspecified Is this a current diagnosis for this admission?: Yes (5) Acute kidney injury Is this a current diagnosis for this admission?: Yes Plan: Continue IV fluid therapy , There is worsening azotemia due to continued diarrhea (6) Abdominal pain Qualifiers: Abdominal location: unspecified location Qualified Code(s): R10.9 - Unspecified abdominal pain Is this a current diagnosis for this admission?: Yes - Time Time Spent with patient: 25-34 minutes Level of Care: IMCU
[2020-01-06] MEDS: METRONIDAZOLE 500 MG/NS RTU 500 MG/100 ML RTUPB IV SCH (20:20)
[2020-01-06] MEDS: SITAGLIPTIN PHOSPHATE 50 MG TABLET PO SCH (20:20)
[2020-01-06] MEDS: MELATONIN 5 MG TABLET PO SCH (22:09)
[2020-01-06] MEDS: DONEPEZIL HCL 5 MG TABLET PO SCH (22:09)
[2020-01-06] MEDS: ATORVASTATIN CALCIUM 40 MG TABLET PO SCH (22:09)
[2020-01-07] MEDS: NORMAL SALINE 1000 ML 1,000 ML IV PRN ×3 (01:28→18:35)
[2020-01-07] MEDS: METRONIDAZOLE 500 MG/NS RTU 500 MG/100 ML RTUPB IV SCH ×4 (02:33→21:23)
[2020-01-07] MEDS: DULOXETINE HCL 30 MG CAPSULE.DR PO SCH ×2 (05:28→17:21)
[2020-01-07] MEDS: DILTIAZEM HCL 180 MG CAPSULE.CR PO SCH ×2 (05:29→17:21)
[2020-01-07] MEDS: PRAMIPEXOLE DI-HCL 0.5 MG TABLET PO SCH ×3 (05:29→21:29)
[2020-01-07] MEDS: LEVOTHYROXINE SODIUM 0.15 MG TABLET PO SCH (05:29)
[2020-01-07] MEDS: SITAGLIPTIN PHOSPHATE 50 MG TABLET PO SCH ×2 (08:08→17:21)
[2020-01-07] MEDS: INSULIN LISPRO 100 UNIT/ML 3 ML VIAL SUBCUT SCH ×4 (08:09→21:23)
[2020-01-07] MEDS: GLIPIZIDE 10 MG TABLET PO SCH ×2 (10:01→17:21)
[2020-01-07] MEDS: CEFTRIAXONE 1 GM/D5W RTU 1 GM/50 ML RTUPB IV SCH (10:01)
[2020-01-07] MEDS: LOSARTAN POTASSIUM 50 MG TABLET PO SCH (10:01)
[2020-01-07] MEDS: HYDROCHLOROTHIAZIDE 25 MG TABLET PO SCH (10:01)
[2020-01-07] MEDS: ALLOPURINOL 100 MG TABLET PO SCH ×2 (10:01→17:22)
[2020-01-07] MEDS: BUSPIRONE HCL 10 MG TABLET PO SCH ×2 (10:02→17:20)
[2020-01-07] MEDS: PIOGLITAZONE HCL 15 MG TABLET PO SCH (10:06)
--- NOTE | 2020-01-07 11:32 | PDOC PROGRESS REPORT ---
Subjective Progress Note for:: 01/07/20 Subjective:: Patient seen by the bedside, the blood culture grew gram-positive cocci coagulase-negative suggesting staph epi probably contamination, he has diverticulitis, poorly controlled diabetes, on IV antibiotic. On discharge patient will require SGLT-1 inhibitors, GLP 1 agonist Reason For Visit: ACUTE KIDNEY INJURY, POORLY CONTROL T2DM Physical Exam Vital Signs: Temp Pulse Resp BP Pulse Ox 97.7 F 101 H 18 124/78 96 01/07/20 07:59 01/07/20 07:59 01/07/20 07:59 01/07/20 07:59 01/07/20 07:59 Intake & Output 01/06/20 01/07/20 01/08/20 06:59 06:59 06:59 Intake Total 2664 2590 1052 Output Total 1625 1150 Balance 1039 1440 1052 General appearance: PRESENT: no acute distress, morbidly obese Eye exam: PRESENT: PERRLA Respiratory exam: PRESENT: clear to auscultation milena Cardiovascular exam: PRESENT: +S1, +S2 GI/Abdominal exam: PRESENT: soft Neurological exam: PRESENT: alert Results Laboratory Results: 01/06/20 13:20 01/06/20 13:20 01/06/20 01/06/20 13:20 13:20 WBC 7.0 RBC 4.07 L Hgb 12.1 L Hct 36.3 L MCV 89 MCH 29.7 MCHC 33.3 RDW 15.1 H Plt Count 258 Seg Neutrophils % 74.6 Sodium 137.3 Potassium 4.0 Chloride 99 Carbon Dioxide 28 Anion Gap 10 BUN 21 H Creatinine 1.65 H Est GFR ( Amer) 49 L Glucose 317 H Calcium 9.0 Total Bilirubin 0.6 AST 28 Alkaline Phosphatase 87 Total Protein 7.0 Albumin 3.9 01/06/20 13:20 Blood Blood Culture (PCR) - Final Staphylococcus Species Impressions: Chest X-Ray 01/04/20 00:00 IMPRESSION: Cardiomegaly without pulmonary edema. Abdomen/Pelvis CT 01/06/20 08:00 IMPRESSION: 1. Findings as described above are concerning for a mild acute diverticulitis (image 68 of series 2) involving the mid sigmoid colon. 2. Hepatic steatosis. 3. Status post prostatectomy and pelvic lymph node dissection. 4. 10 x 9 mm left upper pole caliceal calculus. There is no associated hydronephrosis. Assessment & Plan - Diagnosis (1) Diabetic hyperosmolar non-ketotic state Is this a current diagnosis for this admission?: Yes Plan: Continue insulin regimen (2) Morbid obesity Is this a current diagnosis for this admission?: Yes (3) Chronic obstructive pulmonary disease Qualifiers: COPD type: unspecified COPD Qualified Code(s): J44.9 - Chronic obstructive pulmonary disease, unspecified Is this a current diagnosis for this admission?: Yes (4) Diarrhea Qualifiers: Diarrhea type: unspecified type Qualified Code(s): R19.7 - Diarrhea, unspecified Is this a current diagnosis for this admission?: Yes (5) Acute kidney injury Is this a current diagnosis for this admission?: Yes (6) Acute diverticulitis Is this a current diagnosis for this admission?: Yes Plan: Continue IV Flagyl, ceftriaxone - Time Time Spent with patient: 35 or more minutes Level of Care: IMCU
[2020-01-07 11:48] LABS: ABSOLUTE BASOPHILS # (AUTO) 0.1 10^3/uL (0.0-0.2); ABSOLUTE EOSINOPHILS # (AUTO) 0.1 10^3/uL (0.0-0.6); ABSOLUTE MONOCYTES (AUTO) 0.8 10^3/uL (0.1-1.4); ABSOLUTE NEUT (AUTO) 4.8 10^3/uL (1.7-8.2); BASOPHILS % (AUTO) 0.8 % (0-2); EOSINOPHILS % (AUTO) 1.7 % (0-6); HEMATOCRIT 35.2 % (37.9-51.0); HEMOGLOBIN 11.6 g/dL (13.5-17.0); LYMPHOCYTES % (AUTO) 14.6 % (13-45); MEAN CORPUSCULAR HEMOGLOBIN 29.7 pg (27.0-33.4); MEAN CORPUSCULAR HGB CONC 33.1 g/dL (32.0-36.0); MEAN CORPUSCULAR VOLUME 90 fl (80-97); MONOCYTES % (AUTO) 11.6 % (3-13); PLATELET COUNT 218 10^3/uL (150-450); RED BLOOD COUNT 3.93 10^6/uL (4.35-5.55); RED CELL DISTRIBUTION WIDTH 15.4 % (11.5-14.0); SEGMENTED NEUTROPHILS % (AUTO) 71.3 % (42-78); TOTAL CELLS COUNTED % (AUTO) 100 %; WHITE BLOOD COUNT 6.7 10^3/uL (4.0-10.5)
[2020-01-07 12:03] LABS: ALBUMIN 3.7 g/dL (3.5-5.0); ALKALINE PHOSPHATASE 75 U/L (38-126); ANION GAP 8 (5-19); ASPARTATE AMINO TRANSFERASE 26 U/L (17-59); BILIRUBIN,DIRECT 0.1 mg/dL (0.0-0.4); BILIRUBIN,TOTAL 0.4 mg/dL (0.2-1.3); BLOOD UREA NITROGEN 18 mg/dL (7-20); CALCIUM 8.5 mg/dL (8.4-10.2); CARBON DIOXIDE 27 mmol/L (22-30); CHLORIDE 100 mmol/L (98-107); GLUCOSE 302 mg/dL (75-110); POTASSIUM 3.9 mmol/L (3.6-5.0); TOTAL PROTEIN 6.6 g/dL (6.3-8.2)
[2020-01-07] MEDS: APIXABAN 2.5 MG TABLET PO SCH ×2 (12:52→17:21)
[2020-01-07] MEDS: PANTOPRAZOLE SODIUM 40 MG TABLET.DR PO SCH (17:21)
[2020-01-07] MEDS: METFORMIN HCL 500 MG TABLET PO SCH (17:22)
[2020-01-07] MEDS: MELATONIN 5 MG TABLET PO SCH ×2 (21:23→21:34)
[2020-01-07] MEDS: DONEPEZIL HCL 5 MG TABLET PO SCH ×2 (21:23→21:34)
[2020-01-07] MEDS: ATORVASTATIN CALCIUM 40 MG TABLET PO SCH ×2 (21:23→21:34)
[2020-01-08] MEDS: METRONIDAZOLE 500 MG/NS RTU 500 MG/100 ML RTUPB IV SCH ×2 (02:16→09:23)
[2020-01-08] MEDS: LEVOTHYROXINE SODIUM 0.15 MG TABLET PO SCH (06:37)
[2020-01-08] MEDS: DULOXETINE HCL 30 MG CAPSULE.DR PO SCH (06:37)
[2020-01-08] MEDS: DILTIAZEM HCL 180 MG CAPSULE.CR PO SCH (06:38)
[2020-01-08] MEDS: PRAMIPEXOLE DI-HCL 0.5 MG TABLET PO SCH ×2 (06:40→13:56)
[2020-01-08] MEDS ORDERED: TRAMADOL HCL 50 MG TABLET PO ONE (07:00)
[2020-01-08] MEDS: SITAGLIPTIN PHOSPHATE 50 MG TABLET PO SCH (09:21)
[2020-01-08] MEDS: ALLOPURINOL 100 MG TABLET PO SCH (09:22)
[2020-01-08] MEDS: HYDROCHLOROTHIAZIDE 25 MG TABLET PO SCH (09:22)
[2020-01-08] MEDS: GLIPIZIDE 10 MG TABLET PO SCH (09:22)
[2020-01-08] MEDS: APIXABAN 2.5 MG TABLET PO SCH (09:22)
[2020-01-08] MEDS: LOSARTAN POTASSIUM 50 MG TABLET PO SCH (09:22)
[2020-01-08] MEDS: BUSPIRONE HCL 10 MG TABLET PO SCH (09:23)
[2020-01-08] MEDS: CEFTRIAXONE 1 GM/D5W RTU 1 GM/50 ML RTUPB IV SCH (09:23)
[2020-01-08] MEDS: INSULIN LISPRO 100 UNIT/ML 3 ML VIAL SUBCUT SCH ×2 (09:23→12:56)
[2020-01-08] MEDS: PIOGLITAZONE HCL 15 MG TABLET PO SCH (09:24)
[2020-01-08] MEDS ORDERED: CHOLECALCIFEROL (D3) 1,000 UNIT (25 MCG) TABLET PO SCH (10:00)
[2020-01-08 13:17] VITALS: BP 108/60
--- NOTE | 2020-01-08 13:28 | PDOC DISCHARGE SUMMARY ---
Impression - Admit/DC Date/PCP Admission Date/Primary Care Provider: 01/04/20 11:26 SILVAON JORDAN MD Discharge Date: 01/08/20 - Discharge Diagnosis (1) Diabetic hyperosmolar non-ketotic state Is this a current diagnosis for this admission?: Yes (2) Morbid obesity Is this a current diagnosis for this admission?: Yes (3) Chronic obstructive pulmonary disease Is this a current diagnosis for this admission?: Yes (4) Diarrhea Is this a current diagnosis for this admission?: Yes (5) Acute kidney injury Is this a current diagnosis for this admission?: Yes (6) Acute diverticulitis Is this a current diagnosis for this admission?: Yes (7) Urinary tract infection associated with indwelling urethral catheter Is this a current diagnosis for this admission?: Yes - Additional Information Referrals: SILVANO JORDAN MD [Primary Care Provider] - Prescriptions: Dapagliflozin Propanediol [Farxiga] 10 mg PO DAILY #90 tablet Levothyroxine Sodium 175 mcg PO DAILY #90 tablet Semaglutide [Rybelsus] 3 mg PO DAILY #30 tablet Home Medications: Allopurinol [Zyloprim 100 mg Tablet] 100 mg PO BID 09/15/19 Apixaban [Eliquis 2.5 mg Tablet] 2.5 mg PO QPM 09/15/19 Buspirone HCl 15 mg PO BID 09/15/19 Diltiazem HCl [Diltiazem 24Hr ER] 180 mg PO Q12 09/15/19 Donepezil HCl [Aricept 5 mg Tablet] 5 mg PO QHS 09/15/19 Ergocalciferol (Vitamin D2) [Vitamin D2] 50 mcg PO WALLIS@199909/15/19 Metformin HCl [Metformin HCl ER] 500 mg PO QAM 09/15/19 Olmesartan/Hydrochlorothiazide [Olmesartan-Hctz 40-25 mg Tab] 1 tab PO QAM 09/15/19 Pantoprazole Sodium [Protonix [address] Tablet] 40 mg PO QPM 09/15/19 Albuterol Sulfate [Ventolin 0.083% Neb 2.5 mg/3 mL Ampul] 1 vial IH RTQ4HP PRN 01/04/20 Albuterol Sulfate [Ventolin Hfa 8 gm Mdi] 2 puff IH ASDIR PRN 01/04/20 Atorvastatin Calcium [Lipitor 40 mg Tablet] 40 mg PO QHS 01/04/20 Duloxetine HCl [Cymbalta] 60 mg PO Q12 01/04/20 Fluticasone/Umeclidin/Vilanter [Trelegy 100-62.5-25 Mcg Ellipta 14 Dose/Dpi] 1 puff IH ASDIR PRN 01/04/20 Melatonin 10 mg PO QHS 01/04/20 Mirabegron [Myrbetriq] 25 mg PO QAM 01/04/20 Pramipexole Di-HCl [Mirapex] 1.5 mg PO Q8 01/04/20 Dapagliflozin Propanediol [Farxiga] 10 mg PO DAILY #90 tablet 01/08/20 Levothyroxine Sodium 175 mcg PO DAILY #90 tablet 01/08/20 Semaglutide [Rybelsus] 3 mg PO DAILY #30 tablet 01/08/20 History of Present Illiness History of Present Illness: YA PETTIT is a 74 year old male,He has poorly controlled diabetes, very symptomatic with polyuria polydipsia weight loss, he is admitted for management of poorly controlled diabetes mellitus. He also complained of diarrhea recurrent and profuse he has no fever or chills. He has underlining comorbid conditions including morbid obesity, chronic kidney disease stage III, pulmonary hypertension. Hospital Course Hospital Course: Patient was admitted for the management of hyperosmolar nonketotic diabetes mellitus associated with polyuria, weight loss and diarrhea. He has abdominal pain, CAT scan of the abdomen and pelvis without contrast demonstrated acute diverticulitis. He has chronic indwelling Cerna catheter for the management of urinary incontinence, urine culture grew Serratia marcescens pansensitive to all antibiotic. The acute diverticulitis was treated with IV antibiotic, Flagyl and ceftriaxone. He has underlying chronic kidney disease stage III with a base creatinine of 1.9-2 Physical Exam Vital Signs: Temp Pulse Resp BP Pulse Ox 98.3 F 94 20 121/68 97 01/08/20 07:53 01/08/20 07:53 01/08/20 07:53 01/08/20 07:53 01/08/20 07:53 Intake & Output 01/07/20 01/08/20 01/09/20 06:59 06:59 06:59 Intake Total 2590 3156 1250 Output Total 1150 1825 Balance 1440 1331 1250 Weight 151.6 kg General appearance: PRESENT: no acute distress Eye exam: PRESENT: PERRLA Respiratory exam: PRESENT: clear to auscultation milena GI/Abdominal exam: PRESENT: soft Neurological exam: PRESENT: alert, CN II-XII grossly intact Results Laboratory Results: WBC 6.7 10^3/uL (4.0-10.5) 01/07/20 11:28 RBC 3.93 10^6/uL (4.35-5.55) L 01/07/20 11:28 Hgb 11.6 g/dL (13.5-17.0) L 01/07/20 11:28 Hct 35.2 % (37.9-51.0) L 01/07/20 11:28 MCV 90 fl (80-97) 01/07/20 11:28 MCH 29.7 pg (27.0-33.4) 01/07/20 11:28 MCHC 33.1 g/dL (32.0-36.0) 01/07/20 11:28 RDW 15.4 % (11.5-14.0) H 01/07/20 11:28 Plt Count 218 10^3/uL (150-450) 01/07/20 11:28 Lymph % (Auto) 14.6 % (13-45) 01/07/20 11:28 [place] % (Auto) 11.6 % (3-13) 01/07/20 11:28 Eos % (Auto) 1.7 % (0-6) 01/07/20 11:28 Baso % (Auto) 0.8 % (0-2) 01/07/20 11:28 Absolute Neuts (auto) 4.8 10^3/uL (1.7-8.2) 01/07/20 11:28 Absolute Lymphs (auto) 1.0 10^3/uL (0.5-4.7) 01/07/20 11:28 Absolute Monos (auto) 0.8 10^3/uL (0.1-1.4) 01/07/20 11:28 Absolute Eos (auto) 0.1 10^3/uL (0.0-0.6) 01/07/20 11:28 Absolute Basos (auto) 0.1 10^3/uL (0.0-0.2) 01/07/20 11:28 Seg Neutrophils % 71.3 % (42-78) 01/07/20 11:28 Sodium 135.2 mmol/L (137-145) L 01/07/20 11:28 Potassium 3.9 mmol/L (3.6-5.0) 01/07/20 11:28 Chloride 100 mmol/L (98-107) 01/07/20 11:28 Carbon Dioxide 27 mmol/L (22-30) 01/07/20 11:28 Anion Gap 8 (5-19) 01/07/20 11:28 BUN 18 mg/dL (7-20) 01/07/20 11:28 Creatinine 1.53 mg/dL (0.52-1.25) H 01/07/20 11:28 Est GFR ( Amer) 54 (>60) L 01/07/20 11:28 Est GFR (MDRD) Non-Af 44 (>60) L 01/07/20 11:28 Glucose 302 mg/dL (75-110) H 01/07/20 11:28 POC Glucose 278 mg/dL (70-110) H 01/08/20 12:15 Hemoglobin A1c % 9.8 % (4.7-6.0) H 01/04/20 12:05 Calcium 8.5 mg/dL (8.4-10.2) 01/07/20 11:28 Total Bilirubin 0.4 mg/dL (0.2-1.3) 01/07/20 11:28 Direct Bilirubin 0.1 mg/dL (0.0-0.4) 01/07/20 11:28 Neonat Total Bilirubin Not Reportable 01/07/20 11:28 Neonat Direct Bilirubin Not Reportable 01/07/20 11:28 Neonat Indirect Bili Not Reportable 01/07/20 11:28 AST 26 U/L (17-59) 01/07/20 11:28 ALT 23 U/L (<50) 01/07/20 11:28 Alkaline Phosphatase 75 U/L (38-126) 01/07/20 11:28 Total Protein 6.6 g/dL (6.3-8.2) 01/07/20 11:28 Albumin 3.7 g/dL (3.5-5.0) 01/07/20 11:28 TSH 8.86 uIU/mL (0.47-4.68) H 01/04/20 12:05 Free T4 1.06 ng/dL (0.78-2.19) 01/04/20 12:05 Urine Color YELLOW 01/04/20 20:30 Urine Appearance CLOUDY 01/04/20 20:30 Urine pH 5.0 (5.0-9.0) 01/04/20 20:30 Ur Specific [place] 1.022 01/04/20 20:30 Urine Protein 30 mg/dL (NEGATIVE) H 01/04/20 20:30 Urine Glucose (UA) >=500 mg/dL (NEGATIVE) H 01/04/20 20:30 Urine Ketones NEGATIVE mg/dL (NEGATIVE) 01/04/20 20:30 Urine Blood MODERATE (NEGATIVE) H 01/04/20 20:30 Urine Nitrite POSITIVE (NEGATIVE) H 01/04/20 20:30 Urine Bilirubin NEGATIVE (NEGATIVE) 01/04/20 20:30 Urine Urobilinogen NEGATIVE mg/dL (<2.0) 01/04/20 20:30 Ur Leukocyte Esterase LARGE (NEGATIVE) H 01/04/20 20:30 Urine WBC (Auto) >182 /HPF 01/04/20 20:30 Urine RBC (Auto) 33 /HPF 01/04/20 20:30 Urine Bacteria (Auto) TRACE /HPF 01/04/20 20:30 Urine WBC Clumps MANY /HPF 01/04/20 20:30 Squamous Epi Cells Auto 1 /HPF 01/04/20 20:30 Urine Mucus (Auto) FEW /LPF 01/04/20 20:30 Urine Ascorbic Acid NEGATIVE (NEGATIVE) 01/04/20 20:30 Impressions: Chest X-Ray 01/04/20 00:00 IMPRESSION: Cardiomegaly without pulmonary edema. Abdomen/Pelvis CT 01/06/20 08:00 IMPRESSION: 1. Findings as described above are concerning for a mild acute diverticulitis (image 68 of series 2) involving the mid sigmoid colon. 2. Hepatic steatosis. 3. Status post prostatectomy and pelvic lymph node dissection. 4. 10 x 9 mm left upper pole caliceal calculus. There is no associated hydronephrosis. Stroke Is this a Stroke Patient?: No Acute Heart Failure - Is this a Heart Failure Patient?: No
[2020-01-08] MEDS ORDERED: (PENDING PHARMACY ID) (Ergocalciferol (Vitamin D2) [Vitamin D2] 50 MCG) PO SCH (20:00)
== END 2020-01-08 14:45 | disposition home or self-care (01) | DRG 638 ==
LOC: 3N 11:26 → 3W 01-06 17:10
PROVIDERS: ADMIT Internal Medicine; ATTEND Internal Medicine
DX: E11.00 Type 2 diabetes mellitus with hyperosmolarity without nonketotic hyperglycemic-hyperosmolar coma (NKHHC) (principal); T83.511A Infection and inflammatory reaction due to indwelling urethral catheter, initial encounter; N17.9 Acute kidney failure, unspecified; K57.32 Diverticulitis of large intestine without perforation or abscess without bleeding; I50.30 Unspecified diastolic (congestive) heart failure; I13.0 Hypertensive heart and chronic kidney disease with heart failure and stage 1 through stage 4 chronic kidney disease, or unspecified chronic kidney disease; Z68.42 Body mass index [BMI] 45.0-49.9, adult; E66.01 Morbid (severe) obesity due to excess calories; J44.9 Chronic obstructive pulmonary disease, unspecified; Y84.6 Urinary catheterization as the cause of abnormal reaction of the patient, or of later complication, without mention of misadventure at the time of the procedure; N18.3 Chronic kidney disease, stage 3 (moderate); B96.89 Other specified bacterial agents as the cause of diseases classified elsewhere; I25.10 Atherosclerotic heart disease of native coronary artery without angina pectoris; E78.5 Hyperlipidemia, unspecified; I27.20 Pulmonary hypertension, unspecified; D63.1 Anemia in chronic kidney disease; G47.30 Sleep apnea, unspecified; E03.9 Hypothyroidism, unspecified; K21.9 Gastro-esophageal reflux disease without esophagitis; F32.9 Major depressive disorder, single episode, unspecified; E11.22 Type 2 diabetes mellitus with diabetic chronic kidney disease; Z59.9 Problem related to housing and economic circumstances, unspecified; Z79.899 Other long term (current) drug therapy; Z79.01 Long term (current) use of anticoagulants; Z79.84 Long term (current) use of oral hypoglycemic drugs
CPT/HCPCS: 36415; 71045; 74176; 80048; 80053; 80076; 81001; 82962; 83036; 84439; 84443; 85025; 87040; 87070; 87077; 87086; 87088; 87150; 87186; J0696; J1815; J3490; J7030

== ENCOUNTER 2020-01-14 11:51 | Inpatient (IN) | payer MEDICARE, OTHER ==
[2020-01-14 12:18] LABS: ABSOLUTE EOSINOPHILS # (AUTO) 0.1 10^3/uL (0.0-0.6); ABSOLUTE LYMPHOCYTES (AUTO) 1.2 10^3/uL (0.5-4.7); ABSOLUTE MONOCYTES (AUTO) 0.9 10^3/uL (0.1-1.4); ABSOLUTE NEUT (AUTO) 6.1 10^3/uL (1.7-8.2); BASOPHILS % (AUTO) 0.6 % (0-2); EOSINOPHILS % (AUTO) 1.2 % (0-6); HEMATOCRIT 37.9 % (37.9-51.0); HEMOGLOBIN 12.5 g/dL (13.5-17.0); LYMPHOCYTES % (AUTO) 13.9 % (13-45); MEAN CORPUSCULAR HEMOGLOBIN 29.7 pg (27.0-33.4); MEAN CORPUSCULAR VOLUME 90 fl (80-97); MONOCYTES % (AUTO) 10.5 % (3-13); PLATELET COUNT 259 10^3/uL (150-450); RED BLOOD COUNT 4.22 10^6/uL (4.35-5.55); SEGMENTED NEUTROPHILS % (AUTO) 73.8 % (42-78); TOTAL CELLS COUNTED % (AUTO) 100 %; WHITE BLOOD COUNT 8.3 10^3/uL (4.0-10.5)
[2020-01-14 12:22] LABS: APPEARANCE,URINE CLEAR; BILIRUBIN,URINE NEGATIVE (NEGATIVE); COLOR,URINE YELLOW; GLUCOSE, URINE >=500 mg/dL (NEGATIVE); KETONES,URINE NEGATIVE (NEGATIVE); LEUKOCYTE ESTERASE,URINE NEGATIVE (NEGATIVE); NITRITE,URINE NEGATIVE (NEGATIVE); PROTEIN,URINE NEGATIVE (NEGATIVE); URINE SPECIFIC GRAVITY 1.026; UROBILINOGEN,URINE NEGATIVE mg/dL (<2.0)
[2020-01-14 12:35] LABS: ALBUMIN 4.2 g/dL (3.5-5.0); ALKALINE PHOSPHATASE 96 U/L (38-126); ANION GAP 10 (5-19); ASPARTATE AMINO TRANSFERASE 29 U/L (17-59); BILIRUBIN,DIRECT 0.1 mg/dL (0.0-0.4); BILIRUBIN,TOTAL 0.7 mg/dL (0.2-1.3); BLOOD UREA NITROGEN 23 mg/dL (7-20); CALCIUM 10.3 mg/dL (8.4-10.2); CARBON DIOXIDE 34 mmol/L (22-30); CHLORIDE 93 mmol/L (98-107); GLUCOSE 370 mg/dL (75-110); POTASSIUM 4.8 mmol/L (3.6-5.0); TOTAL PROTEIN 7.2 g/dL (6.3-8.2)
--- NOTE | 2020-01-14 12:58 | RADIOLOGY REPORT (SQ) ---
EXAM DESCRIPTION: CHEST SINGLE VIEW IMAGES COMPLETED DATE/TIME: 01/14/2020 12:22 pm REASON FOR STUDY: short of breath COMPARISON: 01/04/2020 TECHNIQUE: Single frontal radiographic view of the chest acquired. NUMBER OF VIEWS: One view. LIMITATIONS: None. FINDINGS: LUNGS AND PLEURA: No pneumothorax. Mild increased basilar interstitial markings. No cons olidation or significant pleural effusion. Similar apical pleural thickening, left greater than righ t. MEDIASTINUM AND HILAR STRUCTURES: Stable. HEART AND VASCULAR STRUCTURES: Stable. BONES: No acute findings. HARDWARE: None in the chest. OTHER: No other significant finding. IMPRESSION: Mild increased basilar interstitial markings. No consolidation or significant pleural e ffusion. TECHNICAL DOCUMENTATION: JOB ID: [id number] 2010 [employer]- All Rights Reserved Reading location - IP/workstation name: [email or web address]
[2020-01-14] MEDS ORDERED: FUROSEMIDE INJ/PF 40 MG/4 ML SDV IV ONE (13:28)
[2020-01-14 13:29] LABS: CREATINE KINASE MB 1.03 ng/mL (<4.55); NT PRO BNP 165 pg/mL (<450)
[2020-01-14] MEDS ORDERED: MORPHINE SULFATE 10 MG/ML INJ IV ONE (13:29)
[2020-01-14 13:33] LABS: TROPONIN I < 0.012 ng/mL
--- NOTE | 2020-01-14 16:25 | ER Document Report ---
Entered by CHRISTINA BROUSSARD SCRIBE 01/14/20 1142 Acting as scribe for:ARAM RIVERA MD ED General - General Chief Complaint: Shortness Of Breath Stated Complaint: SHORTNESS OF BREATH Primary Care Provider: SILVANO JORDAN MD [Primary Care Provider] - Follow up as needed Information source: Patient Notes: This 74-year-old male with CHF and COPD presents to the emergency department complaining of shortness of breath. Patient said that his shortness of breath is worse with exertion. Patient said that he was just recently admitted to the hospital for shortness of breath and discharged from the hospital two days ago for diverticulitis. Patient states that he had returned to the emergency department because his shortness of breath has gotten progressively worse. Patient denies fever. TRAVEL OUTSIDE OF THE [place] IN LAST 30 DAYS: No - Related Data Allergies/Adverse Reactions: No Known Allergies Allergy (Verified 09/21/17 09:08) Past Medical History - General Information source: Patient - Social History Smoking Status: Former Smoker Cigarette use (# per day): No Chew tobacco use (# tins/day): No Family History: COPD, DM, Hypertension Patient has homicidal ideation: No - Past Medical History Cardiac Medical History: Reports: Hx Congestive Heart Failure, Hx Coronary Artery Disease, Hx Hypercholesterolemia, Hx Hypertension Pulmonary Medical History: Reports: Hx Asthma, Hx COPD, Hx Respiratory Failure, Hx Sleep Apnea Endocrine Medical History: Reports: Hx Diabetes Mellitus Type 2, Hx Hypothyroidism Renal/ Medical History: Reports: Hx Benign Prostatic Hyperplasia GI Medical History: Reports: Hx Gastroesophageal Reflux Disease Musculoskeletal Medical History: Reports Hx Arthritis Psychiatric Medical History: Reports: Hx Anxiety, Hx Depression Past Surgical History: Reports: Hx Abdominal Surgery - exploratory stomach surgery, Hx Appendectomy, Hx Cardiac Catheterization, Hx Orthopedic Surgery - bilat arm fx, bilat rotator cuff, Hx Tonsillectomy - Immunizations Immunizations up to date: Yes Hx Diphtheria, Pertussis, Tetanus Vaccination: No Hx Pneumococcal Vaccination: 08/06/12 Review of Systems - Review of Systems Constitutional: See HPI. denies: Fever EENT: No symptoms reported Cardiovascular: No symptoms reported Respiratory: See HPI, Short of breath Gastrointestinal: No symptoms reported Genitourinary: No symptoms reported Male Genitourinary: No symptoms reported Musculoskeletal: No symptoms reported Skin: No symptoms reported Hematologic/Lymphatic: No symptoms reported Neurological/Psychological: No symptoms reported -: Yes All other systems reviewed and negative Physical Exam - Vital signs Vitals: Resp 25 H 01/14/20 11:40 - Notes Notes: Physical Exam: General: Alert, appears well. No cough noted. HEENT: Normocephalic. Atraumatic. PERRL. Extraocular movements intact. Oropharynx clear. Neck: Supple. Non-tender. Respiratory: Moderate to severe respiratory distress. Diminished breath sounds in the bases. No wheezing. Tachypneic. Cardiovascular: Regular rate and rhythm. Abdominal: Morbidly Obese. Non-tender. Abdomen distended. Normal Bowel Sounds. Hernia's along the midline of the abdomen wall which are reducible. Back: No gross abnormalities. Extremities: Moves all four extremities. Upper extremities: Normal inspection. Normal ROM. Lower extremities: Pitting edema bilaterally. Normal ROM. Neurological: Normal cognition. AAOx4. Normal speech. Psychological: Normal affect. Normal Mood. Skin: Warm. Dry. Normal color. Course - Re-evaluation Re-evalutation: 01/14/20 16:20 Patient is on BiPAP and sats are in the mid 90s. Patient decided he did not no longer wanted to be on BiPAP and therefore patient has been placed on a nonrebreather facemask. Discussed case with Dr. Atwood about recent change in respiratory apparatus. An ABG was requested and has been ordered. 01/14/20 16:24 Patient is being admitted to the hospital by Dr. Atwood who is on-call for Dr. Basurto - Vital Signs Vital signs: Temp Pulse Resp BP Pulse Ox 99.8 F 21 H 97/51 L 97 01/14/20 12:00 01/14/20 14:01 01/14/20 14:01 01/14/20 14:01 - Laboratory Result Diagrams: 01/14/20 11:55 01/14/20 11:55 Laboratory results interpreted by me: 01/14/20 01/14/20 01/14/20 11:55 11:55 11:55 RBC 4.22 L Hgb 12.5 L RDW 15.0 H Sodium 136.9 L Chloride 93 L Carbon Dioxide 34 H BUN 23 H Creatinine 1.79 H Est GFR ( Amer) 45 L Est GFR (MDRD) Non-Af 37 L Glucose 370 H POC Glucose Calcium 10.3 H Creatine Kinase 54 L Urine Glucose (UA) Urine Blood 01/14/20 01/14/20 12:05 15:56 RBC Hgb RDW Sodium Chloride Carbon Dioxide BUN Creatinine Est GFR ( Amer) Est GFR (MDRD) Non-Af Glucose POC Glucose 321 H Calcium Creatine Kinase Urine Glucose (UA) >=500 H Urine Blood SMALL H 01/14/20 16:22 Laboratories show an acute kidney injury with creatinine up to 1.79 today. - Diagnostic Test Radiology reviewed: Image reviewed Radiology results interpreted by me: 01/14/20 16:18 Chest x-ray shows cardiomegaly but no overt failure interstitial markings noted no acute infiltrate no pleural effusions. - EKG Interpretation by Me Additional EKG results interpreted by me: 01/14/20 16:18 12-lead EKG shows sinus tachycardia rate of [address]-T wave changes. Discharge - Discharge Clinical Impression: COPD with exacerbation, Type 2 diabetes mellitus, Morbid obesity due to excess calories, Acute kidney injury, Hyperglycemia due to type 2 diabetes mellitus Condition: Good Disposition: ADMITTED INPATIENT Admitting Provider: Maximiliano Unit Admitted: IMCU Referrals: SILVANO JORDAN MD [Primary Care Provider] - Follow up as needed I personally performed the services described in the documentation, reviewed and edited the documentation which was dictated to the scribe in my presence, and it accurately records my words and actions.
[2020-01-14 18:24] LABS: ARTERIAL BLOOD BASE EXCESS 5.7 mmol/L; ARTERIAL BLOOD H2CO3 1.84 mmol/L (1.05-1.35); ARTERIAL BLOOD HCO3 33.1 mmol/L (20-24); ARTERIAL BLOOD O2 SATURATION 98.7 % (94-98); ARTERIAL BLOOD PH 7.35 (7.35-7.45); ARTERIAL BLOOD PO2 142.9 mmHg (80-100)
[2020-01-14 18:25] LABS: ARTERIAL BLOOD FIO2 100%
--- NOTE | 2020-01-14 20:51 | EKG REPORT ---
SEVERITY:- OTHERWISE NORMAL ECG - SINUS TACHYCARDIA : Confirmed by: [place] Calvin 14-Jan-2020 20:50:29
--- NOTE | 2020-01-14 21:10 | PDOC H&P ---
History of Present Illness Admission Date/PCP: 01/14/20 16:37 SILVANO JORDAN MD Patient complains of: Difficulty with breathing History of Present Illness: YA PETTIT is a 74 year old male patient of Dr. Dixon who was recently discharged home from this hospital but reported worsening difficulty with breathing. He reported inability to tolerate oral feeding or drinking due to his difficulty with breathing. He denied any associated fever or chills. No chest pain. No overt leg swelling. He denied any recent excessive salt poor fluid intake. Patient reported compliance with supplemental oxygen at home. He has been on 3 L/min without and 4L/min with exertion. His initial ED evaluation was significant for tachypnea, hypercapnea, hyperglycemia and poor renal indices. He was advised hospitalization for exacerbated COPD with hypercapnea. His morbidit ies are as listed below. Past Medical History Cardiac Medical History: Reports: Congestive Heart Failure, Coronary Artery Disease, Hyperlipidema, Hypertension Denies: Atrial Fibrillation, Myocardial Infarction, Peripheral Vascular Disease, Pulmonary Embolism, Heart Murmur Pulmonary Medical History: Reports: Asthma, Chronic Obstructive Pulmonary Disease (COPD), Respiratory Failure, Sleep Apnea Denies: Bronchitis, Pneumonia, Tuberculosis Neurological Medical History: Denies: Seizures Endocrine Medical History: Reports: Diabetes Mellitus Type 2, Hypothyroidism Renal/ Medical History: Denies: End Stage Renal Disease Malignancy Medical History: Denies: Lung Cancer GI Medical History: Reports: Gastroesophageal Reflux Disease Denies: Hepatitis, Hiatal Hernia Musculoskeltal Medical History: Reports: Arthritis Denies: Fibromyalgia Psychiatric Medical History: Reports: Depression Hematology: Denies: Anemia, Sickle Cell Disease Past Surgical History Past Surgical History: Reports: Appendectomy, Cardiac Catheterization, Orthopedic Surgery - bilat arm fx, bilat rotator cuff, Tonsillectomy Denies: Cholecystectomy, Coronary Artery Bypass Graft, Gastric Bypass Surgery, Herniorrhaphy, Pacemaker Social History Smoking Status: Former Smoker Frequency of Alcohol Use: Occasional Hx Recreational Drug Use: No Hx Prescription Drug Abuse: No - Advance Directive Resuscitation Status: Do Not Resuscitate - After extensive discussion with the patient, in fully lucid state, and in the presence of his assigned nursing and respirator staff members, he choose t be a do not resuscitate status at this time. Family History Family History: COPD, DM, Hypertension Parental Family History Reviewed: Yes Children Family History Reviewed: Yes Sibling(s) Family History Reviewed.: Yes Medication/Allergy Home Medications: Allopurinol [Zyloprim 100 mg Tablet] 100 mg PO BID 09/15/19 Apixaban [Eliquis 2.5 mg Tablet] 2.5 mg PO QPM 09/15/19 Buspirone HCl 15 mg PO BID 09/15/19 Diltiazem HCl [Diltiazem 24Hr ER] 180 mg PO Q12 09/15/19 Donepezil HCl [Aricept 5 mg Tablet] 5 mg PO QHS 09/15/19 Ergocalciferol (Vitamin D2) [Vitamin D2] 50 mcg PO WALLIS@[id number]/15/19 Metformin HCl [Metformin HCl ER] 500 mg PO QAM 09/15/19 Olmesartan/Hydrochlorothiazide [Olmesartan-Hctz 40-25 mg Tab] 1 tab PO QAM 09/15/19 Pantoprazole Sodium [Protonix [address] Tablet] 40 mg PO QPM 09/15/19 Albuterol Sulfate [Ventolin 0.083% Neb 2.5 mg/3 mL Ampul] 1 vial IH RTQ4HP PRN 01/04/20 Albuterol Sulfate [Ventolin Hfa 8 gm Mdi] 2 puff IH ASDIR PRN 01/04/20 Atorvastatin Calcium [Lipitor 40 mg Tablet] 40 mg PO QHS 01/04/20 Duloxetine HCl [Cymbalta] 60 mg PO Q12 01/04/20 Fluticasone/Umeclidin/Vilanter [Trelegy 100-62.5-25 Mcg Ellipta 14 Dose/Dpi] 1 puff IH ASDIR PRN 01/04/20 Melatonin 10 mg PO QHS 01/04/20 Mirabegron [Myrbetriq] 25 mg PO QAM 01/04/20 Pramipexole Di-HCl [Mirapex] 1.5 mg PO Q8 01/04/20 Dapagliflozin Propanediol [Farxiga] 10 mg PO DAILY #90 tablet 01/08/20 Empagliflozin [Jardiance] 25 mg PO DAILY #90 tablet 01/08/20 Levothyroxine Sodium 175 mcg PO DAILY #90 tablet 01/08/20 Semaglutide [Ozempic] 0.5 mg SQ Q7D #4 pen.injctr 01/08/20 Semaglutide [Rybelsus] 3 mg PO DAILY #30 tablet 01/08/20 Allergies/Adverse Reactions: No Known Allergies Allergy (Verified 09/21/17 09:08) Review of Systems Constitutional: ABSENT: chills, fever(s), headache(s), weight gain, weight loss Eyes: ABSENT: visual disturbances Ears: ABSENT: hearing changes Cardiovascular: PRESENT: dyspnea on exertion. ABSENT: chest pain, edema, orthropnea, palpitations Respiratory: PRESENT: dyspnea. ABSENT: cough, hemoptysis Gastrointestinal: ABSENT: abdominal pain, constipation, diarrhea, hematemesis, h ematochezia, nausea, vomiting Genitourinary: ABSENT: dysuria, hematuria Musculoskeletal: ABSENT: joint swelling Integumentary: ABSENT: rash, wounds Neurological: ABSENT: abnormal gait, abnormal speech, confusion, dizziness, focal weakness, syncope Psychiatric: ABSENT: anxiety, depression, homidical ideation, suicidal ideation Endocrine: ABSENT: cold intolerance, heat intolerance, menstrual abnormalities, polydipsia, polyuria Hematologic/Lymphatic: ABSENT: easy bleeding, easy bruising, lymphadenopathy Allergic/Immunologic: ABSENT: seasonal rhinorrhea Physical Exam Vital Signs: Temp Pulse Resp BP Pulse Ox 97.7 F 50 L 26 H 105/57 L 98 01/14/20 20:11 01/14/20 20:11 01/14/20 20:11 01/14/20 20:11 01/14/20 20:11 Intake & Output 01/13/20 01/14/20 01/15/20 06:59 06:59 06:59 Weight 148.5 kg General appearance: PRESENT: morbidly obese, severe distress Head exam: PRESENT: atraumatic, normocephalic Eye exam: PRESENT: conjunctiva pink. ABSENT: scleral icterus Mouth exam: PRESENT: moist Respiratory exam: PRESENT: decreased breath sounds, rhonchi, tachypnea, wheezes Cardiovascular exam: PRESENT: RRR, +S1, +S2. ABSENT: diastolic murmur, rubs, s ystolic murmur Vascular exam: ABSENT: pallor GI/Abdominal exam: PRESENT: normal bowel sounds, soft. ABSENT: distended, guarding, mass, organolmegaly, rebound, tenderness Rectal exam: PRESENT: deferred Extremities exam: ABSENT: pedal edema Neurological exam: PRESENT: alert, awake, oriented to person, oriented to place, oriented to time, oriented to situation, CN II-XII grossly intact. ABSENT: motor sensory deficit Psychiatric exam: PRESENT: appropriate affect, normal mood. ABSENT: homicidal ideation, suicidal ideation Skin exam: PRESENT: dry, warm, other - stasis changes Results Laboratory Results: 01/14/20 11:55 01/14/20 11:55 01/14/20 01/14/20 01/14/20 11:55 11:55 12:05 WBC 8.3 RBC 4.22 L Hgb 12.5 L Hct 37.9 MCV 90 MCH 29.7 MCHC 33.0 RDW 15.0 H Plt Count 259 Seg Neutrophils % 73.8 Carbonic Acid HCO3/H2CO3 Ratio ABG pH ABG pCO2 ABG pO2 ABG HCO3 ABG O2 Saturation ABG Base Excess FiO2 Sodium 136.9 L Potassium 4.8 Chloride 93 L Carbon Dioxide 34 H Anion Gap 10 BUN 23 H Creatinine 1.79 H Est GFR ( Amer) 45 L Glucose 370 H Calcium 10.3 H Total Bilirubin 0.7 AST 29 Alkaline Phosphatase 96 Total Protein 7.2 Albumin 4.2 Urine Color YELLOW Urine Appearance CLEAR Urine pH 5.0 Ur Specific [place] 1.026 Urine Protein NEGATIVE Urine Glucose (UA) >=500 H Urine Ketones NEGATIVE Urine Blood SMALL H Urine Nitrite NEGATIVE Ur Leukocyte Esterase NEGATIVE Urine WBC (Auto) 2 Urine RBC (Auto) 2 01/14/20 16:35 WBC RBC Hgb Hct MCV MCH MCHC RDW Plt Count Seg Neutrophils % Carbonic Acid 1.84 H HCO3/H2CO3 Ratio 17:1 ABG pH 7.35 ABG pCO2 61.0 H ABG pO2 142.9 H ABG HCO3 33.1 H ABG O2 Saturation 98.7 H ABG Base Excess 5.7 FiO2 100% Sodium Potassium Chloride Carbon Dioxide Anion Gap BUN Creatinine Est GFR ( Amer) Glucose Calcium Total Bilirubin AST Alkaline Phosphatase Total Protein Albumin Urine Color Urine Appearance Urine pH Ur Specific [place] Urine Protein Urine Glucose (UA) Urine Ketones Urine Blood Urine Nitrite Ur Leukocyte Esterase Urine WBC (Auto) Urine RBC (Auto) 01/14/20 01/14/20 11:55 11:55 Creatine Kinase 54 L CK-MB (CK-2) 1.03 Troponin I < 0.012 NT-Pro-B Natriuret Pep 165 Impressions: Chest X-Ray 01/14/20 11:54 IMPRESSION: Mild increased basilar interstitial markings. No consolidation or significant pleural effusion. Assessment & Plan - Diagnosis (1) Acute hypercapnic respiratory failure Is this a current diagnosis for this admission?: Yes Plan: See covering attending physician orders for details about care plan. (2) Acute exacerbation of chronic obstructive pulmonary disease (COPD) Is this a current diagnosis for this admission?: Yes Plan: See covering attending physician orders for details about care plan. (3) CKD (chronic kidney disease) stage 3, GFR 30-59 ml/min Is this a current diagnosis for this admission?: Yes Plan: See covering attending physician orders for details about care plan. (4) Hyperglycemia due to type 2 diabetes mellitus Qualifiers: Diabetes mellitus correction insulin use: without correction use Qualified Code(s): E11.65 - Type 2 diabetes mellitus with hyperglycemia Is this a current diagnosis for this admission?: Yes Plan: See covering attending physician orders for details about care plan. (5) Paroxysmal atrial fibrillation Is this a current diagnosis for this admission?: Yes Plan: See covering attending physician orders for details about care plan. (6) Hyperlipidemia due to type 2 diabetes mellitus Is this a current diagnosis for this admission?: Yes Plan: See covering attending physician orders for details about care plan. (7) Hypothyroid Qualifiers: Hypothyroidism type: unspecified Qualified Code(s): E03.9 - Hypothyroidism, unspecified Is this a current diagnosis for this admission?: Yes Plan: See covering attending physician orders for details about care plan. (8) Dementia Qualifiers: Dementia type: unspecified type Dementia behavioral disturbance: without behavioral disturbance Qualified Code(s): F03.90 - Unspecified dementia without behavioral disturbance Is this a current diagnosis for this admission?: Yes Plan: See covering attending physician orders for details about care plan. (9) Morbid obesity due to excess calories Is this a current diagnosis for this admission?: Yes Plan: See covering attending physician orders for details about care plan. - Time Time Spent: 50 to 70 Minutes Medications reviewed and adjusted accordingly: Yes Anticipated discharge: Home with Homehealth Within: Other - Inpatient Certification Based on my medical assessment, after consideration of the patient's comorbidities, presenting symptoms, or acuity I expect that the services needed warrant INPATIENT care.: Yes I certify that my determination is in accordance with my understanding of [employer] 's requirements for reasonable and necessary INPATIENT services [42 CFR 412.3e].: Yes Medical Necessity: Significant Comorbidiites Make Outpatient Treatment Too Risky, Need Close Monitoring Due to Risk of Patient Decompensation, Need For Continuous Telemetry Monitoring, Need for Nebulizer Therapy and Monitoring of Response, Risk of Complication if Not Cared For in Hospital, Risk of Diagnosis Which Will Require Inpatient Eval/Care/Monitoring Post Hospital Care: D/C Obstetric Anaesthetist Documentation - Plan Summary Plan Summary: See covering attending physician orders for details about care plan.
[2020-01-14] MEDS ORDERED: DEXTROSE 50%-WATER 25 GM/50 ML DISP.SYRIN IV PRN ×2 (21:14)
[2020-01-14] MEDS ORDERED: DEXTROSE 40% GEL 15 GM TUBE PO PRN ×2 (21:14)
[2020-01-14] MEDS ORDERED: GLUCAGON,HUMAN RECOMB 1 MG INJ IM PRN (21:14)
[2020-01-14] MEDS ORDERED: INSULIN GLARGINE,HUM.REC.ANLOG 1,000 UNIT/10 ML VIAL (PYX) SUBCUT ONE (23:00)
[2020-01-14] MEDS: INSULIN LISPRO 100 UNIT/ML 3 ML VIAL SUBCUT SCH (23:08)
[2020-01-14] MEDS: INSULIN GLARGINE,HUM.REC.ANLOG 1,000 UNIT/10 ML VIAL SUBCUT SCH (23:08)
[2020-01-14] MEDS: METHYLPREDNISOLONE INJ 40 MG/1 ML SDV IV SCH (23:09)
[2020-01-14] MEDS: NORMAL SALINE 1000 ML 1,000 ML IV PRN (23:23)
[2020-01-14] MEDS: HALOPERIDOL 0.5 MG TABLET PO PRN (23:47)
[2020-01-15] MEDS: IPRATROPIUM/ALBUTEROL 0.5-2.5 MG/3 ML AMPUL NEB PRN (00:10)
[2020-01-15 05:13] LABS: ALBUMIN 3.9 g/dL (3.5-5.0); ALKALINE PHOSPHATASE 77 U/L (38-126); ANION GAP 14 (5-19); ASPARTATE AMINO TRANSFERASE 32 U/L (17-59); BILIRUBIN,DIRECT 0.2 mg/dL (0.0-0.4); BILIRUBIN,TOTAL 0.8 mg/dL (0.2-1.3); BLOOD UREA NITROGEN 33 mg/dL (7-20); CALCIUM 9.5 mg/dL (8.4-10.2); CARBON DIOXIDE 29 mmol/L (22-30); CHLORIDE 93 mmol/L (98-107); CHOLESTEROL 178.31 mg/dL (0-200); POTASSIUM 5.3 mmol/L (3.6-5.0); TRIGLYCERIDES 322 mg/dL (<150)
[2020-01-15] MEDS: PANTOPRAZOLE SODIUM 40 MG TABLET.DR PO SCH (05:21)
[2020-01-15] MEDS: METHYLPREDNISOLONE INJ 40 MG/1 ML SDV IV SCH ×3 (05:21→21:40)
[2020-01-15 05:24] LABS: DIRECT LDL 112 mg/dL (<100)
[2020-01-15 05:28] LABS: VLDL CHOLESTEROL 64.4 mg/dL (10-31)
[2020-01-15 05:30] LABS: GLUCOSE 407 mg/dL (75-110)
[2020-01-15 06:51] LABS: HEMATOCRIT 35.9 % (37.9-51.0); HEMOGLOBIN 11.8 g/dL (13.5-17.0); MEAN CORPUSCULAR HEMOGLOBIN 29.7 pg (27.0-33.4); MEAN CORPUSCULAR HGB CONC 32.9 g/dL (32.0-36.0); MEAN CORPUSCULAR VOLUME 90 fl (80-97); PLATELET COUNT 222 10^3/uL (150-450); RED BLOOD COUNT 3.97 10^6/uL (4.35-5.55); RED CELL DISTRIBUTION WIDTH 14.7 % (11.5-14.0); WHITE BLOOD COUNT 7.5 10^3/uL (4.0-10.5)
[2020-01-15 07:15] LABS: ABSOLUTE LYMPHOCYTES# (MANUAL) 0.8 10^3/uL (0.5-4.7); ABSOLUTE MONOCYTES # (MANUAL) 0.2 10^3/uL (0.1-1.4); BASOPHILS % (MANUAL) 0 % (0-2); EOSINOPHILS % (MANUAL) 0 % (0-6); LYMPHOCYTES % (MANUAL) 11 % (13-45); MONOCYTES % (MANUAL) 3 % (3-13); SEGMENTED NEUTROPHILS % (MAN) 86 % (42-78); TOTAL CELLS COUNTED 100
[2020-01-15 07:16] LABS: ANISOCYTOSIS SLIGHT; PLATELET COMMENT ADEQUATE; PLATELET LARGE PRESENT
[2020-01-15] MEDS ORDERED: INSULIN LISPRO 100 UNIT/ML 3 ML VIAL ONE (08:36)
[2020-01-15] MEDS ORDERED: INSULIN LISPRO 100 UNIT/ML 3 ML VIAL SUBCUT ONE (08:45)
[2020-01-15] MEDS: INSULIN LISPRO 100 UNIT/ML 3 ML VIAL SUBCUT SCH ×2 (08:46→11:58)
[2020-01-15] MEDS ORDERED: (PENDING PHARMACY ID) (Rizatriptan Benzoate [Rizatriptan] 10 MG) PO PRN (13:20)
[2020-01-15] MEDS ORDERED: SEMAGLUTIDE 0.5 MG SUBCUT SCH (13:30)
[2020-01-15] MEDS: NORMAL SALINE 100 ML with INSULIN REGULAR, HUMAN 100 UNIT IV PRN ×2 (13:53)
--- NOTE | 2020-01-15 13:56 | PDOC PROGRESS REPORT ---
Subjective Progress Note for:: 01/15/20 Subjective:: Patient denied any chest pain. Improved breathing and tolerance of the BiPAP with administration of low dose Haloperidol last night. Patient stated that he had his best sleep so far for several days. No nausea, vomiting or abdominal pain. No fever or chills. His hyperglycemia is concerning and probable worsen with IV Solu Medrol administration. Reason For Visit: ACUTE ON CHRONIC RESPIRATORY FAILURE WITH Physical Exam Vital Signs: Temp Pulse Resp BP Pulse Ox 97.8 F 100 21 H 136/77 H 92 01/15/20 07:46 01/15/20 07:46 01/15/20 07:46 01/15/20 07:46 01/15/20 07:46 Intake & Output 01/14/20 01/15/20 01/16/20 06:59 06:59 06:59 Intake Total 482 Output Total 1100 Balance -618 Weight 148.5 kg General appearance: PRESENT: mild distress, severe distress Head exam: PRESENT: atraumatic, normocephalic Eye exam: PRESENT: conjunctiva pink. ABSENT: scleral icterus Mouth exam: PRESENT: moist Respiratory exam: PRESENT: decreased breath sounds, rhonchi - minimal at lung bases Cardiovascular exam: PRESENT: irregular rhythm, +S1, +S2. ABSENT: diastolic murmur, rubs, systolic murmur Vascular exam: ABSENT: pallor GI/Abdominal exam: PRESENT: normal bowel sounds, soft. ABSENT: distended, guarding, mass, organolmegaly, rebound, tenderness Extremities exam: PRESENT: pedal edema - chronic and minimal Neurological exam: PRESENT: alert, awake, oriented to person, oriented to place, oriented to time, oriented to situation, CN II-XII grossly intact. ABSENT: motor sensory deficit Psychiatric exam: PRESENT: appropriate affect, normal mood. ABSENT: homicidal ideation, suicidal ideation Skin exam: PRESENT: dry, warm Results Laboratory Results: 01/15/20 05:58 01/15/20 04:34 01/14/20 01/14/20 01/14/20 11:55 11:55 12:05 WBC 8.3 RBC 4.22 L Hgb 12.5 L Hct 37.9 MCV 90 MCH 29.7 MCHC 33.0 RDW 15.0 H Plt Count 259 Seg Neutrophils % 73.8 Carbonic Acid HCO3/H2CO3 Ratio ABG pH ABG pCO2 ABG pO2 ABG HCO3 ABG O2 Saturation ABG Base Excess FiO2 Sodium 136.9 L Potassium 4.8 Chloride 93 L Carbon Dioxide 34 H Anion Gap 10 BUN 23 H Creatinine 1.79 H Est GFR ( Amer) 45 L Glucose 370 H Calcium 10.3 H Total Bilirubin 0.7 AST 29 Alkaline Phosphatase 96 Total Protein 7.2 Albumin 4.2 Triglycerides Cholesterol LDL Cholesterol Direct VLDL Cholesterol HDL Cholesterol Urine Color YELLOW Urine Appearance CLEAR Urine pH 5.0 Ur Specific [place] 1.026 Urine Protein NEGATIVE Urine Glucose (UA) >=500 H Urine Ketones NEGATIVE Urine Blood SMALL H Urine Nitrite NEGATIVE Ur Leukocyte Esterase NEGATIVE Urine WBC (Auto) 2 Urine RBC (Auto) 2 01/14/20 01/15/20 01/15/20 16:35 04:34 04:34 WBC Cancelled RBC Cancelled Hgb Cancelled Hct Cancelled MCV Cancelled MCH Cancelled MCHC Cancelled RDW Cancelled Plt Count Cancelled Seg Neutrophils % Cancelled Carbonic Acid 1.84 H HCO3/H2CO3 Ratio 17:1 ABG pH 7.35 ABG pCO2 61.0 H ABG pO2 142.9 H ABG HCO3 33.1 H ABG O2 Saturation 98.7 H ABG Base Excess 5.7 FiO2 100% Sodium 135.6 L Potassium 5.3 H Chloride 93 L Carbon Dioxide 29 Anion Gap 14 BUN 33 H Creatinine 2.26 H Est GFR ( Amer) 34 L Glucose 407 H* Calcium 9.5 Total Bilirubin 0.8 AST 32 Alkaline Phosphatase 77 Total Protein 7.0 Albumin 3.9 Triglycerides 322 H Cholesterol 178.31 LDL Cholesterol Direct 112 H VLDL Cholesterol 64.4 H HDL Cholesterol 30 L Urine Color Urine Appearance Urine pH Ur Specific [place] Urine Protein Urine Glucose (UA) Urine Ketones Urine Blood Urine Nitrite Ur Leukocyte Esterase Urine WBC (Auto) Urine RBC (Auto) 01/15/20 05:58 WBC 7.5 RBC 3.97 L Hgb 11.8 L Hct 35.9 L MCV 90 MCH 29.7 MCHC 32.9 RDW 14.7 H Plt Count 222 Seg Neutrophils % Not Reportable Carbonic Acid HCO3/H2CO3 Ratio ABG pH ABG pCO2 ABG pO2 ABG HCO3 ABG O2 Saturation ABG Base Excess FiO2 Sodium Potassium Chloride Carbon Dioxide Anion Gap BUN Creatinine Est GFR ( Amer) Glucose Calcium Total Bilirubin AST Alkaline Phosphatase Total Protein Albumin Triglycerides Cholesterol LDL Cholesterol Direct VLDL Cholesterol HDL Cholesterol Urine Color Urine Appearance Urine pH Ur Specific [place] Urine Protein Urine Glucose (UA) Urine Ketones Urine Blood Urine Nitrite Ur Leukocyte Esterase Urine WBC (Auto) Urine RBC (Auto) 01/14/20 01/14/20 11:55 11:55 Creatine Kinase 54 L CK-MB (CK-2) 1.03 Troponin I < 0.012 NT-Pro-B Natriuret Pep 165 Impressions: Chest X-Ray 01/14/20 11:54 IMPRESSION: Mild increased basilar interstitial markings. No consolidation or significant pleural effusion. Assessment & Plan - Diagnosis (1) Acute hypercapnic respiratory failure Is this a current diagnosis for this admission?: Yes (2) Acute exacerbation of chronic obstructive pulmonary disease (COPD) Is this a current diagnosis for this admission?: Yes (3) CKD (chronic kidney disease) stage 3, GFR 30-59 ml/min Is this a current diagnosis for this admission?: Yes (4) Hyperglycemia due to type 2 diabetes mellitus Qualifiers: Diabetes mellitus custodial insulin use: without custodial use Qualified Code(s): E11.65 - Type 2 diabetes mellitus with hyperglycemia Is this a current diagnosis for this admission?: Yes (5) Paroxysmal atrial fibrillation Is this a current diagnosis for this admission?: Yes (6) Hyperlipidemia due to type 2 diabetes mellitus Is this a current diagnosis for this admission?: Yes (7) Hypothyroid Qualifiers: Hypothyroidism type: unspecified Qualified Code(s): E03.9 - Hypothyroidism, unspecified Is this a current diagnosis for this admission?: Yes (8) Dementia Qualifiers: Dementia type: unspecified type Dementia behavioral disturbance: without behavioral disturbance Qualified Code(s): F03.90 - Unspecified dementia without behavioral disturbance Is this a current diagnosis for this admission?: Yes (9) Morbid obesity due to excess calories Is this a current diagnosis for this admission?: Yes - Time Time Spent with patient: 25-34 minutes Level of Care: IMCU Medications reviewed and adjusted accordingly: Yes Anticipated discharge: Home with Homehealth Within: Other - Inpatient Certification Based on my medical assessment, after consideration of the patient's comorbidities, presenting symptoms, or acuity I expect that the services needed warrant INPATIENT care.: Yes I certify that my determination is in accordance with my understanding of Medicare's requirements for reasonable and necessary INPATIENT services [42 CFR 412.3e].: Yes Medical Necessity: Significant Comorbidiites Make Outpatient Treatment Too Risky, Need Close Monitoring Due to Risk of Patient Decompensation, Need For IV Fluids, Need For Continuous Telemetry Monitoring, Risk of Complication if Not Cared For in Hospital, Risk of Diagnosis Which Will Require Inpatient Eval/Care/Monitoring Post Hospital Care: D/C Inspector Material Disposition Documentation - Plan Summary Plan Summary: See covering attending physician orders for details about care plan.
[2020-01-15 16:34] LABS: ANION GAP 15 (5-19); BLOOD UREA NITROGEN 39 mg/dL (7-20); CALCIUM 9.5 mg/dL (8.4-10.2); CARBON DIOXIDE 27 mmol/L (22-30); CHLORIDE 94 mmol/L (98-107); POTASSIUM 4.5 mmol/L (3.6-5.0)
[2020-01-15 16:42] LABS: GLUCOSE 459 mg/dL (75-110)
[2020-01-15] MEDS ORDERED: INSULIN REG, HUMAN 100 UNIT/ML 3 ML VIAL (PYX) IV ONE ×2 (16:45→18:45)
[2020-01-15] MEDS ORDERED: METFORMIN HCL 500 MG TABLET PO SCH (17:00)
[2020-01-15] MEDS: NORMAL SALINE 1000 ML 1,000 ML IV PRN (17:52)
[2020-01-15] MEDS: PRAMIPEXOLE DI-HCL 0.5 MG TABLET PO SCH (17:53)
[2020-01-15] MEDS: BUSPIRONE HCL 10 MG TABLET PO SCH (17:53)
[2020-01-15] MEDS: ALLOPURINOL 100 MG TABLET PO SCH (17:53)
[2020-01-15] MEDS: APIXABAN 2.5 MG TABLET PO SCH (17:53)
[2020-01-15] MEDS ORDERED: (PENDING PHARMACY ID) (Buspirone Hcl [Buspirone Hcl] 15 MG) PO SCH (18:00)
[2020-01-15] MEDS ORDERED: (PENDING PHARMACY ID) (Pramipexole Di-Hcl [Mirapex] 1.5 MG) PO SCH (18:00)
[2020-01-15] MEDS ORDERED: ERGOCALCIFEROL (VITAMIN D2) 50000 UNIT (1.25 MG) CAPSULE PO SCH (20:00)
[2020-01-15] MEDS ORDERED: (PENDING PHARMACY ID) (Ergocalciferol (Vitamin D2) [Vitamin D2] 50 MCG) PO SCH (20:00)
[2020-01-15] MEDS: MELATONIN 5 MG TABLET PO SCH (21:39)
[2020-01-15] MEDS: DONEPEZIL HCL 5 MG TABLET PO SCH (21:39)
[2020-01-15] MEDS: DILTIAZEM HCL 180 MG CAPSULE.CR PO SCH (21:40)
[2020-01-15] MEDS: DULOXETINE HCL 30 MG CAPSULE.DR PO SCH (21:40)
[2020-01-15] MEDS: INSULIN GLARGINE,HUM.REC.ANLOG 1,000 UNIT/10 ML VIAL SUBCUT SCH (21:42)
[2020-01-15] MEDS ORDERED: (PENDING PHARMACY ID) (Diltiazem Hcl [Diltiazem 24hr Er] 180 MG) PO SCH (22:00)
[2020-01-15] MEDS ORDERED: (PENDING PHARMACY ID) (Melatonin [Melatonin] 10 MG) PO SCH (22:00)
[2020-01-16] MEDS ORDERED: INSULIN REG, HUMAN 100 UNIT/ML 3 ML VIAL (PYX) ONE (02:14)
[2020-01-16] MEDS: NORMAL SALINE 100 ML with INSULIN REGULAR, HUMAN 100 UNIT IV PRN ×4 (02:26→08:27)
[2020-01-16] MEDS: HALOPERIDOL 0.5 MG TABLET PO PRN (04:09)
[2020-01-16] MEDS: BUSPIRONE HCL 10 MG TABLET PO SCH ×2 (06:20→17:00)
[2020-01-16] MEDS: PRAMIPEXOLE DI-HCL 0.5 MG TABLET PO SCH ×2 (06:20→17:02)
[2020-01-16] MEDS: PANTOPRAZOLE SODIUM 40 MG TABLET.DR PO SCH (06:20)
[2020-01-16] MEDS: METHYLPREDNISOLONE INJ 40 MG/1 ML SDV IV SCH (06:20)
[2020-01-16] MEDS ORDERED: (PENDING PHARMACY ID) (Mirabegron [Myrbetriq] 25 MG) PO SCH (08:00)
[2020-01-16] MEDS ORDERED: HYDROCHLOROTHIAZIDE PO SCH (08:00)
[2020-01-16] MEDS ORDERED: [UNRECOGNIZED DRUG - OTHER] PO SCH (08:00)
[2020-01-16] MEDS ORDERED: OLMESARTAN PO SCH (08:00)
[2020-01-16] MEDS ORDERED: (PENDING PHARMACY ID) (Metformin Hcl [Metformin Hcl Er] 500 MG) PO SCH (08:00)
[2020-01-16] MEDS ORDERED: DEXTROSE 5%-NORMAL SALINE 1,000 ML IV PRN (08:13)
[2020-01-16] MEDS: LEVOTHYROXINE SODIUM 0.1 MG TABLET PO SCH (09:10)
[2020-01-16] MEDS: DILTIAZEM HCL 180 MG CAPSULE.CR PO SCH ×2 (09:10→22:18)
[2020-01-16] MEDS: PIOGLITAZONE HCL 15 MG TABLET PO SCH (09:10)
[2020-01-16] MEDS: LEVOTHYROXINE SODIUM 0.075 MG TABLET PO SCH (09:11)
[2020-01-16] MEDS: DULOXETINE HCL 30 MG CAPSULE.DR PO SCH ×2 (09:11→22:18)
[2020-01-16] MEDS: ALLOPURINOL 100 MG TABLET PO SCH ×2 (09:11→16:59)
[2020-01-16] MEDS: HYDROCHLOROTHIAZIDE 25 MG TABLET PO SCH (09:11)
[2020-01-16] MEDS: LOSARTAN POTASSIUM 50 MG TABLET PO SCH (09:11)
[2020-01-16] MEDS ORDERED: (PENDING PHARMACY ID) (Levothyroxine Sodium [Levothyroxine Sodium] 175 MCG) PO SCH (10:00)
[2020-01-16] MEDS ORDERED: (PENDING PHARMACY ID) (Empagliflozin [Jardiance] 25 MG) PO SCH (10:00)
[2020-01-16] MEDS ORDERED: (PENDING PHARMACY ID) (Dapagliflozin Propanediol [Farxiga] 10 MG) PO SCH (10:00)
[2020-01-16] MEDS: FLUTICASONE/UMECLIDIN/VILANTER 100-62.5-25 MCG/DOSE IH SCH (10:26)
[2020-01-16 10:29] LABS: ALBUMIN 3.9 g/dL (3.5-5.0); ALKALINE PHOSPHATASE 75 U/L (38-126); ANION GAP 9 (5-19); ASPARTATE AMINO TRANSFERASE 36 U/L (17-59); BILIRUBIN,DIRECT 0.1 mg/dL (0.0-0.4); BILIRUBIN,TOTAL 0.5 mg/dL (0.2-1.3); BLOOD UREA NITROGEN 47 mg/dL (7-20); CALCIUM 9.4 mg/dL (8.4-10.2); CARBON DIOXIDE 30 mmol/L (22-30); CHLORIDE 98 mmol/L (98-107); GLUCOSE 218 mg/dL (75-110); POTASSIUM 4.5 mmol/L (3.6-5.0)
[2020-01-16 13:08] LABS: ALKALINE PHOSPHATASE 81 U/L (38-126); ANION GAP 9 (5-19); ASPARTATE AMINO TRANSFERASE 37 U/L (17-59); BILIRUBIN,DIRECT 0.1 mg/dL (0.0-0.4); BILIRUBIN,TOTAL 0.5 mg/dL (0.2-1.3); BLOOD UREA NITROGEN 46 mg/dL (7-20); CALCIUM 9.5 mg/dL (8.4-10.2); CARBON DIOXIDE 29 mmol/L (22-30); CHLORIDE 99 mmol/L (98-107); GLUCOSE 207 mg/dL (75-110); POTASSIUM 4.5 mmol/L (3.6-5.0); TOTAL PROTEIN 7.2 g/dL (6.3-8.2)
[2020-01-16] MEDS ORDERED: INSULIN GLARGINE,HUM.REC.ANLOG 1,000 UNIT/10 ML VIAL (PYX) SUBCUT ONE (13:45)
[2020-01-16] MEDS: NORMAL SALINE 1000 ML 1,000 ML IV PRN (13:53)
[2020-01-16] MEDS ORDERED: DEXTROSE 50%-WATER SYRINGE 12.5 GM/25 ML DOSE IV PRN (15:30)
[2020-01-16] MEDS ORDERED: DEXTROSE 40% GEL 15 GM TUBE PO PRN (15:30)
[2020-01-16] MEDS ORDERED: DEXTROSE 50%-WATER SYRINGE 25 GM/50 ML DOSE IV PRN (15:30)
[2020-01-16] MEDS ORDERED: GLUCAGON,HUMAN RECOMB 1 MG INJ IM PRN (15:30)
[2020-01-16] MEDS ORDERED: DEXTROSE 40% GEL 15 GM TUBE X 2 PO PRN (15:30)
[2020-01-16] MEDS: APIXABAN 2.5 MG TABLET PO SCH (17:00)
[2020-01-16] MEDS: INSULIN LISPRO 100 UNIT/ML 3 ML VIAL SUBCUT SCH ×2 (17:00→22:19)
[2020-01-16 17:22] LABS: ALKALINE PHOSPHATASE 86 U/L (38-126); ANION GAP 14 (5-19); ASPARTATE AMINO TRANSFERASE 36 U/L (17-59); BILIRUBIN,DIRECT 0.1 mg/dL (0.0-0.4); BILIRUBIN,TOTAL 0.5 mg/dL (0.2-1.3); BLOOD UREA NITROGEN 47 mg/dL (7-20); CARBON DIOXIDE 26 mmol/L (22-30); CHLORIDE 97 mmol/L (98-107); GLUCOSE 312 mg/dL (75-110); TOTAL PROTEIN 6.7 g/dL (6.3-8.2)
--- NOTE | 2020-01-16 21:17 | PDOC PROGRESS REPORT ---
Subjective Progress Note for:: 01/16/20 Subjective:: Patient was admitted when he presented with acute hypercapnic respiratory failure due to COPD exacerbation, he had DKA today as well, he was seen by the bedside, patient complaining of shortness of breath on mild exertion. Reason For Visit: ACUTE ON CHRONIC RESPIRATORY FAILURE WITH Physical Exam Vital Signs: Temp Pulse Resp BP Pulse Ox 97.5 F 87 16 113/74 95 01/16/20 15:21 01/16/20 19:00 01/16/20 16:40 01/16/20 15:21 01/16/20 16:40 Intake & Output 01/15/20 01/16/20 01/17/20 06:59 06:59 06:59 Intake Total 482 2861 2600 Output Total 1100 2450 600 Balance -662 494 2236 Weight 148.5 kg General appearance: PRESENT: no acute distress Head exam: PRESENT: atraumatic, normocephalic Eye exam: PRESENT: PERRLA Neck exam: PRESENT: full ROM Respiratory exam: PRESENT: clear to auscultation milena Cardiovascular exam: PRESENT: +S1, +S2 Vascular exam: PRESENT: normal capillary refill GI/Abdominal exam: PRESENT: normal bowel sounds, soft Rectal exam: PRESENT: deferred Neurological exam: PRESENT: alert, CN II-XII grossly intact Psychiatric exam: PRESENT: appropriate affect, normal mood Skin exam: PRESENT: dry, intact, warm. ABSENT: cyanosis, rash Results Laboratory Results: 01/15/20 05:58 01/16/20 16:48 01/16/20 01/16/20 01/16/20 09:41 12:30 16:48 Sodium 137.1 136.9 L 136.7 L Potassium 4.5 4.5 5.0 Chloride 98 99 97 L Carbon Dioxide 30 29 26 Anion Gap 9 9 14 BUN 47 H 46 H 47 H Creatinine 1.96 H 2.02 H 2.16 H Est GFR ( Amer) 40 L 39 L 36 L Glucose 218 H 207 H 312 H Calcium 9.4 9.5 9.0 Total Bilirubin 0.5 0.5 0.5 AST 36 37 36 Alkaline Phosphatase 75 81 86 Total Protein 7.0 7.2 6.7 Albumin 3.9 4.0 4.0 01/14/20 01/14/20 11:55 11:55 Creatine Kinase 54 L CK-MB (CK-2) 1.03 Troponin I < 0.012 NT-Pro-B Natriuret Pep 165 Impressions: Chest X-Ray 01/14/20 11:54 IMPRESSION: Mild increased basilar interstitial markings. No consolidation or significant pleural effusion. Assessment & Plan - Diagnosis (1) Acute hypercapnic respiratory failure Is this a current diagnosis for this admission?: Yes Plan: Patient not presently requiring requiring BiPAP (2) Acute kidney injury Is this a current diagnosis for this admission?: Yes (3) Type 2 diabetes mellitus with diabetic polyneuropathy Qualifiers: Diabetes mellitus fdc insulin use: with fdc use Qualified Code(s): E11.42 - Type 2 diabetes mellitus with diabetic polyneuropathy; Z79.4 - nursing home (current) use of insulin Is this a current diagnosis for this admission?: Yes Plan: Patient presently on IV insulin drip, DC insulin drip, start Lantus insulin DC 5% dextrose with normal saline (4) COPD with exacerbation Is this a current diagnosis for this admission?: Yes Plan: DC Solu-Medrol start Trelegy (5) Paroxysmal atrial fibrillation Is this a current diagnosis for this admission?: Yes Plan: Continue anticoagulation - Time Time Spent with patient: 35 or more minutes Level of Care: CU
[2020-01-16] MEDS ORDERED: INSULIN GLARGINE,HUM.REC.ANLOG 1,000 UNIT/10 ML VIAL SUBCUT SCH (22:00)
[2020-01-16] MEDS: DONEPEZIL HCL 5 MG TABLET PO SCH (22:18)
[2020-01-16] MEDS: MELATONIN 5 MG TABLET PO SCH (22:19)
[2020-01-16 23:12] LABS: ALBUMIN 3.6 g/dL (3.5-5.0); ALKALINE PHOSPHATASE 76 U/L (38-126); ANION GAP 11 (5-19); ASPARTATE AMINO TRANSFERASE 38 U/L (17-59); BILIRUBIN,DIRECT 0.1 mg/dL (0.0-0.4); BILIRUBIN,TOTAL 0.5 mg/dL (0.2-1.3); BLOOD UREA NITROGEN 50 mg/dL (7-20); CARBON DIOXIDE 26 mmol/L (22-30); CHLORIDE 97 mmol/L (98-107); POTASSIUM 4.5 mmol/L (3.6-5.0); TOTAL PROTEIN 6.4 g/dL (6.3-8.2)
[2020-01-16 23:21] LABS: GLUCOSE 433 mg/dL (75-110)
[2020-01-17] MEDS: PRAMIPEXOLE DI-HCL 0.5 MG TABLET PO SCH ×2 (05:30→17:00)
[2020-01-17] MEDS: BUSPIRONE HCL 10 MG TABLET PO SCH ×2 (05:35→17:00)
[2020-01-17] MEDS: PANTOPRAZOLE SODIUM 40 MG TABLET.DR PO SCH (05:35)
[2020-01-17] MEDS: HYDROCHLOROTHIAZIDE 25 MG TABLET PO SCH (07:54)
[2020-01-17] MEDS: LOSARTAN POTASSIUM 50 MG TABLET PO SCH (07:54)
[2020-01-17] MEDS: INSULIN LISPRO 100 UNIT/ML 3 ML VIAL SUBCUT SCH ×4 (07:55→22:45)
[2020-01-17] MEDS: DILTIAZEM HCL 180 MG CAPSULE.CR PO SCH ×2 (09:40→22:38)
[2020-01-17] MEDS: LEVOTHYROXINE SODIUM 0.1 MG TABLET PO SCH (09:40)
[2020-01-17] MEDS: PIOGLITAZONE HCL 15 MG TABLET PO SCH (09:40)
[2020-01-17] MEDS: ALLOPURINOL 100 MG TABLET PO SCH ×2 (09:40→17:00)
[2020-01-17] MEDS: DULOXETINE HCL 30 MG CAPSULE.DR PO SCH ×2 (09:40→22:38)
[2020-01-17] MEDS: FLUTICASONE/UMECLIDIN/VILANTER 100-62.5-25 MCG/DOSE IH SCH (09:40)
[2020-01-17] MEDS: LEVOTHYROXINE SODIUM 0.075 MG TABLET PO SCH (09:40)
[2020-01-17] MEDS ORDERED: INSULIN GLARGINE,HUM.REC.ANLOG 1,000 UNIT/10 ML VIAL (PYX) SUBCUT ONE (11:45)
[2020-01-17] MEDS: APIXABAN 2.5 MG TABLET PO SCH (17:00)
--- NOTE | 2020-01-17 21:50 | PDOC PROGRESS REPORT ---
Subjective Progress Note for:: 01/17/20 Subjective:: Patient seen by the bedside, he has persistent elevated blood sugar Reason For Visit: ACUTE ON CHRONIC RESPIRATORY FAILURE WITH Physical Exam Vital Signs: Temp Pulse Resp BP Pulse Ox 97.3 F 80 16 130/76 H 92 01/17/20 15:41 01/17/20 19:00 01/17/20 16:00 01/17/20 15:41 01/17/20 16:00 Intake & Output 01/16/20 01/17/20 01/18/20 06:59 06:59 06:59 Intake Total 2861 3122 1044 Output Total 2450 2100 1450 Balance 411 1022 -406 Weight 147.1 kg General appearance: PRESENT: no acute distress Eye exam: PRESENT: PERRLA Respiratory exam: PRESENT: clear to auscultation milena Cardiovascular exam: PRESENT: +S1, +S2 GI/Abdominal exam: PRESENT: soft Neurological exam: PRESENT: alert Results Laboratory Results: 01/15/20 05:58 01/16/20 22:27 01/16/20 22:27 Sodium 134.0 L Potassium 4.5 Chloride 97 L Carbon Dioxide 26 Anion Gap 11 BUN 50 H Creatinine 2.16 H Est GFR ( Amer) 36 L Glucose 433 H* Calcium 9.0 Total Bilirubin 0.5 AST 38 Alkaline Phosphatase 76 Total Protein 6.4 Albumin 3.6 01/14/20 01/14/20 11:55 11:55 Creatine Kinase 54 L CK-MB (CK-2) 1.03 Troponin I < 0.012 NT-Pro-B Natriuret Pep 165 Impressions: Chest X-Ray 01/14/20 11:54 IMPRESSION: Mild increased basilar interstitial markings. No consolidation or significant pleural effusion. Assessment & Plan - Diagnosis (1) Acute hypercapnic respiratory failure Is this a current diagnosis for this admission?: Yes (2) Acute kidney injury Is this a current diagnosis for this admission?: Yes (3) Type 2 diabetes mellitus with diabetic polyneuropathy Qualifiers: Diabetes mellitus intermission coordinator insulin use: with residential use Qualified Code(s): E11.42 - Type 2 diabetes mellitus with diabetic polyneuropathy; Z79.4 - senior living (current) use of insulin Is this a current diagnosis for this admission?: Yes Plan: continue treatment (4) COPD with exacerbation Is this a current diagnosis for this admission?: Yes Plan: continue Trelegy (5) Paroxysmal atrial fibrillation Is this a current diagnosis for this admission?: Yes Plan: Continue anticoagulation (6) Diabetic hyperosmolar non-ketotic state Is this a current diagnosis for this admission?: Yes Plan: Increase Lantus dose - Time Time Spent with patient: 25-34 minutes Level of Care: IMCU
[2020-01-17 22:30] LABS: ALBUMIN 3.8 g/dL (3.5-5.0); ALKALINE PHOSPHATASE 83 U/L (38-126); ANION GAP 8 (5-19); ASPARTATE AMINO TRANSFERASE 50 U/L (17-59); BILIRUBIN,DIRECT 0.2 mg/dL (0.0-0.4); BILIRUBIN,TOTAL 0.5 mg/dL (0.2-1.3); BLOOD UREA NITROGEN 48 mg/dL (7-20); CALCIUM 9.3 mg/dL (8.4-10.2); CARBON DIOXIDE 31 mmol/L (22-30); CHLORIDE 96 mmol/L (98-107); GLUCOSE 359 mg/dL (75-110); POTASSIUM 4.3 mmol/L (3.6-5.0); TOTAL PROTEIN 6.7 g/dL (6.3-8.2)
[2020-01-17] MEDS: INSULIN GLARGINE,HUM.REC.ANLOG 1,000 UNIT/10 ML VIAL SUBCUT SCH (22:38)
[2020-01-17] MEDS: MELATONIN 5 MG TABLET PO SCH (22:38)
[2020-01-17] MEDS: DONEPEZIL HCL 5 MG TABLET PO SCH (22:45)
[2020-01-18] MEDS: PRAMIPEXOLE DI-HCL 0.5 MG TABLET PO SCH ×2 (05:59→17:06)
[2020-01-18] MEDS: BUSPIRONE HCL 10 MG TABLET PO SCH ×2 (05:59→17:05)
[2020-01-18] MEDS: PANTOPRAZOLE SODIUM 40 MG TABLET.DR PO SCH (05:59)
[2020-01-18 06:09] LABS: ALBUMIN 3.9 g/dL (3.5-5.0); ALKALINE PHOSPHATASE 82 U/L (38-126); ANION GAP 10 (5-19); ASPARTATE AMINO TRANSFERASE 49 U/L (17-59); BILIRUBIN,DIRECT 0.1 mg/dL (0.0-0.4); BILIRUBIN,TOTAL 0.5 mg/dL (0.2-1.3); BLOOD UREA NITROGEN 45 mg/dL (7-20); CALCIUM 9.4 mg/dL (8.4-10.2); CARBON DIOXIDE 32 mmol/L (22-30); CHLORIDE 95 mmol/L (98-107); GLUCOSE 301 mg/dL (75-110); POTASSIUM 4.1 mmol/L (3.6-5.0); TOTAL PROTEIN 6.8 g/dL (6.3-8.2)
[2020-01-18] MEDS ORDERED: IPRATROPIUM/ALBUTEROL 0.5-2.5 MG/3 ML AMPUL NEB PRN (08:31)
[2020-01-18 08:35] LABS: ABSOLUTE MONOCYTES (AUTO) 0.6 10^3/uL (0.1-1.4); ABSOLUTE NEUT (AUTO) 3.4 10^3/uL (1.7-8.2); BASOPHILS % (AUTO) 0.5 % (0-2); EOSINOPHILS % (AUTO) 0.6 % (0-6); HEMATOCRIT 36.3 % (37.9-51.0); MEAN CORPUSCULAR HEMOGLOBIN 29.8 pg (27.0-33.4); MEAN CORPUSCULAR VOLUME 90 fl (80-97); MONOCYTES % (AUTO) 11.3 % (3-13); PLATELET COUNT 220 10^3/uL (150-450); RED BLOOD COUNT 4.02 10^6/uL (4.35-5.55); RED CELL DISTRIBUTION WIDTH 15.5 % (11.5-14.0); SEGMENTED NEUTROPHILS % (AUTO) 67.6 % (42-78); TOTAL CELLS COUNTED % (AUTO) 100 %; WHITE BLOOD COUNT 5.1 10^3/uL (4.0-10.5)
[2020-01-18] MEDS: PIOGLITAZONE HCL 15 MG TABLET PO SCH (09:04)
[2020-01-18] MEDS: DULOXETINE HCL 30 MG CAPSULE.DR PO SCH ×2 (09:05→21:59)
[2020-01-18] MEDS: LEVOTHYROXINE SODIUM 0.1 MG TABLET PO SCH (09:05)
[2020-01-18] MEDS: LEVOTHYROXINE SODIUM 0.075 MG TABLET PO SCH (09:05)
[2020-01-18] MEDS: ALLOPURINOL 100 MG TABLET PO SCH ×2 (09:05→17:06)
[2020-01-18] MEDS: DILTIAZEM HCL 180 MG CAPSULE.CR PO SCH ×2 (09:05→21:58)
[2020-01-18] MEDS: FLUTICASONE/UMECLIDIN/VILANTER 100-62.5-25 MCG/DOSE IH SCH (09:06)
[2020-01-18] MEDS: LOSARTAN POTASSIUM 50 MG TABLET PO SCH (09:06)
[2020-01-18] MEDS: INSULIN LISPRO 100 UNIT/ML 3 ML VIAL SUBCUT SCH ×4 (09:06→21:59)
[2020-01-18] MEDS: HYDROCHLOROTHIAZIDE 25 MG TABLET PO SCH (09:07)
--- NOTE | 2020-01-18 09:32 | RADIOLOGY REPORT (SQ) ---
EXAM DESCRIPTION: CHEST SINGLE VIEW IMAGES COMPLETED DATE/TIME: 01/18/2020 9:20 am REASON FOR STUDY: pneumonia COMPARISON: AP view of the chest from 01/14/2020. EXAM PARAMETERS: NUMBER OF VIEWS: One view. TECHNIQUE: An AP view of the chest was obtained. RADIATION DOSE: NA LIMITATIONS: None. FINDINGS: LUNGS AND PLEURA: Unchanged radiographic appearance of the lungs and pleura. MEDIASTINUM AND HILAR STRUCTURES: Stable mediastinal and hilar contours. HEART AND VASCULAR STRUCTURES: Stable enlarged cardiac silhouette. BONES: No acute findings. HARDWARE: None in the chest. OTHER: No other finding. IMPRESSION: Unchanged radiographic appearance of the chest with cardiomegaly and increased basilar i nterstitial markings. TECHNICAL DOCUMENTATION: JOB ID: [id number] 2010 [employer]- All Rights Reserved Reading location - IP/workstation name: [email or web address]
[2020-01-18] MEDS: APIXABAN 2.5 MG TABLET PO SCH (17:05)
--- NOTE | 2020-01-18 17:11 | PDOC PROGRESS REPORT ---
Subjective Progress Note for:: 01/18/20 Subjective:: Patient seen by the bedside, he said he does not feel too well today, I explained to him that the reason could be partly because the blood sugar is getting normalized from the uncontrolled state of over 400, It is not uncommon for people to feel unwell when severe hyperglycemia is slowly getting normalized.He said he has less shortness of breath Reason For Visit: ACUTE ON CHRONIC RESPIRATORY FAILURE WITH Physical Exam Vital Signs: Temp Pulse Resp BP Pulse Ox 97.4 F 76 17 115/68 97 01/18/20 11:40 01/18/20 14:00 01/18/20 11:40 01/18/20 11:40 01/18/20 11:40 Intake & Output 01/17/20 01/18/20 01/19/20 06:59 06:59 06:59 Intake Total 3122 1566 Output Total 2100 2800 Balance 1022 -1234 Weight 147.1 kg 149.9 kg General appearance: PRESENT: no acute distress Respiratory exam: PRESENT: clear to auscultation milena Cardiovascular exam: PRESENT: +S1, +S2 GI/Abdominal exam: PRESENT: soft Neurological exam: PRESENT: alert, CN II-XII grossly intact Results Laboratory Results: 01/18/20 04:40 01/18/20 04:40 01/17/20 01/18/20 01/18/20 22:00 04:40 04:40 WBC 5.1 RBC 4.02 L Hgb 12.0 L Hct 36.3 L MCV 90 MCH 29.8 MCHC 33.0 RDW 15.5 H Plt Count 220 Seg Neutrophils % 67.6 Sodium 135.3 L 137.1 Potassium 4.3 4.1 Chloride 96 L 95 L Carbon Dioxide 31 H 32 H Anion Gap 8 10 BUN 48 H 45 H Creatinine 1.85 H 1.82 H Est GFR ( Amer) 43 L 44 L Glucose 359 H 301 H Calcium 9.3 9.4 Total Bilirubin 0.5 0.5 AST 50 49 Alkaline Phosphatase 83 82 Total Protein 6.7 6.8 Albumin 3.8 3.9 01/14/20 01/14/20 11:55 11:55 Creatine Kinase 54 L CK-MB (CK-2) 1.03 Troponin I < 0.012 NT-Pro-B Natriuret Pep 165 Impressions: Chest X-Ray 01/18/20 00:00 IMPRESSION: Unchanged radiographic appearance of the chest with cardiomegaly and increased basilar interstitial markings. Assessment & Plan - Diagnosis (1) Acute hypercapnic respiratory failure Is this a current diagnosis for this admission?: Yes Plan: Patient no longer requiring BiPAP, PFT ordered (2) Acute kidney injury Is this a current diagnosis for this admission?: Yes (3) Type 2 diabetes mellitus with diabetic polyneuropathy Qualifiers: Diabetes mellitus detention insulin use: with long term care administrator use Qualified Code(s): E11.42 - Type 2 diabetes mellitus with diabetic polyneuropathy; Z79.4 - elderly caregiver (current) use of insulin Is this a current diagnosis for this admission?: Yes (4) COPD with exacerbation Is this a current diagnosis for this admission?: Yes (5) Paroxysmal atrial fibrillation Is this a current diagnosis for this admission?: Yes (6) Diabetic hyperosmolar non-ketotic state Is this a current diagnosis for this admission?: Yes - Time Time Spent with patient: 25-34 minutes Level of Care: CU
[2020-01-18] MEDS: MELATONIN 5 MG TABLET PO SCH (21:57)
[2020-01-18] MEDS: DONEPEZIL HCL 5 MG TABLET PO SCH (21:58)
[2020-01-18] MEDS: INSULIN GLARGINE,HUM.REC.ANLOG 1,000 UNIT/10 ML VIAL SUBCUT SCH (22:00)
[2020-01-19] MEDS: PANTOPRAZOLE SODIUM 40 MG TABLET.DR PO SCH (05:52)
[2020-01-19] MEDS: PRAMIPEXOLE DI-HCL 0.5 MG TABLET PO SCH ×2 (05:52→17:48)
[2020-01-19] MEDS: BUSPIRONE HCL 10 MG TABLET PO SCH ×2 (05:52→17:43)
[2020-01-19] MEDS: INSULIN LISPRO 100 UNIT/ML 3 ML VIAL SUBCUT SCH ×4 (09:17→22:04)
[2020-01-19] MEDS: DULOXETINE HCL 30 MG CAPSULE.DR PO SCH ×2 (09:27→22:03)
[2020-01-19] MEDS: HYDROCHLOROTHIAZIDE 25 MG TABLET PO SCH (09:28)
[2020-01-19] MEDS: DILTIAZEM HCL 180 MG CAPSULE.CR PO SCH ×2 (09:28→22:04)
[2020-01-19] MEDS: PIOGLITAZONE HCL 15 MG TABLET PO SCH (09:28)
[2020-01-19] MEDS: LEVOTHYROXINE SODIUM 0.075 MG TABLET PO SCH (09:28)
[2020-01-19] MEDS: LOSARTAN POTASSIUM 50 MG TABLET PO SCH (09:28)
[2020-01-19] MEDS: LEVOTHYROXINE SODIUM 0.1 MG TABLET PO SCH (09:28)
[2020-01-19] MEDS: ALLOPURINOL 100 MG TABLET PO SCH ×2 (09:28→17:43)
[2020-01-19] MEDS: FLUTICASONE/UMECLIDIN/VILANTER 100-62.5-25 MCG/DOSE IH SCH (09:29)
[2020-01-19] MEDS: NORMAL SALINE 1000 ML 1,000 ML IV PRN (09:30)
[2020-01-19] MEDS: APIXABAN 2.5 MG TABLET PO SCH (17:43)
--- NOTE | 2020-01-19 21:01 | PDOC PROGRESS REPORT ---
Subjective Progress Note for:: 01/19/20 Subjective:: patient seen by the bedside, Glucose control improved, patient less short of breath, scheduled for PFT tomorrow Reason For Visit: ACUTE ON CHRONIC RESPIRATORY FAILURE WITH Physical Exam Vital Signs: Temp Pulse Resp BP Pulse Ox 98.0 F 97 22 H 108/64 94 01/19/20 16:18 01/19/20 19:00 01/19/20 16:18 01/19/20 16:18 01/19/20 16:18 Intake & Output 01/18/20 01/19/20 01/20/20 06:59 06:59 06:59 Intake Total 2566 962 1422 Output Total 2800 9165 950 Balance -234 -1413 472 Weight 149.9 kg 149.3 kg General appearance: PRESENT: no acute distress Eye exam: PRESENT: PERRLA Respiratory exam: PRESENT: clear to auscultation milena Cardiovascular exam: PRESENT: +S1, +S2 GI/Abdominal exam: PRESENT: soft Neurological exam: PRESENT: alert Results Laboratory Results: 01/18/20 04:40 01/18/20 04:40 01/14/20 01/14/20 11:55 11:55 Creatine Kinase 54 L CK-MB (CK-2) 1.03 Troponin I < 0.012 NT-Pro-B Natriuret Pep 165 Impressions: Chest X-Ray 01/18/20 00:00 IMPRESSION: Unchanged radiographic appearance of the chest with cardiomegaly and increased basilar interstitial markings. Assessment & Plan - Diagnosis (1) Acute hypercapnic respiratory failure Is this a current diagnosis for this admission?: Yes Plan: PFT ordered (2) Acute kidney injury Is this a current diagnosis for this admission?: Yes (3) Type 2 diabetes mellitus with diabetic polyneuropathy Qualifiers: Diabetes mellitus fci insulin use: with termite technician use Qualified Code(s): E11.42 - Type 2 diabetes mellitus with diabetic polyneuropathy; Z79.4 - group home (current) use of insulin Is this a current diagnosis for this admission?: Yes Plan: Continue treatment (4) COPD with exacerbation Is this a current diagnosis for this admission?: Yes (5) Paroxysmal atrial fibrillation Is this a current diagnosis for this admission?: Yes (6) Diabetic hyperosmolar non-ketotic state Is this a current diagnosis for this admission?: Yes - Time Time Spent with patient: 15-24 minutes Level of Care: IMCU
[2020-01-19] MEDS: MELATONIN 5 MG TABLET PO SCH (22:04)
[2020-01-19] MEDS: DONEPEZIL HCL 5 MG TABLET PO SCH (22:04)
[2020-01-19] MEDS: INSULIN GLARGINE,HUM.REC.ANLOG 1,000 UNIT/10 ML VIAL SUBCUT SCH (22:05)
[2020-01-20] MEDS: PANTOPRAZOLE SODIUM 40 MG TABLET.DR PO SCH (05:30)
[2020-01-20] MEDS: BUSPIRONE HCL 10 MG TABLET PO SCH ×2 (05:30→17:32)
[2020-01-20] MEDS: PRAMIPEXOLE DI-HCL 0.5 MG TABLET PO SCH ×2 (05:31→17:32)
[2020-01-20] MEDS: HYDROCHLOROTHIAZIDE 25 MG TABLET PO SCH (08:15)
[2020-01-20] MEDS: INSULIN LISPRO 100 UNIT/ML 3 ML VIAL SUBCUT SCH ×4 (08:15→21:20)
[2020-01-20] MEDS: LOSARTAN POTASSIUM 50 MG TABLET PO SCH (08:15)
[2020-01-20] MEDS: IPRATROPIUM/ALBUTEROL 0.5-2.5 MG/3 ML AMPUL NEB PRN (10:36)
[2020-01-20] MEDS: LEVOTHYROXINE SODIUM 0.075 MG TABLET PO SCH (12:01)
[2020-01-20] MEDS: LORATADINE 10 MG TABLET PO SCH (12:01)
[2020-01-20] MEDS: DILTIAZEM HCL 180 MG CAPSULE.CR PO SCH ×2 (12:01→21:23)
[2020-01-20] MEDS: LEVOTHYROXINE SODIUM 0.1 MG TABLET PO SCH (12:01)
[2020-01-20] MEDS: PIOGLITAZONE HCL 15 MG TABLET PO SCH (12:01)
[2020-01-20] MEDS: ALLOPURINOL 100 MG TABLET PO SCH ×2 (12:01→17:32)
[2020-01-20] MEDS: DULOXETINE HCL 30 MG CAPSULE.DR PO SCH ×2 (12:02→21:22)
[2020-01-20] MEDS: FLUTICASONE/UMECLIDIN/VILANTER 100-62.5-25 MCG/DOSE IH SCH (12:02)
[2020-01-20] MEDS: APIXABAN 2.5 MG TABLET PO SCH (17:32)
[2020-01-20] MEDS: DONEPEZIL HCL 5 MG TABLET PO SCH (21:20)
[2020-01-20] MEDS: MELATONIN 5 MG TABLET PO SCH (21:20)
[2020-01-20] MEDS: INSULIN GLARGINE,HUM.REC.ANLOG 1,000 UNIT/10 ML VIAL SUBCUT SCH (21:23)
--- NOTE | 2020-01-20 22:28 | PDOC PROGRESS REPORT ---
Subjective Progress Note for:: 01/20/20 Subjective:: Patient seen by the bedside, he had full PFT today demonstrated combination of obstructive and restrictive pattern Reason For Visit: ACUTE ON CHRONIC RESPIRATORY FAILURE WITH Physical Exam Vital Signs: Temp Pulse Resp BP Pulse Ox 97.6 F 98 16 120/68 91 L 01/20/20 19:16 01/20/20 19:16 01/20/20 19:16 01/20/20 19:16 01/20/20 19:16 Intake & Output 01/19/20 01/20/20 01/21/20 06:59 06:59 06:59 Intake Total 962 1942 1714 Output Total 2375 2050 800 Balance -1413 -108 914 Weight 149.3 kg 148.2 kg 148.2 kg General appearance: PRESENT: no acute distress Head exam: PRESENT: atraumatic, normocephalic Eye exam: PRESENT: conjunctiva pink, EOMI, PERRLA Ear exam: PRESENT: normal external ear exam Mouth exam: PRESENT: moist, tongue midline Neck exam: PRESENT: full ROM Respiratory exam: PRESENT: clear to auscultation milena Cardiovascular exam: PRESENT: RRR, +S1, +S2 Pulses: PRESENT: normal dorsalis pedis pul, +2 pedal pulses bilateral Vascular exam: PRESENT: normal capillary refill GI/Abdominal exam: PRESENT: normal bowel sounds, soft Rectal exam: PRESENT: deferred Neurological exam: PRESENT: alert, CN II-XII grossly intact Psychiatric exam: PRESENT: appropriate affect, normal mood Skin exam: PRESENT: dry, intact, warm Results Laboratory Results: 01/18/20 04:40 01/18/20 04:40 01/14/20 01/14/20 11:55 11:55 Creatine Kinase 54 L CK-MB (CK-2) 1.03 Troponin I < 0.012 NT-Pro-B Natriuret Pep 165 Impressions: Chest X-Ray 01/18/20 00:00 IMPRESSION: Unchanged radiographic appearance of the chest with cardiomegaly and increased basilar interstitial markings. Assessment & Plan - Diagnosis (1) Acute hypercapnic respiratory failure Is this a current diagnosis for this admission?: Yes (2) Acute kidney injury Is this a current diagnosis for this admission?: Yes (3) Type 2 diabetes mellitus with diabetic polyneuropathy Qualifiers: Diabetes mellitus termite treater insulin use: with jail use Qualified Code(s): E11.42 - Type 2 diabetes mellitus with diabetic polyneuropathy; Z79.4 - jail (current) use of insulin Is this a current diagnosis for this admission?: Yes (4) COPD with exacerbation Is this a current diagnosis for this admission?: Yes (5) Paroxysmal atrial fibrillation Is this a current diagnosis for this admission?: Yes (6) Diabetic hyperosmolar non-ketotic state Is this a current diagnosis for this admission?: Yes - Time Time Spent with patient: 15-24 minutes
[2020-01-21] MEDS: BUSPIRONE HCL 10 MG TABLET PO SCH (06:09)
[2020-01-21] MEDS: PRAMIPEXOLE DI-HCL 0.5 MG TABLET PO SCH (06:12)
[2020-01-21] MEDS: PANTOPRAZOLE SODIUM 40 MG TABLET.DR PO SCH (06:12)
[2020-01-21] MEDS: HYDROCHLOROTHIAZIDE 25 MG TABLET PO SCH (08:23)
[2020-01-21] MEDS: INSULIN LISPRO 100 UNIT/ML 3 ML VIAL SUBCUT SCH ×2 (08:23→11:56)
[2020-01-21] MEDS: LOSARTAN POTASSIUM 50 MG TABLET PO SCH (08:23)
[2020-01-21] MEDS: LORATADINE 10 MG TABLET PO SCH (09:51)
[2020-01-21] MEDS: PIOGLITAZONE HCL 15 MG TABLET PO SCH (09:51)
[2020-01-21] MEDS: DILTIAZEM HCL 180 MG CAPSULE.CR PO SCH (09:51)
[2020-01-21] MEDS: LEVOTHYROXINE SODIUM 0.075 MG TABLET PO SCH (09:51)
[2020-01-21] MEDS: LEVOTHYROXINE SODIUM 0.1 MG TABLET PO SCH (09:51)
[2020-01-21] MEDS: FLUTICASONE/UMECLIDIN/VILANTER 100-62.5-25 MCG/DOSE IH SCH (09:52)
[2020-01-21] MEDS: ALLOPURINOL 100 MG TABLET PO SCH (09:52)
[2020-01-21] MEDS: DULOXETINE HCL 30 MG CAPSULE.DR PO SCH (09:52)
--- NOTE | 2020-01-21 12:47 | PDOC DISCHARGE SUMMARY ---
Impression - Admit/DC Date/PCP Admission Date/Primary Care Provider: 01/14/20 16:37 SILVANO JORDAN MD Discharge Date: 01/21/20 - Discharge Diagnosis (1) COPD with exacerbation Is this a current diagnosis for this admission?: Yes (2) Acute hypercapnic respiratory failure Is this a current diagnosis for this admission?: Yes (3) Acute kidney injury Is this a current diagnosis for this admission?: Yes (4) Type 2 diabetes mellitus with diabetic polyneuropathy Is this a current diagnosis for this admission?: Yes (5) Paroxysmal atrial fibrillation Is this a current diagnosis for this admission?: Yes (6) Diabetic hyperosmolar non-ketotic state Is this a current diagnosis for this admission?: Yes - Additional Information Resuscitation Status: Do Not Resuscitate Referrals: SILVANO JORDAN MD [Primary Care Provider] - Follow up as needed Prescriptions: Insulin Glargine,Hum.rec.anlog [Lantus Insulin 100 Unit/1 ml 10 ml] 60 unit SUBCUT QHS #3 unit Home Medications: Allopurinol [Zyloprim 100 mg Tablet] 100 mg PO BID 09/15/19 Apixaban [Eliquis 2.5 mg Tablet] 2.5 mg PO QPM 09/15/19 Buspirone HCl 15 mg PO BID 09/15/19 Diltiazem HCl [Diltiazem 24Hr ER] 180 mg PO Q12 09/15/19 Donepezil HCl [Aricept 5 mg Tablet] 5 mg PO QHS 09/15/19 Metformin HCl [Metformin HCl ER] 500 mg PO QAM 09/15/19 Olmesartan/Hydrochlorothiazide [Olmesartan-Hctz 40-25 mg Tab] 1 tab PO QAM 09/15/19 Pantoprazole Sodium [Protonix [address] Tablet] 40 mg PO QPM 09/15/19 Duloxetine HCl [Cymbalta] 60 mg PO Q12 01/04/20 Melatonin 10 mg PO QHS 01/04/20 Mirabegron [Myrbetriq] 25 mg PO QAM 01/04/20 Pramipexole Di-HCl [Mirapex] 1.5 mg PO BID 01/04/20 Empagliflozin [Jardiance] 25 mg PO DAILY #90 tablet 01/08/20 Levothyroxine Sodium 175 mcg PO DAILY #90 tablet 01/08/20 Semaglutide [Ozempic] 0.5 mg SQ Q7D #4 pen.injctr 01/08/20 Ergocalciferol (Vitamin D2) [Vitamin D2] 50,000 unit PO WALLIS@2000 01/15/20 Insulin Glargine,Hum.rec.anlog [Lantus Insulin 100 Unit/mL Insulin Pen] 1 unit SUBCUT QHS 01/15/20 Pioglitazone HCl [Actos 15 mg Tablet] 15 mg PO DAILY 01/15/20 Rizatriptan Benzoate [Rizatriptan] 10 mg PO DAILYP PRN 01/15/20 Fluticasone/Umeclidin/Vilanter [Trelegy 100-62.5-25 Mcg Ellipta 14 Dose/Dpi] 1 inh IH DAILY #4 inhaler 01/21/20 Insulin Glargine,Hum.rec.anlog [Lantus Insulin 100 Unit/1 ml 10 ml] 60 unit SUBCUT QHS #3 unit 01/21/20 Pantoprazole Sodium [Protonix [address] Tablet] 40 mg PO Q6AM tablet. 01/21/20 History of Present Illiness History of Present Illness: YA PETTIT is a 74 year old male who was recently discharged home from this hospital but reported worsening difficulty with breathing. He reported inability to tolerate oral feeding or drinking due to his difficulty with breathing. He denied any associated fever or chills. No chest pain. No overt leg swelling. He denied any recent excessive salt , fluid intake. Patient reported compliance with supplemental oxygen at home. He has been on 3 L/min oxygen His initial ED evaluation was significant for tachypnea, hypercapnea, hyperglycemia and poor renal indices. He was advised hospitalization for exacerbated COPD with hypercapnea. Hospital Course Hospital Course: Patient was admitted for the management of acute COPD exacerbation associated with hyperosmolar hyperglycemic state. The acute COPD was initially treated with intravenous Solu-Medrol, this strategy worsen the hyperglycemic state. The Solu-Medrol was ultimately discontinued, he required IV fluid, the insulin regimen was changed. He also required bronchodilators, full PFT was done, it demonstrated combined obstructive and restrictive defect he required briefly noninvasive positive pressure ventilation with BiPAP Physical Exam Vital Signs: Temp Pulse Resp BP Pulse Ox 97.6 F 99 18 102/67 98 01/21/20 11:31 01/21/20 11:31 01/21/20 11:31 01/21/20 11:31 01/21/20 11:31 Intake & Output 01/20/20 01/21/20 01/22/20 06:59 06:59 06:59 Intake Total 1941 2113 Output Total 2049 1400 Balance -108 714 Weight 148.2 kg 146.8 kg General appearance: PRESENT: no acute distress Eye exam: PRESENT: PERRLA Respiratory exam: PRESENT: clear to auscultation milena Cardiovascular exam: PRESENT: +S1, +S2 GI/Abdominal exam: PRESENT: soft Neurological exam: PRESENT: alert, CN II-XII grossly intact Results Laboratory Results: WBC 5.1 10^3/uL (4.0-10.5) 01/18/20 04:40 RBC 4.02 10^6/uL (4.35-5.55) L 01/18/20 04:40 Hgb 12.0 g/dL (13.5-17.0) L 01/18/20 04:40 Hct 36.3 % (37.9-51.0) L 01/18/20 04:40 MCV 90 fl (80-97) 01/18/20 04:40 MCH 29.8 pg (27.0-33.4) 01/18/20 04:40 MCHC 33.0 g/dL (32.0-36.0) 01/18/20 04:40 RDW 15.5 % (11.5-14.0) H 01/18/20 04:40 Plt Count 220 10^3/uL (150-450) 01/18/20 04:40 Lymph % (Auto) 20.0 % (13-45) 01/18/20 04:40 [place] % (Auto) 11.3 % (3-13) 01/18/20 04:40 Eos % (Auto) 0.6 % (0-6) 01/18/20 04:40 Baso % (Auto) 0.5 % (0-2) 01/18/20 04:40 Absolute Neuts (auto) 3.4 10^3/uL (1.7-8.2) 01/18/20 04:40 Absolute Lymphs (auto) 1.0 10^3/uL (0.5-4.7) 01/18/20 04:40 Absolute Monos (auto) 0.6 10^3/uL (0.1-1.4) 01/18/20 04:40 Absolute Eos (auto) 0.0 10^3/uL (0.0-0.6) 01/18/20 04:40 Absolute Basos (auto) 0.0 10^3/uL (0.0-0.2) 01/18/20 04:40 Total Counted 100 01/15/20 05:58 Seg Neutrophils % 67.6 % (42-78) 01/18/20 04:40 Seg Neuts % (Manual) 86 % (42-78) H 01/15/20 05:58 Lymphocytes % (Manual) 11 % (13-45) L 01/15/20 05:58 Monocytes % (Manual) 3 % (3-13) 01/15/20 05:58 Eosinophils % (Manual) 0 % (0-6) 01/15/20 05:58 Basophils % (Manual) 0 % (0-2) 01/15/20 05:58 Abs Neuts (Manual) 6.5 10^3/uL (1.7-8.2) 01/15/20 05:58 Abs Lymphs (Manual) 0.8 10^3/uL (0.5-4.7) 01/15/20 05:58 Abs Monocytes (Manual) 0.2 10^3/uL (0.1-1.4) 01/15/20 05:58 Absolute Eos (Manual) 0.0 10^3/uL (0.0-0.6) 01/15/20 05:58 Abs Basophils (Manual) 0.0 10^3/uL (0.0-0.2) 01/15/20 05:58 Platelet Estimate Cancelled 01/15/20 04:34 Large Platelets PRESENT 01/15/20 05:58 Platelet Comment ADEQUATE 01/15/20 05:58 Anisocytosis SLIGHT 01/15/20 05:58 Carbonic Acid 1.84 mmol/L (1.05-1.35) H 01/14/20 16:35 HCO3/H2CO3 Ratio 17:1 01/14/20 16:35 ABG pH 7.35 (7.35-7.45) 01/14/20 16:35 ABG pCO2 61.0 mmHg (35-45) H 01/14/20 16:35 ABG pO2 142.9 mmHg (80-100) H 01/14/20 16:35 ABG HCO3 33.1 mmol/L (20-24) H 01/14/20 16:35 ABG Total CO2 35.0 mmol/L (23-27) H 01/14/20 16:35 ABG O2 Saturation 98.7 % (94-98) H 01/14/20 16:35 ABG Base Excess 5.7 mmol/L 01/14/20 16:35 FiO2 100% 01/14/20 16:35 Sodium 137.1 mmol/L (137-145) 01/18/20 04:40 Potassium 4.1 mmol/L (3.6-5.0) 01/18/20 04:40 Chloride 95 mmol/L (98-107) L 01/18/20 04:40 Carbon Dioxide 32 mmol/L (22-30) H 01/18/20 04:40 Anion Gap 10 (5-19) 01/18/20 04:40 BUN 45 mg/dL (7-20) H 01/18/20 04:40 Creatinine 1.82 mg/dL (0.52-1.25) H 01/18/20 04:40 Est GFR ( Amer) 44 (>60) L 01/18/20 04:40 Est GFR (MDRD) Non-Af 36 (>60) L 01/18/20 04:40 Glucose 301 mg/dL (75-110) H 01/18/20 04:40 POC Glucose 282 mg/dL (70-110) H 01/21/20 11:32 Hemoglobin A1c % 10.3 % (4.7-6.0) H 01/15/20 04:34 Calcium 9.4 mg/dL (8.4-10.2) 01/18/20 04:40 Total Bilirubin 0.5 mg/dL (0.2-1.3) 01/18/20 04:40 Direct Bilirubin 0.1 mg/dL (0.0-0.4) 01/18/20 04:40 Neonat Total Bilirubin Not Reportable 01/18/20 04:40 Neonat Direct Bilirubin Not Reportable 01/18/20 04:40 Neonat Indirect Bili Not Reportable 01/18/20 04:40 AST 49 U/L (17-59) 01/18/20 04:40 ALT 36 U/L (<50) 01/18/20 04:40 Alkaline Phosphatase 82 U/L (38-126) 01/18/20 04:40 Creatine Kinase 54 U/L (55-170) L 01/14/20 11:55 CK-MB (CK-2) 1.03 ng/mL (<4.55) 01/14/20 11:55 Troponin I < 0.012 ng/mL 01/14/20 11:55 NT-Pro-B Natriuret Pep 165 pg/mL (<450) 01/14/20 11:55 Total Protein 6.8 g/dL (6.3-8.2) 01/18/20 04:40 Albumin 3.9 g/dL (3.5-5.0) 01/18/20 04:40 Triglycerides 322 mg/dL (<150) H 01/15/20 04:34 Cholesterol 178.31 mg/dL (0-200) 01/15/20 04:34 LDL Cholesterol Direct 112 mg/dL (<100) H 01/15/20 04:34 VLDL Cholesterol 64.4 mg/dL (10-31) H 01/15/20 04:34 HDL Cholesterol 30 mg/dL (>40) L 01/15/20 04:34 Urine Color YELLOW 01/14/20 12:05 Urine Appearance CLEAR 01/14/20 12:05 Urine pH 5.0 (5.0-9.0) 01/14/20 12:05 Ur Specific [place] 1.026 01/14/20 12:05 Urine Protein NEGATIVE mg/dL (NEGATIVE) 01/14/20 12:05 Urine Glucose (UA) >=500 mg/dL (NEGATIVE) H 01/14/20 12:05 Urine Ketones NEGATIVE mg/dL (NEGATIVE) 01/14/20 12:05 Urine Blood SMALL (NEGATIVE) H 01/14/20 12:05 Urine Nitrite NEGATIVE (NEGATIVE) 01/14/20 12:05 Urine Bilirubin NEGATIVE (NEGATIVE) 01/14/20 12:05 Urine Urobilinogen NEGATIVE mg/dL (<2.0) 01/14/20 12:05 Ur Leukocyte Esterase NEGATIVE (NEGATIVE) 01/14/20 12:05 Urine WBC (Auto) 2 /HPF 01/14/20 12:05 Urine RBC (Auto) 2 /HPF 01/14/20 12:05 Urine Bacteria (Auto) TRACE /HPF 01/14/20 12:05 Urine Mucus (Auto) RARE /LPF 01/14/20 12:05 Urine Yeast (Budding) PRESENT /HPF 01/14/20 12:05 Urine Ascorbic Acid NEGATIVE (NEGATIVE) 01/14/20 12:05 Slides for Path Review Cancelled 01/15/20 04:34 01/14/20 11:55 CK-MB (CK-2) 1.03 Troponin I < 0.012 NT-Pro-B Natriuret Pep 165 Impressions: Chest X-Ray 01/14/20 11:54 IMPRESSION: Mild increased basilar interstitial markings. No consolidation or significant pleural effusion. Chest X-Ray 01/18/20 00:00 IMPRESSION: Unchanged radiographic appearance of the chest with cardiomegaly and increased basilar interstitial markings. Stroke Is this a Stroke Patient?: No Acute Heart Failure - Is this a Heart Failure Patient?: No
[2020-01-21 13:58] VITALS: BP 105/57
[2020-01-22] MEDS ORDERED: LEVOTHYROXINE SODIUM 0.075 MG TABLET PO SCH (06:00)
[2020-01-22] MEDS ORDERED: LEVOTHYROXINE SODIUM 0.1 MG TABLET PO SCH (06:00)
--- NOTE | 2020-01-23 13:28 | PDOC PROGRESS REPORT ---
Subjective Progress Note for:: 01/19/20 Subjective:: you know I think an little better Reason For Visit: ACUTE ON CHRONIC RESPIRATORY FAILURE WITH Physical Exam Vital Signs: Temp Pulse Resp BP Pulse Ox 98.2 F 78 20 115/75 92 01/19/20 11:49 01/19/20 14:00 01/19/20 11:49 01/19/20 11:49 01/19/20 11:49 Intake & Output 01/18/20 01/19/20 01/20/20 06:59 06:59 06:59 Intake Total 2566 962 460 Output Total 2800 9765 Balance -234 -6518 460 Weight 149.9 kg 149.3 kg General appearance: PRESENT: no acute distress, cooperative, disheveled, morbidly obese Head exam: PRESENT: atraumatic, normocephalic Eye exam: PRESENT: conjunctiva pale, EOMI. ABSENT: nystagmus, periorbital swelling, scleral icterus Mouth exam: PRESENT: dry mucosa, neck supple, tongue midline Neck exam: ABSENT: carotid bruit, full ROM, JVD, lymphadenopathy, meningismus, tenderness, thyromegaly, tracheal deviation, tracheostomy, other Respiratory exam: PRESENT: crackles, decreased breath sounds, prolonged expiratory phas, rhonchi, symmetrical. ABSENT: rales, retraction, stridor, tachypnea, unlabored Cardiovascular exam: PRESENT: +S1, +S2. ABSENT: tachycardia Pulses: PRESENT: normal radial pulses GI/Abdominal exam: PRESENT: soft, other - Morbidly obese. ABSENT: guarding, mass, rebound, tenderness Extremities exam: PRESENT: pedal edema, +1 edema. ABSENT: calf tenderness, clubbing, tenderness Musculoskeletal exam: ABSENT: deformity, dislocation Neurological exam: PRESENT: awake Psychiatric exam: PRESENT: depressed Focused psych exam: PRESENT: flight of ideas, internal stimuli Skin exam: PRESENT: dry, warm Results Laboratory Results: 01/18/20 04:40 01/18/20 04:40 01/14/20 01/14/20 11:55 11:55 Creatine Kinase 54 L CK-MB (CK-2) 1.03 Troponin I < 0.012 NT-Pro-B Natriuret Pep 165 Impressions: Chest X-Ray 01/18/20 00:00 IMPRESSION: Unchanged radiographic appearance of the chest with cardiomegaly and increased basilar interstitial markings. Assessment & Plan - Diagnosis (1) Obesity hypoventilation syndrome Is this a current diagnosis for this admission?: Yes Plan: Progressively declining respiratory status with increasing weight now at a point where he retains carbon dioxide as well as needing oxygen a pathological lead need to continue eating (2) Atrial fibrillation with RVR Is this a current diagnosis for this admission?: Yes Plan: Able at this time (3) Chronic obstructive pulmonary disease Qualifiers: COPD type: unspecified COPD Qualified Code(s): J44.9 - Chronic obstructive pulmonary disease, unspecified Is this a current diagnosis for this admission?: Yes Plan: Current bronchodilator therapy (4) Congestive heart failure Qualifiers: Heart failure type: unspecified Heart failure chronicity: chronic Qualified Code(s): I50.9 - Heart failure, unspecified Is this a current diagnosis for this admission?: Yes Plan: Gentle diuresis (5) Dementia Qualifiers: Dementia type: unspecified type Dementia behavioral disturbance: without behavioral disturbance Qualified Code(s): F03.90 - Unspecified dementia without behavioral disturbance Is this a current diagnosis for this admission?: Yes Plan: With difficulty maintaining train of thought pathologically he states he is aware of how this is detrimental to his health but he continues - Time Time Spent with patient: 55 min
--- NOTE | 2020-01-24 13:47 | PDOC CONSULTATION ---
Consultation Consult Date: 01/18/20 Attending physician:: SILVANO JORDAN Provider Consulted: TIMOTEO RIVERS Consult reason:: Respiratory failure History of Present Illness Admission Date/PCP: 01/14/20 16:37 SILVANO JORDAN MD History of Present Illness: YA PETTIT is a 74 year old male known to [facility] for obesity hypoventilation syndrome and some COPD he presents confused and lethargic with a PCO2 of greater than 100 no fevers chills no reported nausea vomiting diarrhea rash or purulent cough he also complains of abdominal pain at the time of his presentation however no acute process could be identified Past Medical History Cardiac Medical History: Reports: Congestive Heart Failure, Coronary Artery Disease, Hyperlipidema, Hypertension Denies: Atrial Fibrillation, Myocardial Infarction, Peripheral Vascular Disease, Pulmonary Embolism, Heart Murmur Pulmonary Medical History: Reports: Asthma, Chronic Obstructive Pulmonary Disease (COPD), Respiratory Failure, Sleep Apnea Denies: Bronchitis, Pneumonia, Tuberculosis Neurological Medical History: Denies: Seizures Endocrine Medical History: Reports: Diabetes Mellitus Type 2, Hypothyroidism Renal/ Medical History: Denies: End Stage Renal Disease Malignancy Medical History: Denies: Lung Cancer GI Medical History: Reports: Gastroesophageal Reflux Disease Denies: Hepatitis, Hiatal Hernia Musculoskeltal Medical History: Reports: Arthritis Denies: Fibromyalgia Psychiatric Medical History: Reports: Depression Hematology: Denies: Anemia, Sickle Cell Disease Infectious Medical History: Denies: HIV Past Surgical History Past Surgical History: Reports: Appendectomy, Cardiac Catheterization, Orthopedic Surgery - bilat arm fx, bilat rotator cuff, Tonsillectomy Denies: Cholecystectomy, Coronary Artery Bypass Graft, Gastric Bypass Surge ry, Herniorrhaphy, Pacemaker Social History Information Source: Patient, [facility] Records Smoking Status: Former Smoker Cigarettes Packs Per Day: 1 Number of Years Smokin Last Time Smoked: 1979 Passive smoke exposure as: Both Frequency of Alcohol Use: Occasional Hx Recreational Drug Use: No Drugs: None Hx Prescription Drug Abuse: No Do you have pets?: No Have you had any respiratory illnesses as a child?: No Have you been exposed to any sick contacts recently?: No Have you had any recent respiratory illnesses?: Yes Have you travelled outside of [place] in the past 12 months?: No - Advance Directive Resuscitation Status: Do Not Resuscitate Family History Family History: CAD, COPD, DM, Hypertension Parental Family History Reviewed: Yes Children Family History Reviewed: Yes Sibling(s) Family History Reviewed.: Yes Medication/Allergy Home Medications: Allopurinol [Zyloprim 100 mg Tablet] 100 mg PO BID 09/15/19 Apixaban [Eliquis 2.5 mg Tablet] 2.5 mg PO QPM 09/15/19 Buspirone HCl 15 mg PO BID 09/15/19 Diltiazem HCl [Diltiazem 24Hr ER] 180 mg PO Q12 09/15/19 Donepezil HCl [Aricept 5 mg Tablet] 5 mg PO QHS 09/15/19 Metformin HCl [Metformin HCl ER] 500 mg PO QAM 09/15/19 Olmesartan/Hydrochlorothiazide [Olmesartan-Hctz 40-25 mg Tab] 1 tab PO QAM 09/15/19 Pantoprazole Sodium [Protonix [address] Tablet] 40 mg PO QPM 09/15/19 Duloxetine HCl [Cymbalta] 60 mg PO Q12 01/04/20 Melatonin 10 mg PO QHS 01/04/20 Mirabegron [Myrbetriq] 25 mg PO QAM 01/04/20 Pramipexole Di-HCl [Mirapex] 1.5 mg PO BID 01/04/20 Empagliflozin [Jardiance] 25 mg PO DAILY #90 tablet 01/08/20 Levothyroxine Sodium 175 mcg PO DAILY #90 tablet 01/08/20 Semaglutide [Ozempic] 0.5 mg SQ Q7D #4 pen.injctr 01/08/20 Ergocalciferol (Vitamin D2) [Vitamin D2] 50,000 unit PO WALLIS@199901/15/20 Insulin Glargine,Hum.rec.anlog [Lantus Insulin 100 Unit/mL Insulin Pen] 1 unit SUBCUT QHS 01/15/20 Pioglitazone HCl [Actos 15 mg Tablet] 15 mg PO DAILY 01/15/20 Rizatriptan Benzoate [Rizatriptan] 10 mg PO DAILYP PRN 01/15/20 Fluticasone/Umeclidin/Vilanter [Trelegy 100-62.5-25 Mcg Ellipta 14 Dose/Dpi] 1 inh IH DAILY #4 inhaler 01/21/20 Insulin Glargine,Hum.rec.anlog [Lantus Insulin 100 Unit/1 ml 10 ml] 60 unit SUBCUT QHS #3 unit 01/21/20 Pantoprazole Sodium [Protonix [address] Tablet] 40 mg PO Q6AM tablet. 01/21/20 Allergies/Adverse Reactions: No Known Allergies Allergy (Verified 09/21/17 09:08) Review of Systems All systems: reviewed and no additional remarkable complaints except as stated Physical Exam Vital Signs: Temp Pulse Resp BP Pulse Ox 97.4 F 86 17 115/68 97 01/18/20 11:40 01/18/20 11:40 01/18/20 11:40 01/18/20 11:40 01/18/20 11:40 Intake & Output 01/17/20 01/18/20 01/19/20 06:59 06:59 06:59 Intake Total 3122 1566 Output Total 2100 2800 Balance 1022 -1234 Weight 147.1 kg 149.9 kg General appearance: PRESENT: no acute distress, cooperative, disheveled, morbidly obese Head exam: PRESENT: atraumatic, normocephalic Eye exam: PRESENT: conjunctiva pale, EOMI. ABSENT: nystagmus, periorbital swelling, scleral icterus Mouth exam: PRESENT: dry mucosa, neck supple, tongue midline, other - [place] 4 Neck exam: ABSENT: carotid bruit, full ROM, JVD, lymphadenopathy, meningismus, tenderness, thyromegaly, tracheal deviation, tracheostomy, other Respiratory exam: PRESENT: decreased breath sounds, prolonged expiratory phas, rhonchi, symmetrical, unlabored, wheezes. ABSENT: rales, retraction, stridor, tachypnea Cardiovascular exam: PRESENT: irregular rhythm Pulses: PRESENT: normal radial pulses GI/Abdominal exam: PRESENT: soft. ABSENT: guarding, mass, rebound Extremities exam: PRESENT: +2 edema. ABSENT: calf tenderness, clubbing, joint swelling, tenderness Musculoskeletal exam: ABSENT: deformity, dislocation Neurological exam: PRESENT: awake Psychiatric exam: PRESENT: unusual affect Focused psych exam: PRESENT: internal stimuli Skin exam: PRESENT: dry, warm Results Laboratory Results: 01/18/20 04:40 01/18/20 04:40 01/17/20 01/18/20 01/18/20 22:00 04:40 04:40 WBC 5.1 RBC 4.02 L Hgb 12.0 L Hct 36.3 L MCV 90 MCH 29.8 MCHC 33.0 RDW 15.5 H Plt Count 220 Seg Neutrophils % 67.6 Sodium 135.3 L 137.1 Potassium 4.3 4.1 Chloride 96 L 95 L Carbon Dioxide 31 H 32 H Anion Gap 8 10 BUN 48 H 45 H Creatinine 1.85 H 1.82 H Est GFR ( Amer) 43 L 44 L Glucose 359 H 301 H Calcium 9.3 9.4 Total Bilirubin 0.5 0.5 AST 50 49 Alkaline Phosphatase 83 82 Total Protein 6.7 6.8 Albumin 3.8 3.9 01/14/20 01/14/20 11:55 11:55 Creatine Kinase 54 L CK-MB (CK-2) 1.03 Troponin I < 0.012 NT-Pro-B Natriuret Pep 165 Impressions: Chest X-Ray 01/18/20 00:00 IMPRESSION: Unchanged radiographic appearance of the chest with cardiomegaly and increased basilar interstitial markings. Assessment & Plan - Diagnosis (1) Abdominal pain Qualifiers: Abdominal location: unspecified location Qualified Code(s): R10.9 - Unspecified abdominal pain Is this a current diagnosis for this admission?: Yes Plan: Resolved no acute process was determined (2) Atrial fibrillation with RVR Is this a current diagnosis for this admission?: Yes Plan: Stable at this time (3) Chronic obstructive pulmonary disease Qualifiers: COPD type: unspecified COPD Qualified Code(s): J44.9 - Chronic obstructive pulmonary disease, unspecified Is this a current diagnosis for this admission?: Yes Plan: Current bronchodilator therapy (4) Dementia Qualifiers: Dementia type: unspecified type Dementia behavioral disturbance: without behavioral disturbance Qualified Code(s): F03.90 - Unspecified dementia without behavioral disturbance Is this a current diagnosis for this admission?: Yes Plan: With difficulty maintaining train of thought pathologically he states he is aware of how this is detrimental to his health but he continues (5) Obesity hypoventilation syndrome Is this a current diagnosis for this admission?: Yes Plan: Progressively declining respiratory status with increasing weight now at a point where he retains carbon dioxide as well as needing oxygen a pathological lead need to continue eating (6) Pulmonary hypertension Is this a current diagnosis for this admission?: Yes Plan: Need a right heart catheterization (7) Sleep apnea Qualifiers: Sleep apnea type: unspecified type Qualified Code(s): G47.30 - Sleep apnea, unspecified Is this a current diagnosis for this admission?: Yes Plan: Non invasive positive pressure ventilation - Time Time Spent with patient: 55 min
--- NOTE | 2020-01-24 13:55 | Pulmonary Function Test ---
Pulmonary Function Test Date of Procedure:: 01/20/20 INDICATION:: Dyspnea Referring Provider: Dr. 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 76 post-FEV1/FVC%: 78 predicted: 77 [id number]%: 1.09 L 35% [id number]%: 1.29 L 41% Lung Volume: Total lung capacity: 2.68 L 43% Vital capacity: 1.73 L 42% Inspiratory capacity: 1.05 L FRC N2: 1.83 L 54% ERV: 0.51 L RV: 1.14 L 42% RV/TLC %:: 40 predicted 43 Diffusion Capactity: DLCO: 11.1 38% DLCO/VA: 3.75 107% Impression: The restrictive ventilatory defect without hyperinflation or air trapping. No obstructive defect noted however restrictive defect may mask the degree of obstruction. Severe decrease in diffusion capacity.
== END 2020-01-21 15:00 | disposition home or self-care (01) | DRG 190 ==
LOC: ER 11:51 → EH 16:37 → 3N 19:56
PROVIDERS: ADMIT Internal Medicine; ATTEND Internal Medicine
PROC: 5A09557 Assistance with Respiratory Ventilation, Greater than 96 Consecutive Hours, Continuous Positive Airway Pressure (ICD-10-PCS; principal; 2020-01-14)
DX: J44.1 Chronic obstructive pulmonary disease with (acute) exacerbation (principal); E11.00 Type 2 diabetes mellitus with hyperosmolarity without nonketotic hyperglycemic-hyperosmolar coma (NKHHC); J96.02 Acute respiratory failure with hypercapnia; N17.9 Acute kidney failure, unspecified; E66.2 Morbid (severe) obesity with alveolar hypoventilation; I13.0 Hypertensive heart and chronic kidney disease with heart failure and stage 1 through stage 4 chronic kidney disease, or unspecified chronic kidney disease; Z68.42 Body mass index [BMI] 45.0-49.9, adult; I50.32 Chronic diastolic (congestive) heart failure; I48.0 Paroxysmal atrial fibrillation; E11.42 Type 2 diabetes mellitus with diabetic polyneuropathy; E11.65 Type 2 diabetes mellitus with hyperglycemia; I25.10 Atherosclerotic heart disease of native coronary artery without angina pectoris; E78.5 Hyperlipidemia, unspecified; E03.9 Hypothyroidism, unspecified; K21.9 Gastro-esophageal reflux disease without esophagitis; Z66 Do not resuscitate; F32.9 Major depressive disorder, single episode, unspecified; F03.90 Unspecified dementia, unspecified severity, without behavioral disturbance, psychotic disturbance, mood disturbance, and anxiety; I50.9 Heart failure, unspecified; N18.3 Chronic kidney disease, stage 3 (moderate); Z79.01 Long term (current) use of anticoagulants; Z79.4 Long term (current) use of insulin; Z99.81 Dependence on supplemental oxygen; Z87.891 Personal history of nicotine dependence; Z82.49 Family history of ischemic heart disease and other diseases of the circulatory system; Z83.3 Family history of diabetes mellitus; Z83.6 Family history of other diseases of the respiratory system
CPT/HCPCS: 36415; 36600; 71045; 80053; 80061; 81001; 82550; 82553; 82803; 82962; 83036; 83880; 84484; 85025; 87070; 93005; 93010; 94060; 94640; 94660; 94727; 94729; 96374; 96375; 99285; J1815; J1940; J2270; J2920; J3490; J7030; J7042; J7050; J7620

== ENCOUNTER 2020-01-31 11:05 | Inpatient (IN) | payer MEDICARE, OTHER ==
--- NOTE | 2020-01-31 11:50 | RADIOLOGY REPORT (SQ) ---
EXAM DESCRIPTION: CHEST SINGLE VIEW IMAGES COMPLETED DATE/TIME: 01/31/2020 11:29 am REASON FOR STUDY: sob COMPARISON: AP view of the chest from 01/18/2020. EXAM PARAMETERS: NUMBER OF VIEWS: One view. TECHNIQUE: An AP view of the chest was obtained. RADIATION DOSE: NA LIMITATIONS: None. FINDINGS: LUNGS AND PLEURA: No consolidation, pleural effusion or pneumothorax. MEDIASTINUM AND HILAR STRUCTURES: No acute mediastinal hilar contour abnormality. HEART AND VASCULAR STRUCTURES: Stable enlarged cardiac silhouette. BONES: No acute findings. HARDWARE: Surgical suture anchors in the left humeral head. OTHER: No other finding. IMPRESSION: Cardiomegaly without a superimposed acute cardiopulmonary process. TECHNICAL DOCUMENTATION: JOB ID: [id number] 2010 [employer]- All Rights Reserved Reading location - IP/workstation name: [email or web address]
[2020-01-31 12:05] LABS: ABSOLUTE BASOPHILS # (AUTO) 0.1 10^3/uL (0.0-0.2); ABSOLUTE EOSINOPHILS # (AUTO) 0.1 10^3/uL (0.0-0.6); ABSOLUTE LYMPHOCYTES (AUTO) 1.4 10^3/uL (0.5-4.7); ABSOLUTE MONOCYTES (AUTO) 0.7 10^3/uL (0.1-1.4); BASOPHILS % (AUTO) 0.9 % (0-2); EOSINOPHILS % (AUTO) 1.8 % (0-6); HEMATOCRIT 36.3 % (37.9-51.0); HEMOGLOBIN 11.6 g/dL (13.5-17.0); LYMPHOCYTES % (AUTO) 22.5 % (13-45); MEAN CORPUSCULAR HEMOGLOBIN 29.5 pg (27.0-33.4); MEAN CORPUSCULAR VOLUME 92 fl (80-97); MONOCYTES % (AUTO) 10.4 % (3-13); PLATELET COUNT 227 10^3/uL (150-450); RED BLOOD COUNT 3.94 10^6/uL (4.35-5.55); RED CELL DISTRIBUTION WIDTH 15.6 % (11.5-14.0); SEGMENTED NEUTROPHILS % (AUTO) 64.4 % (42-78); TOTAL CELLS COUNTED % (AUTO) 100 %; WHITE BLOOD COUNT 6.2 10^3/uL (4.0-10.5)
[2020-01-31 12:23] LABS: ALBUMIN 3.7 g/dL (3.5-5.0); ALKALINE PHOSPHATASE 92 U/L (38-126); ANION GAP 6 (5-19); ASPARTATE AMINO TRANSFERASE 25 U/L (17-59); BILIRUBIN,TOTAL 0.5 mg/dL (0.2-1.3); BLOOD UREA NITROGEN 38 mg/dL (7-20); CALCIUM 10.2 mg/dL (8.4-10.2); CARBON DIOXIDE 36 mmol/L (22-30); CHLORIDE 98 mmol/L (98-107); GLUCOSE 186 mg/dL (75-110); POTASSIUM 4.7 mmol/L (3.6-5.0); TOTAL PROTEIN 6.6 g/dL (6.3-8.2)
[2020-01-31 12:29] LABS: APPEARANCE,URINE CLOUDY; BILIRUBIN,URINE SMALL (NEGATIVE); GLUCOSE, URINE >=500 mg/dL (NEGATIVE); KETONES,URINE TRACE mg/dL (NEGATIVE); LEUKOCYTE ESTERASE,URINE LARGE (NEGATIVE); NITRITE,URINE NEGATIVE (NEGATIVE); PROTEIN,URINE 100 mg/dL (NEGATIVE); URINE SPECIFIC GRAVITY 1.022
[2020-01-31 12:30] LABS: COLOR,URINE YELLOW
[2020-01-31 12:35] LABS: NT PRO BNP 112 pg/mL (<450)
[2020-01-31 12:38] LABS: TROPONIN I < 0.012 ng/mL
[2020-01-31 12:58] LABS: VENOUS BLOOD BASE EXCESS 4.2 mmol/L; VENOUS BLOOD HCO3 36.1 mmol/L (20-32); VENOUS BLOOD PH 7.25 (7.30-7.42)
[2020-01-31 13:00] LABS: VENOUS BLOOD PCO2 83.5 mmHg (35-63)
[2020-01-31] MEDS ORDERED: CEFTRIAXONE 2 GM/D5W RTU 2 GM/50 ML RTUPB IV ONE (13:32)
[2020-01-31] MEDS ORDERED: NORMAL SALINE 1000 ML 1,000 ML IV ONE (13:35)
--- NOTE | 2020-01-31 13:43 | ER Document Report ---
ED General - General Chief Complaint: Shortness Of Breath Stated Complaint: BREATHING DIFFICULTY Time Seen by Provider: 01/31/20 11:06 Primary Care Provider: SILVANO JORDAN MD [Primary Care Provider] - Follow up as needed Mode of Arrival: Medic Information source: Patient TRAVEL OUTSIDE OF THE [place] IN LAST 30 DAYS: No - HPI Notes: Patient presents with complaints of shortness of breath. Patient was recently discharged from this facility approximately 3 days ago. Patient at that time presented with respiratory failure. Patient states that he has noticed for the last day that he has had severe increasing shortness of breath. It is worse with movement and better with rest. He has had a dry cough as well. No known covert exposures. Patient denies any fevers. In route he was complaining of some mild chest pain that was treated with nitroglycerin he denies any chest pain here to me. There is no radiation of this chest pain. It did get better with the nitro. Nothing made it worse. There is was a sharp sensation in the center of his chest. - Related Data Allergies/Adverse Reactions: No Known Allergies Allergy (Verified 09/21/17 09:08) Past Medical History - General Information source: Patient - Social History Smoking Status: Former Smoker Chew tobacco use (# tins/day): No Frequency of alcohol use: Occasional Drug Abuse: None Family History: CAD, COPD, DM, Hypertension Patient has homicidal ideation: No - Past Medical History Cardiac Medical History: Reports: Hx Congestive Heart Failure, Hx Coronary Artery Disease, Hx Hypercholesterolemia, Hx Hypertension Denies: Hx Atrial Fibrillation, Hx Heart Attack, Hx Peripheral Vascular Disease, Hx Pulmonary Embolism, Hx Heart Murmur Pulmonary Medical History: Reports: Hx Asthma, Hx COPD, Hx Respiratory Failure, Hx Sleep Apnea Denies: Hx Bronchitis, Hx Pneumonia, Hx Tuberculosis Neurological Medical History: Denies: Hx Cerebrovascular Accident, Hx Seizures Endocrine Medical History: Reports: Hx Diabetes Mellitus Type 2, Hx Hypothyroidism Renal/ Medical History: Reports: Hx Benign Prostatic Hyperplasia. Denies: Hx End Stage Renal Disease, Hx Kidney Stones, Hx Peritoneal Dialysis Malignancy Medical History: Denies Hx Lung Cancer GI Medical History: Reports: Hx Gastroesophageal Reflux Disease. Denies: Hx Hepatitis, Hx Hiatal Hernia, Hx Ulcer Musculoskeletal Medical History: Reports Hx Arthritis, Denies Hx Fibromyalgia, Denies Hx Muscular Dystrophy Psychiatric Medical History: Reports: Hx Anxiety, Hx Depression Traumatic Medical History: Denies: Hx Fractures Infectious Medical History: Denies: Hx Hepatitis, Hx HIV Past Surgical History: Reports: Hx Abdominal Surgery - exploratory stomach surgery, Hx Appendectomy, Hx Cardiac Catheterization, Hx Orthopedic Surgery - bilat arm fx, bilat rotator cuff, Hx Tonsillectomy. Denies: Hx Bowel Surgery, Hx Cholecystectomy, Hx Coronary Artery Bypass Graft, Hx Gastric Bypass Surgery, Hx Herniorrhaphy, Hx Open Heart Surgery - CHF,NO BLOCKAGE, Hx Pacemaker - Immunizations Immunizations up to date: Yes Hx Diphtheria, Pertussis, Tetanus Vaccination: No Hx Pneumococcal Vaccination: 08/06/12 Review of Systems - Review of Systems Constitutional: Malaise, Weakness. denies: Chills, Fever Cardiovascular: Chest pain. denies: Palpitations Respiratory: Cough, Short of breath -: Yes All other systems reviewed and negative Physical Exam - Vital signs Vitals: Resp Pulse Ox 17 94 01/31/20 11:05 01/31/20 11:05 Interpretation: Normal - General General appearance: Alert, Anxious In distress: Moderate - HEENT Head: Normocephalic, Atraumatic Eyes: Normal Pupils: PERRL - Respiratory Respiratory status: Respiratory distress - Moderate Chest status: Nontender Breath sounds: Decreased air movement, Wheezing Chest palpation: Normal - Cardiovascular Rhythm: Regular Heart sounds: Normal auscultation Murmur: No - Abdominal Inspection: Other - Patient has an umbilical hernia. It is nontender and reducible Distension: Distended Bowel sounds: Normal Tenderness: Nontender Organomegaly: No organomegaly - Back Back: Normal, Nontender - Extremities General upper extremity: Normal inspection, Nontender, Normal color, Normal ROM, Normal temperature General lower extremity: Nontender, Edema - 2+ bilaterally computer, Normal color, Normal temperature. No: Aarti's sign - Neurological Neuro grossly intact: Yes Cognition: Confused Orientation: Disoriented to time Aiyana Coma Scale Eye Opening: Spontaneous Aiyana Coma Scale Verbal: Confused Aiyana Coma Scale Motor: Obeys Commands Aiyana Coma Scale Total: 14 Speech: Normal Motor strength normal: LUE, RUE, LLE, RLE Sensory: Normal - Psychological Associated symptoms: Normal affect, Normal mood - Skin Skin Temperature: Warm Skin Moisture: Dry Skin Color: Normal Course - Re-evaluation Re-evalutation: 01/31/20 13:41 Patient presents with respiratory distress. He is obviously still retaining CO2 and is in some acute respiratory failure with hypercapnia. He also has an obvious urinary tract infection. He will be treated with antibiotics for the urinary tract infection. I have not added any antibiotics for a respiratory infection as I do not find evidence of that at this time. I think he has a hypercapnia due to hypoventilation from his body habitus. I did speak with both him and his . They have decided that the patient should be DNR. I have filled out the appropriate documentation and added this to his chart. I have discussed the case with his primary care physician and he will be admitted. Patient was having some chest pain in route however there is no ischemic changes on EKG and troponin is unremarkable. - Vital Signs Vital signs: Temp Pulse Resp BP Pulse Ox 98.5 F 18 105/54 L 96 01/31/20 12:41 01/31/20 12:01 01/31/20 12:01 01/31/20 12:01 - Laboratory Result Diagrams: 01/31/20 11:49 01/31/20 11:49 Laboratory results interpreted by me: 01/31/20 01/31/20 01/31/20 11:49 11:49 11:49 RBC 3.94 L Hgb 11.6 L Hct 36.3 L RDW 15.6 H VBG pH 7.25 L VBG pCO2 83.5 H* VBG HCO3 36.1 H Carbon Dioxide 36 H BUN 38 H Creatinine 2.80 H Est GFR ( Amer) 27 L Est GFR (MDRD) Non-Af 22 L Glucose 186 H Urine Protein Urine Glucose (UA) Urine Ketones Urine Blood Urine Bilirubin Urine Urobilinogen Ur Leukocyte Esterase 01/31/20 12:00 RBC Hgb Hct RDW VBG pH VBG pCO2 VBG HCO3 Carbon Dioxide BUN Creatinine Est GFR ( Amer) Est GFR (MDRD) Non-Af Glucose Urine Protein 100 H Urine Glucose (UA) >=500 H Urine Ketones TRACE H Urine Blood SMALL H Urine Bilirubin SMALL H Urine Urobilinogen 2.0 H Ur Leukocyte Esterase LARGE H - Diagnostic Test Radiology reviewed: Image reviewed, Reports reviewed - EKG Interpretation by Me EKG shows normal: Sinus rhythm Rate: Normal - 84 Rhythm: NSR. No: [place]/QRS: No: Right axis deviation, Left axis deviation Discharge - Discharge Clinical Impression: Acute respiratory failure with hypercapnia, Acute kidney injury, Obesity hypoventilation syndrome, CKD (chronic kidney disease) stage 3, GFR 30-59 ml/min, Morbid obesity, Confusion Urinary tract infection associated with indwelling urethral catheter Qualifiers: Encounter type: initial encounter Qualified Code(s): T83.511A - Infection and inflammatory reaction due to indwelling urethral catheter, initial encounter; N39.0 - Urinary tract infection, site not specified Dementia Qualifiers: Dementia type: unspecified type Dementia behavioral disturbance: without behavioral disturbance Qualified Code(s): F03.90 - Unspecified dementia without behavioral disturbance Condition: Serious Disposition: ADMITTED INPATIENT Admitting Provider: Maximiliano Unit Admitted: [facility] Referrals: SILVANO JORDAN MD [Primary Care Provider] - Follow up as needed
[2020-01-31] MEDS ORDERED: (PENDING PHARMACY ID) (Rizatriptan Benzoate [Rizatriptan] 10 MG) PO PRN ×2 (19:35→19:55)
[2020-01-31] MEDS ORDERED: HYDROCHLOROTHIAZIDE PO SCH (19:45)
[2020-01-31] MEDS ORDERED: (PENDING PHARMACY ID) (Mirabegron [Myrbetriq] 25 MG) PO SCH ×2 (19:45→20:00)
[2020-01-31] MEDS ORDERED: OLMESARTAN PO SCH (19:45)
[2020-01-31] MEDS ORDERED: HEPARIN SOD (PORCINE) 5,000 UNIT/ML 1 ML VIAL SUBCUT SCH (19:45)
[2020-01-31] MEDS ORDERED: (PENDING PHARMACY ID) (Levothyroxine Sodium [Levothyroxine Sodium] 175 MCG) PO SCH (19:45)
[2020-01-31] MEDS ORDERED: (PENDING PHARMACY ID) (Empagliflozin [Jardiance] 25 MG) PO SCH ×2 (19:45→20:00)
[2020-01-31] MEDS ORDERED: (PENDING PHARMACY ID) (Buspirone Hcl [Buspirone Hcl] 15 MG) PO SCH (19:45)
[2020-01-31] MEDS ORDERED: (PENDING PHARMACY ID) (Pramipexole Di-Hcl [Mirapex] 1.5 MG) PO SCH (19:45)
[2020-01-31] MEDS ORDERED: (PENDING PHARMACY ID) (Metformin Hcl [Metformin Hcl Er] 500 MG) PO SCH (19:45)
[2020-01-31] MEDS ORDERED: SEMAGLUTIDE 0.5 MG SQ SCH (19:45)
[2020-01-31] MEDS ORDERED: [UNRECOGNIZED DRUG - OTHER] PO SCH (19:45)
[2020-01-31] MEDS ORDERED: (PENDING PHARMACY ID) (Diltiazem Hcl [Diltiazem 24hr Er] 180 MG) PO SCH (19:45)
[2020-01-31] MEDS ORDERED: SEMAGLUTIDE 0.5 MG INJ SCH (20:00)
[2020-01-31 21:35] LABS: PHOSPHORUS 4.5 mg/dL (2.5-4.5)
[2020-01-31] MEDS ORDERED: (PENDING PHARMACY ID) (Melatonin [Melatonin] 10 MG) PO SCH (22:00)
[2020-01-31 22:33] LABS: PARTIAL THROMBOPLASTIN TIME 24.9 SEC (23.5-35.8); PROTHROMBIN TIME 13.2 SEC (11.4-15.4)
[2020-01-31] MEDS: DONEPEZIL HCL 5 MG TABLET PO SCH (22:36)
[2020-01-31] MEDS: DULOXETINE HCL 30 MG CAPSULE.DR PO SCH (22:38)
[2020-01-31] MEDS: APIXABAN 2.5 MG TABLET PO SCH (22:38)
[2020-01-31] MEDS: FLUTICASONE/UMECLIDIN/VILANTER 100-62.5-25 MCG/DOSE IH SCH (22:41)
[2020-01-31] MEDS: DILTIAZEM HCL 180 MG CAPSULE.CR PO SCH (22:41)
[2020-01-31] MEDS: MELATONIN 5 MG TABLET PO SCH (22:41)
[2020-01-31] MEDS ORDERED: DEXTROSE 40% GEL 15 GM TUBE X 2 PO PRN (23:00)
[2020-01-31] MEDS ORDERED: DEXTROSE 50%-WATER SYRINGE 12.5 GM/25 ML DOSE IV PRN (23:00)
[2020-01-31] MEDS ORDERED: GLUCAGON,HUMAN RECOMB 1 MG INJ IM PRN (23:00)
[2020-01-31] MEDS ORDERED: DEXTROSE 40% GEL 15 GM TUBE PO PRN (23:00)
[2020-01-31] MEDS ORDERED: DEXTROSE 50%-WATER SYRINGE 25 GM/50 ML DOSE IV PRN (23:00)
[2020-01-31] MEDS: INSULIN GLARGINE,HUM.REC.ANLOG 1,000 UNIT/10 ML VIAL SUBCUT SCH (23:43)
[2020-02-01 00:37] LABS: APPEARANCE,URINE SLIGHTLY-CLOUDY; BILIRUBIN,URINE NEGATIVE (NEGATIVE); COLOR,URINE YELLOW; GLUCOSE, URINE >=500 mg/dL (NEGATIVE); KETONES,URINE NEGATIVE (NEGATIVE); LEUKOCYTE ESTERASE,URINE SMALL (NEGATIVE); NITRITE,URINE POSITIVE (NEGATIVE); PROTEIN,URINE NEGATIVE (NEGATIVE); URINE SPECIFIC GRAVITY 1.015; UROBILINOGEN,URINE NEGATIVE mg/dL (<2.0)
[2020-02-01] MEDS: PANTOPRAZOLE SODIUM 40 MG TABLET.DR PO SCH (06:09)
[2020-02-01] MEDS: LEVOTHYROXINE SODIUM 0.075 MG TABLET PO SCH (06:09)
[2020-02-01] MEDS: LEVOTHYROXINE SODIUM 0.1 MG TABLET PO SCH (06:09)
[2020-02-01] MEDS: INSULIN LISPRO 100 UNIT/ML 3 ML VIAL SUBCUT SCH ×4 (08:04→22:21)
[2020-02-01 08:12] LABS: ABSOLUTE EOSINOPHILS # (AUTO) 0.1 10^3/uL (0.0-0.6); ABSOLUTE MONOCYTES (AUTO) 0.6 10^3/uL (0.1-1.4); ABSOLUTE NEUT (AUTO) 4.1 10^3/uL (1.7-8.2); BASOPHILS % (AUTO) 0.8 % (0-2); HEMOGLOBIN 11.2 g/dL (13.5-17.0); LYMPHOCYTES % (AUTO) 17.5 % (13-45); MEAN CORPUSCULAR HEMOGLOBIN 29.1 pg (27.0-33.4); MEAN CORPUSCULAR VOLUME 91 fl (80-97); MONOCYTES % (AUTO) 9.7 % (3-13); PLATELET COUNT 207 10^3/uL (150-450); RED BLOOD COUNT 3.85 10^6/uL (4.35-5.55); RED CELL DISTRIBUTION WIDTH 15.5 % (11.5-14.0); TOTAL CELLS COUNTED % (AUTO) 100 %; WHITE BLOOD COUNT 5.9 10^3/uL (4.0-10.5)
[2020-02-01 08:40] LABS: ALBUMIN 3.8 g/dL (3.5-5.0); ALKALINE PHOSPHATASE 78 U/L (38-126); ANION GAP 6 (5-19); ASPARTATE AMINO TRANSFERASE 28 U/L (17-59); BILIRUBIN,DIRECT 0.1 mg/dL (0.0-0.4); BILIRUBIN,TOTAL 0.6 mg/dL (0.2-1.3); BLOOD UREA NITROGEN 33 mg/dL (7-20); CALCIUM 10.3 mg/dL (8.4-10.2); CARBON DIOXIDE 35 mmol/L (22-30); CHLORIDE 97 mmol/L (98-107); CHOLESTEROL 253.03 mg/dL (0-200); GLUCOSE 151 mg/dL (75-110); POTASSIUM 4.3 mmol/L (3.6-5.0); TOTAL PROTEIN 6.6 g/dL (6.3-8.2); TRIGLYCERIDES 383 mg/dL (<150)
[2020-02-01 08:51] LABS: DIRECT LDL 150 mg/dL (<100)
[2020-02-01 08:58] LABS: VLDL CHOLESTEROL 76.6 mg/dL (10-31)
[2020-02-01] MEDS: DULOXETINE HCL 30 MG CAPSULE.DR PO SCH ×2 (09:35→22:21)
[2020-02-01] MEDS: PRAMIPEXOLE DI-HCL 0.5 MG TABLET PO SCH ×2 (09:35→17:08)
[2020-02-01] MEDS: HYDROCHLOROTHIAZIDE 25 MG TABLET PO SCH (09:35)
[2020-02-01] MEDS: ALLOPURINOL 100 MG TABLET PO SCH ×2 (09:36→17:07)
[2020-02-01] MEDS: DILTIAZEM HCL 180 MG CAPSULE.CR PO SCH ×2 (09:36→22:20)
[2020-02-01] MEDS: LOSARTAN POTASSIUM 50 MG TABLET PO SCH (09:36)
[2020-02-01] MEDS: METFORMIN HCL 500 MG TABLET PO SCH ×2 (09:36→17:07)
[2020-02-01] MEDS: BUSPIRONE HCL 10 MG TABLET PO SCH ×2 (09:36→17:07)
[2020-02-01] MEDS: PIOGLITAZONE HCL 15 MG TABLET PO SCH (09:36)
[2020-02-01] MEDS: FLUTICASONE/UMECLIDIN/VILANTER 100-62.5-25 MCG/DOSE IH SCH (09:37)
[2020-02-01] MEDS: IPRATROPIUM/ALBUTEROL 0.5-2.5 MG/3 ML AMPUL NEB PRN (10:02)
--- NOTE | 2020-02-01 13:16 | EKG REPORT ---
SEVERITY:- ABNORMAL ECG - SINUS RHYTHM VENTRICULAR PREMATURE COMPLEX NONSPECIFIC INTRAVENTRICULAR CONDUCTION DELAY LOW VOLTAGE IN FRONTAL LEADS : Confirmed by: Venice Calvin 01-Feb-2020 13:16:35
--- NOTE | 2020-02-01 15:00 | PDOC CONSULTATION ---
Consultation Consult Date: 02/01/20 Attending physician:: SILVANO JORDAN Provider Consulted: TIMOTEO RIVERS Consult reason:: Acute on chronic respiratory failure obesity hypoventilation syndrome , obstructive sleep apnea History of Present Illness Admission Date/PCP: 01/31/20 14:28 SILVANO JORDAN MD History of Present Illness: YA PETTIT is a 74 year old male multiple admissions for respiratory failure presented this x3 days ago poststatus post discharge complaining increasing shortness of breath with any exertion he denies any nausea vomiting fevers chil ls diarrhea sore throat or exposure to other individuals who may have been ill. He has a compulsion for eating spite of being told frequently that he should be losing some weight. Past Medical History Cardiac Medical History: Reports: Congestive Heart Failure, Coronary Artery Disease, Hyperlipidema, Hypertension Denies: Atrial Fibrillation, Myocardial Infarction, Peripheral Vascular Disease, Pulmonary Embolism, Heart Murmur Pulmonary Medical History: Reports: Asthma, Chronic Obstructive Pulmonary Disease (COPD), Respiratory Failure, Sleep Apnea, Other - Obesity hypoventilation Denies: Bronchitis, Pneumonia, Tuberculosis Neurological Medical History: Denies: Seizures Endocrine Medical History: Reports: Diabetes Mellitus Type 2, Hypothyroidism Renal/ Medical History: Denies: End Stage Renal Disease Malignancy Medical History: Denies: Lung Cancer GI Medical History: Reports: Gastroesophageal Reflux Disease Denies: Crohn's Disease, Hepatitis, Ulcerative Colitis Musculoskeltal Medical History: Reports: Arthritis Denies: Fibromyalgia Skin Medical History: Denies: Psoriasis Psychiatric Medical History: Reports: Depression Traumatic Medical History: Denies: Gunshot Wound Hematology: Denies: Anemia, Sickle Cell Disease Infectious Medical History: Denies: HIV Past Surgical History Past Surgical History: Reports: Appendectomy, Cardiac Catheterization, Orthopedic Surgery - bilat arm fx, bilat rotator cuff, Tonsillectomy Denies: Cholecystectomy, Coronary Artery Bypass Graft, Gastric Bypass Surgery, Herniorrhaphy, Pacemaker Social History Information Source: Patient, [facility] Records Smoking Status: Former Smoker Cigarettes Packs Per Day: 2 Number of Years Smokin Last Time Smoked: 1979 Passive smoke exposure as: Both Frequency of Alcohol Use: Occasional Hx Recreational Drug Use: No Drugs: None Hx Prescription Drug Abuse: No Do you have pets?: No Have you had any respiratory illnesses as a child?: No Have you been exposed to any sick contacts recently?: No Have you had any recent respiratory illnesses?: Yes Have you travelled outside of [place] in the past 12 months?: No - Advance Directive Resuscitation Status: Do Not Resuscitate Family History Family History: CAD, COPD, DM, Hypertension Parental Family History Reviewed: Yes Children Family History Reviewed: Yes Sibling(s) Family History Reviewed.: Yes Medication/Allergy Home Medications: Allopurinol [Zyloprim 100 mg Tablet] 100 mg PO BID 09/15/19 Apixaban [Eliquis 2.5 mg Tablet] 2.5 mg PO QPM 09/15/19 Buspirone HCl 15 mg PO BID 09/15/19 Diltiazem HCl [Diltiazem 24Hr ER] 180 mg PO Q12 09/15/19 Donepezil HCl [Aricept 5 mg Tablet] 5 mg PO QHS 09/15/19 Metformin HCl [Metformin HCl ER] 500 mg PO QAM 09/15/19 Olmesartan/Hydrochlorothiazide [Olmesartan-Hctz 40-25 mg Tab] 1 tab PO QAM 09/15/19 Duloxetine HCl [Cymbalta] 60 mg PO Q12 01/04/20 Melatonin 10 mg PO QHS 01/04/20 Mirabegron [Myrbetriq] 25 mg PO QAM 01/04/20 Pramipexole Di-HCl [Mirapex] 1.5 mg PO BID 01/04/20 Empagliflozin [Jardiance] 25 mg PO DAILY #90 tablet 01/08/20 Levothyroxine Sodium 175 mcg PO DAILY #90 tablet 01/08/20 Semaglutide [Ozempic] 0.5 mg SQ Q7D #4 pen.injctr 01/08/20 Ergocalciferol (Vitamin D2) [Vitamin D2] 50,000 unit PO WALLIS@199901/15/20 Pioglitazone HCl [Actos 15 mg Tablet] 15 mg PO DAILY 01/15/20 Rizatriptan Benzoate [Rizatriptan] 10 mg PO DAILYP PRN 01/15/20 Fluticasone/Umeclidin/Vilanter [Trelegy 100-62.5-25 Mcg Ellipta 14 Dose/Dpi] 1 inh IH DAILY #4 inhaler 01/21/20 Insulin Glargine,Hum.rec.anlog [Lantus Insulin 100 Unit/1 ml 10 ml] 60 unit SUBCUT QHS #3 unit 01/21/20 Pantoprazole Sodium [Protonix [address] Tablet] 40 mg PO Q6AM tablet. 01/21/20 Allergies/Adverse Reactions: No Known Allergies Allergy (Verified 09/21/17 09:08) Review of Systems All systems: reviewed and no additional remarkable complaints except as stated Physical Exam Vital Signs: Temp Pulse Resp BP Pulse Ox 98.1 F 98 18 109/64 93 02/01/20 00:26 02/01/20 10:02 02/01/20 10:02 02/01/20 04:25 02/01/20 10:02 Intake & Output 01/31/20 02/01/20 02/02/20 06:59 06:59 06:59 Intake Total 1390 Output Total 1175 Balance 215 Weight 148.6 kg General appearance: PRESENT: cooperative, disheveled, mild distress, morbidly obese Head exam: PRESENT: atraumatic, normocephalic Eye exam: PRESENT: conjunctiva pale, EOMI. ABSENT: nystagmus, periorbital swelling Mouth exam: PRESENT: dry mucosa, neck supple, tongue midline, other - [place] 4 Neck exam: ABSENT: carotid bruit, full ROM, JVD, lymphadenopathy, meningismus, tenderness, thyromegaly, tracheal deviation, tracheostomy, other Respiratory exam: PRESENT: decreased breath sounds, prolonged expiratory phas, rhonchi, symmetrical, tachypnea, unlabored. ABSENT: retraction, stridor Pulses: PRESENT: normal femoral pulses GI/Abdominal exam: PRESENT: soft. ABSENT: guarding, mass, rebound, tenderness Extremities exam: PRESENT: +1 edema. ABSENT: calf tenderness, clubbing, joint swelling, tenderness Musculoskeletal exam: ABSENT: deformity, dislocation Neurological exam: PRESENT: awake Psychiatric exam: PRESENT: flat affect Skin exam: PRESENT: dry, warm Results Laboratory Results: 02/01/20 07:49 02/01/20 07:49 01/31/20 01/31/20 01/31/20 11:49 11:49 11:49 WBC 6.2 RBC 3.94 L Hgb 11.6 L Hct 36.3 L MCV 92 MCH 29.5 MCHC 32.0 RDW 15.6 H Plt Count 227 Seg Neutrophils % 64.4 VBG pH 7.25 L VBG pCO2 83.5 H* VBG HCO3 36.1 H VBG Base Excess 4.2 Sodium 140.1 Potassium 4.7 Chloride 98 Carbon Dioxide 36 H Anion Gap 6 BUN 38 H Creatinine 2.80 H Est GFR ( Amer) 27 L Glucose 186 H Lactic Acid Calcium 10.2 Phosphorus Magnesium Total Bilirubin 0.5 AST 25 Alkaline Phosphatase 92 Total Protein 6.6 Albumin 3.7 Triglycerides Cholesterol LDL Cholesterol Direct VLDL Cholesterol HDL Cholesterol Amylase Lipase TSH Free T4 Urine Color Urine Appearance Urine pH Ur Specific [place] Urine Protein Urine Glucose (UA) Urine Ketones Urine Blood Urine Nitrite Ur Leukocyte Esterase Urine WBC (Auto) Urine RBC (Auto) 01/31/20 01/31/20 01/31/20 11:49 11:49 11:49 WBC RBC Hgb Hct MCV MCH MCHC RDW Plt Count Seg Neutrophils % VBG pH VBG pCO2 VBG HCO3 VBG Base Excess Sodium Potassium Chloride Carbon Dioxide Anion Gap BUN Creatinine Est GFR ( Amer) Glucose Lactic Acid 1.8 Calcium Phosphorus 4.5 Magnesium 1.6 Total Bilirubin AST Alkaline Phosphatase Total Protein Albumin Triglycerides Cholesterol LDL Cholesterol Direct VLDL Cholesterol HDL Cholesterol Amylase 60 Lipase 238.3 TSH Free T4 1.26 Urine Color Urine Appearance Urine pH Ur Specific [place] Urine Protein Urine Glucose (UA) Urine Ketones Urine Blood Urine Nitrite Ur Leukocyte Esterase Urine WBC (Auto) Urine RBC (Auto) 01/31/20 01/31/20 01/31/20 11:49 12:00 23:07 WBC RBC Hgb Hct MCV MCH MCHC RDW Plt Count Seg Neutrophils % VBG pH VBG pCO2 VBG HCO3 VBG Base Excess Sodium Potassium Chloride Carbon Dioxide Anion Gap BUN Creatinine Est GFR ( Amer) Glucose Lactic Acid Calcium Phosphorus Magnesium Total Bilirubin AST Alkaline Phosphatase Total Protein Albumin Triglycerides Cholesterol LDL Cholesterol Direct VLDL Cholesterol HDL Cholesterol Amylase Lipase TSH 3.58 Free T4 Urine Color YELLOW YELLOW Urine Appearance CLOUDY SLIGHTLY-CLOUDY Urine pH 5.0 6.0 Ur Specific [place] 1.022 1.015 Urine Protein 100 H NEGATIVE Urine Glucose (UA) >=500 H >=500 H Urine Ketones TRACE H NEGATIVE Urine Blood SMALL H SMALL H Urine Nitrite NEGATIVE POSITIVE H Ur Leukocyte Esterase LARGE H SMALL H Urine WBC (Auto) >182 11 Urine RBC (Auto) 88 34 02/01/20 02/01/20 07:49 07:49 WBC 5.9 RBC 3.85 L Hgb 11.2 L Hct 35.0 L MCV 91 MCH 29.1 MCHC 32.0 RDW 15.5 H Plt Count 207 Seg Neutrophils % 70.0 VBG pH VBG pCO2 VBG HCO3 VBG Base Excess Sodium 138.1 Potassium 4.3 Chloride 97 L Carbon Dioxide 35 H Anion Gap 6 BUN 33 H Creatinine 2.27 H Est GFR ( Amer) 34 L Glucose 151 H Lactic Acid Calcium 10.3 H Phosphorus Magnesium Total Bilirubin 0.6 AST 28 Alkaline Phosphatase 78 Total Protein 6.6 Albumin 3.8 Triglycerides 383 H Cholesterol 253.03 H LDL Cholesterol Direct 150 H VLDL Cholesterol 76.6 H HDL Cholesterol 39 L Amylase Lipase TSH Free T4 Urine Color Urine Appearance Urine pH Ur Specific [place] Urine Protein Urine Glucose (UA) Urine Ketones Urine Blood Urine Nitrite Ur Leukocyte Esterase Urine WBC (Auto) Urine RBC (Auto) 01/31/20 01/31/20 01/31/20 11:49 11:49 11:49 Creatine Kinase 34 L Troponin I < 0.012 NT-Pro-B Natriuret Pep 112 115 01/31/20 02/01/20 02/01/20 11:49 01:33 01:33 Creatine Kinase 47 L Troponin I < 0.012 0.028 NT-Pro-B Natriuret Pep 02/01/20 02/01/20 07:49 07:49 Creatine Kinase 44 L Troponin I < 0.012 NT-Pro-B Natriuret Pep Impressions: Chest X-Ray 01/31/20 11:06 IMPRESSION: Cardiomegaly without a superimposed acute cardiopulmonary process. Assessment & Plan - Diagnosis (1) Acute hypercapnic respiratory failure Is this a current diagnosis for this admission?: Yes Plan: The above patient has failed BiPAP with a patent airway. This patient would benefit from noninvasive mechanical ventilation via the trilogy AVAPS/AE and faster responding AVAPS rates. The trilogy is able to provide a target tidal volume and also adjusting the EPAP pressures to maintain a patent airway as well as an oral backup rate this machine will help improve PaCO2 levels. The severity of the patient's condition will lead to future hospitalizations and readmissions as well as life-threatening situations without the use of this device day and night. Trilogy home vent needed for hypercapnic respiratory failure. Family Medical or [facility] [place] to follow for trilogy set up. (2) Obesity hypoventilation syndrome Is this a current diagnosis for this admission?: Yes Plan: Consider trach and PEG (3) Chronic obstructive pulmonary disease Qualifiers: COPD type: unspecified COPD Qualified Code(s): J44.9 - Chronic obstructive pulmonary disease, unspecified Is this a current diagnosis for this admission?: Yes Plan: Continue current bronchodilator therapy (4) Eating disorder Is this a current diagnosis for this admission?: Yes Plan: Please consider psychology consult - Time Time Spent with patient: 55 min
[2020-02-01] MEDS: APIXABAN 2.5 MG TABLET PO SCH (17:07)
--- NOTE | 2020-02-01 17:12 | PDOC H&P ---
History of Present Illness Admission Date/PCP: 01/31/20 14:28 SILVANO JORDAN MD History of Present Illness: YA PETTIT is a 74 year old male, He came to the emergency room for evaluation of shortness of breath he stated that he noticed in the last few days increasing shortness of breath, it is worse with movement, there was associated dry cough in the emergency room he was found to have acute hypercapnic respiratory failure, the venous blood gas that was done, PCO2 83.5, pH is 7.25. He has indwelling urinary catheter with colonization with bacteria, he has underlining chronic kidney disease stage III Past Medical History Cardiac Medical History: Reports: Coronary Artery Disease, Hyperlipidema, Hypertension, Other - Chronic diastolic heart failure Pulmonary Medical History: Reports: Asthma, Chronic Obstructive Pulmonary Disease (COPD), Respiratory Failure, Sleep Apnea, Other - Obesity hypoventilation Endocrine Medical History: Reports: Diabetes Mellitus Type 2, Hypothyroidism, Obesity GI Medical History: Reports: Gastroesophageal Reflux Disease Musculoskeltal Medical History: Reports: Arthritis Skin Medical History: Denies: Psoriasis Psychiatric Medical History: Reports: Depression Past Surgical History Past Surgical History: Reports: Appendectomy, Cardiac Catheterization, Orthopedic Surgery - bilat arm fx, bilat rotator cuff, Tonsillectomy Social History Smoking Status: Former Smoker Cigarettes Packs Per Day: 2 Electronic Cigarette use?: No Number of Years Smokin Last Time Smoked: 1979 Frequency of Alcohol Use: Occasional Hx Recreational Drug Use: No Drugs: None Hx Prescription Drug Abuse: No - Advance Directive Resuscitation Status: Do Not Resuscitate Family History Family History: CAD, COPD, DM, Hypertension Parental Family History Reviewed: Yes Children Family History Reviewed: Yes Sibling(s) Family History Reviewed.: Yes Medication/Allergy Home Medications: Allopurinol [Zyloprim 100 mg Tablet] 100 mg PO BID 09/15/19 Apixaban [Eliquis 2.5 mg Tablet] 2.5 mg PO QPM 09/15/19 Buspirone HCl 15 mg PO BID 09/15/19 Diltiazem HCl [Diltiazem 24Hr ER] 180 mg PO Q12 09/15/19 Donepezil HCl [Aricept 5 mg Tablet] 5 mg PO QHS 09/15/19 Metformin HCl [Metformin HCl ER] 500 mg PO QAM 09/15/19 Olmesartan/Hydrochlorothiazide [Olmesartan-Hctz 40-25 mg Tab] 1 tab PO QAM 09/15/19 Duloxetine HCl [Cymbalta] 60 mg PO Q12 01/04/20 Melatonin 10 mg PO QHS 01/04/20 Mirabegron [Myrbetriq] 25 mg PO QAM 01/04/20 Pramipexole Di-HCl [Mirapex] 1.5 mg PO BID 01/04/20 Empagliflozin [Jardiance] 25 mg PO DAILY #90 tablet 01/08/20 Levothyroxine Sodium 175 mcg PO DAILY #90 tablet 01/08/20 Semaglutide [Ozempic] 0.5 mg SQ Q7D #4 pen.injctr 01/08/20 Ergocalciferol (Vitamin D2) [Vitamin D2] 50,000 unit PO WALLIS@2000 01/15/20 Pioglitazone HCl [Actos 15 mg Tablet] 15 mg PO DAILY 01/15/20 Rizatriptan Benzoate [Rizatriptan] 10 mg PO DAILYP PRN 01/15/20 Fluticasone/Umeclidin/Vilanter [Trelegy 100-62.5-25 Mcg Ellipta 14 Dose/Dpi] 1 inh IH DAILY #4 inhaler 01/21/20 Insulin Glargine,Hum.rec.anlog [Lantus Insulin 100 Unit/1 ml 10 ml] 60 unit SUBCUT QHS #3 unit 01/21/20 Pantoprazole Sodium [Protonix [address] Tablet] 40 mg PO Q6AM tablet. 01/21/20 Allergies/Adverse Reactions: No Known Allergies Allergy (Verified 09/21/17 09:08) Review of Systems Constitutional: ABSENT: chills, fever(s), headache(s), weight gain, weight loss Eyes: ABSENT: visual disturbances Ears: ABSENT: hearing changes Cardiovascular: ABSENT: chest pain, dyspnea on exertion, edema, orthropnea, palpitations Respiratory: PRESENT: cough, dyspnea Gastrointestinal: ABSENT: as per HPI, abdominal pain, bloating, coffee ground emesis, constipation, diarrhea, dysphagia, heartburn, hematemesis, hematochezia, melena, nausea, vomiting, other Genitourinary: ABSENT: dysuria, hematuria Musculoskeletal: ABSENT: joint swelling Integumentary: ABSENT: rash, wounds Neurological: ABSENT: abnormal gait, abnormal speech, confusion, dizziness, focal weakness, syncope Psychiatric: ABSENT: anxiety, depression, homidical ideation, suicidal ideation Endocrine: ABSENT: cold intolerance, heat intolerance, menstrual abnormalities, polydipsia, polyuria Hematologic/Lymphatic: ABSENT: easy bleeding, easy bruising, lymphadenopathy Physical Exam Vital Signs: Temp Pulse Resp BP Pulse Ox 98.1 F 74 18 109/64 93 02/01/20 00:26 02/01/20 14:00 02/01/20 10:02 02/01/20 04:25 02/01/20 10:02 Intake & Output 01/31/20 02/01/20 02/02/20 06:59 06:59 06:59 Intake Total 1390 1098 Output Total 1175 400 Balance 215 698 Weight 148.6 kg General appearance: PRESENT: morbidly obese Head exam: PRESENT: atraumatic, normocephalic Eye exam: PRESENT: PERRLA Neck exam: PRESENT: full ROM Respiratory exam: PRESENT: clear to auscultation milena Cardiovascular exam: PRESENT: RRR, +S1, +S2 Vascular exam: PRESENT: normal capillary refill GI/Abdominal exam: PRESENT: normal bowel sounds, soft Rectal exam: PRESENT: deferred Extremities exam: PRESENT: pedal edema Neurological exam: PRESENT: alert, CN II-XII grossly intact Psychiatric exam: PRESENT: appropriate affect, normal mood Skin exam: PRESENT: dry, intact, warm Results Laboratory Results: 02/01/20 07:49 02/01/20 07:49 01/31/20 01/31/20 01/31/20 11:49 11:49 11:49 WBC RBC Hgb Hct MCV MCH MCHC RDW Plt Count Seg Neutrophils % Sodium Potassium Chloride Carbon Dioxide Anion Gap BUN Creatinine Est GFR ( Amer) Glucose Calcium Phosphorus 4.5 Magnesium 1.6 Total Bilirubin AST Alkaline Phosphatase Total Protein Albumin Triglycerides Cholesterol LDL Cholesterol Direct VLDL Cholesterol HDL Cholesterol Amylase 60 Lipase 238.3 TSH 3.58 Free T4 1.26 Urine Color Urine Appearance Urine pH Ur Specific [place] Urine Protein Urine Glucose (UA) Urine Ketones Urine Blood Urine Nitrite Ur Leukocyte Esterase Urine WBC (Auto) Urine RBC (Auto) 01/31/20 02/01/20 02/01/20 23:07 07:49 07:49 WBC 5.9 RBC 3.85 L Hgb 11.2 L Hct 35.0 L MCV 91 MCH 29.1 MCHC 32.0 RDW 15.5 H Plt Count 207 Seg Neutrophils % 70.0 Sodium 138.1 Potassium 4.3 Chloride 97 L Carbon Dioxide 35 H Anion Gap 6 BUN 33 H Creatinine 2.27 H Est GFR ( Amer) 34 L Glucose 151 H Calcium 10.3 H Phosphorus Magnesium Total Bilirubin 0.6 AST 28 Alkaline Phosphatase 78 Total Protein 6.6 Albumin 3.8 Triglycerides 383 H Cholesterol 253.03 H LDL Cholesterol Direct 150 H VLDL Cholesterol 76.6 H HDL Cholesterol 39 L Amylase Lipase TSH Free T4 Urine Color YELLOW Urine Appearance SLIGHTLY-CLOUDY Urine pH 6.0 Ur Specific [place] 1.015 Urine Protein NEGATIVE Urine Glucose (UA) >=500 H Urine Ketones NEGATIVE Urine Blood SMALL H Urine Nitrite POSITIVE H Ur Leukocyte Esterase SMALL H Urine WBC (Auto) 11 Urine RBC (Auto) 34 01/31/20 01/31/20 01/31/20 11:49 11:49 11:49 Creatine Kinase 34 L Troponin I < 0.012 NT-Pro-B Natriuret Pep 112 115 01/31/20 02/01/20 02/01/20 11:49 01:33 01:33 Creatine Kinase 47 L Troponin I < 0.012 0.028 NT-Pro-B Natriuret Pep 02/01/20 02/01/20 07:49 07:49 Creatine Kinase 44 L Troponin I < 0.012 NT-Pro-B Natriuret Pep Impressions: Chest X-Ray 01/31/20 11:06 IMPRESSION: Cardiomegaly without a superimposed acute cardiopulmonary process. Assessment & Plan - Diagnosis (1) Acute hypercapnic respiratory failure Is this a current diagnosis for this admission?: Yes Plan: This is most likely from obesity hypoventilation syndrome patient indulges in overeating, body mass index is 45 the best approach to keep this patient from re current inpatient care is to get him trilogy, noninvasive positive pressure ventilation. I do not see this patient making any reasonable effort to lose weight or change his pernicious habits of overeating, inactivity (2) CKD (chronic kidney disease) stage 3, GFR 30-59 ml/min Is this a current diagnosis for this admission?: Yes Plan: He has a history of chronic kidney disease stage III (3) Obesity hypoventilation syndrome Is this a current diagnosis for this admission?: Yes (4) Type 2 diabetes mellitus Qualifiers: Diabetes mellitus jail insulin use: with jail use Diabetes mellitus complication status: with neurologic complications Diabetes mellitus complication detail: with polyneuropathy Qualified Code(s): E11.42 - Type 2 diabetes mellitus with diabetic polyneuropathy; Z79.4 - residential (current) use of insulin Is this a current diagnosis for this admission?: Yes
--- NOTE | 2020-02-01 17:26 | PDOC PROGRESS REPORT ---
Subjective Progress Note for:: 02/01/20 Subjective:: ,Patient seen by the bedside, pulmonary consultation will be requested presently stable Reason For Visit: ACUTE HYPERCAPNIC RESPIRATORY FAILURE OBESITY Physical Exam Vital Signs: Temp Pulse Resp BP Pulse Ox 98.1 F 74 18 109/64 93 02/01/20 00:26 02/01/20 14:00 02/01/20 10:02 02/01/20 04:25 02/01/20 10:02 Intake & Output 01/31/20 02/01/20 02/02/20 06:59 06:59 06:59 Intake Total 1390 1098 Output Total 1175 400 Balance 215 698 Weight 148.6 kg General appearance: PRESENT: no acute distress Eye exam: PRESENT: PERRLA Respiratory exam: PRESENT: clear to auscultation milena Cardiovascular exam: PRESENT: +S1, +S2 GI/Abdominal exam: PRESENT: soft Neurological exam: PRESENT: alert, CN II-XII grossly intact Results Laboratory Results: 02/01/20 07:49 02/01/20 07:49 01/31/20 01/31/20 01/31/20 11:49 11:49 11:49 WBC RBC Hgb Hct MCV MCH MCHC RDW Plt Count Seg Neutrophils % Sodium Potassium Chloride Carbon Dioxide Anion Gap BUN Creatinine Est GFR ( Amer) Glucose Calcium Phosphorus 4.5 Magnesium 1.6 Total Bilirubin AST Alkaline Phosphatase Total Protein Albumin Triglycerides Cholesterol LDL Cholesterol Direct VLDL Cholesterol HDL Cholesterol Amylase 60 Lipase 238.3 TSH 3.58 Free T4 1.26 Urine Color Urine Appearance Urine pH Ur Specific [place] Urine Protein Urine Glucose (UA) Urine Ketones Urine Blood Urine Nitrite Ur Leukocyte Esterase Urine WBC (Auto) Urine RBC (Auto) 01/31/20 02/01/20 02/01/20 23:07 07:49 07:49 WBC 5.9 RBC 3.85 L Hgb 11.2 L Hct 35.0 L MCV 91 MCH 29.1 MCHC 32.0 RDW 15.5 H Plt Count 207 Seg Neutrophils % 70.0 Sodium 138.1 Potassium 4.3 Chloride 97 L Carbon Dioxide 35 H Anion Gap 6 BUN 33 H Creatinine 2.27 H Est GFR ( Amer) 34 L Glucose 151 H Calcium 10.3 H Phosphorus Magnesium Total Bilirubin 0.6 AST 28 Alkaline Phosphatase 78 Total Protein 6.6 Albumin 3.8 Triglycerides 383 H Cholesterol 253.03 H LDL Cholesterol Direct 150 H VLDL Cholesterol 76.6 H HDL Cholesterol 39 L Amylase Lipase TSH Free T4 Urine Color YELLOW Urine Appearance SLIGHTLY-CLOUDY Urine pH 6.0 Ur Specific [place] 1.015 Urine Protein NEGATIVE Urine Glucose (UA) >=500 H Urine Ketones NEGATIVE Urine Blood SMALL H Urine Nitrite POSITIVE H Ur Leukocyte Esterase SMALL H Urine WBC (Auto) 11 Urine RBC (Auto) 34 01/31/20 01/31/20 01/31/20 11:49 11:49 11:49 Creatine Kinase 34 L Troponin I < 0.012 NT-Pro-B Natriuret Pep 112 115 01/31/20 02/01/20 02/01/20 11:49 01:33 01:33 Creatine Kinase 47 L Troponin I < 0.012 0.028 NT-Pro-B Natriuret Pep 02/01/20 02/01/20 07:49 07:49 Creatine Kinase 44 L Troponin I < 0.012 NT-Pro-B Natriuret Pep Impressions: Chest X-Ray 01/31/20 11:06 IMPRESSION: Cardiomegaly without a superimposed acute cardiopulmonary process. 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
[2020-02-01] MEDS: MELATONIN 5 MG TABLET PO SCH (22:20)
[2020-02-01] MEDS: DONEPEZIL HCL 5 MG TABLET PO SCH (22:20)
[2020-02-01] MEDS: INSULIN GLARGINE,HUM.REC.ANLOG 1,000 UNIT/10 ML VIAL SUBCUT SCH (22:22)
[2020-02-01] MEDS ORDERED: NYSTATIN CREAM 15 GM TP ONE (23:45)
[2020-02-02] MEDS: PANTOPRAZOLE SODIUM 40 MG TABLET.DR PO SCH (05:23)
[2020-02-02] MEDS: LEVOTHYROXINE SODIUM 0.075 MG TABLET PO SCH (05:23)
[2020-02-02] MEDS: LEVOTHYROXINE SODIUM 0.1 MG TABLET PO SCH (05:23)
[2020-02-02 05:50] LABS: ABSOLUTE EOSINOPHILS # (AUTO) 0.1 10^3/uL (0.0-0.6); ABSOLUTE LYMPHOCYTES (AUTO) 1.3 10^3/uL (0.5-4.7); ABSOLUTE MONOCYTES (AUTO) 0.6 10^3/uL (0.1-1.4); ABSOLUTE NEUT (AUTO) 3.8 10^3/uL (1.7-8.2); BASOPHILS % (AUTO) 0.8 % (0-2); EOSINOPHILS % (AUTO) 2.2 % (0-6); HEMATOCRIT 32.9 % (37.9-51.0); HEMOGLOBIN 10.8 g/dL (13.5-17.0); LYMPHOCYTES % (AUTO) 22.3 % (13-45); MEAN CORPUSCULAR HEMOGLOBIN 29.6 pg (27.0-33.4); MEAN CORPUSCULAR HGB CONC 32.8 g/dL (32.0-36.0); MEAN CORPUSCULAR VOLUME 90 fl (80-97); MONOCYTES % (AUTO) 10.3 % (3-13); PLATELET COUNT 192 10^3/uL (150-450); RED BLOOD COUNT 3.65 10^6/uL (4.35-5.55); RED CELL DISTRIBUTION WIDTH 15.4 % (11.5-14.0); SEGMENTED NEUTROPHILS % (AUTO) 64.4 % (42-78); TOTAL CELLS COUNTED % (AUTO) 100 %; WHITE BLOOD COUNT 5.9 10^3/uL (4.0-10.5)
[2020-02-02] MEDS: IPRATROPIUM/ALBUTEROL 0.5-2.5 MG/3 ML AMPUL NEB PRN ×2 (06:26→09:54)
[2020-02-02] MEDS: INSULIN LISPRO 100 UNIT/ML 3 ML VIAL SUBCUT SCH ×4 (07:30→21:19)
[2020-02-02] MEDS: METFORMIN HCL 500 MG TABLET PO SCH ×2 (09:29→17:39)
[2020-02-02] MEDS: HYDROCHLOROTHIAZIDE 25 MG TABLET PO SCH (09:29)
[2020-02-02] MEDS: FLUTICASONE/UMECLIDIN/VILANTER 100-62.5-25 MCG/DOSE IH SCH (09:30)
[2020-02-02] MEDS: DILTIAZEM HCL 180 MG CAPSULE.CR PO SCH ×2 (09:30→21:15)
[2020-02-02] MEDS: ALLOPURINOL 100 MG TABLET PO SCH ×2 (09:30→17:37)
[2020-02-02] MEDS: LOSARTAN POTASSIUM 50 MG TABLET PO SCH (09:30)
[2020-02-02] MEDS: PIOGLITAZONE HCL 15 MG TABLET PO SCH (09:30)
[2020-02-02] MEDS: BUSPIRONE HCL 10 MG TABLET PO SCH ×2 (09:30→17:37)
[2020-02-02] MEDS: LEVOFLOXACIN 750 MG TABLET PO SCH (09:30)
[2020-02-02] MEDS: DULOXETINE HCL 30 MG CAPSULE.DR PO SCH ×2 (09:30→21:15)
[2020-02-02] MEDS: PRAMIPEXOLE DI-HCL 0.5 MG TABLET PO SCH ×2 (09:31→17:38)
[2020-02-02] MEDS: NYSTATIN CREAM 15 GM TP SCH ×2 (09:31→17:38)
[2020-02-02] MEDS: APIXABAN 2.5 MG TABLET PO SCH (17:37)
--- NOTE | 2020-02-02 20:51 | PDOC PROGRESS REPORT ---
Subjective Progress Note for:: 02/02/20 Subjective:: Patient seen by the bedside, he will need trilogy to manage the hypercapnic respiratory failure, he has failed CPAP machine, I will consult discharge planning to make arrangement for trilogy device Reason For Visit: ACUTE HYPERCAPNIC RESPIRATORY FAILURE OBESITY Physical Exam Vital Signs: Temp Pulse Resp BP Pulse Ox 97.4 F 93 24 H 99/59 L 91 L 02/02/20 19:38 02/02/20 19:38 02/02/20 19:38 02/02/20 19:38 02/02/20 19:38 Intake & Output 02/01/20 02/02/20 02/03/20 06:59 06:59 06:59 Intake Total 1390 1759 237 Output Total 1175 1730 600 Balance 215 29 -363 Weight 148.6 kg 147.8 kg General appearance: PRESENT: no acute distress Eye exam: PRESENT: PERRLA Respiratory exam: PRESENT: clear to auscultation milena Cardiovascular exam: PRESENT: +S1, +S2 GI/Abdominal exam: PRESENT: soft Neurological exam: PRESENT: alert, CN II-XII grossly intact Results Laboratory Results: 02/02/20 05:11 02/01/20 07:49 02/02/20 05:11 WBC 5.9 RBC 3.65 L Hgb 10.8 L Hct 32.9 L MCV 90 MCH 29.6 MCHC 32.8 RDW 15.4 H Plt Count 192 Seg Neutrophils % 64.4 01/31/20 12:00 Cerna Catheter Urine Culture - Final Serratia Marcescens Urogenital Kailee 01/31/20 11:49 Blood Blood Culture (PCR) - Final Streptococcus Species 01/31/20 01/31/20 01/31/20 11:49 11:49 11:49 Creatine Kinase 34 L Troponin I < 0.012 NT-Pro-B Natriuret Pep 112 115 01/31/20 02/01/20 02/01/20 11:49 01:33 01:33 Creatine Kinase 47 L Troponin I < 0.012 0.028 NT-Pro-B Natriuret Pep 02/01/20 02/01/20 07:49 07:49 Creatine Kinase 44 L Troponin I < 0.012 NT-Pro-B Natriuret Pep Impressions: Chest X-Ray 01/31/20 11:06 IMPRESSION: Cardiomegaly without a superimposed acute cardiopulmonary process. 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
[2020-02-02] MEDS: DONEPEZIL HCL 5 MG TABLET PO SCH (21:15)
[2020-02-02] MEDS: MELATONIN 5 MG TABLET PO SCH (21:15)
[2020-02-02] MEDS: INSULIN GLARGINE,HUM.REC.ANLOG 1,000 UNIT/10 ML VIAL SUBCUT SCH (21:19)
[2020-02-03 05:14] LABS: ABSOLUTE EOSINOPHILS # (AUTO) 0.1 10^3/uL (0.0-0.6); ABSOLUTE LYMPHOCYTES (AUTO) 1.2 10^3/uL (0.5-4.7); ABSOLUTE MONOCYTES (AUTO) 0.6 10^3/uL (0.1-1.4); ABSOLUTE NEUT (AUTO) 3.1 10^3/uL (1.7-8.2); BASOPHILS % (AUTO) 0.7 % (0-2); EOSINOPHILS % (AUTO) 1.6 % (0-6); HEMATOCRIT 35.7 % (37.9-51.0); HEMOGLOBIN 11.6 g/dL (13.5-17.0); LYMPHOCYTES % (AUTO) 24.3 % (13-45); MEAN CORPUSCULAR HEMOGLOBIN 29.4 pg (27.0-33.4); MEAN CORPUSCULAR HGB CONC 32.5 g/dL (32.0-36.0); MEAN CORPUSCULAR VOLUME 90 fl (80-97); MONOCYTES % (AUTO) 12.2 % (3-13); PLATELET COUNT 201 10^3/uL (150-450); RED BLOOD COUNT 3.96 10^6/uL (4.35-5.55); RED CELL DISTRIBUTION WIDTH 15.6 % (11.5-14.0); SEGMENTED NEUTROPHILS % (AUTO) 61.2 % (42-78); TOTAL CELLS COUNTED % (AUTO) 100 %; WHITE BLOOD COUNT 5.1 10^3/uL (4.0-10.5)
[2020-02-03] MEDS: PANTOPRAZOLE SODIUM 40 MG TABLET.DR PO SCH (05:25)
[2020-02-03] MEDS: LEVOTHYROXINE SODIUM 0.1 MG TABLET PO SCH (05:25)
[2020-02-03] MEDS: LEVOTHYROXINE SODIUM 0.075 MG TABLET PO SCH (05:26)
[2020-02-03] MEDS: IPRATROPIUM/ALBUTEROL 0.5-2.5 MG/3 ML AMPUL NEB PRN (06:22)
[2020-02-03] MEDS: LEVOFLOXACIN 750 MG TABLET PO SCH (09:12)
[2020-02-03] MEDS: DULOXETINE HCL 30 MG CAPSULE.DR PO SCH ×2 (09:12→21:30)
[2020-02-03] MEDS: METFORMIN HCL 500 MG TABLET PO SCH ×2 (09:13→17:20)
[2020-02-03] MEDS: BUSPIRONE HCL 10 MG TABLET PO SCH ×2 (09:13→17:19)
[2020-02-03] MEDS: ALLOPURINOL 100 MG TABLET PO SCH ×2 (09:14→17:21)
[2020-02-03] MEDS: INSULIN LISPRO 100 UNIT/ML 3 ML VIAL SUBCUT SCH ×4 (09:15→22:49)
[2020-02-03] MEDS: HYDROCHLOROTHIAZIDE 25 MG TABLET PO SCH (09:15)
[2020-02-03] MEDS: PIOGLITAZONE HCL 15 MG TABLET PO SCH (09:15)
[2020-02-03] MEDS: NYSTATIN CREAM 15 GM TP SCH ×2 (09:16→17:21)
[2020-02-03] MEDS: FLUTICASONE/UMECLIDIN/VILANTER 100-62.5-25 MCG/DOSE IH SCH (09:16)
[2020-02-03] MEDS: PRAMIPEXOLE DI-HCL 0.5 MG TABLET PO SCH ×2 (09:16→17:24)
[2020-02-03] MEDS: LOSARTAN POTASSIUM 50 MG TABLET PO SCH (10:30)
[2020-02-03] MEDS: DILTIAZEM HCL 180 MG CAPSULE.CR PO SCH ×2 (10:30→21:30)
[2020-02-03] MEDS: APIXABAN 2.5 MG TABLET PO SCH (17:19)
[2020-02-03] MEDS: DONEPEZIL HCL 5 MG TABLET PO SCH (21:30)
[2020-02-03] MEDS: MELATONIN 5 MG TABLET PO SCH (21:30)
--- NOTE | 2020-02-03 22:18 | PDOC PROGRESS REPORT ---
Subjective Progress Note for:: 02/03/20 Subjective:: Patient seen by the bedside the trilogy device was delivered today to his room, he will try the device in the hospital before discharge home Reason For Visit: ACUTE HYPERCAPNIC RESPIRATORY FAILURE OBESITY Physical Exam Vital Signs: Temp Pulse Resp BP Pulse Ox 98.4 F 103 H 21 H 100/53 L 92 02/03/20 16:13 02/03/20 19:00 02/03/20 16:13 02/03/20 16:13 02/03/20 16:13 Intake & Output 02/02/20 02/03/20 02/04/20 06:59 06:59 06:59 Intake Total 1759 459 120 Output Total 1730 8251 600 Balance 57 -535 -784 Weight 147.8 kg 147.4 kg 147.3 kg General appearance: PRESENT: no acute distress Eye exam: PRESENT: PERRLA Respiratory exam: PRESENT: clear to auscultation milena Cardiovascular exam: PRESENT: +S1, +S2 GI/Abdominal exam: PRESENT: soft Neurological exam: PRESENT: alert Results Laboratory Results: 02/03/20 04:32 02/01/20 07:49 02/03/20 04:32 WBC 5.1 RBC 3.96 L Hgb 11.6 L Hct 35.7 L MCV 90 MCH 29.4 MCHC 32.5 RDW 15.6 H Plt Count 201 Seg Neutrophils % 61.2 01/31/20 11:49 Blood Blood Culture (PCR) - Final Streptococcus Species 01/31/20 11:49 Blood Blood Culture - Final Strep Mitis/Oralis Grp 01/31/20 01/31/20 01/31/20 11:49 11:49 11:49 Creatine Kinase 34 L Troponin I < 0.012 NT-Pro-B Natriuret Pep 112 115 01/31/20 02/01/20 02/01/20 11:49 01:33 01:33 Creatine Kinase 47 L Troponin I < 0.012 0.028 NT-Pro-B Natriuret Pep 02/01/20 02/01/20 07:49 07:49 Creatine Kinase 44 L Troponin I < 0.012 NT-Pro-B Natriuret Pep Impressions: Chest X-Ray 01/31/20 11:06 IMPRESSION: Cardiomegaly without a superimposed acute cardiopulmonary process. Assessment & Plan - Diagnosis (1) Acute hypercapnic respiratory failure Is this a current diagnosis for this admission?: Yes Plan: continue present treatment ,request trilogy ,associate merchandise planner to arrange for the device (2) CKD (chronic kidney disease) stage 3, GFR 30-59 ml/min Is this a current diagnosis for this admission?: Yes (3) Obesity hypoventilation syndrome Is this a current diagnosis for this admission?: Yes (4) Type 2 diabetes mellitus Qualifiers: Diabetes mellitus retirement insulin use: with retirement use Diabetes mellitus complication status: with neurologic complications Diabetes mellitus complication detail: with polyneuropathy Qualified Code(s): E11.42 - Type 2 diabetes mellitus with diabetic polyneuropathy; Z79.4 - ocean transportation intermediary (current) use of insulin Is this a current diagnosis for this admission?: Yes - Time Time Spent with patient: 15-24 minutes Level of Care: IMCU
[2020-02-03] MEDS: INSULIN GLARGINE,HUM.REC.ANLOG 1,000 UNIT/10 ML VIAL SUBCUT SCH (22:52)
[2020-02-04] MEDS: PANTOPRAZOLE SODIUM 40 MG TABLET.DR PO SCH (05:42)
[2020-02-04] MEDS: LEVOTHYROXINE SODIUM 0.1 MG TABLET PO SCH (05:42)
[2020-02-04] MEDS: LEVOTHYROXINE SODIUM 0.075 MG TABLET PO SCH (05:42)
[2020-02-04] MEDS: INSULIN LISPRO 100 UNIT/ML 3 ML VIAL SUBCUT SCH ×4 (09:44→21:30)
[2020-02-04] MEDS: METFORMIN HCL 500 MG TABLET PO SCH ×2 (09:46→17:20)
[2020-02-04] MEDS: LOSARTAN POTASSIUM 50 MG TABLET PO SCH (09:47)
[2020-02-04] MEDS: BUSPIRONE HCL 10 MG TABLET PO SCH ×2 (09:48→17:21)
[2020-02-04] MEDS: DULOXETINE HCL 30 MG CAPSULE.DR PO SCH ×2 (09:48→21:28)
[2020-02-04] MEDS: ALLOPURINOL 100 MG TABLET PO SCH ×2 (09:48→17:21)
[2020-02-04] MEDS: HYDROCHLOROTHIAZIDE 25 MG TABLET PO SCH (09:49)
[2020-02-04] MEDS: LEVOFLOXACIN 750 MG TABLET PO SCH (09:49)
[2020-02-04] MEDS: DILTIAZEM HCL 180 MG CAPSULE.CR PO SCH ×2 (09:49→22:05)
[2020-02-04] MEDS: PIOGLITAZONE HCL 15 MG TABLET PO SCH (09:52)
[2020-02-04] MEDS: PRAMIPEXOLE DI-HCL 0.5 MG TABLET PO SCH ×2 (09:52→17:22)
[2020-02-04] MEDS: FLUTICASONE/UMECLIDIN/VILANTER 100-62.5-25 MCG/DOSE IH SCH (09:53)
[2020-02-04] MEDS: NYSTATIN CREAM 15 GM TP SCH ×2 (09:53→17:21)
[2020-02-04] MEDS: APIXABAN 2.5 MG TABLET PO SCH (17:21)
[2020-02-04] MEDS: RISPERIDONE 0.25 MG TABLET PO SCH (21:28)
[2020-02-04] MEDS: DONEPEZIL HCL 5 MG TABLET PO SCH (21:28)
[2020-02-04] MEDS: MELATONIN 5 MG TABLET PO SCH (21:28)
[2020-02-04] MEDS: INSULIN GLARGINE,HUM.REC.ANLOG 1,000 UNIT/10 ML VIAL SUBCUT SCH (21:30)
[2020-02-05] MEDS: PANTOPRAZOLE SODIUM 40 MG TABLET.DR PO SCH (05:13)
[2020-02-05] MEDS: LEVOTHYROXINE SODIUM 0.1 MG TABLET PO SCH (05:14)
[2020-02-05] MEDS: LEVOTHYROXINE SODIUM 0.075 MG TABLET PO SCH (05:14)
[2020-02-05 05:46] LABS: HEMATOCRIT 32.6 % (37.9-51.0); HEMOGLOBIN 10.9 g/dL (13.5-17.0); MEAN CORPUSCULAR HEMOGLOBIN 29.9 pg (27.0-33.4); MEAN CORPUSCULAR HGB CONC 33.5 g/dL (32.0-36.0); MEAN CORPUSCULAR VOLUME 89 fl (80-97); PLATELET COUNT 146 10^3/uL (150-450); RED BLOOD COUNT 3.65 10^6/uL (4.35-5.55); RED CELL DISTRIBUTION WIDTH 15.4 % (11.5-14.0); WHITE BLOOD COUNT 4.7 10^3/uL (4.0-10.5)
[2020-02-05] MEDS: IPRATROPIUM/ALBUTEROL 0.5-2.5 MG/3 ML AMPUL NEB PRN ×3 (06:39→19:52)
[2020-02-05 06:47] LABS: ANION GAP 7 (5-19); BLOOD UREA NITROGEN 29 mg/dL (7-20); CALCIUM 9.2 mg/dL (8.4-10.2); CARBON DIOXIDE 34 mmol/L (22-30); CHLORIDE 97 mmol/L (98-107); GLUCOSE 120 mg/dL (75-110)
[2020-02-05] MEDS: INSULIN LISPRO 100 UNIT/ML 3 ML VIAL SUBCUT SCH ×4 (08:07→21:08)
[2020-02-05] MEDS: METFORMIN HCL 500 MG TABLET PO SCH ×2 (08:16→17:27)
[2020-02-05] MEDS: LOSARTAN POTASSIUM 50 MG TABLET PO SCH (08:17)
[2020-02-05] MEDS: HYDROCHLOROTHIAZIDE 25 MG TABLET PO SCH (08:17)
[2020-02-05] MEDS: NYSTATIN CREAM 15 GM TP SCH ×2 (09:22→17:28)
[2020-02-05] MEDS: BUSPIRONE HCL 10 MG TABLET PO SCH ×2 (09:23→17:27)
[2020-02-05] MEDS: RISPERIDONE 0.25 MG TABLET PO SCH ×2 (09:23→17:27)
[2020-02-05] MEDS: PIOGLITAZONE HCL 15 MG TABLET PO SCH (09:23)
[2020-02-05] MEDS: LEVOFLOXACIN 750 MG TABLET PO SCH (09:23)
[2020-02-05] MEDS: ALLOPURINOL 100 MG TABLET PO SCH ×2 (09:23→17:27)
[2020-02-05] MEDS: DULOXETINE HCL 30 MG CAPSULE.DR PO SCH ×2 (09:23→21:02)
[2020-02-05] MEDS: DILTIAZEM HCL 180 MG CAPSULE.CR PO SCH ×2 (09:24→21:03)
[2020-02-05] MEDS: PRAMIPEXOLE DI-HCL 0.5 MG TABLET PO SCH ×2 (09:24→17:27)
[2020-02-05] MEDS: FLUTICASONE/UMECLIDIN/VILANTER 100-62.5-25 MCG/DOSE IH SCH (09:24)
[2020-02-05 13:08] LABS: ARTERIAL BLOOD BASE EXCESS 3.8 mmol/L; ARTERIAL BLOOD FIO2 4L; ARTERIAL BLOOD H2CO3 1.31 mmol/L (1.05-1.35); ARTERIAL BLOOD HCO3 28.5 mmol/L (20-24); ARTERIAL BLOOD O2 SATURATION 92.3 % (94-98); ARTERIAL BLOOD PCO2 43.5 mmHg (35-45); ARTERIAL BLOOD PH 7.43 (7.35-7.45); ARTERIAL BLOOD PO2 61.8 mmHg (80-100); ARTERIAL BLOOD TOTAL CO2 29.8 mmol/L (23-27)
--- NOTE | 2020-02-05 17:16 | PDOC PROGRESS REPORT ---
Subjective Progress Note for:: 02/04/20 Subjective:: Patient demonstrated acute confusional state with confabulation. reported that this is new. No reported chest pain or difficulty with breathing not compliant with Trilogy AVAP usage. No reported fever or chills. Reason For Visit: ACUTE HYPERCAPNIC RESPIRATORY FAILURE OBESITY Physical Exam Vital Signs: Temp Pulse Resp BP Pulse Ox 97.6 F 94 18 101/64 95 02/04/20 16:49 02/04/20 16:49 02/04/20 16:49 02/04/20 16:49 02/04/20 16:49 Intake & Output 02/03/20 02/04/20 02/05/20 06:59 06:59 06:59 Intake Total 459 320 801 Output Total 1125 1300 490 Balance -666 -980 311 Weight 147.4 kg 146.9 kg General appearance: PRESENT: morbidly obese Head exam: PRESENT: atraumatic, normocephalic Mouth exam: PRESENT: moist, tongue midline Respiratory exam: PRESENT: clear to auscultation milena, decreased breath sounds - at lung bases Cardiovascular exam: PRESENT: RRR, +S1, +S2. ABSENT: diastolic murmur, rubs, systolic murmur Vascular exam: ABSENT: pallor GI/Abdominal exam: PRESENT: normal bowel sounds, soft. ABSENT: distended, guarding, mass, organolmegaly, rebound, tenderness Extremities exam: ABSENT: pedal edema Neurological exam: PRESENT: alert, awake Psychiatric exam: PRESENT: agitated - with pressure speech and flight of ideas, and confabulation anout buying pizza forthe two floors and a kid presenting at a conference that he attended last night, anxious Skin exam: PRESENT: dry, warm Results Laboratory Results: 02/03/20 04:32 02/01/20 07:49 01/31/20 01/31/20 01/31/20 11:49 11:49 11:49 Creatine Kinase 34 L Troponin I < 0.012 NT-Pro-B Natriuret Pep 112 115 01/31/20 02/01/20 02/01/20 11:49 01:33 01:33 Creatine Kinase 47 L Troponin I < 0.012 0.028 NT-Pro-B Natriuret Pep 02/01/20 02/01/20 07:49 07:49 Creatine Kinase 44 L Troponin I < 0.012 NT-Pro-B Natriuret Pep Impressions: Chest X-Ray 01/31/20 11:06 IMPRESSION: Cardiomegaly without a superimposed acute cardiopulmonary process. Assessment & Plan - Diagnosis (1) Dementia with behavioral disturbance Qualifiers: Alzheimer's disease onset: late-onset Is this a current diagnosis for this admission?: Yes Plan: Most likely development of delirium from acute illness. Start on low dose Risperdol therapy. (2) Acute hypercapnic respiratory failure Is this a current diagnosis for this admission?: Yes Plan: Obtain ABG for hypercapnic and hypoxemia evaluation. Continue to encourage use of AVAP Trilogy. (3) CKD (chronic kidney disease) stage 3, GFR 30-59 ml/min Is this a current diagnosis for this admission?: Yes Plan: Continue current medication management. (4) Type 2 diabetes mellitus with morbid obesity Is this a current diagnosis for this admission?: Yes Plan: Continue current medication management. (5) Obesity hypoventilation syndrome Is this a current diagnosis for this admission?: Yes Plan: Continue current medication management. - Time Time Spent with patient: 25-34 minutes Level of Care: IMCU Medications reviewed and adjusted accordingly: Yes Anticipated discharge: Home with Homehealth Within: Other - Inpatient Certification Based on my medical assessment, after consideration of the patient's comorbidities, presenting symptoms, or acuity I expect that the services needed warrant INPATIENT care.: Yes I certify that my determination is in accordance with my understanding of Medicare's requirements for reasonable and necessary INPATIENT services [42 CFR 412.3e].: Yes Medical Necessity: Significant Comorbidiites Make Outpatient Treatment Too Risky, Need Close Monitoring Due to Risk of Patient Decompensation, Need For Continuous Telemetry Monitoring, Risk of Complication if Not Cared For in Hospital, Risk of Diagnosis Which Will Require Inpatient Eval/Care/Monitoring Post Hospital Care: D/C Fig Caprifier Documentation - Plan Summary Plan Summary: See covering attending physician orders. Continue other current medication man agement.
[2020-02-05] MEDS: APIXABAN 2.5 MG TABLET PO SCH (17:28)
--- NOTE | 2020-02-05 17:32 | PDOC PROGRESS REPORT ---
Subjective Progress Note for:: 02/05/20 Subjective:: Patient is a little cooperative with care today. He initially refused ABG completion yesterday. No reported chest pain or difficulty with breathing. No reported fever or chills. No nausea, vomiting, or abdominal pain. Reason For Visit: ACUTE HYPERCAPNIC RESPIRATORY FAILURE OBESITY Physical Exam Vital Signs: Temp Pulse Resp BP Pulse Ox 98.2 F 125 H 18 112/70 93 02/05/20 11:18 02/05/20 14:00 02/05/20 12:49 02/05/20 11:18 02/05/20 15:46 Intake & Output 02/04/20 02/05/20 02/06/20 06:59 06:59 06:59 Intake Total 320 1101 Output Total 1300 1190 Balance -980 -89 Weight 146.9 kg 146.2 kg Physical Exam: General appearance: PRESENT: morbidly obese Head exam: PRESENT: atraumatic, normocephalic Mouth exam: PRESENT: moist, tongue midline Respiratory exam: PRESENT: clear to auscultation milena, decreased breath sounds - at lung bases Cardiovascular exam: PRESENT: RRR, +S1, +S2. ABSENT: diastolic murmur, rubs, systolic murmur GI/Abdominal exam: PRESENT: normal bowel sounds, soft. ABSENT: distended, gua rding, mass, organomegaly, rebound, tenderness Extremities exam: ABSENT: pedal edema Neurological exam: PRESENT: alert, awake Psychiatric exam: PRESENT: less agitated today but still confabulate about issues without relevance. Skin exam: PRESENT: dry, warm Results Laboratory Results: 02/05/20 05:31 02/05/20 05:31 02/05/20 02/05/20 02/05/20 05:31 05:31 12:48 WBC 4.7 RBC 3.65 L Hgb 10.9 L Hct 32.6 L MCV 89 MCH 29.9 MCHC 33.5 RDW 15.4 H Plt Count 146 L Carbonic Acid 1.31 HCO3/H2CO3 Ratio 21:1 ABG pH 7.43 ABG pCO2 43.5 ABG pO2 61.8 L ABG HCO3 28.5 H ABG O2 Saturation 92.3 L ABG Base Excess 3.8 FiO2 4L Sodium 138.1 Potassium 4.0 Chloride 97 L Carbon Dioxide 34 H Anion Gap 7 BUN 29 H Creatinine 2.19 H Est GFR ( Amer) 36 L Glucose 120 H Calcium 9.2 01/31/20 01/31/20 01/31/20 11:49 11:49 11:49 Creatine Kinase 34 L Troponin I < 0.012 NT-Pro-B Natriuret Pep 112 115 01/31/20 02/01/20 02/01/20 11:49 01:33 01:33 Creatine Kinase 47 L Troponin I < 0.012 0.028 NT-Pro-B Natriuret Pep 02/01/20 02/01/20 07:49 07:49 Creatine Kinase 44 L Troponin I < 0.012 NT-Pro-B Natriuret Pep Impressions: Chest X-Ray 01/31/20 11:06 IMPRESSION: Cardiomegaly without a superimposed acute cardiopulmonary process. Assessment & Plan - Diagnosis (1) Dementia with behavioral disturbance Qualifiers: Alzheimer's disease onset: late-onset Is this a current diagnosis for this admission?: Yes (2) Acute hypercapnic respiratory failure Is this a current diagnosis for this admission?: Yes (3) CKD (chronic kidney disease) stage 3, GFR 30-59 ml/min Is this a current diagnosis for this admission?: Yes (4) Type 2 diabetes mellitus with morbid obesity Is this a current diagnosis for this admission?: Yes (5) Obesity hypoventilation syndrome Is this a current diagnosis for this admission?: Yes - Time Time Spent with patient: 25-34 minutes Level of Care: IMCU Medications reviewed and adjusted accordingly: Yes Anticipated discharge: Home with Homehealth Within: Other - Inpatient Certification Medical Necessity: Significant Comorbidiites Make Outpatient Treatment Too Risky, Need Close Monitoring Due to Risk of Patient Decompensation, Need For Continuous Telemetry Monitoring, Risk of Complication if Not Cared For in Hospital, Risk of Diagnosis Which Will Require Inpatient Eval/Care/Monitoring Post Hospital Care: D/C Canvas Baster Jumpbasting Documentation - Plan Summary Plan Summary: Continue current medication management.
[2020-02-05] MEDS ORDERED: ERGOCALCIFEROL (VITAMIN D2) 50000 UNIT (1.25 MG) CAPSULE PO SCH (20:00)
[2020-02-05] MEDS: DONEPEZIL HCL 5 MG TABLET PO SCH (21:02)
[2020-02-05] MEDS: MELATONIN 5 MG TABLET PO SCH (21:02)
[2020-02-05] MEDS: INSULIN GLARGINE,HUM.REC.ANLOG 1,000 UNIT/10 ML VIAL SUBCUT SCH (21:04)
[2020-02-06] MEDS: LEVOTHYROXINE SODIUM 0.075 MG TABLET PO SCH (05:45)
[2020-02-06] MEDS: LEVOTHYROXINE SODIUM 0.1 MG TABLET PO SCH (05:45)
[2020-02-06] MEDS: PANTOPRAZOLE SODIUM 40 MG TABLET.DR PO SCH (05:45)
[2020-02-06] MEDS: INSULIN LISPRO 100 UNIT/ML 3 ML VIAL SUBCUT SCH ×3 (08:22→18:31)
[2020-02-06] MEDS: NYSTATIN CREAM 15 GM TP SCH ×2 (09:28→18:30)
[2020-02-06] MEDS: FLUTICASONE/UMECLIDIN/VILANTER 100-62.5-25 MCG/DOSE IH SCH (09:28)
[2020-02-06] MEDS: PIOGLITAZONE HCL 15 MG TABLET PO SCH (09:29)
[2020-02-06] MEDS: PRAMIPEXOLE DI-HCL 0.5 MG TABLET PO SCH ×2 (09:29→18:30)
[2020-02-06] MEDS: LEVOFLOXACIN 750 MG TABLET PO SCH (09:30)
[2020-02-06] MEDS: HYDROCHLOROTHIAZIDE 25 MG TABLET PO SCH (09:30)
[2020-02-06] MEDS: RISPERIDONE 0.25 MG TABLET PO SCH ×2 (09:31→18:30)
[2020-02-06] MEDS: METFORMIN HCL 500 MG TABLET PO SCH ×2 (09:31→18:29)
[2020-02-06] MEDS: ALLOPURINOL 100 MG TABLET PO SCH ×2 (09:31→18:30)
[2020-02-06] MEDS: BUSPIRONE HCL 10 MG TABLET PO SCH ×2 (09:31→18:29)
[2020-02-06] MEDS: DULOXETINE HCL 30 MG CAPSULE.DR PO SCH (09:31)
[2020-02-06] MEDS: LOSARTAN POTASSIUM 50 MG TABLET PO SCH (09:32)
[2020-02-06] MEDS: DILTIAZEM HCL 180 MG CAPSULE.CR PO SCH (09:32)
[2020-02-06] MEDS ORDERED: LORAZEPAM 0.5 MG TABLET PO SCH (15:30)
[2020-02-06 17:15] VITALS: BP 98/62
[2020-02-06] MEDS: APIXABAN 2.5 MG TABLET PO SCH (18:29)
--- NOTE | 2020-02-06 18:50 | PDOC DISCHARGE SUMMARY ---
Impression - Admit/DC Date/PCP Admission Date/Primary Care Provider: 01/31/20 14:28 SILVANO JORDAN MD Discharge Date: 02/06/20 - Discharge Diagnosis (1) Acute hypercapnic respiratory failure Is this a current diagnosis for this admission?: Yes (2) CKD (chronic kidney disease) stage 3, GFR 30-59 ml/min Is this a current diagnosis for this admission?: Yes (3) Obesity hypoventilation syndrome Is this a current diagnosis for this admission?: Yes (4) Type 2 diabetes mellitus Is this a current diagnosis for this admission?: Yes - Additional Information Resuscitation Status: Do Not Resuscitate Discharge Diet: Cardiac, Diabetic Discharge Activity: Activity As Tolerated, Balance Activity w/Rest, Weigh Daily Referrals: SILVANO JORDAN MD [Primary Care Provider] - 02/15/20 10:15 am Prescriptions: Lorazepam [Ativan 0.5 mg Tablet] 0.5 mg PO Q8 #60 tablet Home Medications: Allopurinol [Zyloprim 100 mg Tablet] 100 mg PO BID 09/15/19 Apixaban [Eliquis 2.5 mg Tablet] 2.5 mg PO QPM 09/15/19 Buspirone HCl 15 mg PO BID 09/15/19 Diltiazem HCl [Diltiazem 24Hr ER] 180 mg PO Q12 09/15/19 Donepezil HCl [Aricept 5 mg Tablet] 5 mg PO QHS 09/15/19 Metformin HCl [Metformin HCl ER] 500 mg PO QAM 09/15/19 Olmesartan/Hydrochlorothiazide [Olmesartan-Hctz 40-25 mg Tab] 1 tab PO QAM 09/15/19 Duloxetine HCl [Cymbalta] 60 mg PO Q12 01/04/20 Melatonin 10 mg PO QHS 01/04/20 Mirabegron [Myrbetriq] 25 mg PO QAM 01/04/20 Pramipexole Di-HCl [Mirapex] 1.5 mg PO BID 01/04/20 Empagliflozin [Jardiance] 25 mg PO DAILY #90 tablet 01/08/20 Levothyroxine Sodium 175 mcg PO DAILY #90 tablet 01/08/20 Semaglutide [Ozempic] 0.5 mg SQ Q7D #4 pen.injctr 01/08/20 Ergocalciferol (Vitamin D2) [Vitamin D2] 50,000 unit PO WALLIS@2000 01/15/20 Pioglitazone HCl [Actos 15 mg Tablet] 15 mg PO DAILY 01/15/20 Rizatriptan Benzoate [Rizatriptan] 10 mg PO DAILYP PRN 01/15/20 Fluticasone/Umeclidin/Vilanter [Trelegy 100-62.5-25 Mcg Ellipta 14 Dose/Dpi] 1 inh IH DAILY #4 inhaler 01/21/20 Insulin Glargine,Hum.rec.anlog [Lantus Insulin 100 Unit/1 ml 10 ml] 60 unit SUBCUT QHS #3 unit 01/21/20 Pantoprazole Sodium [Protonix [address] Tablet] 40 mg PO Q6AM tablet. 01/21/20 Lorazepam [Ativan 0.5 mg Tablet] 0.5 mg PO Q8 #60 tablet 02/06/20 History of Present Illiness History of Present Illness: YA PETTIT is a 74 year old male, He came to the emergency room for evaluation of shortness of breath he stated that he noticed in the last few days increasing shortness of breath, it is worse with movement, there was associated dry cough in the emergency room he was found to have acute hypercapnic respiratory failure, the venous blood gas that was done, PCO2 83.5, pH is 7.25. He has indwelling urinary catheter with colonization with bacteria, he has underlining chronic kidney disease stage III Hospital Course Hospital Course: Patient was admitted for the management of acute hypercapnic respiratory failure he has failed outpatient CPAP machine, he was started on Trilogy on this admission, he was seen in consultation by Dr. Baez, pulmonary. He is very anxious he had episode of visual sensation over the weekend Part of the problem is also lack of physical activity. Physical Exam Vital Signs: Temp Pulse Resp BP Pulse Ox 97.7 F 116 H 18 98/62 L 95 02/06/20 17:07 02/06/20 17:07 02/06/20 17:07 02/06/20 17:07 02/06/20 17:07 Intake & Output 02/05/20 02/06/20 02/07/20 06:59 06:59 06:59 Intake Total 1101 1513 Output Total 1190 1075 Balance -89 438 Weight 146.2 kg 144.9 kg General appearance: PRESENT: no acute distress Eye exam: PRESENT: PERRLA Respiratory exam: PRESENT: clear to auscultation milena Cardiovascular exam: PRESENT: +S1, +S2 GI/Abdominal exam: PRESENT: soft Neurological exam: PRESENT: alert, CN II-XII grossly intact Results Laboratory Results: WBC 4.7 10^3/uL (4.0-10.5) 02/05/20 05:31 RBC 3.65 10^6/uL (4.35-5.55) L 02/05/20 05:31 Hgb 10.9 g/dL (13.5-17.0) L 02/05/20 05:31 Hct 32.6 % (37.9-51.0) L 02/05/20 05:31 MCV 89 fl (80-97) 02/05/20 05:31 MCH 29.9 pg (27.0-33.4) 02/05/20 05:31 MCHC 33.5 g/dL (32.0-36.0) 02/05/20 05:31 RDW 15.4 % (11.5-14.0) H 02/05/20 05:31 Plt Count 146 10^3/uL (150-450) L 02/05/20 05:31 Lymph % (Auto) 24.3 % (13-45) 02/03/20 04:32 [place] % (Auto) 12.2 % (3-13) 02/03/20 04:32 Eos % (Auto) 1.6 % (0-6) 02/03/20 04:32 Baso % (Auto) 0.7 % (0-2) 02/03/20 04:32 Absolute Neuts (auto) 3.1 10^3/uL (1.7-8.2) 02/03/20 04:32 Absolute Lymphs (auto) 1.2 10^3/uL (0.5-4.7) 02/03/20 04:32 Absolute Monos (auto) 0.6 10^3/uL (0.1-1.4) 02/03/20 04:32 Absolute Eos (auto) 0.1 10^3/uL (0.0-0.6) 02/03/20 04:32 Absolute Basos (auto) 0.0 10^3/uL (0.0-0.2) 02/03/20 04:32 Seg Neutrophils % 61.2 % (42-78) 02/03/20 04:32 PT 13.2 SEC (11.4-15.4) 01/31/20 22:08 INR 1.00 01/31/20 22:08 APTT 24.9 SEC (23.5-35.8) 01/31/20 22:08 Carbonic Acid 1.31 mmol/L (1.05-1.35) 02/05/20 12:48 HCO3/H2CO3 Ratio 21:1 02/05/20 12:48 ABG pH 7.43 (7.35-7.45) 02/05/20 12:48 ABG pCO2 43.5 mmHg (35-45) 02/05/20 12:48 ABG pO2 61.8 mmHg (80-100) L 02/05/20 12:48 ABG HCO3 28.5 mmol/L (20-24) H 02/05/20 12:48 ABG Total CO2 29.8 mmol/L (23-27) H 02/05/20 12:48 ABG O2 Saturation 92.3 % (94-98) L 02/05/20 12:48 ABG Base Excess 3.8 mmol/L 02/05/20 12:48 VBG pH 7.25 (7.30-7.42) L 01/31/20 11:49 VBG pCO2 83.5 mmHg (35-63) H* 01/31/20 11:49 VBG HCO3 36.1 mmol/L (20-32) H 01/31/20 11:49 VBG Base Excess 4.2 mmol/L 01/31/20 11:49 FiO2 4L 02/05/20 12:48 Sodium 138.1 mmol/L (137-145) 02/05/20 05:31 Potassium 4.0 mmol/L (3.6-5.0) 02/05/20 05:31 Chloride 97 mmol/L (98-107) L 02/05/20 05:31 Carbon Dioxide 34 mmol/L (22-30) H 02/05/20 05:31 Anion Gap 7 (5-19) 02/05/20 05:31 BUN 29 mg/dL (7-20) H 02/05/20 05:31 Creatinine 2.19 mg/dL (0.52-1.25) H 02/05/20 05:31 Est GFR ( Amer) 36 (>60) L 02/05/20 05:31 Est GFR (MDRD) Non-Af 29 (>60) L 02/05/20 05:31 Glucose 120 mg/dL (75-110) H 02/05/20 05:31 POC Glucose 155 mg/dL (70-110) H 02/06/20 15:42 Hemoglobin A1c % 10.4 % (4.7-6.0) H 02/01/20 07:49 Lactic Acid 1.8 mmol/L (0.7-2.1) 01/31/20 11:49 Calcium 9.2 mg/dL (8.4-10.2) 02/05/20 05:31 Phosphorus 4.5 mg/dL (2.5-4.5) 01/31/20 11:49 Magnesium 1.6 mg/dL (1.6-2.3) 01/31/20 11:49 Total Bilirubin 0.6 mg/dL (0.2-1.3) 02/01/20 07:49 Direct Bilirubin 0.1 mg/dL (0.0-0.4) 02/01/20 07:49 Neonat Total Bilirubin Not Reportable 02/01/20 07:49 Neonat Direct Bilirubin Not Reportable 02/01/20 07:49 Neonat Indirect Bili Not Reportable 02/01/20 07:49 AST 28 U/L (17-59) 02/01/20 07:49 ALT 21 U/L (<50) 02/01/20 07:49 Alkaline Phosphatase 78 U/L (38-126) 02/01/20 07:49 Creatine Kinase 44 U/L (55-170) L 02/01/20 07:49 Troponin I < 0.012 ng/mL 02/01/20 07:49 NT-Pro-B Natriuret Pep 112 pg/mL (<450) 01/31/20 11:49 NT-Pro-B Natriuret Pep 115 pg/mL (<450) 01/31/20 11:49 Total Protein 6.6 g/dL (6.3-8.2) 02/01/20 07:49 Albumin 3.8 g/dL (3.5-5.0) 02/01/20 07:49 Triglycerides 383 mg/dL (<150) H 02/01/20 07:49 Cholesterol 253.03 mg/dL (0-200) H 02/01/20 07:49 LDL Cholesterol Direct 150 mg/dL (<100) H 02/01/20 07:49 VLDL Cholesterol 76.6 mg/dL (10-31) H 02/01/20 07:49 HDL Cholesterol 39 mg/dL (>40) L 02/01/20 07:49 Amylase 60 U/L (30-110) 01/31/20 11:49 Lipase 238.3 U/L (23-300) 01/31/20 11:49 TSH 3.58 uIU/mL (0.47-4.68) 01/31/20 11:49 Free T4 1.26 ng/dL (0.78-2.19) 01/31/20 11:49 Urine Color YELLOW 01/31/20 23:07 Urine Appearance SLIGHTLY-CLOUDY 01/31/20 23:07 Urine pH 6.0 (5.0-9.0) 01/31/20 23:07 Ur Specific [employer] [place] 1.015 01/31/20 23:07 Urine Protein NEGATIVE mg/dL (NEGATIVE) 01/31/20 23:07 Urine Glucose (UA) >=500 mg/dL (NEGATIVE) H 01/31/20 23:07 Urine Ketones NEGATIVE mg/dL (NEGATIVE) 01/31/20 23:07 Urine Blood SMALL (NEGATIVE) H 01/31/20 23:07 Urine Nitrite POSITIVE (NEGATIVE) H 01/31/20 23:07 Urine Bilirubin NEGATIVE (NEGATIVE) 01/31/20 23:07 Urine Urobilinogen NEGATIVE mg/dL (<2.0) 01/31/20 23:07 Ur Leukocyte Esterase SMALL (NEGATIVE) H 01/31/20 23:07 Urine WBC (Auto) 11 /HPF 01/31/20 23:07 Urine RBC (Auto) 34 /HPF 01/31/20 23:07 U Hyaline Cast (Auto) 19 /LPF 01/31/20 12:00 Urine Bacteria (Auto) TRACE /HPF 01/31/20 12:00 Squamous Epi Cells Auto <1 /HPF 01/31/20 23:07 Urine Mucus (Auto) RARE /LPF 01/31/20 23:07 Urine Yeast (Budding) PRESENT /HPF 01/31/20 23:07 Urine Ascorbic Acid NEGATIVE (NEGATIVE) 01/31/20 23:07 01/31/20 01/31/20 01/31/20 11:49 11:49 11:49 Troponin I < 0.012 < 0.012 NT-Pro-B Natriuret Pep 112 115 02/01/20 02/01/20 01:33 07:49 Troponin I 0.028 < 0.012 NT-Pro-B Natriuret Pep Impressions: Chest X-Ray 01/31/20 11:06 IMPRESSION: Cardiomegaly without a superimposed acute cardiopulmonary process. Stroke Is this a Stroke Patient?: No Acute Heart Failure - Is this a Heart Failure Patient?: No
== END 2020-02-06 19:30 | disposition home health service (06) | DRG 189 ==
LOC: ER 11:05 → EH 14:28 → 3W 21:21
PROVIDERS: ADMIT Internal Medicine; ATTEND Internal Medicine
DX: J96.22 Acute and chronic respiratory failure with hypercapnia (principal); E66.2 Morbid (severe) obesity with alveolar hypoventilation; Z68.41 Body mass index [BMI] 40.0-44.9, adult; F02.81 Dementia in other diseases classified elsewhere, unspecified severity, with behavioral disturbance; Z68.42 Body mass index [BMI] 45.0-49.9, adult; N40.0 Benign prostatic hyperplasia without lower urinary tract symptoms; E11.22 Type 2 diabetes mellitus with diabetic chronic kidney disease; N18.3 Chronic kidney disease, stage 3 (moderate); E11.42 Type 2 diabetes mellitus with diabetic polyneuropathy; I25.10 Atherosclerotic heart disease of native coronary artery without angina pectoris; I50.9 Heart failure, unspecified; I11.0 Hypertensive heart disease with heart failure; E78.5 Hyperlipidemia, unspecified; J44.9 Chronic obstructive pulmonary disease, unspecified; E03.9 Hypothyroidism, unspecified; F32.9 Major depressive disorder, single episode, unspecified; K21.9 Gastro-esophageal reflux disease without esophagitis; F50.9 Eating disorder, unspecified; G30.1 Alzheimer's disease with late onset; M19.90 Unspecified osteoarthritis, unspecified site; Z87.891 Personal history of nicotine dependence; Z82.49 Family history of ischemic heart disease and other diseases of the circulatory system; Z83.3 Family history of diabetes mellitus; Z90.49 Acquired absence of other specified parts of digestive tract; Z79.01 Long term (current) use of anticoagulants; Z79.899 Other long term (current) drug therapy; Z79.84 Long term (current) use of oral hypoglycemic drugs; Z22.9 Carrier of infectious disease, unspecified
CPT/HCPCS: 36415; 36600; 71045; 80048; 80053; 80061; 81001; 82150; 82550; 82803; 82962; 83036; 83605; 83690; 83735; 83880; 84100; 84439; 84443; 84484; 85025; 85027; 85610; 85730; 87040; 87077; 87086; 87088; 87150; 87186; 93005; 93010; 96365; 99285; J0696; J1815; J3490; J7030; J7620

== ENCOUNTER 2020-07-11 15:38 | Observation (INO) | payer MEDICARE, OTHER ==
[2020-07-11] MEDS ORDERED: GLUCAGON,HUMAN RECOMB 1 MG INJ IM PRN (16:50)
[2020-07-11] MEDS ORDERED: DEXTROSE 50%-WATER 25 GM/50 ML DISP.SYRIN IV PRN ×2 (16:50)
[2020-07-11] MEDS ORDERED: DEXTROSE 40% GEL 15 GM TUBE PO PRN ×2 (16:50)
--- NOTE | 2020-07-11 18:19 | RADIOLOGY REPORT (SQ) ---
EXAM DESCRIPTION: CHEST SINGLE VIEW IMAGES COMPLETED DATE/TIME: 07/11/2020 5:43 pm REASON FOR STUDY: T2DM COMPARISON: 01/31/2020 EXAM PARAMETERS: NUMBER OF VIEWS: One view. TECHNIQUE: Single frontal radiographic view of the chest acquired. RADIATION DOSE: NA LIMITATIONS: None. FINDINGS: LUNGS AND PLEURA: No opacities, masses or pneumothorax. No pleural effusion. MEDIASTINUM AND HILAR STRUCTURES: No masses. Contour normal. HEART AND VASCULAR STRUCTURES: The heart size is borderline. No pulmonary edema. BONES: No acute findings. HARDWARE: None in the chest. OTHER: No other significant finding. IMPRESSION: Borderline cardiomegaly without pulmonary edema. TECHNICAL DOCUMENTATION: JOB ID: [id number] 2010 [employer]- All Rights Reserved Reading location - IP/workstation name: [email or web address]
[2020-07-11 18:26] LABS: ABSOLUTE LYMPHOCYTES (AUTO) 1.2 10^3/uL (0.5-4.7); ABSOLUTE MONOCYTES (AUTO) 0.9 10^3/uL (0.1-1.4); ABSOLUTE NEUT (AUTO) 6.5 10^3/uL (1.7-8.2); BASOPHILS % (AUTO) 0.3 % (0-2); EOSINOPHILS % (AUTO) 0.3 % (0-6); HEMATOCRIT 36.6 % (37.9-51.0); HEMOGLOBIN 11.7 g/dL (13.5-17.0); LYMPHOCYTES % (AUTO) 13.7 % (13-45); MEAN CORPUSCULAR HEMOGLOBIN 27.9 pg (27.0-33.4); MEAN CORPUSCULAR HGB CONC 32.1 g/dL (32.0-36.0); MEAN CORPUSCULAR VOLUME 87 fl (80-97); MONOCYTES % (AUTO) 10.3 % (3-13); PLATELET COUNT 172 10^3/uL (150-450); RED BLOOD COUNT 4.21 10^6/uL (4.35-5.55); RED CELL DISTRIBUTION WIDTH 15.6 % (11.5-14.0); SEGMENTED NEUTROPHILS % (AUTO) 75.4 % (42-78); TOTAL CELLS COUNTED % (AUTO) 100 %; WHITE BLOOD COUNT 8.7 10^3/uL (4.0-10.5)
[2020-07-11 18:37] LABS: INTERNATIONAL RATION (INR) 0.98; PROTHROMBIN TIME 13.2 SEC (11.4-15.4)
[2020-07-11 18:38] LABS: PARTIAL THROMBOPLASTIN TIME 25.9 SEC (23.5-35.8)
[2020-07-11 18:45] LABS: ALBUMIN 4.2 g/dL (3.5-5.0); ALKALINE PHOSPHATASE 97 U/L (38-126); AMYLASE 62 U/L (30-110); ANION GAP 8 (5-19); ASPARTATE AMINO TRANSFERASE 19 U/L (17-59); BILIRUBIN,DIRECT 0.2 mg/dL (0.0-0.4); BILIRUBIN,TOTAL 0.5 mg/dL (0.2-1.3); BLOOD UREA NITROGEN 34 mg/dL (7-20); CALCIUM 9.4 mg/dL (8.4-10.2); CARBON DIOXIDE 33 mmol/L (22-30); CHLORIDE 94 mmol/L (98-107); GLUCOSE 365 mg/dL (75-110); PHOSPHORUS 3.8 mg/dL (2.5-4.5); POTASSIUM 4.5 mmol/L (3.6-5.0); TOTAL PROTEIN 7.3 g/dL (6.3-8.2)
[2020-07-11 18:46] LABS: ANION GAP 7 (5-19); BLOOD UREA NITROGEN 35 mg/dL (7-20); CALCIUM 9.3 mg/dL (8.4-10.2); CARBON DIOXIDE 33 mmol/L (22-30); CHLORIDE 95 mmol/L (98-107); CREATINE KINASE 39 U/L (55-170); GLUCOSE 366 mg/dL (75-110); POTASSIUM 4.4 mmol/L (3.6-5.0)
[2020-07-11 18:57] LABS: CREATINE KINASE MB 1.05 ng/mL (<4.55)
[2020-07-11 18:59] LABS: TROPONIN I < 0.012 ng/mL
[2020-07-11 19:01] LABS: FREE T4 (FREE THYROXINE) 1.37 ng/dL (0.78-2.19)
[2020-07-11 19:15] LABS: THYROID STIMULATING HORMONE 6.05 uIU/mL (0.47-4.68)
[2020-07-11] MEDS: NORMAL SALINE 100 ML with INSULIN REGULAR, HUMAN 100 UNIT IV PRN ×2 (19:45)
[2020-07-11] MEDS ORDERED: ENOXAPARIN SODIUM INJ 40 MG/0.4 ML DISP.SYRIN SUBCUT SCH (20:00)
[2020-07-11] MEDS: NORMAL SALINE 1000 ML 1,000 ML IV PRN (20:07)
[2020-07-11] MEDS ORDERED: ALBUTEROL SULFATE HFA (90 MCG/PUFF) 8 GM MDI (1 MDI/ER DISP) IH SCH (20:45)
[2020-07-11] MEDS ORDERED: LEVOTHYROXINE SODIUM 175 MCG PO SCH (20:45)
[2020-07-11] MEDS ORDERED: (PENDING PHARMACY ID) (Duloxetine Hcl [Cymbalta] 60 MG Capsule.Dr) PO SCH (20:45)
[2020-07-11] MEDS ORDERED: DILTIAZEM HCL 180 MG PO SCH (20:45)
[2020-07-11] MEDS ORDERED: (PENDING PHARMACY ID) (Mirabegron [Myrbetriq] 50 MG Tab.Er.24h) PO SCH (20:45)
[2020-07-11] MEDS ORDERED: EMPAGLIFLOZIN 25 MG PO SCH (20:45)
[2020-07-11] MEDS ORDERED: (PENDING PHARMACY ID) (Semaglutide [Ozempic] 0.25 MG/0.2 ML Pen.Injctr) SUBCUT SCH (20:45)
[2020-07-11] MEDS ORDERED: PRAMIPEXOLE DI HCL 1.5 MG PO SCH (20:45)
[2020-07-11] MEDS ORDERED: LURASIDONE HCL 80 MG PO SCH (20:45)
[2020-07-11] MEDS ORDERED: OLMESARTAN MEDOXOMIL 40 MG PO SCH (21:00)
[2020-07-11] MEDS ORDERED: RIZATRIPTAN BENZOATE 5 MG PO SCH (21:00)
--- NOTE | 2020-07-11 21:26 | PDOC H&P ---
History of Present Illness Admission Date/PCP: 07/11/20 15:38 SILVANO JORDAN MD History of Present Illness: YA PETTIT is a 74 year old male He has multiple comorbid conditions, in the last few days the blood sugar has been poorly controlled in the 400-600 range, patient not able to control blood sugar, he was admitted directly for hydration and management for poorly controlled diabetes mellitus, hemoglobin A1c 11.9 Reflection of poorly controlled diabetes mellitus, he has underlying CKD stage IV, dementia with behavioral disorder, chronic insomnia, morbid obesity, pulmonary hypertension Past Medical History Cardiac Medical History: Reports: Congestive Heart Failure, Coronary Artery Disease, Hyperlipidema, Hypertension Pulmonary Medical History: Reports: Asthma, Chronic Obstructive Pulmonary Disease (COPD), Respiratory Failure, Sleep Apnea, Other - Pulmonary Hypertension Endocrine Medical History: Reports: Diabetes Mellitus Type 2, Hypothyroidism Renal/ Medical History: Reports: Chronic Kidney Disease, Other - Chronic kidney disease stage IV GI Medical History: Reports: Gastroesophageal Reflux Disease Musculoskeltal Medical History: Reports: Arthritis Psychiatric Medical History: Reports: Depression Past Surgical History Past Surgical History: Reports: Appendectomy, Cardiac Catheterization, Orthopedic Surgery - bilat arm fx, bilat rotator cuff, Tonsillectomy Social History Smoking Status: Former Smoker Electronic Cigarette use?: No Frequency of Alcohol Use: Occasional Hx Recreational Drug Use: No Drugs: None Hx Prescription Drug Abuse: No Family History Family History: CAD, COPD, DM, Hypertension Parental Family History Reviewed: Yes Children Family History Reviewed: Yes Sibling(s) Family History Reviewed.: Yes Medication/Allergy Home Medications: RX: Allopurinol [Zyloprim 100 mg Tablet] 100 mg PO BID 09/15/19 RX: Apixaban [Eliquis 2.5 mg Tablet] 2.5 mg PO BID 09/15/19 RX: Diltiazem HCl [Diltiazem 24Hr ER] 180 mg PO DAILY 09/15/19 RX: Donepezil HCl [Aricept 5 mg Tablet] 5 mg PO QHS 09/15/19 RX: Metformin HCl [Metformin HCl ER] 500 mg PO BID 09/15/19 RX: Duloxetine HCl [Cymbalta] 60 mg PO DAILY 01/04/20 RX: Mirabegron [Myrbetriq] 25 mg PO DAILY 01/04/20 RX: Pramipexole Di-HCl [Mirapex] 1.5 mg PO DAILY 01/04/20 RX: Empagliflozin [Jardiance] 25 mg PO DAILY #90 tablet 01/08/20 RX: Levothyroxine Sodium 175 mcg PO DAILY #90 tablet 01/08/20 RX: Semaglutide [Ozempic] 0.5 mg SQ Q7D #4 pen.injctr 01/08/20 RX: Ergocalciferol (Vitamin D2) [Vitamin D2] 50,000 unit PO WALLIS@2000 01/15/20 RX: Rizatriptan Benzoate [Rizatriptan] 10 mg PO DAILY 01/15/20 RX: Fluticasone/Umeclidin/Vilanter [Trelegy 100-62.5-25 Mcg Ellipta 14 Dose/Dpi] 1 inh IH DAILY #4 inhaler 01/21/20 Albuterol Sulfate [Proair Hfa Inhalation Aerosol 8.5 gm Mdi] 2 puff IH Q6H 07/11/20 Lurasidone HCl [Latuda] 80 mg PO DAILY 07/11/20 Olmesartan Medoxomil [Benicar] 40 mg PO DAILY 07/11/20 Quetiapine Fumarate [Seroquel] 100 mg PO DAILY 07/11/20 RX: Insulin Glargine,Hum.rec.anlog [Lantus Insulin 100 Unit/1 ml 10 ml] 10 unit SUBCUT DAILY 07/11/20 RX: Pantoprazole Sodium [Protonix [address] Tablet] 40 mg PO DAILY 07/11/20 Tramadol HCl [Ultram 50 mg Tablet] 50 mg PO Q8H PRN 07/11/20 Allergies/Adverse Reactions: No Known Allergies Allergy (Verified 09/21/17 09:08) Review of Systems Constitutional: ABSENT: chills, fever(s), headache(s), weight gain, weight loss Eyes: ABSENT: visual disturbances Ears: ABSENT: hearing changes Cardiovascular: ABSENT: chest pain, dyspnea on exertion, edema, orthropnea, palpitations Respiratory: ABSENT: cough, hemoptysis Gastrointestinal: ABSENT: abdominal pain, constipation, diarrhea, hematemesis, hematochezia, nausea, vomiting Genitourinary: ABSENT: dysuria, hematuria Musculoskeletal: ABSENT: joint swelling Integumentary: ABSENT: rash, wounds Neurological: ABSENT: abnormal gait, abnormal speech, confusion, dizziness, focal weakness, syncope Psychiatric: ABSENT: anxiety, depression, homidical ideation, suicidal ideation Endocrine: PRESENT: polydipsia, polyuria Hematologic/Lymphatic: ABSENT: easy bleeding, easy bruising, lymphadenopathy Physical Exam Vital Signs: Temp Pulse Resp BP Pulse Ox 98.4 F 115 H 17 115/68 97 07/11/20 17:47 07/11/20 17:47 07/11/20 17:47 07/11/20 17:47 07/11/20 17:47 Intake & Output 07/10/20 07/11/20 07/12/20 06:59 06:59 06:59 Intake Total 245 Balance 245 Weight 158.757 kg General appearance: PRESENT: morbidly obese Head exam: PRESENT: atraumatic, normocephalic Eye exam: PRESENT: PERRLA Ear exam: PRESENT: normal external ear exam Mouth exam: PRESENT: moist, tongue midline Neck exam: PRESENT: full ROM Respiratory exam: PRESENT: clear to auscultation milena Cardiovascular exam: PRESENT: RRR, +S1, +S2 Pulses: PRESENT: normal dorsalis pedis pul, +2 pedal pulses bilateral Vascular exam: PRESENT: normal capillary refill GI/Abdominal exam: PRESENT: normal bowel sounds, soft Rectal exam: PRESENT: deferred Neurological exam: PRESENT: alert, CN II-XII grossly intact Psychiatric exam: PRESENT: appropriate affect, normal mood Skin exam: PRESENT: dry Results Laboratory Results: 07/11/20 17:25 07/11/20 17:25 07/11/20 07/11/20 07/11/20 17:25 17:25 17:25 WBC 8.7 RBC 4.21 L Hgb 11.7 L Hct 36.6 L MCV 87 MCH 27.9 MCHC 32.1 RDW 15.6 H Plt Count 172 Seg Neutrophils % 75.4 Sodium 135.3 L Potassium 4.5 Chloride 94 L Carbon Dioxide 33 H Anion Gap 8 BUN 34 H Creatinine 2.25 H Est GFR ( Amer) 34 L Glucose 365 H Calcium 9.4 Phosphorus 3.8 Magnesium 2.0 Total Bilirubin 0.5 AST 19 Alkaline Phosphatase 97 Ammonia < 8.7 L Total Protein 7.3 Albumin 4.2 Amylase 62 Lipase 210.0 TSH Free T4 07/11/20 07/11/20 17:25 17:25 WBC RBC Hgb Hct MCV MCH MCHC RDW Plt Count Seg Neutrophils % Sodium 134.5 L Potassium 4.4 Chloride 95 L Carbon Dioxide 33 H Anion Gap 7 BUN 35 H Creatinine 2.21 H Est GFR ( Amer) 35 L Glucose 366 H Calcium 9.3 Phosphorus Magnesium Total Bilirubin AST Alkaline Phosphatase Ammonia Total Protein Albumin Amylase Lipase TSH 6.05 H Free T4 1.37 07/11/20 07/11/20 07/11/20 17:25 17:25 17:25 Creatine Kinase 39 L CK-MB (CK-2) 1.05 Troponin I < 0.012 NT-Pro-B Natriuret Pep 80 Impressions: Chest X-Ray 07/11/20 16:49 IMPRESSION: Borderline cardiomegaly without pulmonary edema. Assessment & Plan - Diagnosis (1) Uncontrolled diabetes mellitus Qualifiers: Diabetes mellitus type: type 2 Glycemic state: with hyperglycemia Qualified Code(s): E11.65 - Type 2 diabetes mellitus with hyperglycemia Is this a current diagnosis for this admission?: Yes Plan: Patient is admitted for the management of uncontrolled diabetes mellitus (2) Chronic kidney disease, stage 4 (severe) Is this a current diagnosis for this admission?: Yes (3) Pulmonary hypertension Is this a current diagnosis for this admission?: Yes - Time Time Spent: Greater than 70 Minutes Critical Time spent with patient: 25-34 minutes Medications reviewed and adjusted accordingly: Yes Anticipated Discharge Disposition: Home, Self Care Anticipated Discharge Timeframe: within 48 hours
[2020-07-11] MEDS: APIXABAN 2.5 MG TABLET PO SCH (21:34)
[2020-07-11] MEDS: LOSARTAN POTASSIUM 50 MG TABLET PO SCH (21:34)
[2020-07-11] MEDS: PANTOPRAZOLE SODIUM 40 MG TABLET.DR PO SCH (21:34)
[2020-07-11] MEDS: DILTIAZEM HCL 180 MG CAPSULE.CR PO SCH (21:35)
[2020-07-11] MEDS: ALLOPURINOL 100 MG TABLET PO SCH (21:35)
[2020-07-11] MEDS: DULOXETINE HCL 30 MG CAPSULE.DR PO SCH (21:35)
[2020-07-11] MEDS: DONEPEZIL HCL 5 MG TABLET PO SCH (21:35)
[2020-07-11] MEDS ORDERED: INSULIN GLARGINE,HUM.REC.ANLOG 1,000 UNIT/10 ML VIAL SUBCUT SCH (22:00)
[2020-07-11] MEDS: PRAMIPEXOLE DI-HCL 0.5 MG TABLET PO SCH (22:07)
[2020-07-11] MEDS: LURASIDONE HCL 40 MG TABLET PO SCH (22:07)
[2020-07-11] MEDS: QUETIAPINE FUMARATE 100 MG TABLET PO SCH (22:08)
[2020-07-11 22:09] LABS: ANION GAP 6 (5-19); BLOOD UREA NITROGEN 39 mg/dL (7-20); CALCIUM 9.5 mg/dL (8.4-10.2); CARBON DIOXIDE 35 mmol/L (22-30); CHLORIDE 94 mmol/L (98-107); GLUCOSE 374 mg/dL (75-110); POTASSIUM 4.8 mmol/L (3.6-5.0)
[2020-07-11] MEDS: FLUTICASONE/UMECLIDIN/VILANTER 100-62.5-25 MCG/DOSE IH SCH (22:09)
[2020-07-11 22:21] LABS: APPEARANCE,URINE SLIGHTLY-CLOUDY; BILIRUBIN,URINE NEGATIVE (NEGATIVE); COLOR,URINE YELLOW; GLUCOSE, URINE >=500 mg/dL (NEGATIVE); KETONES,URINE NEGATIVE (NEGATIVE); LEUKOCYTE ESTERASE,URINE SMALL (NEGATIVE); NITRITE,URINE POSITIVE (NEGATIVE); PROTEIN,URINE NEGATIVE (NEGATIVE); URINE SPECIFIC GRAVITY 1.024; UROBILINOGEN,URINE NEGATIVE mg/dL (<2.0)
[2020-07-11 22:32] LABS: URINE AMPHETAMINES SCREEN NEGATIVE; URINE BARBITURATES SCREEN NEGATIVE; URINE BENZODIAZEPINES SCREEN NEGATIVE; URINE COCAINE SCREEN NEGATIVE; URINE MARIJUANA (THC) SCREEN NEGATIVE; URINE METHADONE SCREEN NEGATIVE; URINE PHENCYCLIDINE SCREEN NEGATIVE
[2020-07-11 23:33] LABS: CREATINE KINASE MB 1.12 ng/mL (<4.55); TROPONIN I < 0.012 ng/mL
[2020-07-12] MEDS: ALBUTEROL SULFATE HFA (90 MCG/PUFF) 8 GM MDI IH SCH ×4 (01:04→17:30)
[2020-07-12 02:37] LABS: ANION GAP 10 (5-19); BLOOD UREA NITROGEN 39 mg/dL (7-20); CALCIUM 9.2 mg/dL (8.4-10.2); CARBON DIOXIDE 29 mmol/L (22-30); CHLORIDE 97 mmol/L (98-107); GLUCOSE 289 mg/dL (75-110); POTASSIUM 4.6 mmol/L (3.6-5.0)
[2020-07-12] MEDS ORDERED: NORMAL SALINE 1000 ML 1,000 ML IV ONE (03:00)
[2020-07-12] MEDS: NORMAL SALINE 1000 ML 1,000 ML IV PRN ×3 (03:41→20:14)
[2020-07-12] MEDS: LEVOTHYROXINE SODIUM 0.1 MG TABLET PO SCH (05:29)
[2020-07-12] MEDS: LEVOTHYROXINE SODIUM 0.075 MG TABLET PO SCH (05:29)
[2020-07-12 05:49] LABS: ABSOLUTE LYMPHOCYTES (AUTO) 1.4 10^3/uL (0.5-4.7); ABSOLUTE MONOCYTES (AUTO) 0.9 10^3/uL (0.1-1.4); ABSOLUTE NEUT (AUTO) 6.6 10^3/uL (1.7-8.2); BASOPHILS % (AUTO) 0.3 % (0-2); EOSINOPHILS % (AUTO) 0.3 % (0-6); HEMATOCRIT 33.9 % (37.9-51.0); MEAN CORPUSCULAR HEMOGLOBIN 28.4 pg (27.0-33.4); MEAN CORPUSCULAR HGB CONC 32.6 g/dL (32.0-36.0); MEAN CORPUSCULAR VOLUME 87 fl (80-97); MONOCYTES % (AUTO) 10.1 % (3-13); PLATELET COUNT 161 10^3/uL (150-450); RED BLOOD COUNT 3.89 10^6/uL (4.35-5.55); RED CELL DISTRIBUTION WIDTH 15.4 % (11.5-14.0); SEGMENTED NEUTROPHILS % (AUTO) 73.3 % (42-78); TOTAL CELLS COUNTED % (AUTO) 100 %
[2020-07-12 06:18] LABS: ALKALINE PHOSPHATASE 73 U/L (38-126); ANION GAP 9 (5-19); ASPARTATE AMINO TRANSFERASE 21 U/L (17-59); BILIRUBIN,DIRECT 0.2 mg/dL (0.0-0.4); BILIRUBIN,TOTAL 0.5 mg/dL (0.2-1.3); BLOOD UREA NITROGEN 41 mg/dL (7-20); CARBON DIOXIDE 32 mmol/L (22-30); CHLORIDE 97 mmol/L (98-107); CREATINE KINASE 49 U/L (55-170); GLUCOSE 112 mg/dL (75-110); POTASSIUM 4.2 mmol/L (3.6-5.0); TOTAL PROTEIN 7.1 g/dL (6.3-8.2)
[2020-07-12 06:22] LABS: CREATINE KINASE MB 1.17 ng/mL (<4.55)
[2020-07-12 06:24] LABS: TRIGLYCERIDES 660 mg/dL (<150); TROPONIN I < 0.012 ng/mL
[2020-07-12 06:28] LABS: DIRECT LDL 114 mg/dL (<100)
[2020-07-12] MEDS: NORMAL SALINE 100 ML with INSULIN REGULAR, HUMAN 100 UNIT IV PRN ×6 (08:08→14:18)
[2020-07-12] MEDS: APIXABAN 2.5 MG TABLET PO SCH ×2 (10:44→22:29)
[2020-07-12] MEDS: PANTOPRAZOLE SODIUM 40 MG TABLET.DR PO SCH (10:44)
[2020-07-12] MEDS: DILTIAZEM HCL 180 MG CAPSULE.CR PO SCH (10:44)
[2020-07-12] MEDS: LOSARTAN POTASSIUM 50 MG TABLET PO SCH (10:44)
[2020-07-12] MEDS: DULOXETINE HCL 30 MG CAPSULE.DR PO SCH (10:44)
[2020-07-12] MEDS: ALLOPURINOL 100 MG TABLET PO SCH ×2 (10:44→22:29)
[2020-07-12] MEDS: PRAMIPEXOLE DI-HCL 0.5 MG TABLET PO SCH (10:45)
[2020-07-12] MEDS: LURASIDONE HCL 40 MG TABLET PO SCH (10:46)
[2020-07-12] MEDS: FLUTICASONE/UMECLIDIN/VILANTER 100-62.5-25 MCG/DOSE IH SCH (10:46)
[2020-07-12 13:19] LABS: ANION GAP 9 (5-19); BLOOD UREA NITROGEN 40 mg/dL (7-20); CALCIUM 8.5 mg/dL (8.4-10.2); CARBON DIOXIDE 28 mmol/L (22-30); CHLORIDE 98 mmol/L (98-107); GLUCOSE 239 mg/dL (75-110); POTASSIUM 4.4 mmol/L (3.6-5.0)
[2020-07-12] MEDS: CEFTRIAXONE 1 GM/D5W RTU 1 GM/50 ML RTUPB IV SCH (17:29)
[2020-07-12] MEDS ORDERED: INSULIN GLARGINE,HUM.REC.ANLOG 1,000 UNIT/10 ML VIAL SUBCUT ONE ×2 (18:15)
[2020-07-12 20:24] LABS: BLOOD UREA NITROGEN 39 mg/dL (7-20); CALCIUM 8.5 mg/dL (8.4-10.2); CARBON DIOXIDE 35 mmol/L (22-30); CHLORIDE 98 mmol/L (98-107); GLUCOSE 135 mg/dL (75-110); POTASSIUM 4.4 mmol/L (3.6-5.0)
[2020-07-12 20:34] LABS: ANION GAP 3 (5-19)
--- NOTE | 2020-07-12 20:47 | PDOC DISCHARGE SUMMARY ---
Impression - Admit/DC Date/PCP Admission Date/Primary Care Provider: 07/11/20 15:38 SILVANO JORDAN MD Discharge Date: 07/13/20 - Discharge Diagnosis (1) Uncontrolled diabetes mellitus Is this a current diagnosis for this admission?: Yes (2) Chronic kidney disease, stage 4 (severe) Is this a current diagnosis for this admission?: Yes (3) Pulmonary hypertension Is this a current diagnosis for this admission?: Yes (4) Urinary tract infection Is this a current diagnosis for this admission?: Yes - Additional Information Resuscitation Status: Do Not Resuscitate Referrals: SILVANO JORDAN MD [Primary Care Provider] - 07/23/20 11:00 am Prescriptions: Ciprofloxacin HCl [Cipro 500 mg Tablet] 500 mg PO BID #20 tablet Semaglutide [Ozempic] 1 mg SQ Q7D #12 pen.injctr Home Medications: Allopurinol [Zyloprim 100 mg Tablet] 100 mg PO BID 09/15/19 Apixaban [Eliquis 2.5 mg Tablet] 2.5 mg PO BID 09/15/19 Diltiazem HCl [Diltiazem 24Hr ER] 180 mg PO DAILY 09/15/19 Donepezil HCl [Aricept 5 mg Tablet] 5 mg PO QHS 09/15/19 Duloxetine HCl [Cymbalta] 60 mg PO DAILY 01/04/20 Mirabegron [Myrbetriq] 25 mg PO DAILY 01/04/20 Pramipexole Di-HCl [Mirapex] 1.5 mg PO DAILY 01/04/20 Empagliflozin [Jardiance] 25 mg PO DAILY #90 tablet 01/08/20 Levothyroxine Sodium 175 mcg PO DAILY #90 tablet 01/08/20 Ergocalciferol (Vitamin D2) [Vitamin D2] 50,000 unit PO WALLIS@199901/15/20 Rizatriptan Benzoate [Rizatriptan] 10 mg PO DAILY 01/15/20 Fluticasone/Umeclidin/Vilanter [Trelegy 100-62.5-25 Mcg Ellipta 14 Dose/Dpi] 1 inh IH DAILY #4 inhaler 01/21/20 Albuterol Sulfate [Proair HFA Inhalation Aerosol 8.5 gm MDI] 2 puff IH Q6H 07/11/20 Lurasidone HCl [Latuda] 80 mg PO DAILY 07/11/20 Olmesartan Medoxomil [Benicar] 40 mg PO DAILY 07/11/20 Pantoprazole Sodium [Protonix [address] Tablet] 40 mg PO DAILY 07/11/20 Quetiapine Fumarate [Seroquel] 100 mg PO DAILY 07/11/20 Tramadol HCl [Ultram 50 mg Tablet] 50 mg PO Q8H PRN 07/11/20 Insulin Glargine,Hum.rec.anlog [Lantus Insulin 100 Unit/1 ml 10 ml] 40 unit SUBCUT DAILY #0 07/12/20 Semaglutide [Ozempic] 0.5 mg SUBCUT .Q7D 07/12/20 Ciprofloxacin HCl [Cipro 500 mg Tablet] 500 mg PO BID #20 tablet 07/13/20 Semaglutide [Ozempic] 1 mg SQ Q7D #12 pen.injctr 07/13/20 History of Present Illiness History of Present Illness: YA PETTIT is a 74 year old male He has multiple comorbid conditions, in the last few days the blood sugar has been poorly controlled in the 400-600 range, patient not able to control blood sugar, he was admitted directly for hydration and management for poorly controlled diabetes mellitus, hemoglobin A1c 11.9 Reflection of poorly controlled diabetes mellitus, he has underlying CKD stage IV, dementia with behavioral disorder, chronic insomnia, morbid obesity, pulmonary hypertension Hospital Course Hospital Course: Patient was admitted for the management of uncontrolled diabetes mellitus type 2, he was treated with normal saline, insulin drip, he was admitted for observation he was found to UTI, urine culture grew Klebsiella sensitive to ceftriaxone, he received IV antibiotic ceftriaxone in the hospital. He was also found to have positive blood culture for staph specie and also gram-positive rods all due to contamination. Physical Exam Vital Signs: Temp Pulse Resp BP Pulse Ox 98.6 F 81 20 104/45 L 100 07/12/20 15:26 07/12/20 15:26 07/12/20 15:26 07/12/20 15:26 07/12/20 15:26 Intake & Output 07/11/20 07/12/20 07/13/20 06:59 06:59 06:59 Intake Total [id number] Output Total 810 Balance [id number] Weight 138 kg General appearance: PRESENT: no acute distress Eye exam: PRESENT: PERRLA Respiratory exam: PRESENT: clear to auscultation milena Cardiovascular exam: PRESENT: +S1, +S2 GI/Abdominal exam: PRESENT: soft Neurological exam: PRESENT: alert, CN II-XII grossly intact Results Laboratory Results: WBC 9.0 10^3/uL (4.0-10.5) 07/12/20 05:07 RBC 3.89 10^6/uL (4.35-5.55) L 07/12/20 05:07 Hgb 11.0 g/dL (13.5-17.0) L 07/12/20 05:07 Hct 33.9 % (37.9-51.0) L 07/12/20 05:07 MCV 87 fl (80-97) 07/12/20 05:07 MCH 28.4 pg (27.0-33.4) 07/12/20 05:07 MCHC 32.6 g/dL (32.0-36.0) 07/12/20 05:07 RDW 15.4 % (11.5-14.0) H 07/12/20 05:07 Plt Count 161 10^3/uL (150-450) 07/12/20 05:07 Lymph % (Auto) 16.0 % (13-45) 07/12/20 05:07 [place] % (Auto) 10.1 % (3-13) 07/12/20 05:07 Eos % (Auto) 0.3 % (0-6) 07/12/20 05:07 Baso % (Auto) 0.3 % (0-2) 07/12/20 05:07 Absolute Neuts (auto) 6.6 10^3/uL (1.7-8.2) 07/12/20 05:07 Absolute Lymphs (auto) 1.4 10^3/uL (0.5-4.7) 07/12/20 05:07 Absolute Monos (auto) 0.9 10^3/uL (0.1-1.4) 07/12/20 05:07 Absolute Eos (auto) 0.0 10^3/uL (0.0-0.6) 07/12/20 05:07 Absolute Basos (auto) 0.0 10^3/uL (0.0-0.2) 07/12/20 05:07 Seg Neutrophils % 73.3 % (42-78) 07/12/20 05:07 PT 13.2 SEC (11.4-15.4) 07/11/20 17:25 INR 0.98 07/11/20 17:25 APTT 25.9 SEC (23.5-35.8) 07/11/20 17:25 Sodium 136.1 mmol/L (137-145) L 07/12/20 19:47 Potassium 4.4 mmol/L (3.6-5.0) 07/12/20 19:47 Chloride 98 mmol/L (98-107) 07/12/20 19:47 Carbon Dioxide 35 mmol/L (22-30) H 07/12/20 19:47 Anion Gap 3 (5-19) L 07/12/20 19:47 BUN 39 mg/dL (7-20) H 07/12/20 19:47 Creatinine 2.78 mg/dL (0.52-1.25) H 07/12/20 19:47 Est GFR ( Amer) 27 (>60) L 07/12/20 19:47 Est GFR (MDRD) Non-Af 22 (>60) L 07/12/20 19:47 Glucose 135 mg/dL (75-110) H 07/12/20 19:47 POC Glucose 142 mg/dL (70-110) H 07/12/20 18:11 Hemoglobin A1c % 11.9 % (4.7-6.0) H 07/12/20 05:07 Calcium 8.5 mg/dL (8.4-10.2) 07/12/20 19:47 Phosphorus 3.8 mg/dL (2.5-4.5) 07/11/20 17:25 Magnesium 2.0 mg/dL (1.6-2.3) 07/11/20 17:25 Total Bilirubin 0.5 mg/dL (0.2-1.3) 07/12/20 05:07 Direct Bilirubin 0.2 mg/dL (0.0-0.4) 07/12/20 05:07 Neonat Total Bilirubin Not Reportable 07/12/20 05:07 Neonat Direct Bilirubin Not Reportable 07/12/20 05:07 Neonat Indirect Bili Not Reportable 07/12/20 05:07 AST 21 U/L (17-59) 07/12/20 05:07 ALT 17 U/L (<50) 07/12/20 05:07 Alkaline Phosphatase 73 U/L (38-126) 07/12/20 05:07 Ammonia < 8.7 umol/L (9-33) L 07/11/20 17:25 Creatine Kinase 49 U/L (55-170) L 07/12/20 05:07 CK-MB (CK-2) 1.17 ng/mL (<4.55) 07/12/20 05:07 Troponin I < 0.012 ng/mL 07/12/20 05:07 NT-Pro-B Natriuret Pep 80 pg/mL (<450) 07/11/20 17:25 Total Protein 7.1 g/dL (6.3-8.2) 07/12/20 05:07 Albumin 4.0 g/dL (3.5-5.0) 07/12/20 05:07 Triglycerides 660 mg/dL (<150) H 07/12/20 05:07 Cholesterol 259.30 mg/dL (0-200) H 07/12/20 05:07 LDL Cholesterol Direct 114 mg/dL (<100) H 07/12/20 05:07 VLDL Cholesterol, Calc UNABLE TO CALCULATE 07/12/20 05:07 HDL Cholesterol 28 mg/dL (>40) L 07/12/20 05:07 Amylase 62 U/L (30-110) 07/11/20 17:25 Lipase 210.0 U/L (23-300) 07/11/20 17:25 TSH 6.05 uIU/mL (0.47-4.68) H 07/11/20 17:25 Free T4 1.37 ng/dL (0.78-2.19) 07/11/20 17:25 Urine Color YELLOW 07/11/20 21:41 Urine Appearance SLIGHTLY-CLOUDY 07/11/20 21:41 Urine pH 5.0 (5.0-9.0) 07/11/20 21:41 Ur Specific [place] 1.024 07/11/20 21:41 Urine Protein NEGATIVE mg/dL (NEGATIVE) 07/11/20 21:41 Urine Glucose (UA) >=500 mg/dL (NEGATIVE) H 07/11/20 21:41 Urine Ketones NEGATIVE mg/dL (NEGATIVE) 07/11/20 21:41 Urine Blood NEGATIVE (NEGATIVE) 07/11/20 21:41 Urine Nitrite POSITIVE (NEGATIVE) H 07/11/20 21:41 Urine Bilirubin NEGATIVE (NEGATIVE) 07/11/20 21:41 Urine Urobilinogen NEGATIVE mg/dL (<2.0) 07/11/20 21:41 Ur Leukocyte Esterase SMALL (NEGATIVE) H 07/11/20 21:41 Urine WBC (Auto) 22 /HPF 07/11/20 21:41 Urine RBC (Auto) 3 /HPF 07/11/20 21:41 Urine Bacteria (Auto) TRACE /HPF 07/11/20 21:41 Urine Mucus (Auto) RARE /LPF 07/11/20 21:41 Urine Ascorbic Acid NEGATIVE (NEGATIVE) 07/11/20 21:41 Urine Opiates Screen NEGATIVE 07/11/20 21:41 Urine Methadone Screen NEGATIVE 07/11/20 21:41 Ur Barbiturates Screen NEGATIVE 07/11/20 21:41 Ur Phencyclidine Scrn NEGATIVE 07/11/20 21:41 Ur Amphetamines Screen NEGATIVE 07/11/20 21:41 U Benzodiazepines Scrn NEGATIVE 07/11/20 21:41 Urine Cocaine Screen NEGATIVE 07/11/20 21:41 U Marijuana (THC) Screen NEGATIVE 07/11/20 21:41 07/11/20 07/11/20 07/11/20 17:25 17:25 22:46 CK-MB (CK-2) 1.05 1.12 Troponin I < 0.012 < 0.012 NT-Pro-B Natriuret Pep 80 07/12/20 05:07 CK-MB (CK-2) 1.17 Troponin I < 0.012 NT-Pro-B Natriuret Pep Impressions: Chest X-Ray 07/11/20 16:49 IMPRESSION: Borderline cardiomegaly without pulmonary edema. Stroke Is this a Stroke Patient?: No Acute Heart Failure Is this a Heart Failure Patient?: No
[2020-07-12] MEDS: DONEPEZIL HCL 5 MG TABLET PO SCH (22:29)
[2020-07-12] MEDS: QUETIAPINE FUMARATE 100 MG TABLET PO SCH (22:29)
[2020-07-12] MEDS ORDERED: INSULIN LISPRO 100 UNIT/ML 3 ML VIAL SUBCUT ONE (22:30)
[2020-07-12] MEDS ORDERED: DEXTROSE 50%-WATER SYRINGE 25 GM/50 ML DOSE IV PRN (22:30)
[2020-07-12] MEDS ORDERED: DEXTROSE 40% GEL 15 GM TUBE PO PRN (22:30)
[2020-07-12] MEDS ORDERED: GLUCAGON,HUMAN RECOMB 1 MG INJ IM PRN (22:30)
[2020-07-12] MEDS ORDERED: DEXTROSE 40% GEL 15 GM TUBE X 2 PO PRN (22:30)
[2020-07-12] MEDS ORDERED: DEXTROSE 50%-WATER SYRINGE 12.5 GM/25 ML DOSE IV PRN (22:30)
[2020-07-13 00:41] LABS: BLOOD UREA NITROGEN 38 mg/dL (7-20); CALCIUM 8.5 mg/dL (8.4-10.2); GLUCOSE 199 mg/dL (75-110); POTASSIUM 4.4 mmol/L (3.6-5.0)
[2020-07-13 00:47] LABS: ANION GAP 6 (5-19); CARBON DIOXIDE 30 mmol/L (22-30); CHLORIDE 99 mmol/L (98-107)
[2020-07-13] MEDS: ALBUTEROL SULFATE HFA (90 MCG/PUFF) 8 GM MDI IH SCH ×2 (01:00→06:15)
[2020-07-13] MEDS: LEVOTHYROXINE SODIUM 0.1 MG TABLET PO SCH (06:14)
[2020-07-13] MEDS: LEVOTHYROXINE SODIUM 0.075 MG TABLET PO SCH (06:14)
[2020-07-13] MEDS: NORMAL SALINE 1000 ML 1,000 ML IV PRN (06:18)
[2020-07-13] MEDS ORDERED: INSULIN LISPRO 100 UNIT/ML 3 ML VIAL SUBCUT SCH (08:00)
[2020-07-13 08:58] VITALS: BP 123/63
[2020-07-13] MEDS: CEFTRIAXONE 1 GM/D5W RTU 1 GM/50 ML RTUPB IV SCH (09:44)
[2020-07-13] MEDS: DULOXETINE HCL 30 MG CAPSULE.DR PO SCH (09:45)
[2020-07-13] MEDS: LURASIDONE HCL 40 MG TABLET PO SCH (09:45)
[2020-07-13] MEDS: APIXABAN 2.5 MG TABLET PO SCH (09:45)
[2020-07-13] MEDS: ALLOPURINOL 100 MG TABLET PO SCH (09:45)
[2020-07-13] MEDS: DILTIAZEM HCL 180 MG CAPSULE.CR PO SCH (09:45)
[2020-07-13] MEDS: PANTOPRAZOLE SODIUM 40 MG TABLET.DR PO SCH (09:45)
[2020-07-13] MEDS: PRAMIPEXOLE DI-HCL 0.5 MG TABLET PO SCH (09:47)
[2020-07-13] MEDS: LOSARTAN POTASSIUM 50 MG TABLET PO SCH (09:47)
[2020-07-13] MEDS: FLUTICASONE/UMECLIDIN/VILANTER 100-62.5-25 MCG/DOSE IH SCH (09:49)
[2020-07-13] MEDS ORDERED: INSULIN GLARGINE,HUM.REC.ANLOG 1,000 UNIT/10 ML VIAL SUBCUT SCH ×2 (22:00)
[2020-07-15] MEDS ORDERED: ERGOCALCIFEROL (VITAMIN D2) 50000 UNIT (1.25 MG) CAPSULE PO SCH (20:00)
== END 2020-07-13 10:46 | disposition home or self-care (01) ==
LOC: 4S 15:38 → INTOOBSV 15:38
PROVIDERS: ADMIT Internal Medicine; ATTEND Internal Medicine
DX: E11.65 Type 2 diabetes mellitus with hyperglycemia (principal); I13.0 Hypertensive heart and chronic kidney disease with heart failure and stage 1 through stage 4 chronic kidney disease, or unspecified chronic kidney disease; E11.22 Type 2 diabetes mellitus with diabetic chronic kidney disease; N18.4 Chronic kidney disease, stage 4 (severe); I27.20 Pulmonary hypertension, unspecified; N39.0 Urinary tract infection, site not specified; I50.9 Heart failure, unspecified; J81.1 Chronic pulmonary edema; I25.10 Atherosclerotic heart disease of native coronary artery without angina pectoris; Z87.891 Personal history of nicotine dependence; J44.9 Chronic obstructive pulmonary disease, unspecified; Z79.899 Other long term (current) drug therapy; Z79.4 Long term (current) use of insulin
CPT/HCPCS: 36415; 87040; 87086; 84439; 82553 ×2; 82962 ×3; 82140; 82150; 82550 ×2; 83690; 83735; 84100; 84443; 85025 ×2; 85610; 85730; 87070; 87077; 87088; 80048; 80053; 81001; 84484 ×2; 87186; 80307; 83036; 80061; 87150 ×26; 83880; 71045; G0378 ×2; G0379; A9270 ×39; J7050 ×2; J7030 ×3; J0696 ×2; J3490; J1815